=== PATIENT | female | born 1935 | race Caucasian/White ===

== ENCOUNTER 2016-09-21 14:35 | Inpatient (IN) ==
[2016-09-21 16:53] LABS: Basophils % 0.1 %; Hematocrit 48.9 % (35.3-44.9); Hemoglobin 15.7 g/dL (11.5-15.4); Immature Granulocytes % 0.4 % (0-4); Lymphocytes % 6.4 %; Mean Corpuscular HGB Conc 32.1 g/dL (31.6-35.5); Mean Corpuscular Hemoglobin 30.1 pg (28.0-33.3); Mean Corpuscular Volume 93.7 fL (83.0-100.0); Mean Platelet Volume 11.6 fL (9.4-12.4); Monocytes # 0.9 K/mcL (0.0-1.3); Monocytes % 5.7 %; Neutrophils # 13.6 K/mcL (1.6-8.9); Platelet Count 300 K/mcL (140-400); Red Blood Count 5.22 M/mcL (3.82-4.97); Red Cell Distribution Width 12.5 % (11.5-14.5); Segmented Neutrophils % 87.4 %
[2016-09-21 17:05] LABS: Alanine Aminotransferase 31 Units/L (0-55); Albumin/Globulin Ratio 0.9 (1.1-2.2); Alkaline Phosphatase 131 Units/L (38-126); Aspartate Amino Transferase 26 Units/L (5-34); BUN/Creatinine Ratio 26 (6-26); Bilirubin,Total 0.5 mg/dL (0.2-1.2); Blood Urea Nitrogen 65 mg/dL (7-20); Calcium 9.6 mg/dL (8.6-10.8); Carbon Dioxide 22 mEq/L (19-29); Chloride 93 mEq/L (98-109); Globulin 4.4 g/dL (2.4-3.5); Osmolality,Calculated 332 (280-300); Potassium 4.6 mEq/L (3.5-4.5); Sodium 135 mEq/L (136-145); Total Protein 8.4 g/dL (6.0-8.3); eGFR For African Americans 22 (> 60); eGFR For Non-African Americans 18 (> 60)
[2016-09-21 17:10] LABS: Glucose 706 mg/dL (70-99)
--- NOTE | 2016-09-21 17:17 | Emergency Department Note ---
Disposition Clinical Impression: Hyperglycemia, Dehydration, Falls frequently, Ketonemia Disposition: Admitted As Inpatient Condition: Fair Referrals: Umm Whitt CNP [Primary Care Provider] - Forms: ED Satisfaction Letter Time of Disposition: 18:54 General Adult HPI - General Chief complaint: ED Recheck/Abnormal Lab/Rx Stated complaint: high BG Time Seen by Provider: 09/21/16 15:05 Source: patient, family Mode of arrival: ambulatory Limitations: no limitations Nursing Notes Reviewed: Yes Vital Signs Reviewed: Yes - History of Present Illness HPI Narrative: 80 -year-old female presents emergency room for elevated blood sugar and confusion. Patient has a history of a stroke which left her with moments of confusion. She was apparently found in her kitchen lying on the floor by her daughter. It was unknown exactly how long she had been there. She is unable to tell me. She denies any head or neck injuries. She denies any focal motor or sensory deficits. She normally uses a walker however her walker was in her bedroom. There was urine on the floor from her. Her blood sugar was checked at home by her daughter and it read high on the glucometer. Patient denies any chest pain or shortness of breath. No other complaints at this time. Patient is a DNR per the daughter. Onset (ago): unknown Pain Scale: 0 Improves with: nothing Worsens with: nothing Associated symptoms: Reports: confusion Treatments Prior to Arrival: none - Related Data Home Medications Medication Instructions Recorded Confirmed Allopurinol [Zyloprim] 100 mg PO DAILY 07/08/15 07/08/15 Amlodipine [Norvasc] 5 mg PO DAILY 07/08/15 07/08/15 Aspirin Enteric Coated [Aspirin EC] 81 mg PO DAILY 07/08/15 07/08/15 Cetirizine HCl [Zyrtec] 5 mg PO DAILY 07/08/15 07/08/15 Diphenoxylate/Atropine [Lomotil] 1 - 2 each PO QID PRN 07/08/15 07/08/15 Escitalopram [Lexapro] 20 mg PO DAILY 07/08/15 07/08/15 Fluticasone Propionate Nasal 50 mcg NS DAILY PRN 07/08/15 07/08/15 [Flonase] Insulin DETEMIR [Levemir] 60 units SQ HS 07/08/15 07/08/15 Insulin Lispro Protamin/Lispro 18 unit SQ TID 07/08/15 07/08/15 [Humalog Mix 75-25 Kwikpen] Levothyroxine [Synthroid] 50 mcg PO DAILY 07/08/15 07/08/15 Lisinopril [Zestril] 10 mg PO DAILY 07/08/15 07/08/15 Lovastatin [Mevacor] 40 mg PO DAILY 07/08/15 07/08/15 Montelukast [Singulair] 10 mg PO DAILY 07/08/15 07/08/15 Omeprazole [PriLOSEC] 40 mg PO DAILY 07/08/15 07/08/15 TraMADol [Ultram] 50 mg PO Q6HR PRN 07/08/15 07/08/15 Previous Rx's Medication Instructions Recorded TraMADol [Ultram] 50 mg PO Q6HR #30 tablet 07/11/15 Allergies Allergy/AdvReac Type Severity Reaction Status Date / Time clarithromycin [From Biaxin] Allergy Rash Verified 09/21/16 14:44 Penicillins Allergy Rash Verified 09/21/16 14:44 All systems ED: reviewed and negative except as stated. Constitutional: Reports: as per HPI Eyes: Reports: as per HPI ENT ED: Reports: as per HPI Cardiovascular: Reports: as per HPI Respiratory: Reports: as per HPI Gastrointestinal: Reports: as per HPI Genitourinary: Reports: as per HPI Musculoskeletal: Reports: as per HPI Integumentary: Reports: as per HPI Neurological: Reports: as per HPI Psychiatric: Reports: as per HPI Endocrine: Reports: as per HPI Hematological/Lymphatic: Reports: as per HPI Allergic/Immunologic: Reports: as per HPI Past Medical History - Past Medical History Medical history: Reports: arthritis, diabetes, hyperlipidemia, hypertension Psychiatric history: Reports: no psych history PHARMACY OPERATIONS COORDINATOR history: Reports: no PHARMACY OPERATIONS COORDINATOR history - Social History Smoking Status: Never smoker Smokeless Tobacco Status: No Alcohol use: Reports: none Drug use: Reports: none Physical Exam - General General appearance: alert, in no apparent distress - Head Head exam: atraumatic, normocephalic - Eye Eye exam: Present: normal appearance, PERRL, EOMI - ENT ENT exam: normal exam - Chest Chest inspection: Present: normal inspection - Respiratory Respiratory exam: Present: normal lung sounds bilaterally. Absent: respiratory distress - Cardiovascular Cardiovascular exam: Present: regular rate, normal rhythm - Abdominal Exam Abdominal exam: Present: soft, Non-Tender, normal bowel sounds - Expanded Lower Extremity Exam Hip/Pelvis exam: Present: normal inspection, full ROM. Absent: tenderness, swelling, abrasion Upper leg exam: Present: normal inspection - Neurological Exam Neurological exam: Present: alert, oriented X3, CN II-XII intact. Absent: motor sensory deficit - Psychiatric Psychiatric exam: Present: normal affect, normal mood - Skin Skin exam: Present: warm, dry, intact Course Vital Signs Temperature 98.0 F 09/21/16 14:45 Pulse Rate 102 09/21/16 14:45 Respiratory Rate 18 09/21/16 14:45 Blood Pressure 110/75 09/21/16 14:45 O2 Sat by Pulse Oximetry 89 L 09/21/16 14:45 Temperature 98.0 F 09/21/16 14:45 Pulse Rate 93 09/21/16 17:49 Respiratory Rate 16 09/21/16 17:49 Blood Pressure 157/62 09/21/16 17:49 O2 Sat by Pulse Oximetry 94 L 09/21/16 17:49 Oxygen Delivery Oxygen Delivery Room Air Medical Decision Making - MDM Narrative Medical decision making narrative: Patient found to be dehydrated with an elevated glucose level. She has some ketones present but her ABG did not reveal any significant abnormalities. CT of the brain and chest x-ray were also negative. EKG was unremarkable. Patient was started on insulin drip. I spoke with the hospitalist. The patient will be placed to a telemetry bed. Again she does not appear to be in any acidotic state based on her ABG findings. She is hemodynamically stable. - Medical Records Medical records reviewed: Yes I reviewed the patient's medical records. - Lab Data Lab results reviewed: Yes I reviewed the patient's lab results. Result diagrams: 09/21/16 16:34 09/21/16 16:34 Lab Results 09/21/16 09/21/16 09/21/16 Range/Units 14:37 16:34 16:34 WBC 15.6 H (4.3-11.1) K/mcL RBC 5.22 H (3.82-4.97) M/mcL Hgb 15.7 H (11.5-15.4) g/dL Hct 48.9 H (35.3-44.9) % MCV 93.7 (83.0-100.0) fL MCH 30.1 (28.0-33.3) pg MCHC 32.1 (31.6-35.5) g/dL RDW 12.5 (11.5-14.5) % Plt Count 300 (140-400) K/mcL MPV 11.6 (9.4-12.4) fL Immature Gran % 0.4 (0-4) % Seg Neutrophils % 87.4 % Lymphocytes % 6.4 % Monocytes % 5.7 % Eosinophils % 0.0 % Basophils % 0.1 % Neutrophils # 13.6 H (1.6-8.9) K/mcL Lymphocytes # 1.0 (0.6-4.6) K/mcL Monocytes # 0.9 (0.0-1.3) K/mcL Eosinophils # 0.0 (0.0-0.6) K/mcL Basophils # 0.0 (0.0-0.2) K/mcL ABG pH (7.32-7.45) pH Units ABG pCO2 (35-45) mmHg ABG pO2 (85-104) mmHg ABG HCO3 (21-27) mEQ/L ABG Total CO2 (20-26) mEq/L ABG O2 Saturation (95-98) % ABG Base Excess (-2.0 to 3.0) mEq/L Blood Gas Modality Inspired O2 % Sodium 135 L (136-145) mEq/L Potassium 4.6 H (3.5-4.5) mEq/L Chloride 93 L (98-109) mEq/L Carbon Dioxide 22 (19-29) mEq/L BUN 65 H (7-20) mg/dL Creatinine 2.53 H (0.57-1.11) mg/dL Est GFR ( Amer) 22 L (> 60) Est GFR (Non-Af Amer) 18 L (> 60) BUN/Creatinine Ratio 26 (6-26) Glucose 706 H* (70-99) mg/dL POC Glucose > 600 H* (58-89) Calculated Osmolality 332 H (280-300) Calcium 9.6 (8.6-10.8) mg/dL Total Bilirubin 0.5 (0.2-1.2) mg/dL AST 26 (5-34) Units/L ALT 31 (0-55) Units/L Alkaline Phosphatase 131 H (38-126) Units/L Serum Total Protein 8.4 H (6.0-8.3) g/dL Albumin 4.0 (3.5-5.0) g/dL Globulin 4.4 H (2.4-3.5) g/dL Albumin/Globulin Ratio 0.9 L (1.1-2.2) Beta-Hydroxybutyric Acd > 2.00 H (0.02-0.27) mmol/L 09/21/16 Range/Units 18:05 WBC (4.3-11.1) K/mcL RBC (3.82-4.97) M/mcL Hgb (11.5-15.4) g/dL Hct (35.3-44.9) % MCV (83.0-100.0) fL MCH (28.0-33.3) pg MCHC (31.6-35.5) g/dL RDW (11.5-14.5) % Plt Count (140-400) K/mcL MPV (9.4-12.4) fL Immature Gran % (0-4) % Seg Neutrophils % % Lymphocytes % % Monocytes % % Eosinophils % % Basophils % % Neutrophils # (1.6-8.9) K/mcL Lymphocytes # (0.6-4.6) K/mcL Monocytes # (0.0-1.3) K/mcL Eosinophils # (0.0-0.6) K/mcL Basophils # (0.0-0.2) K/mcL ABG pH 7.32 (7.32-7.45) pH Units ABG pCO2 47 H (35-45) mmHg ABG pO2 58 L (85-104) mmHg ABG HCO3 24.2 (21-27) mEQ/L ABG Total CO2 25.6 (20-26) mEq/L ABG O2 Saturation 87 L (95-98) % ABG Base Excess -2.3 L (-2.0 to 3.0) mEq/L Blood Gas Modality RA Inspired O2 21 % Sodium (136-145) mEq/L Potassium (3.5-4.5) mEq/L Chloride (98-109) mEq/L Carbon Dioxide (19-29) mEq/L BUN (7-20) mg/dL Creatinine (0.57-1.11) mg/dL Est GFR ( Amer) (> 60) Est GFR (Non-Af Amer) (> 60) BUN/Creatinine Ratio (6-26) Glucose (70-99) mg/dL POC Glucose (58-89) Calculated Osmolality (280-300) Calcium (8.6-10.8) mg/dL Total Bilirubin (0.2-1.2) mg/dL AST (5-34) Units/L ALT (0-55) Units/L Alkaline Phosphatase (38-126) Units/L Serum Total Protein (6.0-8.3) g/dL Albumin (3.5-5.0) g/dL Globulin (2.4-3.5) g/dL Albumin/Globulin Ratio (1.1-2.2) Beta-Hydroxybutyric Acd (0.02-0.27) mmol/L - Radiology Data Radiology results reviewed: Yes I reviewed the patient's radiology results. Critical Care Time Critical Care Time: Yes (Time spent in medical management as well as hyperglycemia control.) Total Critical Care Time: 40 Attestation: Critical care performed: Time is exclusive of separately billable procedures. Time includes: direct patient care, patient reassessment, coordination of patient care, interpretation of data (laboratory data, radiology data, and respiratory data), review of patient's medical records, medical consultation and documentation of patient care. Procedures included in critical care time:0 Procedures excluded from critical care time: 0
[2016-09-21] MEDS ORDERED: Insulin Regular, Human 100 UNIT/ML IV ONE (17:21)
[2016-09-21] MEDS ORDERED: 0.9 % Sodium Chloride 1,000 ML IVC ONE (17:23)
[2016-09-21] MEDS ORDERED: *HR* Dextrose 50 % in Water (Syg) 50 ML SYRINGE IVP PRN ×2 (17:23→20:47)
[2016-09-21] MEDS ORDERED: Insulin Human Regular 100 UNIT in 0.9 % Sodium Chloride 100 ML IVC SCH (17:30)
[2016-09-21 17:53] LABS: Beta-Hydroxybutyric Acid > 2.00 mmol/L (0.02-0.27)
[2016-09-21 18:15] LABS: ABG Base Excess -2.3 mEq/L (-2.0 to 3.0); ABG HCO3 24.2 mEQ/L (21-27); ABG Oxygen Saturation 87 % (95-98); ABG PCO2 47 mmHg (35-45); ABG PH 7.32 pH Units (7.32-7.45); ABG PO2 58 mmHg (85-104); ABG TCO2 25.6 mEq/L (20-26)
[2016-09-21 18:16] LABS: Blood Gas FiO2 21 %
--- NOTE | 2016-09-21 20:31 | Internal Med History&Physical ---
Date of Encounter: 09/21/16 Time of Encounter: 20:00 Assessment and Plan (1) Toxic metabolic encephalopathy Status: Acute . (2) Delirium due to conditions classified elsewhere Status: Acute . (3) Hyperosmolar non-ketotic state in patient with type 2 diabetes mellitus Status: Acute . (4) SIRS (systemic inflammatory response syndrome) Status: Acute . (5) Acute kidney injury superimposed on CKD Status: Acute . (6) Stage 4 chronic renal impairment associated with type 2 diabetes mellitus Status: Acute . (7) Acute on chronic respiratory failure with hypoxia and hypercapnia Status: Acute . (8) Dehydration Status: Acute . (9) Falls frequently Status: Chronic . (10) Altered mental state Status: Acute . Qualifiers: Altered mental status type: coma Coma depth: Walker coma 13-15 Coma timing: at arrival to emergency department Qualified Code(s): R40.2412 - Zulema coma scale score 13-15, at arrival to emergency department (11) HTN (hypertension) Status: Chronic . Qualifiers: Hypertension type: essential hypertension Qualified Code(s): I10 - Essential (primary) hypertension (12) Uncontrolled diabetes mellitus Status: Acute . Qualifiers: Diabetes mellitus type: type 2 Diabetes mellitus complication status: with unspecified complications Diabetes mellitus terminal press operator insulin use: unspecified prison insulin use status Qualified Code(s): E11.8 - Type 2 diabetes mellitus with unspecified complications; E11.65 - Type 2 diabetes mellitus with hyperglycemia (13) Syncope and collapse Status: Acute . (14) Dementia arising in the senium and presenium Status: Chronic . (15) CVA, old, cognitive deficits Status: Chronic . (16) Dyslipidemia Status: Chronic . (17) Hypothyroidism Status: Chronic . Qualifiers: Hypothyroidism type: acquired Qualified Code(s): E03.9 - Hypothyroidism, unspecified (18) Frailty Status: Chronic . Internal Medicine - H&P: HPI Chief complaint: High blood sugar. Confusion. Admitted From: Emergency Dept Plans for Post Hospital Care: Home History of present illness: Ms. Gregory is a 80 year old female history significant for type III DM, tension, dyslipidemia, osteoarthritis, osteoporosis, CKD III, hyperuricemia/gout, diabetic peripheral neuropathy, h/o old CVA/cognitive impairment, frequent falls , hypothyroidism, glaucoma, GERD, RAD/asthma, allergic rhinitis, depression and anxiety, obesity, nonsmoker. The patient was visited and interviewed and examined. Patient presents with acute illness in the company of family with reports of elevated blood sugar and confusion. Patient was found down by family members in the home setting cannot be quantified due to patient's confusion. Initial clinical findings demonstrate hypoxic hypercapnic respiratory failure, acute kidney injury superimposed on known chronic kidney disease stage 3-4, hyperglycemic hyperosmolar state gout presenting coma. Systemic inflammatory response syndrome criteria are met at the time of admission. This criteria also met at the time of admission but without defined source of infection. Workup and treatments will proceed comprehensively. Cumulative laboratory and radiographic data base will be considered and discussed. Pertinent ancillary medical records including ECW and PCI documentation when available was reviewed and considered. Given the patient's presenting concerns, past medical history, clinical findings and symptoms, she is admitted at this will undergo further evaluation and disposition. Orders were written as per Computerized physician borderer system.......................................................................... .................... Consultative opinion and will be sought as clinical circumstances justify. Pain management needs will be addressed. Laboratory /radiographic data base will be updated as appropriate. Studies include: Cultures of blood and urine and sputum, coags, prolactin, ammonia, UA, cardiac injury panel, BNP, CPK, metabolic and hematologic panel, magnesium, phosphorus, ionized calcium, thyroid panel, lipid profile, A1c, C-peptide, CRP, sedimentation rate, respiratory infection profile, respiratory virus panel, blood gas, lactic acid, serologies, etc. Precautions: Aspiration, fall, delirium protocol/surveillance initiated. Telemetry with continuous hemodynamic monitoring and pulse oximetry initiated. Empiric antibody coverage: Intravenous Rocephin and azithromycin pending culture data. Special studies: CT head, CT chest, chest x-ray, telemetry, EKG, US retroperitoneum. Pulmonary toilet: Incentive spirometry, aerosol bronchodilator, mucolytic, antitussive, supplemental oxygen. Corticosteroid therapy. CPAP/BiPAP supplemental oxygen delivery. Aerosol Mucomyst therapy. Fluid and electrolyte repletion efforts will proceed. Careful attention to fluid balance and renal recovery will be emphasized. Avoidance of nephrotoxic exposure and adverse drug drug interaction in the setting of impaired renal function will be monitored closely. Acute coronary syndrome protocol/surveillance initiated. DVT and PUD prophylaxis initiated: PPI therapy, intermittent pneumatic cuffs. Subcutaneous heparin. Early ambulation will be encouraged. Immunization updates recommended. Influenza and pneumococcal vaccinations as part of ongoing preventative healthcare recommendations strongly recommended. Smoke cessation counseling briefly addressed. Patient is a nonsmoker. Advanced care directive discussion briefly addressed. Patient does declare healthcare restrictions at this time as per POA/daughter. Cardiovascular risk appraisal and cardiovascular risk reduction efforts will be emphasized. Physical /occupational therapy may be counseled to evaluate patient's function capacity and progressive mobility of her circumstances justify. HHS/DKA protocol/surveillance initiated. Insulin drip protocol initiated. Fluid and electrolyte replacement guidelines as per HHS/DKA plan of care initiated. Pending fulfillment of HHS/DKA guidelines: sliding scale/basal/nutritional insulin coverage, ADA dietary restraint and schedule an as-needed basis fingerstick glucose assessments were initiated. Nutrition/diabetes education counseling may be considered as circumstances justify. Outpatient medication schedules will be reviewed confirmed and facilitated as appropriate. Reconciliation of home treatments including adjustment substitutions and reintroduction into the treatment regimen as necessary maintenance therapies for chronic pre-existing medical conditions. Plan of care has been reviewed and discussed in detail with the patient and POA. Questions addressed. Hospital course dictated by clinical findings, treatment response and potential consultative interventions. Patient is a risk for further acute clinical decline due to her age, chief complaints and comorbid conditions. Condition is serious. Prognosis is guarded. CODE STATUS is DNR comfort care arrest. Past Med Surg Social Fam HX - Past Medical History Source: old records reviewed Medical history: arthritis, asthma, CVA, dementia, diabetes, GERD, glaucoma, hyperlipidemia, hypertension, osteoporosis, renal disease, thyroid disease, other (DM peripheral neuropathy. Frequent mechanical falls. Allergic rhinitis. HyperUricemia/gout.) Psychiatric history: anxiety, depression, other - Past Surgical History Surgical History: cholecystectomy, knee replacement, orthopedic, other (ORIF right humerus fracture. Cuff surgery. Carpal tunnel release.), other ( Hemorrhoidectomy.) - Social History Smoking Status: Never smoker Smokeless Tobacco Status: No Alcohol use: none Drug use: none Occupational status: retired Current living situation: With Family Activity Level: Independent ambulation, Uses cane/walker, Mostly sedentary Recent Out of Country Travel Within the Last 8 Weeks: No Exposure or Possible Exposure to Illness During Travel: No Internal Medicine - H&P: Meds Allopurinol [Zyloprim] 100 mg PO DAILY 07/08/15 [History] Aspirin Enteric Coated [Aspirin EC] 81 mg PO DAILY 07/08/15 [History] Cetirizine HCl [Zyrtec] 5 mg PO DAILY 07/08/15 [History] Escitalopram [Lexapro] 20 mg PO DAILY 07/08/15 [History] Fluticasone Propionate Nasal [Flonase] 50 mcg NS DAILY PRN 07/08/15 [History] Insulin DETEMIR [Levemir] 25 units SQ HS 07/08/15 [History] Levothyroxine [Synthroid] 50 mcg PO QAM 07/08/15 [History] Montelukast [Singulair] 10 mg PO DAILY 07/08/15 [History] Omeprazole [PriLOSEC] 40 mg PO DAILY 07/08/15 [History] TraMADol [Ultram] 50 mg PO Q6HR PRN 07/08/15 [History] Amlodipine Besylate 10 mg PO DAILY 09/21/16 [History] Atorvastatin [Lipitor] 40 mg PO HS 09/21/16 [History] Brimonidine Tartrate/Timolol [Combigan 0.2%-0.5% Eye Drops] 1 drop BOTH EYES BID 09/21/16 [History] Insulin LISPRO [Humalog Kwikpen U-100] 18 unit SQ TIDWM 09/21/16 [History] Lisinopril 2.5 mg PO DAILY 09/21/16 [History] Allergies clarithromycin [From Biaxin] Allergy (Verified 09/21/16 14:44) Rash Penicillins Allergy (Verified 09/21/16 14:44) Rash ROS unobtainable: due to mental status All Systems PM: A 10-system review of systems was performed and is negative for pertinent findings except as documented above in the HPI. - Constitutional Constitutional: as per HPI - EENT Eyes: as per HPI Ears: as per HPI Nose, mouth and throat: as per HPI - Cardiovascular Cardiovascular ROS IM: as per HPI - Respiratory Respiratory: as per HPI - Gastrointestinal Gastrointestinal: as per HPI - Genitourinary Genitourinary: as per HPI - Musculoskeletal Musculoskeletal ROS IM: as per HPI - Integumentary Integumentary IM: as per HPI - Neurological Neurological ROS: as per HPI - Psychiatric Psychiatric: as per HPI - Endocrine Endocrine IM: as per HPI - Hematologic/Lymphatic Hematologic/Lymphatic: as per HPI - Allergic/Immunologic Allergic/Immunologic: as per HPI - Constitutional Vitals: Temp Pulse Resp BP Pulse Ox 98.0 F 87 16 138/70 95 09/21/16 14:45 09/21/16 19:31 09/21/16 19:54 09/21/16 19:54 09/21/16 19:31 General appearance: Present: A&O X 2, mild distress, obese. Absent: cooperative , answers questions appropriately - Head Head exam: Present: atraumatic, normocephalic - Eye Eye exam: Present: EOMI, PERRL, conjuntiva pink, sclera anicteric Pupils: Present: normal accommodation, PERRL - ENT ENT exam: Present: mucous membranes moist, normal oropharynx - Neck Neck exam general surgery: Present: supple, trachea midline. Absent: lymphadenopathy - Respiratory Respiratory exam: Present: decreased breath sounds, CTAB. Absent: accessory muscle use, rales, rhonchi, wheezes - Cardiovascular Cardiovascular exam: Present: distant heart sounds, RRR, +S1, +S2. Absent: diastolic murmur, gallop, rubs, systolic murmur - GI/Abdominal GI/Abdominal exam: Present: normal bowel sounds, soft, no peritoneal signs. Absent: distended, tenderness - Extremities Exam Extremities exam: Present: warm, radial pulses palpable and symetrical. Absent : calf tenderness, cyanotic, pedal edema - Neurological Exam Neurological exam: Present: alert, altered, CN II-XII intact, oriented X3, no focal deficits. Absent: pronater drift, facial droop, speech deficit - Expanded Neurological Exam Neurological exam expanded: Present: inattentive, protecting the airway. Absent : expressive aphasia, receptive aphasia Patient oriented to: Present: person, place. Absent: time Speech: Present: garbled Coma Scale Eye Opening: To Voice Coma Scale Motor Response: Obeys Commands Coma Scale Verbal Response: Confused Coma Scale Total: 13 - Psychiatric Psychiatric exam: Present: flat affect - Skin Skin exam: Present: dry, intact Internal Med - H&P Results - Labs CBC & Chem 7: 03/09/17 05:17 09/24/16 05:17 - Impressions Vital Signs Temp Pulse Resp BP Pulse Ox 09/21/16 20:46 98.8 F 91 16 120/73 92 L 09/21/16 19:54 16 138/70 09/21/16 19:31 87 16 124/87 95 09/21/16 17:49 93 16 157/62 94 L 09/21/16 14:45 98.0 F 102 18 110/75 89 L Intake and Output 09/21/16 09/21/16 09/21/16 07:59 15:59 23:59 Intake Total 1012 / 1012 Balance 1012 / 1012 Intake: IV Fluids 1012 / 1012 0.9 % Sodium Chloride 1, 1000 / 1000 000 ML @ 3750 mls/hr IVC .Q16M ONE Rx#:[id number] HumuLIN R 100 UNIT In 0. 12 / 12 9 % Sodium Chloride 100 ML @ 6 UNIT/HR 6.06 mls/ hr IVC CONT [facility] Rx#: [id number] Other: Weight 68.039 kg 83.5 kg Blood Glucose* 319 Patient Weight 09/21/16 23:59 Weight 83.5 kg Short CBC 09/21/16 Range/Units 16:34 WBC 15.6 H (4.3-11.1) K/mcL Hgb 15.7 H (11.5-15.4) g/dL Hct 48.9 H (35.3-44.9) % Plt Count 300 (140-400) K/mcL Neutrophils # 13.6 H (1.6-8.9) K/mcL BMP 09/21/16 Range/Units 16:34 Sodium 135 L (136-145) mEq/L Potassium 4.6 H (3.5-4.5) mEq/L Chloride 93 L (98-109) mEq/L Carbon Dioxide 22 (19-29) mEq/L BUN 65 H (7-20) mg/dL Creatinine 2.53 H (0.57-1.11) mg/dL Glucose 706 H* (70-99) mg/dL Calcium 9.6 (8.6-10.8) mg/dL Liver Function 09/21/16 Range/Units 16:34 Total Bilirubin 0.5 (0.2-1.2) mg/dL AST 26 (5-34) Units/L ALT 31 (0-55) Units/L Alkaline Phosphatase 131 H (38-126) Units/L Albumin 4.0 (3.5-5.0) g/dL 09/21/16 18:05 ABG pH 7.32 ABG pCO2 47 H ABG pO2 58 L ABG HCO3 24.2 ABG Total CO2 25.6 ABG O2 Saturation 87 L ABG Base Excess -2.3 L Abnormal lab results WBC 15.6 K/mcL (4.3-11.1) H 09/21/16 16:34 RBC 5.22 M/mcL (3.82-4.97) H 09/21/16 16:34 Hgb 15.7 g/dL (11.5-15.4) H 09/21/16 16:34 Hct 48.9 % (35.3-44.9) H 09/21/16 16:34 Neutrophils # 13.6 K/mcL (1.6-8.9) H 09/21/16 16:34 ABG pCO2 47 mmHg (35-45) H 09/21/16 18:05 ABG pO2 58 mmHg (85-104) L 09/21/16 18:05 ABG O2 Saturation 87 % (95-98) L 09/21/16 18:05 ABG Base Excess -2.3 mEq/L (-2.0 to 3.0) L 09/21/16 18:05 Sodium 135 mEq/L (136-145) L 09/21/16 16:34 Potassium 4.6 mEq/L (3.5-4.5) H 09/21/16 16:34 Chloride 93 mEq/L (98-109) L 09/21/16 16:34 BUN 65 mg/dL (7-20) H 09/21/16 16:34 Creatinine 2.53 mg/dL (0.57-1.11) H 09/21/16 16:34 Est GFR ( Amer) 22 (> 60) L 09/21/16 16:34 Est GFR (Non-Af Amer) 18 (> 60) L 09/21/16 16:34 Glucose 706 mg/dL (70-99) H* 09/21/16 16:34 POC Glucose 319 (58-89) H 09/21/16 20:28 Calculated Osmolality 332 (280-300) H 09/21/16 16:34 Alkaline Phosphatase 131 Units/L (38-126) H 09/21/16 16:34 Serum Total Protein 8.4 g/dL (6.0-8.3) H 09/21/16 16:34 Globulin 4.4 g/dL (2.4-3.5) H 09/21/16 16:34 Albumin/Globulin Ratio 0.9 (1.1-2.2) L 09/21/16 16:34 Beta-Hydroxybutyric Acd > 2.00 mmol/L (0.02-0.27) H 09/21/16 16:34 Allergies Allergy/AdvReac Type Severity Reaction Status Date / Time clarithromycin [From Biaxin] Allergy Rash Verified 09/21/16 14:44 Penicillins Allergy Rash Verified 09/21/16 14:44 Laboratory Results WBC 15.6 K/mcL (4.3-11.1) H 09/21/16 16:34 RBC 5.22 M/mcL (3.82-4.97) H 09/21/16 16:34 Hgb 15.7 g/dL (11.5-15.4) H 09/21/16 16:34 Hct 48.9 % (35.3-44.9) H 09/21/16 16:34 MCV 93.7 fL (83.0-100.0) 09/21/16 16:34 MCH 30.1 pg (28.0-33.3) 09/21/16 16:34 MCHC 32.1 g/dL (31.6-35.5) 09/21/16 16:34 RDW 12.5 % (11.5-14.5) 09/21/16 16:34 Plt Count 300 K/mcL (140-400) 09/21/16 16:34 MPV 11.6 fL (9.4-12.4) 09/21/16 16:34 Immature Gran % 0.4 % (0-4) 09/21/16 16:34 Seg Neutrophils % 87.4 % 09/21/16 16:34 Lymphocytes % 6.4 % 09/21/16 16:34 Monocytes % 5.7 % 09/21/16 16:34 Eosinophils % 0.0 % 09/21/16 16:34 Basophils % 0.1 % 09/21/16 16:34 Neutrophils # 13.6 K/mcL (1.6-8.9) H 09/21/16 16:34 Lymphocytes # 1.0 K/mcL (0.6-4.6) 09/21/16 16:34 Monocytes # 0.9 K/mcL (0.0-1.3) 09/21/16 16:34 Eosinophils # 0.0 K/mcL (0.0-0.6) 09/21/16 16:34 Basophils # 0.0 K/mcL (0.0-0.2) 09/21/16 16:34 ABG pH 7.32 pH Units (7.32-7.45) 09/21/16 18:05 ABG pCO2 47 mmHg (35-45) H 09/21/16 18:05 ABG pO2 58 mmHg (85-104) L 09/21/16 18:05 ABG HCO3 24.2 mEQ/L (21-27) 09/21/16 18:05 ABG Total CO2 25.6 mEq/L (20-26) 09/21/16 18:05 ABG O2 Saturation 87 % (95-98) L 09/21/16 18:05 ABG Base Excess -2.3 mEq/L (-2.0 to 3.0) L 09/21/16 18:05 Blood Gas Modality RA 09/21/16 18:05 Inspired O2 21 % 09/21/16 18:05 Sodium 135 mEq/L (136-145) L 09/21/16 16:34 Potassium 4.6 mEq/L (3.5-4.5) H 09/21/16 16:34 Chloride 93 mEq/L (98-109) L 09/21/16 16:34 Carbon Dioxide 22 mEq/L (19-29) 09/21/16 16:34 BUN 65 mg/dL (7-20) H 09/21/16 16:34 Creatinine 2.53 mg/dL (0.57-1.11) H 09/21/16 16:34 Est GFR ( Amer) 22 (> 60) L 09/21/16 16:34 Est GFR (Non-Af Amer) 18 (> 60) L 09/21/16 16:34 BUN/Creatinine Ratio 26 (6-26) 09/21/16 16:34 Glucose 706 mg/dL (70-99) H* 09/21/16 16:34 POC Glucose 319 (58-89) H 09/21/16 20:28 Calculated Osmolality 332 (280-300) H 09/21/16 16:34 Calcium 9.6 mg/dL (8.6-10.8) 09/21/16 16:34 Total Bilirubin 0.5 mg/dL (0.2-1.2) 09/21/16 16:34 AST 26 Units/L (5-34) 09/21/16 16:34 ALT 31 Units/L (0-55) 09/21/16 16:34 Alkaline Phosphatase 131 Units/L (38-126) H 09/21/16 16:34 Serum Total Protein 8.4 g/dL (6.0-8.3) H 09/21/16 16:34 Albumin 4.0 g/dL (3.5-5.0) 09/21/16 16:34 Globulin 4.4 g/dL (2.4-3.5) H 09/21/16 16:34 Albumin/Globulin Ratio 0.9 (1.1-2.2) L 09/21/16 16:34 Beta-Hydroxybutyric Acd > 2.00 mmol/L (0.02-0.27) H 09/21/16 16:34 Impressions Chest X-Ray 09/21/16 16:44 IMPRESSION: 1. No acute radiographic finding in the chest. D/ / Praveen Cuevas MD / Praveen Cuevas MD Interpreting Provider: Praveen Cuevas MD Head CT 09/21/16 16:44 IMPRESSION: No acute intracranial abnormality. D/ / Mor Thacker MD / Mor Thacker MD Interpreting Provider: Mor Thacker MD - Attending Attestation Allergies clarithromycin [From Biaxin] Allergy (Verified 09/21/16 14:44) Rash Penicillins Allergy (Verified 09/21/16 14:44) Rash Home Medications Medication Instructions Recorded Confirmed Type Allopurinol [Zyloprim] 100 mg PO DAILY 07/08/15 09/21/16 History Aspirin Enteric Coated [Aspirin EC] 81 mg PO DAILY 07/08/15 09/21/16 History Cetirizine HCl [Zyrtec] 5 mg PO DAILY 07/08/15 09/21/16 History Escitalopram [Lexapro] 20 mg PO DAILY 07/08/15 09/21/16 History Fluticasone Propionate Nasal 50 mcg NS DAILY PRN 07/08/15 09/21/16 History [Flonase] Insulin DETEMIR [Levemir] 25 units SQ HS 07/08/15 09/21/16 History Levothyroxine [Synthroid] 50 mcg PO QAM 07/08/15 09/21/16 History Montelukast [Singulair] 10 mg PO DAILY 07/08/15 09/21/16 History Omeprazole [PriLOSEC] 40 mg PO DAILY 07/08/15 09/21/16 History TraMADol [Ultram] 50 mg PO Q6HR PRN 07/08/15 09/21/16 History Amlodipine Besylate 10 mg PO DAILY 09/21/16 09/21/16 History Atorvastatin [Lipitor] 40 mg PO HS 09/21/16 09/21/16 History Brimonidine Tartrate/Timolol 1 drop BOTH EYES BID 09/21/16 09/21/16 History [Combigan 0.2%-0.5% Eye Drops] Insulin LISPRO [Humalog Kwikpen 18 unit SQ TIDWM 09/21/16 09/21/16 History U-100] Lisinopril 2.5 mg PO DAILY 09/21/16 09/21/16 History Medications Discontinued Medications Acetaminophen (Tylenol) 650 mg PO Q6HR PRN PRN Reason: Mild Pain (1-3) Stop: 03/23/17 20:48 Allopurinol (Zyloprim) 100 mg PO DAILY [facility] Stop: 03/24/17 09:01 Last Admin: 09/24/16 08:16 Dose: 100 mg Amlodipine Besylate (Norvasc) 10 mg PO DAILY [facility] Stop: 03/24/17 09:01 Last Admin: 09/24/16 08:16 Dose: 10 mg Aspirin (Aspirin Ec) 81 mg PO DAILY [facility] Stop: 03/24/17 09:01 Last Admin: 09/24/16 08:16 Dose: 81 mg Atorvastatin Calcium (Lipitor) 40 mg PO HS [facility] Stop: 03/24/17 21:01 Last Admin: 09/23/16 20:34 Dose: 40 mg Dextrose/Water (Dextrose 50% (Syg)) 25 ml IVP ONCE PRN PRN Reason: Hypoglycemia Stop: 09/22/16 17:24 Dextrose/Water (Dextrose 50% (Syg)) 25 ml IVP Q15MIN PRN PRN Reason: Hypoglycemia Stop: 03/23/17 20:48 Last Admin: 09/23/16 16:36 Dose: 25 ml Dextrose/Water (Dextrose 50% (Syg)) 25 ml IVP AD PRN PRN Reason: Hypoglycemia Stop: 03/24/17 08:47 Docusate Sodium (Colace) 100 mg PO BID PRN PRN Reason: Constipation Stop: 03/23/17 20:48 Escitalopram Oxalate (Lexapro) 20 mg PO DAILY [facility] Stop: 03/24/17 09:01 Last Admin: 09/24/16 08:16 Dose: 20 mg Fluconazole (Diflucan) 150 mg PO ONCE ONE Stop: 09/22/16 12:44 Last Admin: 09/22/16 14:10 Dose: 150 mg Fluticasone Propionate (Flonase) 50 mcg NS DAILY PRN; Protocol PRN Reason: Allergy Symptoms Stop: 03/24/17 08:46 Glucagon (Glucagen) 1 mg IM ONCE PRN PRN Reason: Hypoglycemia Stop: 03/24/17 08:47 Glucose (Gluctose) 15 gm PO ONCE PRN PRN Reason: Hypoglycemia Stop: 03/24/17 08:47 Last Admin: 09/22/16 20:44 Dose: 15 gm Glucose (Gluctose) 30 gm PO ONCE PRN PRN Reason: Hypoglycemia Stop: 03/24/17 08:47 Heparin Sodium (Porcine) (Heparin) 5,000 unit SQ Q12HCO [facility] Stop: 03/24/17 18:01 Last Admin: 09/24/16 06:29 Dose: 5,000 unit Sodium Chloride (0.9 % Sodium Chloride) 1,000 mls @ 3,750 mls/hr IVC .Q16M ONE Stop: 09/21/16 17:38 Last Infusion: 09/21/16 19:00 Dose: 0 mls/hr Insulin Human Regular 100 unit (/ Sodium Chloride) 101 mls @ 6.06 mls/hr IVC CONT [facility]; 6 UNIT/HR PRN Reason: Protocol Stop: 03/23/17 17:31 Last Titration: 09/22/16 09:38 Dose: 9.1 unit/hr, 9.2 mls/hr Sodium Chloride (0.9 % Sodium Chloride) 1,000 mls @ 500 mls/hr IV TITR [facility] PRN Reason: Protocol Stop: 03/23/17 21:01 Last Admin: 09/22/16 06:05 Dose: Sodium Chloride (0.9 % Sodium Chloride) 1,000 mls @ 750 mls/hr IV TITR [facility] PRN Reason: Protocol Stop: 03/23/17 21:01 Last Admin: 09/22/16 06:05 Dose: Potassium Chloride/Sodium Chloride (Kcl 20 Meq In 0.9% Sodium Chloride) 20 meq in 1,000 mls @ 500 mls/hr IVC .Q2H [facility] PRN Reason: Protocol Stop: 03/23/17 21:01 Last Admin: 09/22/16 06:10 Dose: Potassium Chloride/Sodium Chloride (Kcl 20 Meq In 0.9% Sodium Chloride) 20 meq in 1,000 mls @ 750 mls/hr IVC .Q1H20M [facility] PRN Reason: Protocol Stop: 03/23/17 21:01 Last Admin: 09/22/16 06:11 Dose: Dextrose/Sodium Chloride (D5% And 0.45% Nacl 1000 Ml Bag) 1,000 mls @ 250 mls/ hr IVC .Q4H PRN PRN Reason: SEE COMMENTS Stop: 03/23/17 20:48 Potassium Chloride/Dextrose/Sod Cl (Kcl 20meq In D5%-0.45 Nacl) 20 meq in 1, 000 mls @ 250 mls/hr IVC .Q4H PRN PRN Reason: SEE COMMENTS Stop: 03/23/17 20:48 Last Infusion: 09/22/16 09:39 Dose: 0 mls/hr Sodium Chloride (0.9 % Sodium Chloride) 1,000 mls @ 75 mls/hr IVC .[id number] [facility] Stop: 03/24/17 09:01 Last Admin: 09/24/16 04:57 Dose: 75 mls/hr Dextrose (Dextrose 5%) 1,000 mls @ 100 mls/hr IV CONT PRN PRN Reason: HYPOGLYCEMIA Stop: 03/24/17 08:47 Dextrose (Dextrose 5%) 1,000 mls @ 75 mls/hr IVC .[id number] [facility] Stop: 03/25/17 17:01 Last Infusion: 09/23/16 20:31 Dose: 0 mls/hr Sodium Phosphate 30 mmol/ (Dextrose) 110 mls @ 16 mls/hr IVPB ONCE ONE Stop: 09/24/16 14:21 Last Admin: 09/24/16 09:32 Dose: 16 mls/hr Insulin Detemir (Levemir) 25 unit SQ DAILY [facility] Stop: 03/24/17 08:47 Insulin Detemir (Levemir) 25 unit SQ DAILY [facility] Stop: 03/24/17 09:01 Last Admin: 09/22/16 09:42 Dose: 25 unit Insulin Detemir (Levemir) 25 unit SQ DAILY [facility] Stop: 03/24/17 09:01 Last Admin: 09/24/16 08:17 Dose: 25 unit Insulin Human Lispro (Humalog) 5 units SQ ONCE PRN PRN Reason: SEE COMMENTS Stop: 03/23/17 20:48 Insulin Human Lispro (Humalog) 18 units SQ TIDWM [facility] Stop: 03/24/17 12:01 Last Admin: 09/24/16 08:17 Dose: 18 units Insulin Human Lispro (Humalog) 0 units SQ HS [facility] PRN Reason: Protocol Stop: 03/24/17 21:01 Last Admin: 09/23/16 20:34 Dose: Insulin Human Lispro (Humalog) 0 units SQ TIDAC [facility] PRN Reason: Protocol Stop: 03/24/17 11:31 Last Admin: 09/24/16 08:17 Dose: 8 units Insulin Human Regular (Humulin R) 8 unit 0.14 unit/kg (8 unit) IV ONCE ONE Stop: 09/21/16 17:22 Last Admin: 09/21/16 17:43 Dose: 8 unit Levothyroxine Sodium (Synthroid) 50 mcg PO QAM [facility] Stop: 03/24/17 09:01 Last Admin: 09/22/16 09:33 Dose: 50 mcg Levothyroxine Sodium (Synthroid) 50 mcg PO 0630 [facility] Stop: 03/24/17 09:01 Last Admin: 09/24/16 06:28 Dose: 50 mcg Lisinopril (Zestril) 2.5 mg PO DAILY [facility] Stop: 03/24/17 09:01 Last Admin: 09/24/16 08:16 Dose: 2.5 mg Loratadine (Claritin) 5 mg PO DAILY [facility] Stop: 03/24/17 09:01 Last Admin: 09/24/16 08:16 Dose: 5 mg Montelukast Sodium (Singulair) 10 mg PO DAILY [facility] Stop: 03/24/17 09:01 Last Admin: 09/24/16 08:16 Dose: 10 mg Morphine Sulfate (Morphine Sulfate) 2 mg IVP Q4HR PRN PRN Reason: Severe Pain (7-10) Stop: 03/23/17 20:48 Naloxone HCl (Narcan) 0.4 mg IVP Q2MIN PRN PRN Reason: Opioid Reversal Stop: 03/23/17 20:48 Non-Formulary Medication (Insulin Detemir) 25 units SQ DAILY [facility] Stop: 03/24/17 08:47 Omeprazole (Prilosec) 20 mg PO DAILY@0630 [facility] PRN Reason: Protocol Stop: 03/24/17 06:31 Last Admin: 09/22/16 06:11 Dose: Not Given Non-Admin Reason: NPO Omeprazole (Prilosec) 40 mg PO DAILY@0630 [facility] HEALTH Stop: 03/24/17 09:01 Last Admin: 09/24/16 06:28 Dose: 40 mg Ondansetron HCl (Zofran) 4 mg IVP Q8HR PRN PRN Reason: Nausea And Vomiting Stop: 03/23/17 20:48 Oxycodone HCl (Roxicodone) 5 mg PO Q6HR PRN PRN Reason: Moderate Pain (4-6) Stop: 03/23/17 20:48 Pantoprazole Sodium (Protonix) 40 mg IVP NOW STA Stop: 09/21/16 20:48 Last Admin: 09/21/16 22:11 Dose: 40 mg Pharmacy Profile Note (Patient Taking Own Medication) 1 each OP BID [facility] Stop: 03/24/17 09:01 Last Admin: 09/24/16 08:18 Dose: Microbiology Results 09/21/16 21:55 Peripheral Venipuncture Blood Culture - Final No growth. 09/21/16 21:52 Peripheral Venipuncture Blood Culture - Final No growth. 09/22/16 01:17 Urine,Clean Catch Urine Culture - Final Culture is grossly mixed, unable to properly interpret. Please repeat if indicated. Nursing Notes 09/24/16 09:48 Nurse Note by Lillie Fan called report to [facility] respit care Initialized on 09/24/16 09:48 - END OF NOTE 09/23/16 20:41 Nurse Note by Edd Avila 2030 BLOOD SUGAR 191. D5W CHANGED TO 0.9 RUNNING AT 75 ML/HR. Initialized on 09/23/16 20:41 - END OF NOTE 09/23/16 16:53 Nurse Note by Khalida Zepeda PATIENT BS AT APPROXIMATELY 1530 WAS 67. PATIENT GIVEN OJ AND CRACKERS WITH PEANUT BUTTER. PATIENT BS CHECKED AGAIN AT APPROXIMATELY 1615 WAS 62. PRN DEXTROSE GIVEN AT THAT TIME BY THIS RN. DR. MAYEN NOTIFIED AND NEW ORDERS OBTAINED. PATIENT BS WILL BE MONITORED CLOSELY. Initialized on 09/23/16 16:53 - END OF NOTE 09/23/16 12:49 Nurse Note by Khalida Zepeda THIS RN AND ART ARRIAGA GAVE PATIENT A BATH AND CHANGED ALL BED LINENS. WHILE BATHING PATIENT THIS RN ASSESSED PATIENT BUTTOCK AND VAGINA. YESTERDAY, THIS RN NOTICED THE AREA TO BE REDDENED WITH SMALL BUMPS AND YEAST BUILDUP. DR. MAYEN WAS MADE AWARE AND MEDICATION WAS ORDERED AND ADMINISTERED TO THE PATIENT. THE AREA LOOKED THE SAME IT DID YESTERDAY. THIS RN WILL NOTIFY DR. MAYEN. Initialized on 09/23/16 12:49 - END OF NOTE 09/22/16 20:47 Nurse Note by Elis Castillo Notified by PUG MACHINE OPERATOR that patient's accucheck result was 68. Patient alert. Repositioned in bed to prevent aspiration when drinking and given 236mL orange juice with administration of 15Gm Gluctose gel. Plan to recheck in approximately 1 hour. Initialized on 09/22/16 20:47 - END OF NOTE 09/22/16 14:22 Medicare IM by Anisha Felder. Patient is confused. No family available. Important Message from Medicare reviewed with Anna Gregory and patient verbalized understanding. Original notice provided to patient and signed copy placed on chart. Initialized on 09/22/16 14:22 - END OF NOTE 09/22/16 14:00 Historic Clothing And Costume Maker Note by Mami Ochoa Per request from [facility] send referral packet to [facility]. Initialized on 09/22/16 14:00 - END OF NOTE 09/22/16 12:06 Social Work Note by Samuel Stephens Addendum entered by Samuel Stephens 09/22/16 13:09: Application for [facility] given to daughter. Informed SW received a tc from Moses at [facility] and they won't be conducting an on-site. Informed daughter that she will need to present to [facility] to pay for seven days upfront for the respite room. Once pt. is on their campus, they will work towards pt. being moved into AL. Original Note: Initial assessment completed. Pt. is not safe to discharge home. Discussed discharge options. Pt. would benefit with short term rehab. Discussed Medicare guidelines. Daughter states pt. has been to [facility] in the past and they would like her to return there. SW spoke with Moses at [facility] regarding assisted living rooms. He states they have several available. They would not be able to place pt. from hospital to the AL d/t the paperwork that needs completed. SW inquired about the respite room. Per Moses, it is currently open. Cost is $175 a day. Informed that pt. would need to be ambulatory in order for her to be accepted into the Respite room. SW met with pt. and daughter. Discussed the fact if pt. doesn't have a qualifying stay, the Respite maybe an alternative. Then they could work to get pt. into one of their AL apartments. Daughter is agreeable. Spoke with Moses at [facility]. He states there is an application that needs completed and an assessment p/t accepting pt. into respite. Moses to fax application. SW requested staff attempt to walk pt. Her walker was in the room. Pt. needed assistance getting off the bed, but then ambulated 10 feet to the bathroom with SBA. Initialized on 09/22/16 12:06 - END OF NOTE 09/22/16 11:47 Clinical Case Mgmt by Peggy Puga Clinical Case Mgmt Is Patient Currently Being No Followed By Navigation What Brought The Patient To unresponsive. The Hospital Does The Patient Have A Yes Physician That They See Regularly Regular Provider Umm Whitt Patient Referred To [id number] No Does The PT Have Any Trouble No Getting To Their Appointment Are There Any Meds The PT Has No Trouble Getting Filled Monthly Home Environment Homeless Resides With Alone Does The Patient Plan To No: Placement Return Home Is There A Caregiver At Home No To Help The Patient Support Services Lifeline Walker Now Is The Patient Appropriate For Yes Case Management Is The Patient Appropriate For Yes Social Work Consult Referrals Made No Is The PT Appropriate For No Navigation Or Payer Case Mgmt Social work is working with the patient and family on possible placement. Initialized on 09/22/16 11:47 - END OF NOTE 09/22/16 08:09 Nurse Note by Khalida Zepeda THIS RN CHECKED PATIENT'S GLUCOSE FOR THE 729. ADJUSTMENTS WERE MADE TO INSULIN GTT. ALL CHANGES VERIFIED BY ART GLASER. ALTHOUGH PATIENT GAP IS CLOSED, PATIENT IS NOT ALERT ENOUGH TO EAT. THIS RN WILL RETURN TO PATIENT ROOM TO COMPLETE FULL ASSESSMENT. Initialized on 09/22/16 08:09 - END OF NOTE 09/21/16 21:02 Nurse Note by Wolf Carter Pt to this unit from ED at appx 2015. Pt is consistent with ED RN report (Lavell) , who stated that pt can't always recall person, place, time. Pt is unable to state time, but does tell her name and that she is at "[facility]". Initialized on 09/21/16 21:02 - END OF NOTE 09/21/16 18:55 Transport Report by Pablo Perez Date: 09/21/16 Transport Method: Ambulatory clarithromycin [From Biaxin] Allergy (Verified 09/21/16 14:44) Rash Penicillins Allergy (Verified 09/21/16 14:44) Rash Resuscitation Status 09/21/16 16:44 EKG [ECG 12 lead ECG] [ECG] Stat Mode Of Transportation: Ambulatory Reason For Exam: fall Order Doctor: Felipe Mead Exam Performed At:: [facility]: Mental Status: Fall Risk: Isolation: Nurse Required for Transport: No ___ Yes Limb Restrictions: No ___ Yes Behavioral issue/Risk for Elopement: No ___ Yes Telemetry Room Notification: Destination: MRI XRAY STRESS ULTRASOUND CT DIALYSIS ENDO OTHER: Depart Time: Nurse: Transporter: Arrive Time: Received by: ___ Return Time: Nurse: Transporter: ] Initialized on 09/21/16 18:55 - END OF NOTE Orders 09/21/16 14:37 POC Glucometer Test [POC] Routine 09/21/16 16:34 Beta-Hydroxybutyric Acid Stat Comment: Specimen: Send someone from the department to collect Complete Blood Count [HEME] Stat Comment: Specimen: Send someone from the department to collect Comprehensive Metabolic Panel Stat Comment: Specimen: Send someone from the department to collect 09/21/16 16:44 CT head/brain wo con [CT] Stat Mode Of Transportation: Ambulatory Reason For Exam: confusion Order Doctor: Felipe Mead Exam Performed At:: [facility] Allergic to Contrast: No XR chest 1V portable [XR] Stat Mode Of Transportation: Ambulatory Reason For Exam: falls Order Doctor: Felipe Mead Exam Performed At:: [facility] Additional Notes/Special Instructions: 26 EKG [ECG 12 lead ECG] [ECG] Stat Mode Of Transportation: Ambulatory Reason For Exam: fall Order Doctor: Felipe Mead Exam Performed At:: [facility] 09/21/16 16:45 12 lead ECG assessment [RC] NOW 09/21/16 17:21 Insulin Human Regular [HumuLIN R] 8 unit IV ONCE ONE 09/21/16 17:23 0.9 % Sodium Chloride 1,000 ml IVC 3,750 mls/hr Dextrose 50 % in Water (Syg) [Dextrose 50% (Syg)] 25 ml IVP ONCE PRN 09/21/16 17:25 Glucose, blood poc measurement [RC] Q1H Notify provider [RC] .PRN Physician Instructions: 09/21/16 17:30 Insulin Human Regular [HumuLIN R] 100 unit 0.9 % Sodium Chloride 100 ml IVC CONT 09/21/16 18:05 ABG [Arterial Blood Gas] Stat Comment: Specimen: Send someone from the department to collect 09/21/16 18:[address] Stat Comment: Reason for Visit: hyperglycemia 09/21/16 19:26 POC Glucometer Test [POC] Routine 09/21/16 20:28 POC Glucometer Test [POC] Routine 09/21/16 20:47 Cardiac monitoring [RC] .ONCE Continuous pulse oximetry [RC] .ONCE Comment: Vital Signs Assessment [RC] Q4H Acetaminophen [Tylenol] 650 mg PO Q6HR PRN D5% in 0.45% NACL [D5% And 0.45% Nacl 1000 Ml Bag] 1,000 ml IVC 250 mls/hr D5% in 0.45% NACL w KCl [KCl 20mEq IN D5%-0.45 NACL] 20 meq in 1,000 ml IVC 250 mls/hr Dextrose 50 % in Water (Syg) [Dextrose 50% (Syg)] 25 ml IVP Q15MIN PRN Docusate [Colace] 100 mg PO BID PRN Insulin LISPRO [HumaLOG] 5 units SQ ONCE PRN Morphine [Morphine Sulfate] 2 mg IVP Q4HR PRN Naloxone [Narcan] 0.4 mg IVP Q2MIN PRN Ondansetron [Zofran] 4 mg IVP Q8HR PRN OxyCODONE Immed Rel [Roxicodone] 5 mg PO Q6HR PRN Pantoprazole [Protonix] 40 mg IVP NOW STA Resuscitation Status: Active [RES] Routine Comment: Resuscitation Status: DNR-Comfort Care-Arrest 09/21/16 20:49 Assess IV fluid Rate [RC] q3h Peripheral IV [RC] CONT DKA/HHS Adjustment as Directed Routine Comment: 09/21/16 20:50 Placement to Observation Routine Physician Instructions: Reason for Visit: High blood sugar out of control. Confusion. Is VTE Prophylaxis Indicated?: Yes 09/21/16 20:52 Bed rest [RC] .CONT Physician Instructions: Bed rest w/bedside commode [RC] .PRN Continuous pulse oximetry [RC] CONT Comment: Measure intake and output [RC] QSHIFT Measure weight [RC] DAILY Oxygen via nasal cannula Nasal Cannula 2 lpm Comment: Titrate O2 to main O2 sat greater than: 92% 09/21/16 20:53 RT has an order or consult [RC] NOW 09/21/16 21:00 0.9 % Sodium Chloride 1,000 ml IV TITR 0.9 % Sodium Chloride 1,000 ml IV TITR 0.9 % Sodium Chloride w KCl [KCl 20 mEq in 0.9% Sodium Chloride] 20 meq in 1, 000 ml IVC 500 mls/hr 0.9 % Sodium Chloride w KCl [KCl 20 mEq in 0.9% Sodium Chloride] 20 meq in 1, 000 ml IVC 750 mls/hr Up with Assist Daily Comment: Physician Instructions: 09/21/16 21:08 Aspiration precautions [RC] .WITH MEALS Falls precautions [RC] ONCE 09/21/16 21:27 POC Glucometer Test [POC] Routine 09/21/16 21:52 Activated Partial Thrombo Time [COAG] Routine Comment: Specimen: Send someone from the department to collect Basic Metabolic Panel Routine Magnesium Q4H Comment: Specimen: Send someone from the department to collect Phosphorous Q4H Comment: Specimen: Send someone from the department to collect Prothrombin Time INR [COAG] Routine Comment: Specimen: Send someone from the department to collect Troponin I Q6H Comment: Specimen: Send someone from the department to collect Venous Blood Gas Q4H Comment: Specimen: Send someone from the department to collect 09/21/16 21:55 Culture,Blood [BC] Stat Comment: ANNIE Source: Peripheral Venipuncture Quantity: 2 Specimen: Send someone from the department to collect Specimen Description: 09/21/16 22:06 Lactic Acid ([facility] Only) Q4H Comment: Specimen: Send someone from the department to collect Osmolality Routine Comment: Specimen: Send someone from the department to collect 09/21/16 22:33 POC Glucometer Test [POC] Routine 09/21/16 23:31 POC Glucometer Test [POC] Routine 09/21/16 Dinner Diabetic Diet Diet Modifications: 09/22/16 00:36 POC Glucometer Test [POC] Routine 09/22/16 01:16 Basic Metabolic Panel Q4H Comment: Specimen: Send someone from the department to collect Lactic Acid ([facility] Only) Q4H Comment: Specimen: Send someone from the department to collect Magnesium Q4H Comment: Specimen: Send someone from the department to collect Phosphorous Q4H Comment: Specimen: Send someone from the department to collect Venous Blood Gas Q4H Comment: Specimen: Send someone from the department to collect 09/22/16 01:17 Culture,Urine [RM] Stat ANNIE Source: [facility] [place] Specimen Description: UA w. reflex culture [Urinalysis Reflex Cult & Micro] [URIN] Stat Comment: Specimen: Has been collected 09/22/16 01:38 POC Glucometer Test [POC] Routine 09/22/16 02:33 POC Glucometer Test [POC] Routine 09/22/16 03:34 POC Glucometer Test [POC] Routine 09/22/16 04:24 B-Type Natriuretic Peptide AM 0400 Comment: Specimen: Send someone from the department to collect Basic Metabolic Panel Q4H Comment: Specimen: Send someone from the department to collect C-Peptide AM 0400 Comment: Specimen: Send someone from the department to collect Hgb A1C AM 0400 Comment: Specimen: Send someone from the department to collect Lactic Acid ([facility] Only) Q4H Comment: Specimen: Send someone from the department to collect Lipid Panel AM 0400 Comment: Specimen: Send someone from the department to collect Magnesium Q4H Comment: Specimen: Send someone from the department to collect Phosphorous Q4H Comment: Specimen: Send someone from the department to collect Thyroid Stimulating Hormone AM 0400 Comment: Specimen: Send someone from the department to collect Troponin I Q6H Comment: Specimen: Send someone from the department to collect Venous Blood Gas Q4H Comment: Specimen: Send someone from the department to collect 09/22/16 04:36 POC Glucometer Test [POC] Routine 09/22/16 05:44 POC Glucometer Test [POC] Routine 09/22/16 06:30 Omeprazole [PriLOSEC] 20 mg PO DAILY@0630 09/22/16 06:49 POC Glucometer Test [POC] Routine 09/22/16 07:13 Consult to Payroll Benefits Clerk [CONS] Routine Reason for SW Consult: evaluate d/c planning Patient has worsening dementia not a safe discharge to home (lives alone). Needs placement 09/22/16 07:50 POC Glucometer Test [POC] Routine 09/22/16 08:35 POC Glucometer Test [POC] Routine 09/22/16 08:45 Fluticasone Propionate Nasal [Flonase] 50 mcg NS DAILY PRN 09/22/16 08:46 Glucose, blood poc measurement [RC] .ACHS Hypoglycemia Treatment Orders [RC] .once Notify provider [RC] once Physician Instructions: D5% in Water [Dextrose 5%] 1,000 ml IV CONT Dextrose 50 % in Water (Syg) [Dextrose 50% (Syg)] 25 ml IVP AD PRN Dextrose Gel [Gluctose] 15 gm PO ONCE PRN Dextrose Gel [Gluctose] 30 gm PO ONCE PRN Glucagon, Human Recombinant [GlucaGen] 1 mg IM ONCE PRN Insulin DETEMIR 25 units SQ DAILY How will this medication be supplied?: Pharmacy to Subsitute 09/22/16 09:00 0.9 % Sodium Chloride 1,000 ml IVC 75 mls/hr Allopurinol [Zyloprim] 100 mg PO DAILY Amlodipine [Norvasc] 10 mg PO DAILY How will this medication be supplied?: Pharmacy to Subsitute Aspirin Enteric Coated [Aspirin EC] 81 mg PO DAILY Escitalopram [Lexapro] 20 mg PO DAILY Insulin DETEMIR [Levemir] 25 unit SQ DAILY Levothyroxine [Synthroid] 50 mcg PO QAM Lisinopril [Zestril] 2.5 mg PO DAILY How will this medication be supplied?: Pharmacy to Subsitute Loratadine [Claritin] 5 mg PO DAILY How will this medication be supplied?: Pharmacy to Subsitute Montelukast [Singulair] 10 mg PO DAILY Omeprazole [PriLOSEC] 40 mg PO DAILY@0630 How will this medication be supplied?: Pharmacy to Subsitute Patient Taking Own Medication 1 each OP BID How will this medication be supplied?: Pharmacy to Subsitute 09/22/16 09:15 Basic Metabolic Panel Q4H Comment: Specimen: Send someone from the department to collect Creatine Kinase Routine Lactic Acid ([facility] Only) Q4H Comment: Specimen: Send someone from the department to collect Magnesium Routine Phosphorous Routine Troponin I Q6H Comment: Specimen: Send someone from the department to collect Venous Blood Gas Q4H Comment: Specimen: Send someone from the department to collect 09/22/16 09:28 POC Glucometer Test [POC] Routine 09/22/16 11:30 Insulin LISPRO [HumaLOG] See Protocol SQ TIDAC 09/22/16 11:41 POC Glucometer Test [POC] Routine 09/22/16 12:00 Insulin LISPRO [HumaLOG] 18 units SQ TIDWM How will this medication be supplied?: Pharmacy to Subsitute 09/22/16 12:41 Admit as Inpatient Stat Estimated Total Length of Stay (Days): 3 Plans for Post Hospital Care: Home Inpatient Status Required: Still symptomatic/not sta Explain each choice below Explain Concerns: admitted with HHS/DKA Potential Adverse Outcome: Further Morbidity Is VTE Prophylaxis Indicated?: Yes 09/22/16 12:43 Fluconazole [Diflucan] 150 mg PO ONCE ONE 09/22/16 13:35 Basic Metabolic Panel Q4H Comment: Specimen: Send someone from the department to collect Lactic Acid ([facility] Only) Q4H Comment: Specimen: Send someone from the department to collect Magnesium Q4H Comment: Specimen: Send someone from the department to collect Phosphorous Q4H Comment: Specimen: Send someone from the department to collect Venous Blood Gas Q4H Comment: Specimen: Send someone from the department to collect 09/22/16 16:12 POC Glucometer Test [POC] Routine 09/22/16 18:00 Heparin 5,000 unit SQ Q12HCO 09/22/16 20:34 POC Glucometer Test [POC] Routine 09/22/16 21:00 Atorvastatin [Lipitor] 40 mg PO HS Insulin LISPRO [HumaLOG] See Protocol SQ HS Up with Assist Daily Comment: Physician Instructions: 09/22/16 21:43 POC Glucometer Test [POC] Routine 09/22/16 Breakfast ADA [Diabetic Diet] Diet Modifications: 09/23/16 03:25 Basic Metabolic Panel AM 0400 Comment: Specimen: Send someone from the department to collect Complete Blood Count [HEME] AM 0400 Comment: Specimen: Send someone from the department to collect Creatine Kinase AM 0400 Comment: Specimen: Send someone from the department to collect Magnesium AM 0400 Comment: Specimen: Send someone from the department to collect Phosphorous AM 0400 Comment: Specimen: Send someone from the department to collect 09/23/16 06:30 Levothyroxine [Synthroid] 50 mcg PO 0630 09/23/16 07:01 POC Glucometer Test [POC] Routine 09/23/16 09:00 Insulin DETEMIR [Levemir] 25 unit SQ DAILY Insulin DETEMIR [Levemir] 25 unit SQ DAILY 09/23/16 09:27 Lactic Acid ([facility] Only) Stat Comment: Specimen: Send someone from the department to collect 09/23/16 11:12 POC Glucometer Test [POC] Routine 09/23/16 15:44 POC Glucometer Test [POC] Routine 09/23/16 16:28 POC Glucometer Test [POC] Routine 09/23/16 17:00 D5% in Water [Dextrose 5%] 1,000 ml IVC 75 mls/hr 09/23/16 17:14 POC Glucometer Test [POC] Routine 09/23/16 17:52 POC Glucometer Test [POC] Routine 09/23/16 18:21 POC Glucometer Test [POC] Routine 09/23/16 20:12 POC Glucometer Test [POC] Routine 09/23/16 21:00 Up with Assist Daily Comment: Physician Instructions: 09/24/16 05:17 Basic Metabolic Panel AM 0400 Comment: Specimen: Send someone from the department to collect Complete Blood Count [HEME] AM 0400 Comment: Specimen: Send someone from the department to collect Magnesium AM 0400 Comment: Specimen: Send someone from the department to collect Phosphorous AM 0400 Comment: Specimen: Send someone from the department to collect 09/24/16 07:29 Sodium Phosphate 30 mmol D5% in Water [Dextrose 5%] 100 ml IVPB ONCE 09/24/16 07:44 POC Glucometer Test [POC] Routine 09/24/16 09:02 Discharge Order [DISCHARGE] Routine Comment: Vital Signs Temp Pulse Resp BP Pulse Ox 09/24/16 08:26 65 09/24/16 07:45 98.0 F 66 16 149/75 90 L 09/24/16 04:45 70 09/24/16 04:44 98.2 F 66 16 139/77 95 09/24/16 00:40 76 09/24/16 00:24 98.2 F 70 16 140/77 94 L 09/23/16 20:08 98.1 F 70 14 126/90 93 L 09/23/16 20:00 70 09/23/16 15:35 97.5 F L 66 12 130/60 95 09/23/16 12:39 78 09/23/16 11:00 97.9 F 64 16 134/69 97 09/23/16 09:24 62 09/23/16 06:58 97.7 F 61 16 105/86 96 09/23/16 04:09 62 09/23/16 03:22 98.3 F 60 14 110/55 97 09/23/16 00:35 66 09/22/16 23:33 98.5 F 62 16 106/66 95 09/22/16 19:33 70 09/22/16 19:21 98.8 F 71 16 109/52 96 09/22/16 17:21 98.1 F 76 18 160/65 98 09/22/16 12:02 71 09/22/16 10:44 97.8 F 72 18 126/63 96 09/22/16 09:40 65 09/22/16 06:49 97.7 F 65 14 126/95 97 09/22/16 03:47 97.4 F L 72 16 128/85 96 09/22/16 00:34 97.4 F L 77 16 120/64 96 09/21/16 20:46 98.8 F 91 16 120/73 92 L 09/21/16 19:54 16 138/70 09/21/16 19:31 87 16 124/87 95 09/21/16 17:49 93 16 157/62 94 L 09/21/16 14:45 98.0 F 102 18 110/75 89 L Laboratory Results 09/21/16 09/21/16 09/21/16 Range/Units 14:37 16:34 16:34 WBC 15.6 H (4.3-11.1) K/mcL RBC 5.22 H (3.82-4.97) M/mcL Hgb 15.7 H (11.5-15.4) g/dL Hct 48.9 H (35.3-44.9) % MCV 93.7 (83.0-100.0) fL MCH 30.1 (28.0-33.3) pg MCHC 32.1 (31.6-35.5) g/dL RDW 12.5 (11.5-14.5) % Plt Count 300 (140-400) K/mcL MPV 11.6 (9.4-12.4) fL Immature Gran % 0.4 (0-4) % Seg Neutrophils % 87.4 % Lymphocytes % 6.4 % Monocytes % 5.7 % Eosinophils % 0.0 % Basophils % 0.1 % Neutrophils # 13.6 H (1.6-8.9) K/mcL Lymphocytes # 1.0 (0.6-4.6) K/mcL Monocytes # 0.9 (0.0-1.3) K/mcL Eosinophils # 0.0 (0.0-0.6) K/mcL Basophils # 0.0 (0.0-0.2) K/mcL PT (9.4-12.1) Seconds INR APTT (26.0-36.0) Seconds ABG pH (7.32-7.45) pH Units ABG pCO2 (35-45) mmHg ABG pO2 (85-104) mmHg ABG HCO3 (21-27) mEQ/L ABG Total CO2 (20-26) mEq/L ABG O2 Saturation (95-98) % ABG Base Excess (-2.0 to 3.0) mEq/L VBG pH (7.32-7.42) pH Units VBG pCO2 (41-51) mmHg VBG pO2 (25-40) mmHg VBG HCO3 (21-27) mEq/L Blood Gas Modality Inspired O2 % Sodium 135 L (136-145) mEq/L Potassium 4.6 H (3.5-4.5) mEq/L Chloride 93 L (98-109) mEq/L Carbon Dioxide 22 (19-29) mEq/L BUN 65 H (7-20) mg/dL Creatinine 2.53 H (0.57-1.11) mg/dL Est GFR ( Amer) 22 L (> 60) Est GFR (Non-Af Amer) 18 L (> 60) BUN/Creatinine Ratio 26 (6-26) Glucose 706 H* (70-99) mg/dL POC Glucose > 600 H* (58-89) Est Mean Plasma Glucose mg/dl Hemoglobin A1c ( - 5.6) % C-Peptide (0.8-3.5) ng/mL Serum Osmolality (280-300) mOsm/kg Calculated Osmolality 332 H (280-300) Lactic Acid (0.5-2.2) mmol/L Calcium 9.6 (8.6-10.8) mg/dL Phosphorus (2.3-4.7) mg/dL Magnesium (1.6-2.6) mg/dL Total Bilirubin 0.5 (0.2-1.2) mg/dL AST 26 (5-34) Units/L ALT 31 (0-55) Units/L Alkaline Phosphatase 131 H (38-126) Units/L Creatine Kinase (29-168) Units/L Troponin I (0-0.03) ng/mL B-Natriuretic Peptide (0-100) pg/mL Serum Total Protein 8.4 H (6.0-8.3) g/dL Albumin 4.0 (3.5-5.0) g/dL Globulin 4.4 H (2.4-3.5) g/dL Albumin/Globulin Ratio 0.9 L (1.1-2.2) Triglycerides (< 150) mg/dL Cholesterol (< 200) mg/dL LDL Cholesterol, Calc (0-99) mg/dL VLDL Cholesterol, Calc (< 31) mg/dL HDL Cholesterol (40-59) mg/dL Cholesterol/HDL Ratio (0-4.9) Beta-Hydroxybutyric Acd > 2.00 H (0.02-0.27) mmol/L TSH (0.350-4.840) mcIU/mL Urine Color (Yellow) Urine Clarity (Clear) Urine pH (5.0-8.0) pH Units Ur Specific [place] (1.010-1.025) Urine Protein (Neg-Trace) mg/dL Urine Glucose (UA) (Normal) mg/dL Urine Ketones (Negative) mg/dL Urine Blood (Negative) Urine Nitrite (Negative) Urine Bilirubin (Negative) Urine Urobilinogen (Normal) mg/dL Ur Leukocyte Esterase (Negative) Urine Microscopic RBC (0-3) per hpf Urine Microscopic WBC (0-3) per hpf Ur Squamous Epith Cells (None-Few) per lpf Urine Bacteria (None-Few) per hpf Hyaline Casts Ur Culture Indicated? (NO) 09/21/16 09/21/16 09/21/16 Range/Units 18:05 19:26 20:28 WBC (4.3-11.1) K/mcL RBC (3.82-4.97) M/mcL Hgb (11.5-15.4) g/dL Hct (35.3-44.9) % MCV (83.0-100.0) fL MCH (28.0-33.3) pg MCHC (31.6-35.5) g/dL RDW (11.5-14.5) % Plt Count (140-400) K/mcL MPV (9.4-12.4) fL Immature Gran % (0-4) % Seg Neutrophils % % Lymphocytes % % Monocytes % % Eosinophils % % Basophils % % Neutrophils # (1.6-8.9) K/mcL Lymphocytes # (0.6-4.6) K/mcL Monocytes # (0.0-1.3) K/mcL Eosinophils # (0.0-0.6) K/mcL Basophils # (0.0-0.2) K/mcL PT (9.4-12.1) Seconds INR APTT (26.0-36.0) Seconds ABG pH 7.32 (7.32-7.45) pH Units ABG pCO2 47 H (35-45) mmHg ABG pO2 58 L (85-104) mmHg ABG HCO3 24.2 (21-27) mEQ/L ABG Total CO2 25.6 (20-26) mEq/L ABG O2 Saturation 87 L (95-98) % ABG Base Excess -2.3 L (-2.0 to 3.0) mEq/L VBG pH (7.32-7.42) pH Units VBG pCO2 (41-51) mmHg VBG pO2 (25-40) mmHg VBG HCO3 (21-27) mEq/L Blood Gas Modality RA Inspired O2 21 % Sodium (136-145) mEq/L Potassium (3.5-4.5) mEq/L Chloride (98-109) mEq/L Carbon Dioxide (19-29) mEq/L BUN (7-20) mg/dL Creatinine (0.57-1.11) mg/dL Est GFR ( Amer) (> 60) Est GFR (Non-Af Amer) (> 60) BUN/Creatinine Ratio (6-26) Glucose (70-99) mg/dL POC Glucose 418 H* 319 H (58-89) Est Mean Plasma Glucose mg/dl Hemoglobin A1c ( - 5.6) % C-Peptide (0.8-3.5) ng/mL Serum Osmolality (280-300) mOsm/kg Calculated Osmolality (280-300) Lactic Acid (0.5-2.2) mmol/L Calcium (8.6-10.8) mg/dL Phosphorus (2.3-4.7) mg/dL Magnesium (1.6-2.6) mg/dL Total Bilirubin (0.2-1.2) mg/dL AST (5-34) Units/L ALT (0-55) Units/L Alkaline Phosphatase (38-126) Units/L Creatine Kinase (29-168) Units/L Troponin I (0-0.03) ng/mL B-Natriuretic Peptide (0-100) pg/mL Serum Total Protein (6.0-8.3) g/dL Albumin (3.5-5.0) g/dL Globulin (2.4-3.5) g/dL Albumin/Globulin Ratio (1.1-2.2) Triglycerides (< 150) mg/dL Cholesterol (< 200) mg/dL LDL Cholesterol, Calc (0-99) mg/dL VLDL Cholesterol, Calc (< 31) mg/dL HDL Cholesterol (40-59) mg/dL Cholesterol/HDL Ratio (0-4.9) Beta-Hydroxybutyric Acd (0.02-0.27) mmol/L TSH (0.350-4.840) mcIU/mL Urine Color (Yellow) Urine Clarity (Clear) Urine pH (5.0-8.0) pH Units Ur Specific [place] (1.010-1.025) Urine Protein (Neg-Trace) mg/dL Urine Glucose (UA) (Normal) mg/dL Urine Ketones (Negative) mg/dL Urine Blood (Negative) Urine Nitrite (Negative) Urine Bilirubin (Negative) Urine Urobilinogen (Normal) mg/dL Ur Leukocyte Esterase (Negative) Urine Microscopic RBC (0-3) per hpf Urine Microscopic WBC (0-3) per hpf Ur Squamous Epith Cells (None-Few) per lpf Urine Bacteria (None-Few) per hpf Hyaline Casts Ur Culture Indicated? (NO) 09/21/16 09/21/16 09/21/16 Range/Units 21:27 21:52 21:52 WBC (4.3-11.1) K/mcL RBC (3.82-4.97) M/mcL Hgb (11.5-15.4) g/dL Hct (35.3-44.9) % MCV (83.0-100.0) fL MCH (28.0-33.3) pg MCHC (31.6-35.5) g/dL RDW (11.5-14.5) % Plt Count (140-400) K/mcL MPV (9.4-12.4) fL Immature Gran % (0-4) % Seg Neutrophils % % Lymphocytes % % Monocytes % % Eosinophils % % Basophils % % Neutrophils # (1.6-8.9) K/mcL Lymphocytes # (0.6-4.6) K/mcL Monocytes # (0.0-1.3) K/mcL Eosinophils # (0.0-0.6) K/mcL Basophils # (0.0-0.2) K/mcL PT 11.1 (9.4-12.1) Seconds INR 1.0 APTT 23.8 L (26.0-36.0) Seconds ABG pH (7.32-7.45) pH Units ABG pCO2 (35-45) mmHg ABG pO2 (85-104) mmHg ABG HCO3 (21-27) mEQ/L ABG Total CO2 (20-26) mEq/L ABG O2 Saturation (95-98) % ABG Base Excess (-2.0 to 3.0) mEq/L VBG pH (7.32-7.42) pH Units VBG pCO2 (41-51) mmHg VBG pO2 (25-40) mmHg VBG HCO3 (21-27) mEq/L Blood Gas Modality Inspired O2 % Sodium 141 (136-145) mEq/L Potassium 3.6 D (3.5-4.5) mEq/L Chloride 101 (98-109) mEq/L Carbon Dioxide 24 (19-29) mEq/L BUN 61 H (7-20) mg/dL Creatinine 2.07 H (0.57-1.11) mg/dL Est GFR ( Amer) 28 L (> 60) Est GFR (Non-Af Amer) 23 L (> 60) BUN/Creatinine Ratio 29 H (6-26) Glucose 195 H (70-99) mg/dL POC Glucose 201 H (58-89) Est Mean Plasma Glucose mg/dl Hemoglobin A1c ( - 5.6) % C-Peptide (0.8-3.5) ng/mL Serum Osmolality (280-300) mOsm/kg Calculated Osmolality 315 H (280-300) Lactic Acid (0.5-2.2) mmol/L Calcium 9.0 (8.6-10.8) mg/dL Phosphorus 4.1 (2.3-4.7) mg/dL Magnesium 2.4 (1.6-2.6) mg/dL Total Bilirubin (0.2-1.2) mg/dL AST (5-34) Units/L ALT (0-55) Units/L Alkaline Phosphatase (38-126) Units/L Creatine Kinase (29-168) Units/L Troponin I (0-0.03) ng/mL B-Natriuretic Peptide (0-100) pg/mL Serum Total Protein (6.0-8.3) g/dL Albumin (3.5-5.0) g/dL Globulin (2.4-3.5) g/dL Albumin/Globulin Ratio (1.1-2.2) Triglycerides (< 150) mg/dL Cholesterol (< 200) mg/dL LDL Cholesterol, Calc (0-99) mg/dL VLDL Cholesterol, Calc (< 31) mg/dL HDL Cholesterol (40-59) mg/dL Cholesterol/HDL Ratio (0-4.9) Beta-Hydroxybutyric Acd (0.02-0.27) mmol/L TSH (0.350-4.840) mcIU/mL Urine Color (Yellow) Urine Clarity (Clear) Urine pH (5.0-8.0) pH Units Ur Specific [place] (1.010-1.025) Urine Protein (Neg-Trace) mg/dL Urine Glucose (UA) (Normal) mg/dL Urine Ketones (Negative) mg/dL Urine Blood (Negative) Urine Nitrite (Negative) Urine Bilirubin (Negative) Urine Urobilinogen (Normal) mg/dL Ur Leukocyte Esterase (Negative) Urine Microscopic RBC (0-3) per hpf Urine Microscopic WBC (0-3) per hpf Ur Squamous Epith Cells (None-Few) per lpf Urine Bacteria (None-Few) per hpf Hyaline Casts Ur Culture Indicated? (NO) 09/21/16 09/21/16 09/21/16 Range/Units 21:52 21:52 22:06 WBC (4.3-11.1) K/mcL RBC (3.82-4.97) M/mcL Hgb (11.5-15.4) g/dL Hct (35.3-44.9) % MCV (83.0-100.0) fL MCH (28.0-33.3) pg MCHC (31.6-35.5) g/dL RDW (11.5-14.5) % Plt Count (140-400) K/mcL MPV (9.4-12.4) fL Immature Gran % (0-4) % Seg Neutrophils % % Lymphocytes % % Monocytes % % Eosinophils % % Basophils % % Neutrophils # (1.6-8.9) K/mcL Lymphocytes # (0.6-4.6) K/mcL Monocytes # (0.0-1.3) K/mcL Eosinophils # (0.0-0.6) K/mcL Basophils # (0.0-0.2) K/mcL PT (9.4-12.1) Seconds INR APTT (26.0-36.0) Seconds ABG pH (7.32-7.45) pH Units ABG pCO2 (35-45) mmHg ABG pO2 (85-104) mmHg ABG HCO3 (21-27) mEQ/L ABG Total CO2 (20-26) mEq/L ABG O2 Saturation (95-98) % ABG Base Excess (-2.0 to 3.0) mEq/L VBG pH 7.33 (7.32-7.42) pH Units VBG pCO2 50 (41-51) mmHg VBG pO2 46 H (25-40) mmHg VBG HCO3 28.2 H (21-27) mEq/L Blood Gas Modality Inspired O2 % Sodium (136-145) mEq/L Potassium (3.5-4.5) mEq/L Chloride (98-109) mEq/L Carbon Dioxide (19-29) mEq/L BUN (7-20) mg/dL Creatinine (0.57-1.11) mg/dL Est GFR ( Amer) (> 60) Est GFR (Non-Af Amer) (> 60) BUN/Creatinine Ratio (6-26) Glucose (70-99) mg/dL POC Glucose (58-89) Est Mean Plasma Glucose mg/dl Hemoglobin A1c ( - 5.6) % C-Peptide (0.8-3.5) ng/mL Serum Osmolality 328 H (280-300) mOsm/kg Calculated Osmolality (280-300) Lactic Acid (0.5-2.2) mmol/L Calcium (8.6-10.8) mg/dL Phosphorus (2.3-4.7) mg/dL Magnesium (1.6-2.6) mg/dL Total Bilirubin (0.2-1.2) mg/dL AST (5-34) Units/L ALT (0-55) Units/L Alkaline Phosphatase (38-126) Units/L Creatine Kinase (29-168) Units/L Troponin I 0.01 (0-0.03) ng/mL B-Natriuretic Peptide (0-100) pg/mL Serum Total Protein (6.0-8.3) g/dL Albumin (3.5-5.0) g/dL Globulin (2.4-3.5) g/dL Albumin/Globulin Ratio (1.1-2.2) Triglycerides (< 150) mg/dL Cholesterol (< 200) mg/dL LDL Cholesterol, Calc (0-99) mg/dL VLDL Cholesterol, Calc (< 31) mg/dL HDL Cholesterol (40-59) mg/dL Cholesterol/HDL Ratio (0-4.9) Beta-Hydroxybutyric Acd (0.02-0.27) mmol/L TSH (0.350-4.840) mcIU/mL Urine Color (Yellow) Urine Clarity (Clear) Urine pH (5.0-8.0) pH Units Ur Specific [place] (1.010-1.025) Urine Protein (Neg-Trace) mg/dL Urine Glucose (UA) (Normal) mg/dL Urine Ketones (Negative) mg/dL Urine Blood (Negative) Urine Nitrite (Negative) Urine Bilirubin (Negative) Urine Urobilinogen (Normal) mg/dL Ur Leukocyte Esterase (Negative) Urine Microscopic RBC (0-3) per hpf Urine Microscopic WBC (0-3) per hpf Ur Squamous Epith Cells (None-Few) per lpf Urine Bacteria (None-Few) per hpf Hyaline Casts Ur Culture Indicated? (NO) 09/21/16 09/21/16 09/21/16 Range/Units 22:06 22:33 23:31 WBC (4.3-11.1) K/mcL RBC (3.82-4.97) M/mcL Hgb (11.5-15.4) g/dL Hct (35.3-44.9) % MCV (83.0-100.0) fL MCH (28.0-33.3) pg MCHC (31.6-35.5) g/dL RDW (11.5-14.5) % Plt Count (140-400) K/mcL MPV (9.4-12.4) fL Immature Gran % (0-4) % Seg Neutrophils % % Lymphocytes % % Monocytes % % Eosinophils % % Basophils % % Neutrophils # (1.6-8.9) K/mcL Lymphocytes # (0.6-4.6) K/mcL Monocytes # (0.0-1.3) K/mcL Eosinophils # (0.0-0.6) K/mcL Basophils # (0.0-0.2) K/mcL PT (9.4-12.1) Seconds INR APTT (26.0-36.0) Seconds ABG pH (7.32-7.45) pH Units ABG pCO2 (35-45) mmHg ABG pO2 (85-104) mmHg ABG HCO3 (21-27) mEQ/L ABG Total CO2 (20-26) mEq/L ABG O2 Saturation (95-98) % ABG Base Excess (-2.0 to 3.0) mEq/L VBG pH (7.32-7.42) pH Units VBG pCO2 (41-51) mmHg VBG pO2 (25-40) mmHg VBG HCO3 (21-27) mEq/L Blood Gas Modality Inspired O2 % Sodium (136-145) mEq/L Potassium (3.5-4.5) mEq/L Chloride (98-109) mEq/L Carbon Dioxide (19-29) mEq/L BUN (7-20) mg/dL Creatinine (0.57-1.11) mg/dL Est GFR ( Amer) (> 60) Est GFR (Non-Af Amer) (> 60) BUN/Creatinine Ratio (6-26) Glucose (70-99) mg/dL POC Glucose 157 H 211 H (58-89) Est Mean Plasma Glucose mg/dl Hemoglobin A1c ( - 5.6) % C-Peptide (0.8-3.5) ng/mL Serum Osmolality (280-300) mOsm/kg Calculated Osmolality (280-300) Lactic Acid 2.3 H (0.5-2.2) mmol/L Calcium (8.6-10.8) mg/dL Phosphorus (2.3-4.7) mg/dL Magnesium (1.6-2.6) mg/dL Total Bilirubin (0.2-1.2) mg/dL AST (5-34) Units/L ALT (0-55) Units/L Alkaline Phosphatase (38-126) Units/L Creatine Kinase (29-168) Units/L Troponin I (0-0.03) ng/mL B-Natriuretic Peptide (0-100) pg/mL Serum Total Protein (6.0-8.3) g/dL Albumin (3.5-5.0) g/dL Globulin (2.4-3.5) g/dL Albumin/Globulin Ratio (1.1-2.2) Triglycerides (< 150) mg/dL Cholesterol (< 200) mg/dL LDL Cholesterol, Calc (0-99) mg/dL VLDL Cholesterol, Calc (< 31) mg/dL HDL Cholesterol (40-59) mg/dL Cholesterol/HDL Ratio (0-4.9) Beta-Hydroxybutyric Acd (0.02-0.27) mmol/L TSH (0.350-4.840) mcIU/mL Urine Color (Yellow) Urine Clarity (Clear) Urine pH (5.0-8.0) pH Units Ur Specific [place] (1.010-1.025) Urine Protein (Neg-Trace) mg/dL Urine Glucose (UA) (Normal) mg/dL Urine Ketones (Negative) mg/dL Urine Blood (Negative) Urine Nitrite (Negative) Urine Bilirubin (Negative) Urine Urobilinogen (Normal) mg/dL Ur Leukocyte Esterase (Negative) Urine Microscopic RBC (0-3) per hpf Urine Microscopic WBC (0-3) per hpf Ur Squamous Epith Cells (None-Few) per lpf Urine Bacteria (None-Few) per hpf Hyaline Casts Ur Culture Indicated? (NO) 09/22/16 09/22/16 09/22/16 Range/Units 00:36 01:16 01:16 WBC (4.3-11.1) K/mcL RBC (3.82-4.97) M/mcL Hgb (11.5-15.4) g/dL Hct (35.3-44.9) % MCV (83.0-100.0) fL MCH (28.0-33.3) pg MCHC (31.6-35.5) g/dL RDW (11.5-14.5) % Plt Count (140-400) K/mcL MPV (9.4-12.4) fL Immature Gran % (0-4) % Seg Neutrophils % % Lymphocytes % % Monocytes % % Eosinophils % % Basophils % % Neutrophils # (1.6-8.9) K/mcL Lymphocytes # (0.6-4.6) K/mcL Monocytes # (0.0-1.3) K/mcL Eosinophils # (0.0-0.6) K/mcL Basophils # (0.0-0.2) K/mcL PT (9.4-12.1) Seconds INR APTT (26.0-36.0) Seconds ABG pH (7.32-7.45) pH Units ABG pCO2 (35-45) mmHg ABG pO2 (85-104) mmHg ABG HCO3 (21-27) mEQ/L ABG Total CO2 (20-26) mEq/L ABG O2 Saturation (95-98) % ABG Base Excess (-2.0 to 3.0) mEq/L VBG pH 7.26 L (7.32-7.42) pH Units VBG pCO2 63 H (41-51) mmHg VBG pO2 26 (25-40) mmHg VBG HCO3 28.3 H (21-27) mEq/L Blood Gas Modality Inspired O2 % Sodium (136-145) mEq/L Potassium (3.5-4.5) mEq/L Chloride (98-109) mEq/L Carbon Dioxide (19-29) mEq/L BUN (7-20) mg/dL Creatinine (0.57-1.11) mg/dL Est GFR ( Amer) (> 60) Est GFR (Non-Af Amer) (> 60) BUN/Creatinine Ratio (6-26) Glucose (70-99) mg/dL POC Glucose 298 H (58-89) Est Mean Plasma Glucose mg/dl Hemoglobin A1c ( - 5.6) % C-Peptide (0.8-3.5) ng/mL Serum Osmolality (280-300) mOsm/kg Calculated Osmolality (280-300) Lactic Acid (0.5-2.2) mmol/L Calcium (8.6-10.8) mg/dL Phosphorus 4.3 (2.3-4.7) mg/dL Magnesium 2.3 (1.6-2.6) mg/dL Total Bilirubin (0.2-1.2) mg/dL AST (5-34) Units/L ALT (0-55) Units/L Alkaline Phosphatase (38-126) Units/L Creatine Kinase (29-168) Units/L Troponin I (0-0.03) ng/mL B-Natriuretic Peptide (0-100) pg/mL Serum Total Protein (6.0-8.3) g/dL Albumin (3.5-5.0) g/dL Globulin (2.4-3.5) g/dL Albumin/Globulin Ratio (1.1-2.2) Triglycerides (< 150) mg/dL Cholesterol (< 200) mg/dL LDL Cholesterol, Calc (0-99) mg/dL VLDL Cholesterol, Calc (< 31) mg/dL HDL Cholesterol (40-59) mg/dL Cholesterol/HDL Ratio (0-4.9) Beta-Hydroxybutyric Acd (0.02-0.27) mmol/L TSH (0.350-4.840) mcIU/mL Urine Color (Yellow) Urine Clarity (Clear) Urine pH (5.0-8.0) pH Units Ur Specific [place] (1.010-1.025) Urine Protein (Neg-Trace) mg/dL Urine Glucose (UA) (Normal) mg/dL Urine Ketones (Negative) mg/dL Urine Blood (Negative) Urine Nitrite (Negative) Urine Bilirubin (Negative) Urine Urobilinogen (Normal) mg/dL Ur Leukocyte Esterase (Negative) Urine Microscopic RBC (0-3) per hpf Urine Microscopic WBC (0-3) per hpf Ur Squamous Epith Cells (None-Few) per lpf Urine Bacteria (None-Few) per hpf Hyaline Casts Ur Culture Indicated? (NO) 09/22/16 09/22/16 09/22/16 Range/Units 01:16 01:16 01:17 WBC (4.3-11.1) K/mcL RBC (3.82-4.97) M/mcL Hgb (11.5-15.4) g/dL Hct (35.3-44.9) % MCV (83.0-100.0) fL MCH (28.0-33.3) pg MCHC (31.6-35.5) g/dL RDW (11.5-14.5) % Plt Count (140-400) K/mcL MPV (9.4-12.4) fL Immature Gran % (0-4) % Seg Neutrophils % % Lymphocytes % % Monocytes % % Eosinophils % % Basophils % % Neutrophils # (1.6-8.9) K/mcL Lymphocytes # (0.6-4.6) K/mcL Monocytes # (0.0-1.3) K/mcL Eosinophils # (0.0-0.6) K/mcL Basophils # (0.0-0.2) K/mcL PT (9.4-12.1) Seconds INR APTT (26.0-36.0) Seconds ABG pH (7.32-7.45) pH Units ABG pCO2 (35-45) mmHg ABG pO2 (85-104) mmHg ABG HCO3 (21-27) mEQ/L ABG Total CO2 (20-26) mEq/L ABG O2 Saturation (95-98) % ABG Base Excess (-2.0 to 3.0) mEq/L VBG pH (7.32-7.42) pH Units VBG pCO2 (41-51) mmHg VBG pO2 (25-40) mmHg VBG HCO3 (21-27) mEq/L Blood Gas Modality Inspired O2 % Sodium 141 (136-145) mEq/L Potassium 3.7 (3.5-4.5) mEq/L Chloride 101 (98-109) mEq/L Carbon Dioxide 24 (19-29) mEq/L BUN 63 H (7-20) mg/dL Creatinine 2.18 H (0.57-1.11) mg/dL Est GFR ( Amer) 26 L (> 60) Est GFR (Non-Af Amer) 22 L (> 60) BUN/Creatinine Ratio 29 H (6-26) Glucose 205 H (70-99) mg/dL POC Glucose (58-89) Est Mean Plasma Glucose mg/dl Hemoglobin A1c ( - 5.6) % C-Peptide (0.8-3.5) ng/mL Serum Osmolality (280-300) mOsm/kg Calculated Osmolality 316 H (280-300) Lactic Acid 2.3 H (0.5-2.2) mmol/L Calcium 8.6 (8.6-10.8) mg/dL Phosphorus (2.3-4.7) mg/dL Magnesium (1.6-2.6) mg/dL Total Bilirubin (0.2-1.2) mg/dL AST (5-34) Units/L ALT (0-55) Units/L Alkaline Phosphatase (38-126) Units/L Creatine Kinase (29-168) Units/L Troponin I (0-0.03) ng/mL B-Natriuretic Peptide (0-100) pg/mL Serum Total Protein (6.0-8.3) g/dL Albumin (3.5-5.0) g/dL Globulin (2.4-3.5) g/dL Albumin/Globulin Ratio (1.1-2.2) Triglycerides (< 150) mg/dL Cholesterol (< 200) mg/dL LDL Cholesterol, Calc (0-99) mg/dL VLDL Cholesterol, Calc (< 31) mg/dL HDL Cholesterol (40-59) mg/dL Cholesterol/HDL Ratio (0-4.9) Beta-Hydroxybutyric Acd (0.02-0.27) mmol/L TSH (0.350-4.840) mcIU/mL Urine Color Yellow (Yellow) Urine Clarity Cloudy A (Clear) Urine pH 5.5 (5.0-8.0) pH Units Ur Specific [place] 1.026 H (1.010-1.025) Urine Protein Trace (Neg-Trace) mg/dL Urine Glucose (UA) >=1000 H (Normal) mg/dL Urine Ketones Trace H (Negative) mg/dL Urine Blood Large H (Negative) Urine Nitrite Negative (Negative) Urine Bilirubin Large H (Negative) Urine Urobilinogen Normal (Normal) mg/dL Ur Leukocyte Esterase Moderate H (Negative) Urine Microscopic RBC 5-15 H (0-3) per hpf Urine Microscopic WBC 3-5 H (0-3) per hpf Ur Squamous Epith Cells Many H (None-Few) per lpf Urine Bacteria None Seen (None-Few) per hpf Hyaline Casts Test Not Performed Ur Culture Indicated? YES A (NO) 09/22/16 09/22/16 09/22/16 Range/Units 01:38 02:33 03:34 WBC (4.3-11.1) K/mcL RBC (3.82-4.97) M/mcL Hgb (11.5-15.4) g/dL Hct (35.3-44.9) % MCV (83.0-100.0) fL MCH (28.0-33.3) pg MCHC (31.6-35.5) g/dL RDW (11.5-14.5) % Plt Count (140-400) K/mcL MPV (9.4-12.4) fL Immature Gran % (0-4) % Seg Neutrophils % % Lymphocytes % % Monocytes % % Eosinophils % % Basophils % % Neutrophils # (1.6-8.9) K/mcL Lymphocytes # (0.6-4.6) K/mcL Monocytes # (0.0-1.3) K/mcL Eosinophils # (0.0-0.6) K/mcL Basophils # (0.0-0.2) K/mcL PT (9.4-12.1) Seconds INR APTT (26.0-36.0) Seconds ABG pH (7.32-7.45) pH Units ABG pCO2 (35-45) mmHg ABG pO2 (85-104) mmHg ABG HCO3 (21-27) mEQ/L ABG Total CO2 (20-26) mEq/L ABG O2 Saturation (95-98) % ABG Base Excess (-2.0 to 3.0) mEq/L VBG pH (7.32-7.42) pH Units VBG pCO2 (41-51) mmHg VBG pO2 (25-40) mmHg VBG HCO3 (21-27) mEq/L Blood Gas Modality Inspired O2 % Sodium (136-145) mEq/L Potassium (3.5-4.5) mEq/L Chloride (98-109) mEq/L Carbon Dioxide (19-29) mEq/L BUN (7-20) mg/dL Creatinine (0.57-1.11) mg/dL Est GFR ( Amer) (> 60) Est GFR (Non-Af Amer) (> 60) BUN/Creatinine Ratio (6-26) Glucose (70-99) mg/dL POC Glucose 194 H 172 H 123 H (58-89) Est Mean Plasma Glucose mg/dl Hemoglobin A1c ( - 5.6) % C-Peptide (0.8-3.5) ng/mL Serum Osmolality (280-300) mOsm/kg Calculated Osmolality (280-300) Lactic Acid (0.5-2.2) mmol/L Calcium (8.6-10.8) mg/dL Phosphorus (2.3-4.7) mg/dL Magnesium (1.6-2.6) mg/dL Total Bilirubin (0.2-1.2) mg/dL AST (5-34) Units/L ALT (0-55) Units/L Alkaline Phosphatase (38-126) Units/L Creatine Kinase (29-168) Units/L Troponin I (0-0.03) ng/mL B-Natriuretic Peptide (0-100) pg/mL Serum Total Protein (6.0-8.3) g/dL Albumin (3.5-5.0) g/dL Globulin (2.4-3.5) g/dL Albumin/Globulin Ratio (1.1-2.2) Triglycerides (< 150) mg/dL Cholesterol (< 200) mg/dL LDL Cholesterol, Calc (0-99) mg/dL VLDL Cholesterol, Calc (< 31) mg/dL HDL Cholesterol (40-59) mg/dL Cholesterol/HDL Ratio (0-4.9) Beta-Hydroxybutyric Acd (0.02-0.27) mmol/L TSH (0.350-4.840) mcIU/mL Urine Color (Yellow) Urine Clarity (Clear) Urine pH (5.0-8.0) pH Units Ur Specific [place] (1.010-1.025) Urine Protein (Neg-Trace) mg/dL Urine Glucose (UA) (Normal) mg/dL Urine Ketones (Negative) mg/dL Urine Blood (Negative) Urine Nitrite (Negative) Urine Bilirubin (Negative) Urine Urobilinogen (Normal) mg/dL Ur Leukocyte Esterase (Negative) Urine Microscopic RBC (0-3) per hpf Urine Microscopic WBC (0-3) per hpf Ur Squamous Epith Cells (None-Few) per lpf Urine Bacteria (None-Few) per hpf Hyaline Casts Ur Culture Indicated? (NO) 09/22/16 09/22/16 09/22/16 Range/Units 04:24 04:24 04:24 WBC (4.3-11.1) K/mcL RBC (3.82-4.97) M/mcL Hgb (11.5-15.4) g/dL Hct (35.3-44.9) % MCV (83.0-100.0) fL MCH (28.0-33.3) pg MCHC (31.6-35.5) g/dL RDW (11.5-14.5) % Plt Count (140-400) K/mcL MPV (9.4-12.4) fL Immature Gran % (0-4) % Seg Neutrophils % % Lymphocytes % % Monocytes % % Eosinophils % % Basophils % % Neutrophils # (1.6-8.9) K/mcL Lymphocytes # (0.6-4.6) K/mcL Monocytes # (0.0-1.3) K/mcL Eosinophils # (0.0-0.6) K/mcL Basophils # (0.0-0.2) K/mcL PT (9.4-12.1) Seconds INR APTT (26.0-36.0) Seconds ABG pH (7.32-7.45) pH Units ABG pCO2 (35-45) mmHg ABG pO2 (85-104) mmHg ABG HCO3 (21-27) mEQ/L ABG Total CO2 (20-26) mEq/L ABG O2 Saturation (95-98) % ABG Base Excess (-2.0 to 3.0) mEq/L VBG pH (7.32-7.42) pH Units VBG pCO2 (41-51) mmHg VBG pO2 (25-40) mmHg VBG HCO3 (21-27) mEq/L Blood Gas Modality Inspired O2 % Sodium (136-145) mEq/L Potassium (3.5-4.5) mEq/L Chloride (98-109) mEq/L Carbon Dioxide (19-29) mEq/L BUN (7-20) mg/dL Creatinine (0.57-1.11) mg/dL Est GFR ( Amer) (> 60) Est GFR (Non-Af Amer) (> 60) BUN/Creatinine Ratio (6-26) Glucose (70-99) mg/dL POC Glucose (58-89) Est Mean Plasma Glucose mg/dl Hemoglobin A1c ( - 5.6) % C-Peptide (0.8-3.5) ng/mL Serum Osmolality (280-300) mOsm/kg Calculated Osmolality (280-300) Lactic Acid (0.5-2.2) mmol/L Calcium (8.6-10.8) mg/dL Phosphorus (2.3-4.7) mg/dL Magnesium (1.6-2.6) mg/dL Total Bilirubin (0.2-1.2) mg/dL AST (5-34) Units/L ALT (0-55) Units/L Alkaline Phosphatase (38-126) Units/L Creatine Kinase (29-168) Units/L Troponin I 0.01 (0-0.03) ng/mL B-Natriuretic Peptide 20 (0-100) pg/mL Serum Total Protein (6.0-8.3) g/dL Albumin (3.5-5.0) g/dL Globulin (2.4-3.5) g/dL Albumin/Globulin Ratio (1.1-2.2) Triglycerides 212 H (< 150) mg/dL Cholesterol 260 H (< 200) mg/dL LDL Cholesterol, Calc 179 H (0-99) mg/dL VLDL Cholesterol, Calc 42 H (< 31) mg/dL HDL Cholesterol 39 L (40-59) mg/dL Cholesterol/HDL Ratio 6.7 H (0-4.9) Beta-Hydroxybutyric Acd (0.02-0.27) mmol/L TSH (0.350-4.840) mcIU/mL Urine Color (Yellow) Urine Clarity (Clear) Urine pH (5.0-8.0) pH Units Ur Specific [place] (1.010-1.025) Urine Protein (Neg-Trace) mg/dL Urine Glucose (UA) (Normal) mg/dL Urine Ketones (Negative) mg/dL Urine Blood (Negative) Urine Nitrite (Negative) Urine Bilirubin (Negative) Urine Urobilinogen (Normal) mg/dL Ur Leukocyte Esterase (Negative) Urine Microscopic RBC (0-3) per hpf Urine Microscopic WBC (0-3) per hpf Ur Squamous Epith Cells (None-Few) per lpf Urine Bacteria (None-Few) per hpf Hyaline Casts Ur Culture Indicated? (NO) 09/22/16 09/22/16 09/22/16 Range/Units 04:24 04:24 04:24 WBC (4.3-11.1) K/mcL RBC (3.82-4.97) M/mcL Hgb (11.5-15.4) g/dL Hct (35.3-44.9) % MCV (83.0-100.0) fL MCH (28.0-33.3) pg MCHC (31.6-35.5) g/dL RDW (11.5-14.5) % Plt Count (140-400) K/mcL MPV (9.4-12.4) fL Immature Gran % (0-4) % Seg Neutrophils % % Lymphocytes % % Monocytes % % Eosinophils % % Basophils % % Neutrophils # (1.6-8.9) K/mcL Lymphocytes # (0.6-4.6) K/mcL Monocytes # (0.0-1.3) K/mcL Eosinophils # (0.0-0.6) K/mcL Basophils # (0.0-0.2) K/mcL PT (9.4-12.1) Seconds INR APTT (26.0-36.0) Seconds ABG pH (7.32-7.45) pH Units ABG pCO2 (35-45) mmHg ABG pO2 (85-104) mmHg ABG HCO3 (21-27) mEQ/L ABG Total CO2 (20-26) mEq/L ABG O2 Saturation (95-98) % ABG Base Excess (-2.0 to 3.0) mEq/L VBG pH 7.30 L (7.32-7.42) pH Units VBG pCO2 61 H (41-51) mmHg VBG pO2 45 H (25-40) mmHg VBG HCO3 30.0 H (21-27) mEq/L Blood Gas Modality Inspired O2 % Sodium 142 (136-145) mEq/L Potassium 3.7 (3.5-4.5) mEq/L Chloride 104 (98-109) mEq/L Carbon Dioxide 26 (19-29) mEq/L BUN 62 H (7-20) mg/dL Creatinine 1.97 H (0.57-1.11) mg/dL Est GFR ( Amer) 30 L (> 60) Est GFR (Non-Af Amer) 25 L (> 60) BUN/Creatinine Ratio 31 H (6-26) Glucose 75 (70-99) mg/dL POC Glucose (58-89) Est Mean Plasma Glucose mg/dl Hemoglobin A1c ( - 5.6) % C-Peptide (0.8-3.5) ng/mL Serum Osmolality (280-300) mOsm/kg Calculated Osmolality 310 H (280-300) Lactic Acid (0.5-2.2) mmol/L Calcium 8.2 L (8.6-10.8) mg/dL Phosphorus 3.4 (2.3-4.7) mg/dL Magnesium 2.2 (1.6-2.6) mg/dL Total Bilirubin (0.2-1.2) mg/dL AST (5-34) Units/L ALT (0-55) Units/L Alkaline Phosphatase (38-126) Units/L Creatine Kinase (29-168) Units/L Troponin I (0-0.03) ng/mL B-Natriuretic Peptide (0-100) pg/mL Serum Total Protein (6.0-8.3) g/dL Albumin (3.5-5.0) g/dL Globulin (2.4-3.5) g/dL Albumin/Globulin Ratio (1.1-2.2) Triglycerides (< 150) mg/dL Cholesterol (< 200) mg/dL LDL Cholesterol, Calc (0-99) mg/dL VLDL Cholesterol, Calc (< 31) mg/dL HDL Cholesterol (40-59) mg/dL Cholesterol/HDL Ratio (0-4.9) Beta-Hydroxybutyric Acd (0.02-0.27) mmol/L TSH (0.350-4.840) mcIU/mL Urine Color (Yellow) Urine Clarity (Clear) Urine pH (5.0-8.0) pH Units Ur Specific [place] (1.010-1.025) Urine Protein (Neg-Trace) mg/dL Urine Glucose (UA) (Normal) mg/dL Urine Ketones (Negative) mg/dL Urine Blood (Negative) Urine Nitrite (Negative) Urine Bilirubin (Negative) Urine Urobilinogen (Normal) mg/dL Ur Leukocyte Esterase (Negative) Urine Microscopic RBC (0-3) per hpf Urine Microscopic WBC (0-3) per hpf Ur Squamous Epith Cells (None-Few) per lpf Urine Bacteria (None-Few) per hpf Hyaline Casts Ur Culture Indicated? (NO) 09/22/16 09/22/16 09/22/16 Range/Units 04:24 04:24 04:24 WBC (4.3-11.1) K/mcL RBC (3.82-4.97) M/mcL Hgb (11.5-15.4) g/dL Hct (35.3-44.9) % MCV (83.0-100.0) fL MCH (28.0-33.3) pg MCHC (31.6-35.5) g/dL RDW (11.5-14.5) % Plt Count (140-400) K/mcL MPV (9.4-12.4) fL Immature Gran % (0-4) % Seg Neutrophils % % Lymphocytes % % Monocytes % % Eosinophils % % Basophils % % Neutrophils # (1.6-8.9) K/mcL Lymphocytes # (0.6-4.6) K/mcL Monocytes # (0.0-1.3) K/mcL Eosinophils # (0.0-0.6) K/mcL Basophils # (0.0-0.2) K/mcL PT (9.4-12.1) Seconds INR APTT (26.0-36.0) Seconds ABG pH (7.32-7.45) pH Units ABG pCO2 (35-45) mmHg ABG pO2 (85-104) mmHg ABG HCO3 (21-27) mEQ/L ABG Total CO2 (20-26) mEq/L ABG O2 Saturation (95-98) % ABG Base Excess (-2.0 to 3.0) mEq/L VBG pH (7.32-7.42) pH Units VBG pCO2 (41-51) mmHg VBG pO2 (25-40) mmHg VBG HCO3 (21-27) mEq/L Blood Gas Modality Inspired O2 % Sodium (136-145) mEq/L Potassium (3.5-4.5) mEq/L Chloride (98-109) mEq/L Carbon Dioxide (19-29) mEq/L BUN (7-20) mg/dL Creatinine (0.57-1.11) mg/dL Est GFR ( Amer) (> 60) Est GFR (Non-Af Amer) (> 60) BUN/Creatinine Ratio (6-26) Glucose (70-99) mg/dL POC Glucose (58-89) Est Mean Plasma Glucose 318 mg/dl Hemoglobin A1c 12.7 H ( - 5.6) % C-Peptide (0.8-3.5) ng/mL Serum Osmolality (280-300) mOsm/kg Calculated Osmolality (280-300) Lactic Acid 2.0 (0.5-2.2) mmol/L Calcium (8.6-10.8) mg/dL Phosphorus (2.3-4.7) mg/dL Magnesium (1.6-2.6) mg/dL Total Bilirubin (0.2-1.2) mg/dL AST (5-34) Units/L ALT (0-55) Units/L Alkaline Phosphatase (38-126) Units/L Creatine Kinase (29-168) Units/L Troponin I (0-0.03) ng/mL B-Natriuretic Peptide (0-100) pg/mL Serum Total Protein (6.0-8.3) g/dL Albumin (3.5-5.0) g/dL Globulin (2.4-3.5) g/dL Albumin/Globulin Ratio (1.1-2.2) Triglycerides (< 150) mg/dL Cholesterol (< 200) mg/dL LDL Cholesterol, Calc (0-99) mg/dL VLDL Cholesterol, Calc (< 31) mg/dL HDL Cholesterol (40-59) mg/dL Cholesterol/HDL Ratio (0-4.9) Beta-Hydroxybutyric Acd (0.02-0.27) mmol/L TSH 2.289 (0.350-4.840) mcIU/mL Urine Color (Yellow) Urine Clarity (Clear) Urine pH (5.0-8.0) pH Units Ur Specific [place] (1.010-1.025) Urine Protein (Neg-Trace) mg/dL Urine Glucose (UA) (Normal) mg/dL Urine Ketones (Negative) mg/dL Urine Blood (Negative) Urine Nitrite (Negative) Urine Bilirubin (Negative) Urine Urobilinogen (Normal) mg/dL Ur Leukocyte Esterase (Negative) Urine Microscopic RBC (0-3) per hpf Urine Microscopic WBC (0-3) per hpf Ur Squamous Epith Cells (None-Few) per lpf Urine Bacteria (None-Few) per hpf Hyaline Casts Ur Culture Indicated? (NO) 09/22/16 09/22/16 09/22/16 Range/Units 04:24 04:36 05:44 WBC (4.3-11.1) K/mcL RBC (3.82-4.97) M/mcL Hgb (11.5-15.4) g/dL Hct (35.3-44.9) % MCV (83.0-100.0) fL MCH (28.0-33.3) pg MCHC (31.6-35.5) g/dL RDW (11.5-14.5) % Plt Count (140-400) K/mcL MPV (9.4-12.4) fL Immature Gran % (0-4) % Seg Neutrophils % % Lymphocytes % % Monocytes % % Eosinophils % % Basophils % % Neutrophils # (1.6-8.9) K/mcL Lymphocytes # (0.6-4.6) K/mcL Monocytes # (0.0-1.3) K/mcL Eosinophils # (0.0-0.6) K/mcL Basophils # (0.0-0.2) K/mcL PT (9.4-12.1) Seconds INR APTT (26.0-36.0) Seconds ABG pH (7.32-7.45) pH Units ABG pCO2 (35-45) mmHg ABG pO2 (85-104) mmHg ABG HCO3 (21-27) mEQ/L ABG Total CO2 (20-26) mEq/L ABG O2 Saturation (95-98) % ABG Base Excess (-2.0 to 3.0) mEq/L VBG pH (7.32-7.42) pH Units VBG pCO2 (41-51) mmHg VBG pO2 (25-40) mmHg VBG HCO3 (21-27) mEq/L Blood Gas Modality Inspired O2 % Sodium (136-145) mEq/L Potassium (3.5-4.5) mEq/L Chloride (98-109) mEq/L Carbon Dioxide (19-29) mEq/L BUN (7-20) mg/dL Creatinine (0.57-1.11) mg/dL Est GFR ( Amer) (> 60) Est GFR (Non-Af Amer) (> 60) BUN/Creatinine Ratio (6-26) Glucose (70-99) mg/dL POC Glucose 83 111 H (58-89) Est Mean Plasma Glucose mg/dl Hemoglobin A1c ( - 5.6) % C-Peptide 0.8 (0.8-3.5) ng/mL Serum Osmolality (280-300) mOsm/kg Calculated Osmolality (280-300) Lactic Acid (0.5-2.2) mmol/L Calcium (8.6-10.8) mg/dL Phosphorus (2.3-4.7) mg/dL Magnesium (1.6-2.6) mg/dL Total Bilirubin (0.2-1.2) mg/dL AST (5-34) Units/L ALT (0-55) Units/L Alkaline Phosphatase (38-126) Units/L Creatine Kinase (29-168) Units/L Troponin I (0-0.03) ng/mL B-Natriuretic Peptide (0-100) pg/mL Serum Total Protein (6.0-8.3) g/dL Albumin (3.5-5.0) g/dL Globulin (2.4-3.5) g/dL Albumin/Globulin Ratio (1.1-2.2) Triglycerides (< 150) mg/dL Cholesterol (< 200) mg/dL LDL Cholesterol, Calc (0-99) mg/dL VLDL Cholesterol, Calc (< 31) mg/dL HDL Cholesterol (40-59) mg/dL Cholesterol/HDL Ratio (0-4.9) Beta-Hydroxybutyric Acd (0.02-0.27) mmol/L TSH (0.350-4.840) mcIU/mL Urine Color (Yellow) Urine Clarity (Clear) Urine pH (5.0-8.0) pH Units Ur Specific [place] (1.010-1.025) Urine Protein (Neg-Trace) mg/dL Urine Glucose (UA) (Normal) mg/dL Urine Ketones (Negative) mg/dL Urine Blood (Negative) Urine Nitrite (Negative) Urine Bilirubin (Negative) Urine Urobilinogen (Normal) mg/dL Ur Leukocyte Esterase (Negative) Urine Microscopic RBC (0-3) per hpf Urine Microscopic WBC (0-3) per hpf Ur Squamous Epith Cells (None-Few) per lpf Urine Bacteria (None-Few) per hpf Hyaline Casts Ur Culture Indicated? (NO) 09/22/16 09/22/16 09/22/16 Range/Units 06:49 07:50 08:35 WBC (4.3-11.1) K/mcL RBC (3.82-4.97) M/mcL Hgb (11.5-15.4) g/dL Hct (35.3-44.9) % MCV (83.0-100.0) fL MCH (28.0-33.3) pg MCHC (31.6-35.5) g/dL RDW (11.5-14.5) % Plt Count (140-400) K/mcL MPV (9.4-12.4) fL Immature Gran % (0-4) % Seg Neutrophils % % Lymphocytes % % Monocytes % % Eosinophils % % Basophils % % Neutrophils # (1.6-8.9) K/mcL Lymphocytes # (0.6-4.6) K/mcL Monocytes # (0.0-1.3) K/mcL Eosinophils # (0.0-0.6) K/mcL Basophils # (0.0-0.2) K/mcL PT (9.4-12.1) Seconds INR APTT (26.0-36.0) Seconds ABG pH (7.32-7.45) pH Units ABG pCO2 (35-45) mmHg ABG pO2 (85-104) mmHg ABG HCO3 (21-27) mEQ/L ABG Total CO2 (20-26) mEq/L ABG O2 Saturation (95-98) % ABG Base Excess (-2.0 to 3.0) mEq/L VBG pH (7.32-7.42) pH Units VBG pCO2 (41-51) mmHg VBG pO2 (25-40) mmHg VBG HCO3 (21-27) mEq/L Blood Gas Modality Inspired O2 % Sodium (136-145) mEq/L Potassium (3.5-4.5) mEq/L Chloride (98-109) mEq/L Carbon Dioxide (19-29) mEq/L BUN (7-20) mg/dL Creatinine (0.57-1.11) mg/dL Est GFR ( Amer) (> 60) Est GFR (Non-Af Amer) (> 60) BUN/Creatinine Ratio (6-26) Glucose (70-99) mg/dL POC Glucose 140 H 205 H 199 H (58-89) Est Mean Plasma Glucose mg/dl Hemoglobin A1c ( - 5.6) % C-Peptide (0.8-3.5) ng/mL Serum Osmolality (280-300) mOsm/kg Calculated Osmolality (280-300) Lactic Acid (0.5-2.2) mmol/L Calcium (8.6-10.8) mg/dL Phosphorus (2.3-4.7) mg/dL Magnesium (1.6-2.6) mg/dL Total Bilirubin (0.2-1.2) mg/dL AST (5-34) Units/L ALT (0-55) Units/L Alkaline Phosphatase (38-126) Units/L Creatine Kinase (29-168) Units/L Troponin I (0-0.03) ng/mL B-Natriuretic Peptide (0-100) pg/mL Serum Total Protein (6.0-8.3) g/dL Albumin (3.5-5.0) g/dL Globulin (2.4-3.5) g/dL Albumin/Globulin Ratio (1.1-2.2) Triglycerides (< 150) mg/dL Cholesterol (< 200) mg/dL LDL Cholesterol, Calc (0-99) mg/dL VLDL Cholesterol, Calc (< 31) mg/dL HDL Cholesterol (40-59) mg/dL Cholesterol/HDL Ratio (0-4.9) Beta-Hydroxybutyric Acd (0.02-0.27) mmol/L TSH (0.350-4.840) mcIU/mL Urine Color (Yellow) Urine Clarity (Clear) Urine pH (5.0-8.0) pH Units Ur Specific [place] (1.010-1.025) Urine Protein (Neg-Trace) mg/dL Urine Glucose (UA) (Normal) mg/dL Urine Ketones (Negative) mg/dL Urine Blood (Negative) Urine Nitrite (Negative) Urine Bilirubin (Negative) Urine Urobilinogen (Normal) mg/dL Ur Leukocyte Esterase (Negative) Urine Microscopic RBC (0-3) per hpf Urine Microscopic WBC (0-3) per hpf Ur Squamous Epith Cells (None-Few) per lpf Urine Bacteria (None-Few) per hpf Hyaline Casts Ur Culture Indicated? (NO) 09/22/16 09/22/16 09/22/16 Range/Units 09:15 09:15 09:15 WBC (4.3-11.1) K/mcL RBC (3.82-4.97) M/mcL Hgb (11.5-15.4) g/dL Hct (35.3-44.9) % MCV (83.0-100.0) fL MCH (28.0-33.3) pg MCHC (31.6-35.5) g/dL RDW (11.5-14.5) % Plt Count (140-400) K/mcL MPV (9.4-12.4) fL Immature Gran % (0-4) % Seg Neutrophils % % Lymphocytes % % Monocytes % % Eosinophils % % Basophils % % Neutrophils # (1.6-8.9) K/mcL Lymphocytes # (0.6-4.6) K/mcL Monocytes # (0.0-1.3) K/mcL Eosinophils # (0.0-0.6) K/mcL Basophils # (0.0-0.2) K/mcL PT (9.4-12.1) Seconds INR APTT (26.0-36.0) Seconds ABG pH (7.32-7.45) pH Units ABG pCO2 (35-45) mmHg ABG pO2 (85-104) mmHg ABG HCO3 (21-27) mEQ/L ABG Total CO2 (20-26) mEq/L ABG O2 Saturation (95-98) % ABG Base Excess (-2.0 to 3.0) mEq/L VBG pH 7.24 L (7.32-7.42) pH Units VBG pCO2 67 H (41-51) mmHg VBG pO2 37 (25-40) mmHg VBG HCO3 28.7 H (21-27) mEq/L Blood Gas Modality Inspired O2 % Sodium 139 (136-145) mEq/L Potassium 3.9 (3.5-4.5) mEq/L Chloride 104 (98-109) mEq/L Carbon Dioxide 25 (19-29) mEq/L BUN 57 H (7-20) mg/dL Creatinine 1.71 H (0.57-1.11) mg/dL Est GFR ( Amer) 35 L (> 60) Est GFR (Non-Af Amer) 29 L (> 60) BUN/Creatinine Ratio 33 H (6-26) Glucose 141 H (70-99) mg/dL POC Glucose (58-89) Est Mean Plasma Glucose mg/dl Hemoglobin A1c ( - 5.6) % C-Peptide (0.8-3.5) ng/mL Serum Osmolality (280-300) mOsm/kg Calculated Osmolality 306 H (280-300) Lactic Acid (0.5-2.2) mmol/L Calcium 8.0 L (8.6-10.8) mg/dL Phosphorus 2.7 (2.3-4.7) mg/dL Magnesium 2.0 (1.6-2.6) mg/dL Total Bilirubin (0.2-1.2) mg/dL AST (5-34) Units/L ALT (0-55) Units/L Alkaline Phosphatase (38-126) Units/L Creatine Kinase 345 H (29-168) Units/L Troponin I 0.01 (0-0.03) ng/mL B-Natriuretic Peptide (0-100) pg/mL Serum Total Protein (6.0-8.3) g/dL Albumin (3.5-5.0) g/dL Globulin (2.4-3.5) g/dL Albumin/Globulin Ratio (1.1-2.2) Triglycerides (< 150) mg/dL Cholesterol (< 200) mg/dL LDL Cholesterol, Calc (0-99) mg/dL VLDL Cholesterol, Calc (< 31) mg/dL HDL Cholesterol (40-59) mg/dL Cholesterol/HDL Ratio (0-4.9) Beta-Hydroxybutyric Acd (0.02-0.27) mmol/L TSH (0.350-4.840) mcIU/mL Urine Color (Yellow) Urine Clarity (Clear) Urine pH (5.0-8.0) pH Units Ur Specific [place] (1.010-1.025) Urine Protein (Neg-Trace) mg/dL Urine Glucose (UA) (Normal) mg/dL Urine Ketones (Negative) mg/dL Urine Blood (Negative) Urine Nitrite (Negative) Urine Bilirubin (Negative) Urine Urobilinogen (Normal) mg/dL Ur Leukocyte Esterase (Negative) Urine Microscopic RBC (0-3) per hpf Urine Microscopic WBC (0-3) per hpf Ur Squamous Epith Cells (None-Few) per lpf Urine Bacteria (None-Few) per hpf Hyaline Casts Ur Culture Indicated? (NO) 09/22/16 09/22/16 09/22/16 Range/Units 09:15 09:28 11:41 WBC (4.3-11.1) K/mcL RBC (3.82-4.97) M/mcL Hgb (11.5-15.4) g/dL Hct (35.3-44.9) % MCV (83.0-100.0) fL MCH (28.0-33.3) pg MCHC (31.6-35.5) g/dL RDW (11.5-14.5) % Plt Count (140-400) K/mcL MPV (9.4-12.4) fL Immature Gran % (0-4) % Seg Neutrophils % % Lymphocytes % % Monocytes % % Eosinophils % % Basophils % % Neutrophils # (1.6-8.9) K/mcL Lymphocytes # (0.6-4.6) K/mcL Monocytes # (0.0-1.3) K/mcL Eosinophils # (0.0-0.6) K/mcL Basophils # (0.0-0.2) K/mcL PT (9.4-12.1) Seconds INR APTT (26.0-36.0) Seconds ABG pH (7.32-7.45) pH Units ABG pCO2 (35-45) mmHg ABG pO2 (85-104) mmHg ABG HCO3 (21-27) mEQ/L ABG Total CO2 (20-26) mEq/L ABG O2 Saturation (95-98) % ABG Base Excess (-2.0 to 3.0) mEq/L VBG pH (7.32-7.42) pH Units VBG pCO2 (41-51) mmHg VBG pO2 (25-40) mmHg VBG HCO3 (21-27) mEq/L Blood Gas Modality Inspired O2 % Sodium (136-145) mEq/L Potassium (3.5-4.5) mEq/L Chloride (98-109) mEq/L Carbon Dioxide (19-29) mEq/L BUN (7-20) mg/dL Creatinine (0.57-1.11) mg/dL Est GFR ( Amer) (> 60) Est GFR (Non-Af Amer) (> 60) BUN/Creatinine Ratio (6-26) Glucose (70-99) mg/dL POC Glucose 163 H 164 H (58-89) Est Mean Plasma Glucose mg/dl Hemoglobin A1c ( - 5.6) % C-Peptide (0.8-3.5) ng/mL Serum Osmolality (280-300) mOsm/kg Calculated Osmolality (280-300) Lactic Acid 1.8 (0.5-2.2) mmol/L Calcium (8.6-10.8) mg/dL Phosphorus (2.3-4.7) mg/dL Magnesium (1.6-2.6) mg/dL Total Bilirubin (0.2-1.2) mg/dL AST (5-34) Units/L ALT (0-55) Units/L Alkaline Phosphatase (38-126) Units/L Creatine Kinase (29-168) Units/L Troponin I (0-0.03) ng/mL B-Natriuretic Peptide (0-100) pg/mL Serum Total Protein (6.0-8.3) g/dL Albumin (3.5-5.0) g/dL Globulin (2.4-3.5) g/dL Albumin/Globulin Ratio (1.1-2.2) Triglycerides (< 150) mg/dL Cholesterol (< 200) mg/dL LDL Cholesterol, Calc (0-99) mg/dL VLDL Cholesterol, Calc (< 31) mg/dL HDL Cholesterol (40-59) mg/dL Cholesterol/HDL Ratio (0-4.9) Beta-Hydroxybutyric Acd (0.02-0.27) mmol/L TSH (0.350-4.840) mcIU/mL Urine Color (Yellow) Urine Clarity (Clear) Urine pH (5.0-8.0) pH Units Ur Specific [place] (1.010-1.025) Urine Protein (Neg-Trace) mg/dL Urine Glucose (UA) (Normal) mg/dL Urine Ketones (Negative) mg/dL Urine Blood (Negative) Urine Nitrite (Negative) Urine Bilirubin (Negative) Urine Urobilinogen (Normal) mg/dL Ur Leukocyte Esterase (Negative) Urine Microscopic RBC (0-3) per hpf Urine Microscopic WBC (0-3) per hpf Ur Squamous Epith Cells (None-Few) per lpf Urine Bacteria (None-Few) per hpf Hyaline Casts Ur Culture Indicated? (NO) 09/22/16 09/22/16 09/22/16 Range/Units 13:35 13:35 13:35 WBC (4.3-11.1) K/mcL RBC (3.82-4.97) M/mcL Hgb (11.5-15.4) g/dL Hct (35.3-44.9) % MCV (83.0-100.0) fL MCH (28.0-33.3) pg MCHC (31.6-35.5) g/dL RDW (11.5-14.5) % Plt Count (140-400) K/mcL MPV (9.4-12.4) fL Immature Gran % (0-4) % Seg Neutrophils % % Lymphocytes % % Monocytes % % Eosinophils % % Basophils % % Neutrophils # (1.6-8.9) K/mcL Lymphocytes # (0.6-4.6) K/mcL Monocytes # (0.0-1.3) K/mcL Eosinophils # (0.0-0.6) K/mcL Basophils # (0.0-0.2) K/mcL PT (9.4-12.1) Seconds INR APTT (26.0-36.0) Seconds ABG pH (7.32-7.45) pH Units ABG pCO2 (35-45) mmHg ABG pO2 (85-104) mmHg ABG HCO3 (21-27) mEQ/L ABG Total CO2 (20-26) mEq/L ABG O2 Saturation (95-98) % ABG Base Excess (-2.0 to 3.0) mEq/L VBG pH 7.26 L (7.32-7.42) pH Units VBG pCO2 57 H (41-51) mmHg VBG pO2 35 (25-40) mmHg VBG HCO3 25.6 (21-27) mEq/L Blood Gas Modality Inspired O2 % Sodium 139 (136-145) mEq/L Potassium 3.9 (3.5-4.5) mEq/L Chloride 105 (98-109) mEq/L Carbon Dioxide 23 (19-29) mEq/L BUN 58 H (7-20) mg/dL Creatinine 1.71 H (0.57-1.11) mg/dL Est GFR ( Amer) 35 L (> 60) Est GFR (Non-Af Amer) 29 L (> 60) BUN/Creatinine Ratio 34 H (6-26) Glucose 191 H (70-99) mg/dL POC Glucose (58-89) Est Mean Plasma Glucose mg/dl Hemoglobin A1c ( - 5.6) % C-Peptide (0.8-3.5) ng/mL Serum Osmolality (280-300) mOsm/kg Calculated Osmolality 309 H (280-300) Lactic Acid (0.5-2.2) mmol/L Calcium 8.2 L (8.6-10.8) mg/dL Phosphorus 2.1 L (2.3-4.7) mg/dL Magnesium 1.8 (1.6-2.6) mg/dL Total Bilirubin (0.2-1.2) mg/dL AST (5-34) Units/L ALT (0-55) Units/L Alkaline Phosphatase (38-126) Units/L Creatine Kinase (29-168) Units/L Troponin I (0-0.03) ng/mL B-Natriuretic Peptide (0-100) pg/mL Serum Total Protein (6.0-8.3) g/dL Albumin (3.5-5.0) g/dL Globulin (2.4-3.5) g/dL Albumin/Globulin Ratio (1.1-2.2) Triglycerides (< 150) mg/dL Cholesterol (< 200) mg/dL LDL Cholesterol, Calc (0-99) mg/dL VLDL Cholesterol, Calc (< 31) mg/dL HDL Cholesterol (40-59) mg/dL Cholesterol/HDL Ratio (0-4.9) Beta-Hydroxybutyric Acd (0.02-0.27) mmol/L TSH (0.350-4.840) mcIU/mL Urine Color (Yellow) Urine Clarity (Clear) Urine pH (5.0-8.0) pH Units Ur Specific [place] (1.010-1.025) Urine Protein (Neg-Trace) mg/dL Urine Glucose (UA) (Normal) mg/dL Urine Ketones (Negative) mg/dL Urine Blood (Negative) Urine Nitrite (Negative) Urine Bilirubin (Negative) Urine Urobilinogen (Normal) mg/dL Ur Leukocyte Esterase (Negative) Urine Microscopic RBC (0-3) per hpf Urine Microscopic WBC (0-3) per hpf Ur Squamous Epith Cells (None-Few) per lpf Urine Bacteria (None-Few) per hpf Hyaline Casts Ur Culture Indicated? (NO) 09/22/16 09/22/16 09/22/16 Range/Units 13:35 16:12 20:34 WBC (4.3-11.1) K/mcL RBC (3.82-4.97) M/mcL Hgb (11.5-15.4) g/dL Hct (35.3-44.9) % MCV (83.0-100.0) fL MCH (28.0-33.3) pg MCHC (31.6-35.5) g/dL RDW (11.5-14.5) % Plt Count (140-400) K/mcL MPV (9.4-12.4) fL Immature Gran % (0-4) % Seg Neutrophils % % Lymphocytes % % Monocytes % % Eosinophils % % Basophils % % Neutrophils # (1.6-8.9) K/mcL Lymphocytes # (0.6-4.6) K/mcL Monocytes # (0.0-1.3) K/mcL Eosinophils # (0.0-0.6) K/mcL Basophils # (0.0-0.2) K/mcL PT (9.4-12.1) Seconds INR APTT (26.0-36.0) Seconds ABG pH (7.32-7.45) pH Units ABG pCO2 (35-45) mmHg ABG pO2 (85-104) mmHg ABG HCO3 (21-27) mEQ/L ABG Total CO2 (20-26) mEq/L ABG O2 Saturation (95-98) % ABG Base Excess (-2.0 to 3.0) mEq/L VBG pH (7.32-7.42) pH Units VBG pCO2 (41-51) mmHg VBG pO2 (25-40) mmHg VBG HCO3 (21-27) mEq/L Blood Gas Modality Inspired O2 % Sodium (136-145) mEq/L Potassium (3.5-4.5) mEq/L Chloride (98-109) mEq/L Carbon Dioxide (19-29) mEq/L BUN (7-20) mg/dL Creatinine (0.57-1.11) mg/dL Est GFR ( Amer) (> 60) Est GFR (Non-Af Amer) (> 60) BUN/Creatinine Ratio (6-26) Glucose (70-99) mg/dL POC Glucose 159 H 68 (58-89) Est Mean Plasma Glucose mg/dl Hemoglobin A1c ( - 5.6) % C-Peptide (0.8-3.5) ng/mL Serum Osmolality (280-300) mOsm/kg Calculated Osmolality (280-300) Lactic Acid 2.6 H (0.5-2.2) mmol/L Calcium (8.6-10.8) mg/dL Phosphorus (2.3-4.7) mg/dL Magnesium (1.6-2.6) mg/dL Total Bilirubin (0.2-1.2) mg/dL AST (5-34) Units/L ALT (0-55) Units/L Alkaline Phosphatase (38-126) Units/L Creatine Kinase (29-168) Units/L Troponin I (0-0.03) ng/mL B-Natriuretic Peptide (0-100) pg/mL Serum Total Protein (6.0-8.3) g/dL Albumin (3.5-5.0) g/dL Globulin (2.4-3.5) g/dL Albumin/Globulin Ratio (1.1-2.2) Triglycerides (< 150) mg/dL Cholesterol (< 200) mg/dL LDL Cholesterol, Calc (0-99) mg/dL VLDL Cholesterol, Calc (< 31) mg/dL HDL Cholesterol (40-59) mg/dL Cholesterol/HDL Ratio (0-4.9) Beta-Hydroxybutyric Acd (0.02-0.27) mmol/L TSH (0.350-4.840) mcIU/mL Urine Color (Yellow) Urine Clarity (Clear) Urine pH (5.0-8.0) pH Units Ur Specific [place] (1.010-1.025) Urine Protein (Neg-Trace) mg/dL Urine Glucose (UA) (Normal) mg/dL Urine Ketones (Negative) mg/dL Urine Blood (Negative) Urine Nitrite (Negative) Urine Bilirubin (Negative) Urine Urobilinogen (Normal) mg/dL Ur Leukocyte Esterase (Negative) Urine Microscopic RBC (0-3) per hpf Urine Microscopic WBC (0-3) per hpf Ur Squamous Epith Cells (None-Few) per lpf Urine Bacteria (None-Few) per hpf Hyaline Casts Ur Culture Indicated? (NO) 09/22/16 09/23/16 09/23/16 Range/Units 21:43 03:25 03:25 WBC 7.1 D (4.3-11.1) K/mcL RBC 4.10 (3.82-4.97) M/mcL Hgb 12.5 D (11.5-15.4) g/dL Hct 38.9 (35.3-44.9) % MCV 94.9 (83.0-100.0) fL MCH 30.5 (28.0-33.3) pg MCHC 32.1 (31.6-35.5) g/dL RDW 12.8 (11.5-14.5) % Plt Count 208 (140-400) K/mcL MPV 11.8 (9.4-12.4) fL Immature Gran % 0.3 (0-4) % Seg Neutrophils % 61.4 % Lymphocytes % 28.0 % Monocytes % 7.6 % Eosinophils % 2.4 % Basophils % 0.3 % Neutrophils # 4.4 (1.6-8.9) K/mcL Lymphocytes # 2.0 (0.6-4.6) K/mcL Monocytes # 0.5 (0.0-1.3) K/mcL Eosinophils # 0.2 (0.0-0.6) K/mcL Basophils # 0.0 (0.0-0.2) K/mcL PT (9.4-12.1) Seconds INR APTT (26.0-36.0) Seconds ABG pH (7.32-7.45) pH Units ABG pCO2 (35-45) mmHg ABG pO2 (85-104) mmHg ABG HCO3 (21-27) mEQ/L ABG Total CO2 (20-26) mEq/L ABG O2 Saturation (95-98) % ABG Base Excess (-2.0 to 3.0) mEq/L VBG pH (7.32-7.42) pH Units VBG pCO2 (41-51) mmHg VBG pO2 (25-40) mmHg VBG HCO3 (21-27) mEq/L Blood Gas Modality Inspired O2 % Sodium 138 (136-145) mEq/L Potassium 4.4 (3.5-4.5) mEq/L Chloride 109 (98-109) mEq/L Carbon Dioxide 19 (19-29) mEq/L BUN 50 H (7-20) mg/dL Creatinine 1.32 H (0.57-1.11) mg/dL Est GFR ( Amer) 47 L (> 60) Est GFR (Non-Af Amer) 39 L (> 60) BUN/Creatinine Ratio 38 H (6-26) Glucose 217 H (70-99) mg/dL POC Glucose 100 H (58-89) Est Mean Plasma Glucose mg/dl Hemoglobin A1c ( - 5.6) % C-Peptide (0.8-3.5) ng/mL Serum Osmolality (280-300) mOsm/kg Calculated Osmolality 306 H (280-300) Lactic Acid (0.5-2.2) mmol/L Calcium 7.7 L (8.6-10.8) mg/dL Phosphorus 2.6 (2.3-4.7) mg/dL Magnesium 1.9 (1.6-2.6) mg/dL Total Bilirubin (0.2-1.2) mg/dL AST (5-34) Units/L ALT (0-55) Units/L Alkaline Phosphatase (38-126) Units/L Creatine Kinase (29-168) Units/L Troponin I (0-0.03) ng/mL B-Natriuretic Peptide (0-100) pg/mL Serum Total Protein (6.0-8.3) g/dL Albumin (3.5-5.0) g/dL Globulin (2.4-3.5) g/dL Albumin/Globulin Ratio (1.1-2.2) Triglycerides (< 150) mg/dL Cholesterol (< 200) mg/dL LDL Cholesterol, Calc (0-99) mg/dL VLDL Cholesterol, Calc (< 31) mg/dL HDL Cholesterol (40-59) mg/dL Cholesterol/HDL Ratio (0-4.9) Beta-Hydroxybutyric Acd (0.02-0.27) mmol/L TSH (0.350-4.840) mcIU/mL Urine Color (Yellow) Urine Clarity (Clear) Urine pH (5.0-8.0) pH Units Ur Specific [place] (1.010-1.025) Urine Protein (Neg-Trace) mg/dL Urine Glucose (UA) (Normal) mg/dL Urine Ketones (Negative) mg/dL Urine Blood (Negative) Urine Nitrite (Negative) Urine Bilirubin (Negative) Urine Urobilinogen (Normal) mg/dL Ur Leukocyte Esterase (Negative) Urine Microscopic RBC (0-3) per hpf Urine Microscopic WBC (0-3) per hpf Ur Squamous Epith Cells (None-Few) per lpf Urine Bacteria (None-Few) per hpf Hyaline Casts Ur Culture Indicated? (NO) 09/23/16 09/23/16 09/23/16 Range/Units 03:25 07:01 09:27 WBC (4.3-11.1) K/mcL RBC (3.82-4.97) M/mcL Hgb (11.5-15.4) g/dL Hct (35.3-44.9) % MCV (83.0-100.0) fL MCH (28.0-33.3) pg MCHC (31.6-35.5) g/dL RDW (11.5-14.5) % Plt Count (140-400) K/mcL MPV (9.4-12.4) fL Immature Gran % (0-4) % Seg Neutrophils % % Lymphocytes % % Monocytes % % Eosinophils % % Basophils % % Neutrophils # (1.6-8.9) K/mcL Lymphocytes # (0.6-4.6) K/mcL Monocytes # (0.0-1.3) K/mcL Eosinophils # (0.0-0.6) K/mcL Basophils # (0.0-0.2) K/mcL PT (9.4-12.1) Seconds INR APTT (26.0-36.0) Seconds ABG pH (7.32-7.45) pH Units ABG pCO2 (35-45) mmHg ABG pO2 (85-104) mmHg ABG HCO3 (21-27) mEQ/L ABG Total CO2 (20-26) mEq/L ABG O2 Saturation (95-98) % ABG Base Excess (-2.0 to 3.0) mEq/L VBG pH (7.32-7.42) pH Units VBG pCO2 (41-51) mmHg VBG pO2 (25-40) mmHg VBG HCO3 (21-27) mEq/L Blood Gas Modality Inspired O2 % Sodium (136-145) mEq/L Potassium (3.5-4.5) mEq/L Chloride (98-109) mEq/L Carbon Dioxide (19-29) mEq/L BUN (7-20) mg/dL Creatinine (0.57-1.11) mg/dL Est GFR ( Amer) (> 60) Est GFR (Non-Af Amer) (> 60) BUN/Creatinine Ratio (6-26) Glucose (70-99) mg/dL POC Glucose 215 H (58-89) Est Mean Plasma Glucose mg/dl Hemoglobin A1c ( - 5.6) % C-Peptide (0.8-3.5) ng/mL Serum Osmolality (280-300) mOsm/kg Calculated Osmolality (280-300) Lactic Acid 1.3 (0.5-2.2) mmol/L Calcium (8.6-10.8) mg/dL Phosphorus (2.3-4.7) mg/dL Magnesium (1.6-2.6) mg/dL Total Bilirubin (0.2-1.2) mg/dL AST (5-34) Units/L ALT (0-55) Units/L Alkaline Phosphatase (38-126) Units/L Creatine Kinase 218 H (29-168) Units/L Troponin I (0-0.03) ng/mL B-Natriuretic Peptide (0-100) pg/mL Serum Total Protein (6.0-8.3) g/dL Albumin (3.5-5.0) g/dL Globulin (2.4-3.5) g/dL Albumin/Globulin Ratio (1.1-2.2) Triglycerides (< 150) mg/dL Cholesterol (< 200) mg/dL LDL Cholesterol, Calc (0-99) mg/dL VLDL Cholesterol, Calc (< 31) mg/dL HDL Cholesterol (40-59) mg/dL Cholesterol/HDL Ratio (0-4.9) Beta-Hydroxybutyric Acd (0.02-0.27) mmol/L TSH (0.350-4.840) mcIU/mL Urine Color (Yellow) Urine Clarity (Clear) Urine pH (5.0-8.0) pH Units Ur Specific [place] (1.010-1.025) Urine Protein (Neg-Trace) mg/dL Urine Glucose (UA) (Normal) mg/dL Urine Ketones (Negative) mg/dL Urine Blood (Negative) Urine Nitrite (Negative) Urine Bilirubin (Negative) Urine Urobilinogen (Normal) mg/dL Ur Leukocyte Esterase (Negative) Urine Microscopic RBC (0-3) per hpf Urine Microscopic WBC (0-3) per hpf Ur Squamous Epith Cells (None-Few) per lpf Urine Bacteria (None-Few) per hpf Hyaline Casts Ur Culture Indicated? (NO) 09/23/16 09/23/16 09/23/16 Range/Units 11:12 15:44 16:28 WBC (4.3-11.1) K/mcL RBC (3.82-4.97) M/mcL Hgb (11.5-15.4) g/dL Hct (35.3-44.9) % MCV (83.0-100.0) fL MCH (28.0-33.3) pg MCHC (31.6-35.5) g/dL RDW (11.5-14.5) % Plt Count (140-400) K/mcL MPV (9.4-12.4) fL Immature Gran % (0-4) % Seg Neutrophils % % Lymphocytes % % Monocytes % % Eosinophils % % Basophils % % Neutrophils # (1.6-8.9) K/mcL Lymphocytes # (0.6-4.6) K/mcL Monocytes # (0.0-1.3) K/mcL Eosinophils # (0.0-0.6) K/mcL Basophils # (0.0-0.2) K/mcL PT (9.4-12.1) Seconds INR APTT (26.0-36.0) Seconds ABG pH (7.32-7.45) pH Units ABG pCO2 (35-45) mmHg ABG pO2 (85-104) mmHg ABG HCO3 (21-27) mEQ/L ABG Total CO2 (20-26) mEq/L ABG O2 Saturation (95-98) % ABG Base Excess (-2.0 to 3.0) mEq/L VBG pH (7.32-7.42) pH Units VBG pCO2 (41-51) mmHg VBG pO2 (25-40) mmHg VBG HCO3 (21-27) mEq/L Blood Gas Modality Inspired O2 % Sodium (136-145) mEq/L Potassium (3.5-4.5) mEq/L Chloride (98-109) mEq/L Carbon Dioxide (19-29) mEq/L BUN (7-20) mg/dL Creatinine (0.57-1.11) mg/dL Est GFR ( Amer) (> 60) Est GFR (Non-Af Amer) (> 60) BUN/Creatinine Ratio (6-26) Glucose (70-99) mg/dL POC Glucose 236 H 67 62 (58-89) Est Mean Plasma Glucose mg/dl Hemoglobin A1c ( - 5.6) % C-Peptide (0.8-3.5) ng/mL Serum Osmolality (280-300) mOsm/kg Calculated Osmolality (280-300) Lactic Acid (0.5-2.2) mmol/L Calcium (8.6-10.8) mg/dL Phosphorus (2.3-4.7) mg/dL Magnesium (1.6-2.6) mg/dL Total Bilirubin (0.2-1.2) mg/dL AST (5-34) Units/L ALT (0-55) Units/L Alkaline Phosphatase (38-126) Units/L Creatine Kinase (29-168) Units/L Troponin I (0-0.03) ng/mL B-Natriuretic Peptide (0-100) pg/mL Serum Total Protein (6.0-8.3) g/dL Albumin (3.5-5.0) g/dL Globulin (2.4-3.5) g/dL Albumin/Globulin Ratio (1.1-2.2) Triglycerides (< 150) mg/dL Cholesterol (< 200) mg/dL LDL Cholesterol, Calc (0-99) mg/dL VLDL Cholesterol, Calc (< 31) mg/dL HDL Cholesterol (40-59) mg/dL Cholesterol/HDL Ratio (0-4.9) Beta-Hydroxybutyric Acd (0.02-0.27) mmol/L TSH (0.350-4.840) mcIU/mL Urine Color (Yellow) Urine Clarity (Clear) Urine pH (5.0-8.0) pH Units Ur Specific [place] (1.010-1.025) Urine Protein (Neg-Trace) mg/dL Urine Glucose (UA) (Normal) mg/dL Urine Ketones (Negative) mg/dL Urine Blood (Negative) Urine Nitrite (Negative) Urine Bilirubin (Negative) Urine Urobilinogen (Normal) mg/dL Ur Leukocyte Esterase (Negative) Urine Microscopic RBC (0-3) per hpf Urine Microscopic WBC (0-3) per hpf Ur Squamous Epith Cells (None-Few) per lpf Urine Bacteria (None-Few) per hpf Hyaline Casts Ur Culture Indicated? (NO) 09/23/16 09/23/16 09/23/16 Range/Units 17:14 17:52 18:21 WBC (4.3-11.1) K/mcL RBC (3.82-4.97) M/mcL Hgb (11.5-15.4) g/dL Hct (35.3-44.9) % MCV (83.0-100.0) fL MCH (28.0-33.3) pg MCHC (31.6-35.5) g/dL RDW (11.5-14.5) % Plt Count (140-400) K/mcL MPV (9.4-12.4) fL Immature Gran % (0-4) % Seg Neutrophils % % Lymphocytes % % Monocytes % % Eosinophils % % Basophils % % Neutrophils # (1.6-8.9) K/mcL Lymphocytes # (0.6-4.6) K/mcL Monocytes # (0.0-1.3) K/mcL Eosinophils # (0.0-0.6) K/mcL Basophils # (0.0-0.2) K/mcL PT (9.4-12.1) Seconds INR APTT (26.0-36.0) Seconds ABG pH (7.32-7.45) pH Units ABG pCO2 (35-45) mmHg ABG pO2 (85-104) mmHg ABG HCO3 (21-27) mEQ/L ABG Total CO2 (20-26) mEq/L ABG O2 Saturation (95-98) % ABG Base Excess (-2.0 to 3.0) mEq/L VBG pH (7.32-7.42) pH Units VBG pCO2 (41-51) mmHg VBG pO2 (25-40) mmHg VBG HCO3 (21-27) mEq/L Blood Gas Modality Inspired O2 % Sodium (136-145) mEq/L Potassium (3.5-4.5) mEq/L Chloride (98-109) mEq/L Carbon Dioxide (19-29) mEq/L BUN (7-20) mg/dL Creatinine (0.57-1.11) mg/dL Est GFR ( Amer) (> 60) Est GFR (Non-Af Amer) (> 60) BUN/Creatinine Ratio (6-26) Glucose (70-99) mg/dL POC Glucose 122 H 204 H 107 H (58-89) Est Mean Plasma Glucose mg/dl Hemoglobin A1c ( - 5.6) % C-Peptide (0.8-3.5) ng/mL Serum Osmolality (280-300) mOsm/kg Calculated Osmolality (280-300) Lactic Acid (0.5-2.2) mmol/L Calcium (8.6-10.8) mg/dL Phosphorus (2.3-4.7) mg/dL Magnesium (1.6-2.6) mg/dL Total Bilirubin (0.2-1.2) mg/dL AST (5-34) Units/L ALT (0-55) Units/L Alkaline Phosphatase (38-126) Units/L Creatine Kinase (29-168) Units/L Troponin I (0-0.03) ng/mL B-Natriuretic Peptide (0-100) pg/mL Serum Total Protein (6.0-8.3) g/dL Albumin (3.5-5.0) g/dL Globulin (2.4-3.5) g/dL Albumin/Globulin Ratio (1.1-2.2) Triglycerides (< 150) mg/dL Cholesterol (< 200) mg/dL LDL Cholesterol, Calc (0-99) mg/dL VLDL Cholesterol, Calc (< 31) mg/dL HDL Cholesterol (40-59) mg/dL Cholesterol/HDL Ratio (0-4.9) Beta-Hydroxybutyric Acd (0.02-0.27) mmol/L TSH (0.350-4.840) mcIU/mL Urine Color (Yellow) Urine Clarity (Clear) Urine pH (5.0-8.0) pH Units Ur Specific [place] (1.010-1.025) Urine Protein (Neg-Trace) mg/dL Urine Glucose (UA) (Normal) mg/dL Urine Ketones (Negative) mg/dL Urine Blood (Negative) Urine Nitrite (Negative) Urine Bilirubin (Negative) Urine Urobilinogen (Normal) mg/dL Ur Leukocyte Esterase (Negative) Urine Microscopic RBC (0-3) per hpf Urine Microscopic WBC (0-3) per hpf Ur Squamous Epith Cells (None-Few) per lpf Urine Bacteria (None-Few) per hpf Hyaline Casts Ur Culture Indicated? (NO) 09/23/16 09/24/16 09/24/16 Range/Units 20:12 05:17 05:17 WBC 8.8 (4.3-11.1) K/mcL RBC 3.88 (3.82-4.97) M/mcL Hgb 12.0 (11.5-15.4) g/dL Hct 36.6 (35.3-44.9) % MCV 94.3 (83.0-100.0) fL MCH 30.9 (28.0-33.3) pg MCHC 32.8 (31.6-35.5) g/dL RDW 12.6 (11.5-14.5) % Plt Count 177 (140-400) K/mcL MPV 11.5 (9.4-12.4) fL Immature Gran % 0.3 (0-4) % Seg Neutrophils % 73.1 % Lymphocytes % 15.1 % Monocytes % 8.8 % Eosinophils % 2.5 % Basophils % 0.2 % Neutrophils # 6.4 (1.6-8.9) K/mcL Lymphocytes # 1.3 (0.6-4.6) K/mcL Monocytes # 0.8 (0.0-1.3) K/mcL Eosinophils # 0.2 (0.0-0.6) K/mcL Basophils # 0.0 (0.0-0.2) K/mcL PT (9.4-12.1) Seconds INR APTT (26.0-36.0) Seconds ABG pH (7.32-7.45) pH Units ABG pCO2 (35-45) mmHg ABG pO2 (85-104) mmHg ABG HCO3 (21-27) mEQ/L ABG Total CO2 (20-26) mEq/L ABG O2 Saturation (95-98) % ABG Base Excess (-2.0 to 3.0) mEq/L VBG pH (7.32-7.42) pH Units VBG pCO2 (41-51) mmHg VBG pO2 (25-40) mmHg VBG HCO3 (21-27) mEq/L Blood Gas Modality Inspired O2 % Sodium 139 (136-145) mEq/L Potassium 4.4 (3.5-4.5) mEq/L Chloride 109 (98-109) mEq/L Carbon Dioxide 25 (19-29) mEq/L BUN 29 H D (7-20) mg/dL Creatinine 1.10 (0.57-1.11) mg/dL Est GFR ( Amer) 58 L (> 60) Est GFR (Non-Af Amer) 48 L (> 60) BUN/Creatinine Ratio 26 (6-26) Glucose 218 H (70-99) mg/dL POC Glucose 191 H (58-89) Est Mean Plasma Glucose mg/dl Hemoglobin A1c ( - 5.6) % C-Peptide (0.8-3.5) ng/mL Serum Osmolality (280-300) mOsm/kg Calculated Osmolality 300 (280-300) Lactic Acid (0.5-2.2) mmol/L Calcium 8.1 L (8.6-10.8) mg/dL Phosphorus 2.0 L (2.3-4.7) mg/dL Magnesium 1.7 (1.6-2.6) mg/dL Total Bilirubin (0.2-1.2) mg/dL AST (5-34) Units/L ALT (0-55) Units/L Alkaline Phosphatase (38-126) Units/L Creatine Kinase (29-168) Units/L Troponin I (0-0.03) ng/mL B-Natriuretic Peptide (0-100) pg/mL Serum Total Protein (6.0-8.3) g/dL Albumin (3.5-5.0) g/dL Globulin (2.4-3.5) g/dL Albumin/Globulin Ratio (1.1-2.2) Triglycerides (< 150) mg/dL Cholesterol (< 200) mg/dL LDL Cholesterol, Calc (0-99) mg/dL VLDL Cholesterol, Calc (< 31) mg/dL HDL Cholesterol (40-59) mg/dL Cholesterol/HDL Ratio (0-4.9) Beta-Hydroxybutyric Acd (0.02-0.27) mmol/L TSH (0.350-4.840) mcIU/mL Urine Color (Yellow) Urine Clarity (Clear) Urine pH (5.0-8.0) pH Units Ur Specific [place] (1.010-1.025) Urine Protein (Neg-Trace) mg/dL Urine Glucose (UA) (Normal) mg/dL Urine Ketones (Negative) mg/dL Urine Blood (Negative) Urine Nitrite (Negative) Urine Bilirubin (Negative) Urine Urobilinogen (Normal) mg/dL Ur Leukocyte Esterase (Negative) Urine Microscopic RBC (0-3) per hpf Urine Microscopic WBC (0-3) per hpf Ur Squamous Epith Cells (None-Few) per lpf Urine Bacteria (None-Few) per hpf Hyaline Casts Ur Culture Indicated? (NO) 09/24/16 Range/Units 07:44 WBC (4.3-11.1) K/mcL RBC (3.82-4.97) M/mcL Hgb (11.5-15.4) g/dL Hct (35.3-44.9) % MCV (83.0-100.0) fL MCH (28.0-33.3) pg MCHC (31.6-35.5) g/dL RDW (11.5-14.5) % Plt Count (140-400) K/mcL MPV (9.4-12.4) fL Immature Gran % (0-4) % Seg Neutrophils % % Lymphocytes % % Monocytes % % Eosinophils % % Basophils % % Neutrophils # (1.6-8.9) K/mcL Lymphocytes # (0.6-4.6) K/mcL Monocytes # (0.0-1.3) K/mcL Eosinophils # (0.0-0.6) K/mcL Basophils # (0.0-0.2) K/mcL PT (9.4-12.1) Seconds INR APTT (26.0-36.0) Seconds ABG pH (7.32-7.45) pH Units ABG pCO2 (35-45) mmHg ABG pO2 (85-104) mmHg ABG HCO3 (21-27) mEQ/L ABG Total CO2 (20-26) mEq/L ABG O2 Saturation (95-98) % ABG Base Excess (-2.0 to 3.0) mEq/L VBG pH (7.32-7.42) pH Units VBG pCO2 (41-51) mmHg VBG pO2 (25-40) mmHg VBG HCO3 (21-27) mEq/L Blood Gas Modality Inspired O2 % Sodium (136-145) mEq/L Potassium (3.5-4.5) mEq/L Chloride (98-109) mEq/L Carbon Dioxide (19-29) mEq/L BUN (7-20) mg/dL Creatinine (0.57-1.11) mg/dL Est GFR ( Amer) (> 60) Est GFR (Non-Af Amer) (> 60) BUN/Creatinine Ratio (6-26) Glucose (70-99) mg/dL POC Glucose 258 H (58-89) Est Mean Plasma Glucose mg/dl Hemoglobin A1c ( - 5.6) % C-Peptide (0.8-3.5) ng/mL Serum Osmolality (280-300) mOsm/kg Calculated Osmolality (280-300) Lactic Acid (0.5-2.2) mmol/L Calcium (8.6-10.8) mg/dL Phosphorus (2.3-4.7) mg/dL Magnesium (1.6-2.6) mg/dL Total Bilirubin (0.2-1.2) mg/dL AST (5-34) Units/L ALT (0-55) Units/L Alkaline Phosphatase (38-126) Units/L Creatine Kinase (29-168) Units/L Troponin I (0-0.03) ng/mL B-Natriuretic Peptide (0-100) pg/mL Serum Total Protein (6.0-8.3) g/dL Albumin (3.5-5.0) g/dL Globulin (2.4-3.5) g/dL Albumin/Globulin Ratio (1.1-2.2) Triglycerides (< 150) mg/dL Cholesterol (< 200) mg/dL LDL Cholesterol, Calc (0-99) mg/dL VLDL Cholesterol, Calc (< 31) mg/dL HDL Cholesterol (40-59) mg/dL Cholesterol/HDL Ratio (0-4.9) Beta-Hydroxybutyric Acd (0.02-0.27) mmol/L TSH (0.350-4.840) mcIU/mL Urine Color (Yellow) Urine Clarity (Clear) Urine pH (5.0-8.0) pH Units Ur Specific [place] (1.010-1.025) Urine Protein (Neg-Trace) mg/dL Urine Glucose (UA) (Normal) mg/dL Urine Ketones (Negative) mg/dL Urine Blood (Negative) Urine Nitrite (Negative) Urine Bilirubin (Negative) Urine Urobilinogen (Normal) mg/dL Ur Leukocyte Esterase (Negative) Urine Microscopic RBC (0-3) per hpf Urine Microscopic WBC (0-3) per hpf Ur Squamous Epith Cells (None-Few) per lpf Urine Bacteria (None-Few) per hpf Hyaline Casts Ur Culture Indicated? (NO) Assessments/Treatments 12 lead ECG assessment Start: 09/21/16 16: 45 Freq: NOW Status: Complete Document 09/21/16 16:55 RAJNI (Rec: 09/21/16 17:04 RAJNI [id number]) EKG Time EKG Completed 16:58 EKG performed by Dianne EKG shown to and signed by DR Mead Ambulate Start: 09/22/16 12: 18 Freq: Status: Discharge Document 09/22/16 12:18 [facility] (Rec: 09/22/16 12:19 [id number] Ambulate Ambulation Distance (ft) (feet) 12 Ambulation Ability Minimum Assistance Ambulation Tolerance Good Summary Comments Ambulation Ability PATIENT USES WALKER TO AMBULATE. PATIENT DID VERY WELL. NEEDED SOME ASSISTANCE TO TRANSFER FROM SITTING TO STANDING POSITION Ambulation assistance Start: 09/22/16 03: 09 Freq: Status: Discharge Document 09/22/16 12:18 [facility] (Rec: 09/22/16 12:18 [facility] [id number]) Assess IV fluid Rate Start: 09/21/16 20: 49 Freq: q3h Status: Discharge Document 09/21/16 23:50 WKB (Rec: 09/22/16 03:07 WKB [id number]) Document 09/22/16 03:55 WKB (Rec: 09/22/16 05:28 WKB [id number]) Document 09/22/16 07:40 [facility] (Rec: 09/22/16 08:11 [facility] [id number]) Document 09/22/16 12:02 [facility] (Rec: 09/22/16 12:13 [id number] Document 09/22/16 17:21 [facility] (Rec: 09/22/16 17:27 [facility] [id number]) Document 09/23/16 09:24 [facility] (Rec: 09/23/16 09:37 [id number] Document 09/23/16 12:39 [facility] (Rec: 09/23/16 12:48 [facility] [id number]) Document 09/23/16 15:35 [facility] (Rec: 09/23/16 16:11 [facility] [id number]) Document 09/23/16 18:23 [facility] (Rec: 09/23/16 18:24 [facility] [id number]) Document 09/23/16 20:00 [facility] (Rec: 09/23/16 21:28 [facility] [id number]) Critical Care Flow Sheet Start: 09/21/16 20: 46 Freq: Q2H Status: Discharge Document 09/21/16 20:40 WKB (Rec: 09/21/16 22:04 WKB [id number]) Pain Assessment Pain Present Reports No Pain Rounding Hourly Rounding Checked for Patient Positioning Patient Personal Items Placed Within Reach Checked Patient Pain Level Hourly Rounding Completed No Patient Awake Bedrest Yes Turn Q 2HR No Patient Position Back Positioning Aides Pillows Head of Bed Position (degrees) 35 Safety Call Light Within Reach Bed Position Low Bed Exit Alarm Phone Within Reach Bed Brake On Side Rails Up X2 Document 09/21/16 20:46 CAT (Rec: 09/21/16 20:51 CAT [id number]) Vital Signs (Critical Care) Temperature (97.6 F-99.6 F) 98.8 F Temperature Source Oral Pulse Rate 91 Respiratory Rate 16 Pulse Oximetry (95-100) 92 L Oxygen Delivery Room Air Blood Pressure 120/73 Source Automatic Cuff Weight Assessment Weight 83.5 kg Weight Measurement Method Built in [facility] Blood Glucose Assessment Blood Glucose* 319 Action Taken on board/notified rn Rounding Hourly Rounding Checked for Patient Positioning Patient Personal Items Placed Within Reach Hourly Rounding Completed Yes Patient Awake Bedrest Yes Turn Q 2HR No Patient Position Back Positioning Aides Pillows Specialty Bed In Use Yes Document 09/21/16 21:30 WKB (Rec: 09/21/16 23:07 WKB [id number]) Pain Assessment Pain Present Reports No Pain Rounding Hourly Rounding Checked for Patient Positioning Patient Personal Items Placed Within Reach Checked Patient Pain Level Hourly Rounding Completed Yes Patient Awake Bedrest Yes Turn Q 2HR No Patient Position Back Safety Call Light Within Reach Bed Position Low Bed Exit Alarm Phone Within Reach Bed Brake On Side Rails Up X2 Document 09/21/16 22:34 JNV (Rec: 09/21/16 22:35 JNV [id number]) Blood Glucose Assessment Blood Glucose* 157 Rounding Hourly Rounding Checked for Patient Positioning Patient Personal Items Placed Within Reach Hourly Rounding Completed Yes Patient Awake Bedrest Yes Turn Q 2HR No Patient Position Back Positioning Aides Pillows Safety Call Light Within Reach Bed Position Low Fall Precautions Phone Within Reach Bed Brake On Side Rails Up X2 Document 09/21/16 23:30 JNV (Rec: 09/22/16 00:14 JNV [id number]) Blood Glucose Assessment Blood Glucose* 211 Rounding Hourly Rounding Checked for Patient Positioning Patient Personal Items Placed Within Reach Hourly Rounding Completed Yes Patient Resting With Eyes Closed Bedrest Yes Turn Q 2HR No Patient Position Back Positioning Aides Pillows Safety Call Light Within Reach Bed Position Low Fall Precautions Phone Within Reach Bed Brake On Side Rails Up X2 Document 09/21/16 23:50 WKB (Rec: 09/22/16 03:07 WKB [id number]) Rounding Hourly Rounding Checked for Patient Positioning Patient Personal Items Placed Within Reach Checked Patient Pain Level Bedrest No Turn Q 2HR No Patient Position Back Specialty Bed In Use No Safety Call Light Within Reach Bed Position Low Bed Exit Alarm Phone Within Reach Bed Brake On Side Rails Up X2 Document 09/22/16 00:34 JNV (Rec: 09/22/16 00:39 JNV [id number]) Vital Signs (Critical Care) Temperature (97.6 F-99.6 F) 97.4 F L Temperature Source Axillary Pulse Rate 77 Respiratory Rate 16 Pulse Oximetry (95-100) 96 Oxygen Delivery Nasal Cannula Oxygen Flow Rate (Liters) 2 Blood Pressure 120/64 Source Automatic Cuff Blood Glucose Assessment Blood Glucose* 298 Rounding Hourly Rounding Checked for Patient Positioning Patient Personal Items Placed Within Reach Hourly Rounding Completed Yes Patient Awake Bedrest Yes Turn Q 2HR No Patient Position Back Positioning Aides Pillows Safety Call Light Within Reach Bed Position Low Fall Precautions Phone Within Reach Bed Brake On Side Rails Up X2 Document 09/22/16 02:30 JNV (Rec: 09/22/16 03:37 JNV [id number]) Blood Glucose Assessment Blood Glucose* 172 Rounding Hourly Rounding Checked for Patient Positioning Patient Personal Items Placed Within Reach Hourly Rounding Completed Yes Patient Resting With Eyes Closed Bedrest Yes Turn Q 2HR No Patient Position Back Safety Call Light Within Reach Bed Position Low Fall Precautions Phone Within Reach Bed Brake On Side Rails Up X2 Document 09/22/16 03:47 CAT (Rec: 09/22/16 03:49 CAT [id number]) Vital Signs (Critical Care) Temperature (97.6 F-99.6 F) 97.4 F L Temperature Source Oral Pulse Rate 72 Respiratory Rate 16 Pulse Oximetry (95-100) 96 Oxygen Delivery Nasal Cannula Oxygen Flow Rate (Liters) 2 Blood Pressure 128/85 Source Automatic Cuff Weight Assessment Weight 83.5 kg Weight Measurement Method Built in [facility] Rounding Hourly Rounding Checked for Patient Positioning Patient Personal Items Placed Within Reach Hourly Rounding Completed Yes Patient Awake Bedrest Yes Turn Q 2HR No Patient Position Back Positioning Aides Pillows Safety Call Light Within Reach Bed Position Low Fall Precautions Phone Within Reach Bed Brake On Side Rails Up X2 Document 09/22/16 03:55 WKB (Rec: 09/22/16 05:28 WKB [id number]) Pain Assessment Pain Present Reports No Pain Rounding Hourly Rounding Checked for Patient Positioning Patient Personal Items Placed Within Reach Checked Patient Pain Level Hourly Rounding Completed Yes Patient Sleeping Bedrest No Turn Q 2HR No Patient Position Right Side Positioning Aides Pillows Head of Bed Position (degrees) 15 Safety Call Light Within Reach Bed Position Low Bed Exit Alarm Phone Within Reach Bed Brake On Side Rails Up X2 Document 09/22/16 06:10 WKB (Rec: 09/22/16 06:16 WKB [id number]) Pain Assessment Pain Present Reports No Pain Rounding Hourly Rounding Checked for Patient Positioning Patient Personal Items Placed Within Reach Checked Patient Pain Level Hourly Rounding Completed Yes Patient Awake Bedrest No Turn Q 2HR No Patient Position Back Positioning Aides Pillows Head of Bed Position (degrees) 15 Safety Call Light Within Reach Bed Position Low Bed Exit Alarm Phone Within Reach Bed Brake On Side Rails Up X2 Document 09/22/16 06:49 SGB (Rec: 09/22/16 06:53 SGB [id number]) Vital Signs (Critical Care) Temperature (97.6 F-99.6 F) 97.7 F Temperature Source Oral Pulse Rate 65 Respiratory Rate 14 Pulse Oximetry (95-100) 97 Oxygen Delivery Nasal Cannula Blood Pressure 126/95 Source Automatic Cuff Blood Glucose Assessment Blood Glucose* 140 Rounding Hourly Rounding Checked for Patient Positioning Patient Personal Items Placed Within Reach Hourly Rounding Completed Yes Patient Resting With Eyes Closed Bedrest No Turn Q 2HR No Patient Position Back Positioning Aides Pillows Safety Call Light Within Reach Bed Position Low Bed Exit Alarm Fall Precautions Phone Within Reach Bed Brake On Side Rails Up X2 Document 09/22/16 07:40 [facility] (Rec: 09/22/16 08:11 [facility] [id number]) Blood Glucose Assessment Blood Glucose* 205 Hyperglycemia Symptoms Blood Glucose > 180 Action Taken INSULIN GTT ADJUSTED Pain Assessment Pain Present Allowed to Sleep Rounding Hourly Rounding Checked for Patient Positioning Patient Personal Items Placed Within Reach Hourly Rounding Completed Yes Patient Sleeping Bedrest No Turn Q 2HR No Patient Position Right Side Positioning Aides Pillows Specialty Bed In Use Yes Equipment in Use Specialty Bed Safety Call Light Within Reach Bed Position Low Phone Within Reach Bed Brake On Side Rails Up X2 Document 09/22/16 08:35 KJK (Rec: 09/22/16 08:37 KJK [id number]) Blood Glucose Assessment Blood Glucose* 199 Pain Assessment Pain Present Allowed to Sleep Rounding Hourly Rounding Checked for Patient Positioning Patient Personal Items Placed Within Reach Hourly Rounding Completed Yes Patient Sleeping Bedrest No Turn Q 2HR No Patient Position Right Side Positioning Aides Pillows Specialty Bed In Use Yes Equipment in Use Specialty Bed Safety Call Light Within Reach Bed Position Low Bed Exit Alarm Fall Precautions Phone Within Reach Bed Brake On Side Rails Up X2 Document 09/22/16 08:47 [facility] (Rec: 09/22/16 08:47 [id number]) Rounding Hourly Rounding Checked for Patient Positioning Patient Personal Items Placed Within Reach Hourly Rounding Completed Yes Patient Sleeping Bedrest No Turn Q 2HR No Patient Position Right Side Positioning Aides Pillows Specialty Bed In Use Yes Equipment in Use Specialty Bed Safety Call Light Within Reach Bed Position Low Phone Within Reach Bed Brake On Side Rails Up X2 Document 09/22/16 09:31 KJK (Rec: 09/22/16 09:31 KJK [id number]) Blood Glucose Assessment Blood Glucose* 164 Rounding Hourly Rounding Patient Helped to Bathroom or Assisted with Bedpan or Urinal Patient Personal Items Placed Within Reach Hourly Rounding Completed Yes Patient Sleeping Bedrest No Turn Q 2HR No Patient Position Back Document 09/22/16 09:49 [facility] (Rec: 09/22/16 09:52 [id number]) Rounding Hourly Rounding Checked for Patient Positioning Patient Personal Items Placed Within Reach Hourly Rounding Completed Yes Patient Awake Bedrest No Turn Q 2HR No Patient Position Back Positioning Aides Pillows Specialty Bed In Use Yes Equipment in Use Specialty Bed Safety Call Light Within Reach Bed Position Low Fall Precautions Phone Within Reach Bed Brake On Side Rails Up X2 [place] Coma Scale Eye Opening Spontaneous Motor Obeys Commands Verbal Confused Coma Scale Total 14 Bilateral Pupil Reaction Reactive Pupil Size (mm) 3 Pupil [place] Equal Document 09/22/16 10:35 [facility] (Rec: 09/22/16 10:37 [id number]) Rounding Hourly Rounding Checked for Patient Positioning Patient Personal Items Placed Within Reach Hourly Rounding Completed Yes Patient Awake Bedrest No Turn Q 2HR No Patient Position Back Positioning Aides Pillows Specialty Bed In Use Yes Equipment in Use Specialty Bed Safety Call Light Within Reach Bed Position Low Bed Exit Alarm Fall Precautions Phone Within Reach Bed Brake On Side Rails Up X3 Document 09/22/16 10:44 KJK (Rec: 09/22/16 10:47 KJK [id number]) Vital Signs (Critical Care) Temperature (97.6 F-99.6 F) 97.8 F Temperature Source Oral Pulse Rate 72 Respiratory Rate 18 Pulse Oximetry (95-100) 96 Blood Pressure 126/63 Rounding Hourly Rounding Checked for Patient Positioning Patient Personal Items Placed Within Reach Hourly Rounding Completed Yes Patient Awake Bath Type Full Bed Bath Bedrest No Turn Q 2HR No Patient Position Chair Positioning Aides Pillows Equipment in Use Specialty Bed Safety Call Light Within Reach Bed Position Low Bed Exit Alarm Fall Precautions Phone Within Reach Bed Brake On Side Rails Up X2 Document 09/22/16 12:02 [facility] (Rec: 09/22/16 12:13 [facility] [id number]) Pain Assessment Pain Present Reports No Pain Rounding Hourly Rounding Checked for Patient Positioning Patient Personal Items Placed Within Reach Checked Patient Pain Level Hourly Rounding Completed Yes Patient Awake Bedrest No Turn Q 2HR No Patient Position Chair Specialty Bed In Use Yes Equipment in Use Specialty Bed Safety Call Light Within Reach Bed Position Low Fall Precautions Phone Within Reach Bed Brake On Side Rails Up X3 Chair Alarm [place] Coma Scale Eye Opening Spontaneous Motor Obeys Commands Verbal Confused Coma Scale Total 14 Document 09/22/16 14:12 [facility] (Rec: 09/22/16 14:13 [facility] [id number]) Pain Assessment Pain Present Reports No Pain Rounding Hourly Rounding Checked for Patient Positioning Patient Personal Items Placed Within Reach Checked Patient Pain Level Hourly Rounding Completed Yes Patient Awake Bedrest No Turn Q 2HR No Patient Position Chair Specialty Bed In Use Yes Equipment in Use Specialty Bed Safety Call Light Within Reach Bed Position Low Bed Exit Alarm Fall Precautions Phone Within Reach Bed Brake On Side Rails Up X2 Document 09/22/16 17:21 [facility] (Rec: 09/22/16 17:27 [facility] [id number]) Vital Signs (Critical Care) Temperature (97.6 F-99.6 F) 98.1 F Temperature Source Oral Pulse Rate 67 Respiratory Rate 18 Pulse Oximetry (95-100) 98 Oxygen Delivery Room Air Blood Pressure 160/65 Source Automatic Cuff Neuro Status *Recalled from last Agitation/Confusion documented assessment MEWS Score 2 Blood Glucose Assessment Blood Glucose* 159 Pain Assessment Pain Present Reports No Pain Rounding Hourly Rounding Checked for Patient Positioning Patient Personal Items Placed Within Reach Checked Patient Pain Level Hourly Rounding Completed Yes Patient Awake Bedrest No Turn Q 2HR No Patient Position Sitting up in Bed Positioning Aides Pillows Specialty Bed In Use Yes Equipment in Use Specialty Bed Safety Call Light Within Reach Bed Position Low Bed Exit Alarm Fall Precautions Phone Within Reach Bed Brake On Side Rails Up X3 [place] Coma Scale Eye Opening Spontaneous Motor Obeys Commands Verbal Confused Coma Scale Total 14 Bilateral Pupil Reaction Reactive Pupil Size (mm) 3 Pupil [place] Equal Document 09/22/16 19:21 JN (Rec: 09/22/16 19:25 [facility] [id number]) Vital Signs (Critical Care) Temperature (97.6 F-99.6 F) 98.8 F Temperature Source Oral Pulse Rate 71 Respiratory Rate 16 Pulse Oximetry (95-100) 96 Oxygen Delivery Room Air Oxygen Flow Rate (Liters) 0 Blood Pressure 109/52 Source Automatic Cuff Rounding Hourly Rounding Checked for Patient Positioning Patient Helped to Bathroom or Assisted with Bedpan or Urinal Patient Personal Items Placed Within Reach Hourly Rounding Completed Yes Patient Awake Bedrest No Turn Q 2HR No Patient Position Back Specialty Bed In Use Yes Equipment in Use Specialty Bed Safety Call Light Within Reach Bed Position Low Bed Exit Alarm Fall Precautions Phone Within Reach Bed Brake On Side Rails Up X3 Document 09/22/16 22:12 JN (Rec: 09/22/16 22:13 [facility] [id number]) Rounding Hourly Rounding Checked for Patient Positioning Patient Helped to Bathroom or Assisted with Bedpan or Urinal Patient Personal Items Placed Within Reach Hourly Rounding Completed Yes Patient Awake Bedrest No Turn Q 2HR No Patient Position Back Specialty Bed In Use Yes Equipment in Use Specialty Bed Safety Call Light Within Reach Bed Position Low Bed Exit Alarm Fall Precautions Phone Within Reach Bed Brake On Side Rails Up X3 Document 09/22/16 23:33 JNG (Rec: 09/22/16 23:37 [facility] [id number]) Vital Signs (Critical Care) Temperature (97.6 F-99.6 F) 98.5 F Temperature Source Oral Pulse Rate 62 Respiratory Rate 16 Pulse Oximetry (95-100) 95 Oxygen Delivery Room Air Oxygen Flow Rate (Liters) 0 Blood Pressure 106/66 Source Automatic Cuff Rounding Hourly Rounding Checked for Patient Positioning Patient Helped to Bathroom or Assisted with Bedpan or Urinal Patient Personal Items Placed Within Reach Hourly Rounding Completed Yes Patient Resting With Eyes Closed Bedrest No Turn Q 2HR No Patient Position Back Specialty Bed In Use Yes Equipment in Use Specialty Bed Safety Call Light Within Reach Bed Position Low Bed Exit Alarm Fall Precautions Phone Within Reach Bed Brake On Side Rails Up X3 Document 09/23/16 02:12 JNG (Rec: 09/23/16 02:13 JNG [id number]) Rounding Hourly Rounding Checked for Patient Positioning Patient Helped to Bathroom or Assisted with Bedpan or Urinal Patient Personal Items Placed Within Reach Hourly Rounding Completed Yes Patient Resting With Eyes Closed Bedrest No Turn Q 2HR No Patient Position Right Side Specialty Bed In Use Yes Equipment in Use Specialty Bed Safety Call Light Within Reach Bed Position Low Fall Precautions Phone Within Reach Bed Brake On Side Rails Up X3 Document 09/23/16 03:22 JNG (Rec: 09/23/16 03:29 JNG [id number]) Vital Signs (Critical Care) Temperature (97.6 F-99.6 F) 98.3 F Temperature Source Oral Pulse Rate 60 Respiratory Rate 14 Pulse Oximetry (95-100) 97 Oxygen Delivery Room Air Oxygen Flow Rate (Liters) 0 Blood Pressure 110/55 Source Automatic Cuff Weight Assessment Weight 87.4 kg Weight Measurement Method Built in Bedscale Rounding Hourly Rounding Checked for Patient Positioning Patient Helped to Bathroom or Assisted with Bedpan or Urinal Patient Personal Items Placed Within Reach Hourly Rounding Completed Yes Patient Awake Comment Lab in room. Bedrest No Turn Q 2HR No Patient Position Back Specialty Bed In Use Yes Equipment in Use Specialty Bed Safety Call Light Within Reach Bed Position Low Fall Precautions Phone Within Reach Bed Brake On Side Rails Up X2 Document 09/23/16 06:58 MAB (Rec: 09/23/16 07:02 MAB [id number]) Vital Signs (Critical Care) Temperature (97.6 F-99.6 F) 97.7 F Temperature Source Oral Pulse Rate 61 Respiratory Rate 16 Pulse Oximetry (95-100) 96 Oxygen Delivery Room Air Blood Pressure 105/86 Source Automatic Cuff Blood Glucose Assessment Blood Glucose* 215 Rounding Turn Q 2HR No Patient Position Back Document 09/23/16 09:24 [facility] (Rec: 09/23/16 09:37 [facility] [id number]) Rounding Hourly Rounding Checked for Patient Positioning Patient Personal Items Placed Within Reach Checked Patient Pain Level Hourly Rounding Completed Yes Patient Awake Bedrest No Turn Q 2HR No Patient Position Back Positioning Aides Pillows Specialty Bed In Use Yes Equipment in Use Specialty Bed Safety Call Light Within Reach Bed Position Low Bed Exit Alarm Fall Precautions Phone Within Reach Bed Brake On Side Rails Up X3 [place] Coma Scale Eye Opening Spontaneous Motor Obeys Commands Verbal Oriented Coma Scale Total 15 Bilateral Pupil Reaction Reactive Pupil Size (mm) 3 Pupil [place] Equal Document 09/23/16 11:00 MAB (Rec: 09/23/16 11:18 MAB [id number]) Vital Signs (Critical Care) Temperature (97.6 F-99.6 F) 97.9 F Temperature Source Oral Pulse Rate 64 Respiratory Rate 16 Pulse Oximetry (95-100) 97 Oxygen Delivery Room Air Blood Pressure 134/69 Source Automatic Cuff Blood Glucose Assessment Blood Glucose* 236 Rounding Turn Q 2HR No Patient Position Back Document 09/23/16 12:39 [facility] (Rec: 09/23/16 12:48 [id number] Pain Assessment Pain Present Reports No Pain Rounding Hourly Rounding Checked for Patient Positioning Patient Personal Items Placed Within Reach Checked Patient Pain Level Hourly Rounding Completed Yes Patient Awake Bedrest No Turn Q 2HR No Patient Position Chair Specialty Bed In Use Yes Equipment in Use Specialty Bed Safety Call Light Within Reach Bed Position Low Bed Exit Alarm Fall Precautions Phone Within Reach Bed Brake On Side Rails Up X3 Chair Alarm [place] Coma Scale Eye Opening Spontaneous Motor Obeys Commands Verbal Oriented Coma Scale Total 15 Bilateral Pupil Size (mm) 3 Pupil [place] Equal Document 09/23/16 15:35 [facility] (Rec: 09/23/16 16:11 [id number]) Vital Signs (Critical Care) Temperature (97.6 F-99.6 F) 97.5 F L Temperature Source Oral Pulse Rate 66 Rhythm Sinus Rhythm Right Radial 2+ Left Radial 2+ Right Dorsalis Pedis 2+ Left Dorsalis Pedis 2+ Respiratory Rate 12 Pulse Oximetry (95-100) 95 Oxygen Delivery Room Air Blood Pressure 130/60 Blood Pressure Mean (mm Hg) 73 Source Automatic Cuff Neuro Status *Recalled from last Alert documented assessment MEWS Score 0 Pain Assessment Pain Present Reports No Pain Rounding Hourly Rounding Checked for Patient Positioning Patient Personal Items Placed Within Reach Checked Patient Pain Level Hourly Rounding Completed Yes Patient Awake Bedrest No Turn Q 2HR No Patient Position Back Positioning Aides Pillows Specialty Bed In Use Yes Equipment in Use Specialty Bed Safety Call Light Within Reach Bed Position Low Bed Exit Alarm Fall Precautions Phone Within Reach Bed Brake On Side Rails Up X3 [place] Coma Scale Eye Opening Spontaneous Motor Obeys Commands Verbal Oriented Coma Scale Total 15 Bilateral Pupil Reaction Reactive Pupil Size (mm) 3 Pupil [place] Equal Document 09/23/16 15:50 MAB (Rec: 09/23/16 15:51 MAB [id number]) Blood Glucose Assessment Blood Glucose* 67 Rounding Turn Q 2HR No Patient Position Sitting up in Bed Document 09/23/16 16:55 [facility] (Rec: 09/23/16 16:55 [facility] [id number]) Rounding Hourly Rounding Checked for Patient Positioning Patient Personal Items Placed Within Reach Hourly Rounding Completed Yes Patient Awake Bedrest No Turn Q 2HR No Patient Position Back Positioning Aides Pillows Specialty Bed In Use Yes Equipment in Use Specialty Bed Safety Call Light Within Reach Bed Position Low Bed Exit Alarm Fall Precautions Phone Within Reach Bed Brake On Side Rails Up X3 Document 09/23/16 18:23 [facility] (Rec: 09/23/16 18:24 [facility] [id number]) Rounding Hourly Rounding Checked for Patient Positioning Patient Personal Items Placed Within Reach Hourly Rounding Completed Yes Patient Awake Bedrest No Turn Q 2HR No Patient Position Back Positioning Aides Pillows Specialty Bed In Use Yes Equipment in Use Specialty Bed Safety Call Light Within Reach Bed Position Low Bed Exit Alarm Fall Precautions Phone Within Reach Bed Brake On Side Rails Up X3 Document 09/23/16 20:00 [facility] (Rec: 09/23/16 21:28 [facility] [id number]) Blood Glucose Assessment Hypoglycemia Symptoms None Hyperglycemia Symptoms None Rounding Hourly Rounding Checked for Patient Positioning Patient Personal Items Placed Within Reach Checked Patient Pain Level Hourly Rounding Completed Yes Patient Awake Bedrest No Turn Q 2HR No Patient Position Back Specialty Bed In Use Yes Equipment in Use Specialty Bed Safety Call Light Within Reach Bed Position Low Bed Exit Alarm Fall Precautions Phone Within Reach Bed Brake On Side Rails Up X2 [place] Coma Scale Eye Opening Spontaneous Motor Obeys Commands Verbal Oriented Coma Scale Total 15 Bilateral Pupil Reaction Reactive Pupil Size (mm) 3 Pupil [place] Equal Document 09/23/16 20:08 JNV (Rec: 09/23/16 20:18 JNV [id number]) Vital Signs (Critical Care) Temperature (97.6 F-99.6 F) 98.1 F Temperature Source Oral Pulse Rate 70 Respiratory Rate 14 Pulse Oximetry (95-100) 93 L Oxygen Delivery Room Air Blood Pressure 126/90 Source Automatic Cuff Blood Glucose Assessment Blood Glucose* 191 Rounding Hourly Rounding Checked for Patient Positioning Patient Personal Items Placed Within Reach Hourly Rounding Completed Yes Patient Awake Bedrest No Turn Q 2HR No Patient Position Back Positioning Aides Pillows Specialty Bed In Use Yes Equipment in Use Specialty Bed Safety Call Light Within Reach Bed Position Low Fall Precautions Phone Within Reach Bed Brake On Side Rails Up X3 Document 09/23/16 22:10 JNV (Rec: 09/23/16 22:10 JNV [id number]) Rounding Hourly Rounding Checked for Patient Positioning Patient Personal Items Placed Within Reach Hourly Rounding Completed Yes Patient Awake Bedrest No Turn Q 2HR No Patient Position Back Positioning Aides Pillows Specialty Bed In Use Yes Equipment in Use Specialty Bed Safety Call Light Within Reach Bed Position Low Fall Precautions Phone Within Reach Bed Brake On Side Rails Up X3 Document 09/24/16 00:24 JNV (Rec: 09/24/16 00:30 JNV [id number]) Vital Signs (Critical Care) Temperature (97.6 F-99.6 F) 98.2 F Temperature Source Oral Pulse Rate 70 Respiratory Rate 16 Pulse Oximetry (95-100) 94 L Oxygen Delivery Room Air Blood Pressure 140/77 Source Automatic Cuff Rounding Hourly Rounding Checked for Patient Positioning Patient Personal Items Placed Within Reach Hourly Rounding Completed Yes Patient Awake Bedrest No Turn Q 2HR No Patient Position Back Positioning Aides Pillows Specialty Bed In Use Yes Equipment in Use Specialty Bed Safety Call Light Within Reach Bed Position Low Fall Precautions Phone Within Reach Bed Brake On Side Rails Up X3 Document 09/24/16 00:40 [facility] (Rec: 09/24/16 00:57 [facility] [id number]) Vital Signs (Critical Care) Neuro Status *Recalled from last Alert documented assessment Blood Glucose Assessment Hypoglycemia Symptoms None Hyperglycemia Symptoms None Rounding Hourly Rounding Checked for Patient Positioning Patient Personal Items Placed Within Reach Checked Patient Pain Level Hourly Rounding Completed Yes Patient Awake Bedrest No Turn Q 2HR No Patient Position Back Specialty Bed In Use Yes: ASSISTED UP IN BED. Equipment in Use Specialty Bed Safety Call Light Within Reach Bed Position Low Fall Precautions Phone Within Reach Bed Brake On Side Rails Up X3 [place] Coma Scale Eye Opening Spontaneous Motor Obeys Commands Verbal Oriented Coma Scale Total 15 Bilateral Pupil Reaction Reactive Pupil Size (mm) 3 Pupil [place] Equal Document 09/24/16 02:02 [facility] (Rec: 09/24/16 02:03 [facility] [id number]) Blood Glucose Assessment Hypoglycemia Symptoms None Hyperglycemia Symptoms None Pain Assessment Pain Present Reports No Pain Rounding Hourly Rounding Checked for Patient Positioning Patient Personal Items Placed Within Reach Hourly Rounding Completed Yes Patient Awake Bedrest No Turn Q 2HR No Patient Position Back Specialty Bed In Use Yes Equipment in Use Specialty Bed Safety Call Light Within Reach Bed Position Low Fall Precautions Phone Within Reach Bed Brake On Side Rails Up X3 Document 09/24/16 04:44 JNV (Rec: 09/24/16 04:47 JNV [id number]) Vital Signs (Critical Care) Temperature (97.6 F-99.6 F) 98.2 F Temperature Source Oral Pulse Rate 66 Respiratory Rate 16 Pulse Oximetry (95-100) 95 Oxygen Delivery Room Air Blood Pressure 139/77 Source Automatic Cuff Weight Assessment Weight 87.5 kg Weight Measurement Method Built in Bedscale Rounding Hourly Rounding Checked for Patient Positioning Patient Personal Items Placed Within Reach Hourly Rounding Completed Yes Patient Resting With Eyes Closed Bedrest No Turn Q 2HR No Patient Position Left Side Equipment in Use Specialty Bed Safety Call Light Within Reach Bed Position Low Fall Precautions Phone Within Reach Bed Brake On Side Rails Up X3 Document 09/24/16 04:45 [facility] (Rec: 09/24/16 05:09 [facility] [id number]) Vital Signs (Critical Care) Neuro Status *Recalled from last Alert documented assessment Blood Glucose Assessment Hypoglycemia Symptoms None Hyperglycemia Symptoms None Rounding Hourly Rounding Checked for Patient Positioning Patient Personal Items Placed Within Reach Checked Patient Pain Level Hourly Rounding Completed Yes Patient Awake Bedrest No Turn Q 2HR No Patient Position Back Specialty Bed In Use Yes: assisted up in bed. Equipment in Use Specialty Bed Safety Call Light Within Reach Bed Position Low Fall Precautions Phone Within Reach Bed Brake On Side Rails Up X2 [place] Coma Scale Eye Opening Spontaneous Motor Obeys Commands Verbal Oriented Coma Scale Total 15 Bilateral Pupil Reaction Reactive Pupil Size (mm) 3 Pupil [place] Equal Document 09/24/16 06:00 [facility] (Rec: 09/24/16 06:34 [facility] [id number]) Rounding Hourly Rounding Checked for Patient Positioning Patient Personal Items Placed Within Reach Hourly Rounding Completed Yes Patient Sleeping Bedrest No Turn Q 2HR No Patient Position Back Equipment in Use Specialty Bed Safety Call Light Within Reach Bed Position Low Fall Precautions Phone Within Reach Bed Brake On Side Rails Up X3 Document 09/24/16 07:45 LE (Rec: 09/24/16 07:46 LE [id number]) Vital Signs (Critical Care) Temperature (97.6 F-99.6 F) 98.0 F Temperature Source Oral Pulse Rate 66 Respiratory Rate 16 Pulse Oximetry (95-100) 90 L Oxygen Delivery Room Air Blood Pressure 149/75 Source Automatic Cuff Blood Glucose Assessment Blood Glucose* 258 Rounding Hourly Rounding Checked for Patient Positioning Patient Personal Items Placed Within Reach Hourly Rounding Completed Yes Patient Sleeping Bedrest No Turn Q 2HR No Patient Position Back Equipment in Use Specialty Bed Safety Call Light Within Reach Bed Position Low Fall Precautions Phone Within Reach Bed Brake On Side Rails Up X3 Document 09/24/16 08:26 AMJ (Rec: 09/24/16 08:33 AMJ [id number]) Pain Assessment Pain Present Reports No Pain Rounding Hourly Rounding Checked for Patient Positioning Patient Personal Items Placed Within Reach Checked Patient Pain Level Hourly Rounding Completed Yes Patient Awake Bedrest No Turn Q 2HR No Patient Position Back Specialty Bed In Use Yes Equipment in Use Specialty Bed Safety Call Light Within Reach Bed Position Low Fall Precautions Phone Within Reach Bed Brake On Side Rails Up X2 [place] Coma Scale Eye Opening Spontaneous Motor Obeys Commands Verbal Confused Coma Scale Total 14 Bilateral Pupil Reaction Reactive Pupil Size (mm) 3 Pupil [place] Equal Document 09/24/16 10:06 LE (Rec: 09/24/16 10:07 LE [id number]) Rounding Hourly Rounding Checked for Patient Positioning Patient Helped to Bathroom or Assisted with Bedpan or Urinal Patient Personal Items Placed Within Reach Hourly Rounding Completed Yes Patient Awake Bath Type Full Bed Bath Bathing Ability 2 Person Assist Herrera Care Completed By N/A Linen Change Partial Bedrest No Turn Q 2HR No Patient Position Back Safety Call Light Within Reach Bed Position Low Fall Precautions Phone Within Reach Bed Brake On Side Rails Up X2 Critical Value Reporting Start: 09/21/16 17: 11 Freq: Status: Discharge Document 09/21/16 17:11 RB (Rec: 09/21/16 17:12 RB [id number]) Critical Values Reporting Test(s) and Results Glucose 706 Time Results Received 17:10 Lab Results Repeated Back Yes Provider Notified Yes Time Provider Contacted 17:[address] Mead Special Ed Assistant Nutrition Assessment Start: 09/22/16 13: 29 Freq: Status: Discharge Document 09/22/16 13:49 LA (Rec: 09/22/16 13:54 LA [id number]) Nutritional Assessment - Special Ed Assistant Subjective Data: 80 YOF admit d/t HHNK and AMS. Pt was on an insulin drip, now transition to levemir, SSI . Apparently pt had a CVA 6 years ago and has gone down hill, she is forgetful and forgets to take her insulin. On interview pt is confused and not appropriate for education. I reviewed her menus with her, limited carbs to 45-60g/ meal. Plan is to d/ c to ECF or assisted living. Ate 100% of breakfast this morning. Hx: IDDM, CKD4, CVA Meds: 25u levemir BID, SSI ACHS, 18u humalog TID, IVF, K replacement Labs: Cr-1.71, GFR-35, Gluc- 141 (was 700 on admit) [place] Body Weight 120 Weight During Past 3 Months Has Not Changed Comment Ht: 5'4" Wt: 184# No physical s/s of malnutrition Diet ADA Compliant With Diet No Adequate Intake Prior to Admission Yes Feeding Ability Independent Calories Needed to Maintain Weight 1400 kcald/ay (25kcal/kg IBW) Estimated Protein Needs 55g/day (1g/kg IBW) Estimated Fluid Needs 1700 ml/day Initial assessment face to face time Altered nutrition related lab with patient (mins) values Nutrition Problem PES Statement related to missed insulin/ AMS as evidenced by admit gluc of 700 Initial Assessment Face to face time 15 with patient (mins) (minutes) Nutrition Intervention: Meals and Snacks Coordination of Care Comment 1. ADA diet 2. Reviewed menus with pt to keep her carb count low, she is not appropriate for education, d/c plans to ECF Nutrition Monitoring: Energy Intake Glucose Profile Comment f/u 09/29 Discharge Assessment Start: 09/21/16 19: 31 Freq: Status: Discharge Document 09/24/16 10:21 AM (Rec: 09/24/16 10:23 AM [id number]) Discharge Assessment Discharge Disposition Jail Facility Mode of Discharge Ambulance/EMS Accompanied By Ambulance Personnel Belongings sent with patient Yes Patient was provided information on Yes accessing patient portal Level Of Consciousness Awake Alert Eating (Feeding) Ability Independent Bathing Ability 2 Person Assist Upper Body Dressing Ability Moderate Assistance Lower Body Dressing Ability Moderate Assistance Ambulation Ability Moderate Assistance Toileting Ability Moderate Assistance Date of Last Bowel Movement 09/23/16 Bowel Incontinent Bladder Incontinent Patient Education Given Yes Discharge Instructions Given To Patient Discharge Instructions Address Activity Diet Weight Measures Medications Symptoms Worsening Follow Up Labs Problems Was patient discharged on Warfarin for No confirmed VTE diagnosis? Was patient discharged with diagnosis of No ischemic or hemmorrhagic stroke? Flu Vaccine Given No Reason Flu Vaccine Not Given Previously Received Current Flu Season Vaccine administration documented on No EMAR ED Discharge Assessment Start: 09/21/16 14: 46 Freq: Status: Discharge Document 09/21/16 19:54 RB (Rec: 09/21/16 19:55 RB [id number]) ED Discharge Assessment ED Discharge Disposition Admitted ED Condition on Discharge Fair Med Rec/Patient Pharmacy Completed? Yes Admitted to 2N Bed assigned 1 Transported by pharmacy technician infusion Transported with monitor IV continuing medication Report given to Nurse Information relayed patient's care treatments medications given condition recent/anticipated changes Clinical Documentation Summary Provided Yes Pain Scale 0 Pain Scale Used Standard (1-10) Blood Pressure 138/70 Heart rate 94 Respiratory Rate 16 Oxygen Saturation 95 Critical Care Minutes 0 Fall Precautions ([facility]) Start: 09/21/16 21: 08 Freq: ONCE Status: Discharge Document 09/21/16 23:50 WKB (Rec: 09/22/16 03:07 WKB [id number]) [facility] Fall Risk Assessment Tool Age 70-79 years (2 points) Fall History No falls within last 6 months (0 points) Elimination, Bowel, and Urine Incontinence (2 points) Medications: Includes PUG MACHINE OPERATOR/opiates, N/A (0 points) antivulsants, ant-hypertensives, diuretics, hypnotics, Patient Care Equipment: Any equipment 3 or more present (3 points) that tethers patient (e.g. IV infusions, chest tube, indwelling Mobility Requires assistance or supervision for transfer/ ambulation (2 points) N/A (0 points) Cognition N/A (0 points) Total Fall Risk Score 9 Fall Risk Category Moderate Risk (6-13) Fall Risk Interventions Low Risk Interventions Bed in lowest position Top side rails up x 2 Secure brake on bed Use properly fitting non-skid footwear Call light and frequently needed objects within reach Encourage patients/families to call for assistance when needed Fall education including risk assessment, injury risk and routine/ Inspect environment for safety and communication risk Supervise and assist with toileting/ADLs as needed Moderate Risk Interventions Institue fall-risk tooklit ( yellow flag, yellow non-skid socks and High Risk Interventions Activate bed/chair exit Document 09/22/16 09:40 [facility] (Rec: 09/22/16 10:05 [id number]) [facility] Fall Risk Assessment Tool High Fall Risk-Implement High Fall Risk History of more than one fall interventions per protocol within 6 months before admission Fall Risk Category High Risk Fall Risk Interventions Low Risk Interventions Bed in lowest position Top side rails up x 2 Secure brake on bed Use properly fitting non-skid footwear Call light and frequently needed objects within reach Encourage patients/families to call for assistance when needed Fall education including risk assessment, injury risk and routine/ Inspect environment for safety and communication risk Supervise and assist with toileting/ADLs as needed Moderate Risk Interventions Institue fall-risk tooklit ( yellow flag, yellow non-skid socks and Frequent reorientation for confused patients High Risk Interventions Remain with patient while toileting Activate bed/chair exit Move patient to room with best visual access Obtain pharmacy consult for review of medications Obtain PT consult, if pat Document 09/23/16 09:24 [facility] (Rec: 09/23/16 09:37 [id number]) [facility] Fall Risk Assessment Tool High Fall Risk-Implement High Fall Risk History of more than one fall interventions per protocol within 6 months before admission Fall Risk Category High Risk Fall Risk Interventions Low Risk Interventions Bed in lowest position Top side rails up x 2 Secure brake on bed Use properly fitting non-skid footwear Call light and frequently needed objects within reach Encourage patients/families to call for assistance when needed Fall education including risk assessment, injury risk and routine/ Inspect environment for safety and communication risk Supervise and assist with toileting/ADLs as needed Moderate Risk Interventions Institue fall-risk tooklit ( yellow flag, yellow non-skid socks and High Risk Interventions Remain with patient while toileting Activate bed/chair exit Move patient to room with best visual access Obtain PT consult, if pat Document 09/23/16 20:00 [facility] (Rec: 09/23/16 21:28 [facility] [id number]) [facility] Fall Risk Assessment Tool High Fall Risk-Implement High Fall Risk History of more than one fall interventions per protocol within 6 months before admission Fall Risk Category High Risk Fall Risk Interventions Low Risk Interventions Bed in lowest position Top side rails up x 2 Secure brake on bed Use properly fitting non-skid footwear Call light and frequently needed objects within reach Encourage patients/families to call for assistance when needed Fall education including risk assessment, injury risk and routine/ Inspect environment for safety and communication risk Supervise and assist with toileting/ADLs as needed Moderate Risk Interventions Institue fall-risk tooklit ( yellow flag, yellow non-skid socks and High Risk Interventions Remain with patient while toileting Activate bed/chair exit Move patient to room with best visual access Obtain PT consult, if pat Document 09/24/16 08:26 AM (Rec: 09/24/16 08:33 [id number] [place] Fall Risk Assessment Tool Age 70-79 years (2 points) Fall History One fall within the last 6 months before admission (5 points) Elimination, Bowel, and Urine Incontinence (2 points) Medications: Includes PUG MACHINE OPERATOR/opiates, On 2 or more high fall risk antivulsants, ant-hypertensives, drugs (5 points) diuretics, hypnotics, Patient Care Equipment: Any equipment One present (1 point) that tethers patient (e.g. IV infusions, chest tube, indwelling Mobility Requires assistance or supervision for transfer/ ambulation (2 points) Cognition Altered awareness of immediate physical environment (1 point ) Total Fall Risk Score 18 Fall Risk Category High Risk ([facility] than 13) Fall Risk Interventions Low Risk Interventions Bed in lowest position Top side rails up x 2 Secure brake on bed Use properly fitting non-skid footwear Call light and frequently needed objects within reach Encourage patients/families to call for assistance when needed Fall education including risk assessment, injury risk and routine/ Inspect environment for safety and communication risk Supervise and assist with toileting/ADLs as needed Moderate Risk Interventions Institue fall-risk tooklit ( yellow flag, yellow non-skid socks and High Risk Interventions Remain with patient while toileting Activate bed/chair exit Move patient to room with best visual access Flu Vaccine Screen Start: 09/21/16 19: 31 Freq: Status: Discharge Document 09/24/16 10:23 AMJ (Rec: 09/24/16 10:23 AMJ [id number]) Flu Vaccine Screen Influenza vaccine indications 6 months of age or older Flu Vaccine Contraindications Previously Received Current Flu Season Patient meets criteria for vaccination No and consents to receive it Glucose, blood point of care measurement Start: 09/21/16 17: 25 Freq: Q1H Status: Discharge Document 09/21/16 19:28 RB (Rec: 09/21/16 19:28 RB [id number]) Blood Glucose Assessment Blood Glucose* 418 Document 09/22/16 01:30 WKB (Rec: 09/22/16 02:46 WKB [id number]) Blood Glucose Assessment Blood Glucose* 194 Hypoglycemia Symptoms None Hyperglycemia Symptoms None Action Taken gtt Document 09/22/16 03:38 CAT (Rec: 09/22/16 03:38 CAT [id number]) Blood Glucose Assessment Blood Glucose* 123 Hypoglycemia Symptoms None Hyperglycemia Symptoms None Action Taken on board/notified rn Document 09/22/16 04:38 CAT (Rec: 09/22/16 04:38 CAT [id number]) Blood Glucose Assessment Blood Glucose* 83 Hypoglycemia Symptoms None Hyperglycemia Symptoms None Action Taken on board/notified rn Document 09/22/16 05:46 CAT (Rec: 09/22/16 05:46 CAT [id number]) Blood Glucose Assessment Blood Glucose* 111 Hypoglycemia Symptoms None Hyperglycemia Symptoms None Action Taken on board/notify rn Document 09/22/16 21:45 KMA (Rec: 09/22/16 21:45 KMA [id number]) Blood Glucose Assessment Blood Glucose* 100 Hypoglycemia Symptoms None Hyperglycemia Symptoms None Glucose, blood point of care measurement Start: 09/22/16 08: 46 Freq: .ACHS Status: Discharge Document 09/22/16 20:34 JNG (Rec: 09/22/16 20:35 JNG [id number]) Blood Glucose Assessment Blood Glucose* 68 Hygiene activity Start: 09/24/16 04: 58 Freq: Status: Discharge Document 09/24/16 04:58 JNV (Rec: 09/24/16 04:58 JNV [id number]) Hygiene Bath Type Partial Bed Bath Linen Change Complete IV-Invasive Line Management Start: 09/21/16 21: 21 Freq: q4h Status: Discharge Document 09/21/16 20:40 WKB (Rec: 09/21/16 22:04 WKB [id number]) IV/Invasive Line Assessment Left Antecubital Date of Insertion 09/21/16 Time of Insertion 16:55 Gauge (gauge) 20 IV Catheter Type Peripheral IV Site Observation Patent Site Observation Intervention Inspected Line Dressing Applied Transparent Dressing Document 09/21/16 23:50 WKB (Rec: 09/22/16 03:07 WKB [id number]) IV/Invasive Line Assessment Left Antecubital Date of Insertion 09/21/16 Time of Insertion 16:55 Gauge (gauge) 20 IV Catheter Type Peripheral IV Site Observation Patent Site Observation Intervention Inspected Line Dressing Applied Transparent Dressing Document 09/22/16 03:55 WKB (Rec: 09/22/16 05:28 WKB [id number]) IV/Invasive Line Assessment Left Antecubital Date of Insertion 09/21/16 Time of Insertion 16:55 Gauge (gauge) 20 IV Catheter Type Peripheral IV Site Observation Patent Site Observation Intervention Inspected Line Dressing Applied Transparent Dressing Document 09/22/16 09:40 [facility] (Rec: 09/22/16 10:05 [id number] IV/Invasive Line Assessment Left Antecubital Date of Insertion 09/21/16 Time of Insertion 16:55 Gauge (gauge) 20 IV Catheter Type Peripheral IV Site Observation Patent [place] Site Observation Intervention Inspected Line Dressing Applied Window Dressing Transparent Dressing Dry/Intact Line Care Saline Flush Cap(s) Changed Document 09/22/16 12:02 [facility] (Rec: 09/22/16 12:13 [id number]) IV/Invasive Line Assessment Left Antecubital Date of Insertion 09/21/16 Time of Insertion 16:55 Gauge (gauge) 20 IV Catheter Type Peripheral IV Site Observation Patent [place] Site Observation Intervention Inspected Line Dressing Applied Window Dressing Transparent Dressing Dry/Intact Line Care Saline Flush Tubing Changed Cap(s) Changed Document 09/22/16 17:21 [facility] (Rec: 09/22/16 17:27 [id number]) IV/Invasive Line Assessment Left Antecubital Date of Insertion 09/21/16 Time of Insertion 16:55 Gauge (gauge) 20 IV Catheter Type Peripheral IV Site Observation Patent [place] Site Observation Intervention Inspected Line Dressing Applied Window Dressing Transparent Dressing Dry/Intact Line Care Saline Flush Document 09/22/16 19:33 KMA (Rec: 09/22/16 19:49 KMA [id number]) IV/Invasive Line Assessment Left Antecubital Date of Insertion 09/21/16 Time of Insertion 16:55 Reason for Line Insertion/Rationale for Replace Lost Fluids Insertion Provide Access for IV Medication(s) Provide Access for Emergency Gauge (gauge) 20 IV Catheter Type Peripheral IV Site Observation Patent Site Observation Intervention Inspected Line Dressing Applied Dry/Intact Line Care Saline Flush Labs drawn from Line* No Document 09/23/16 00:35 KMA (Rec: 09/23/16 00:45 KMA [id number]) IV/Invasive Line Assessment Left Antecubital Date of Insertion 09/21/16 Time of Insertion 16:55 Reason for Line Insertion/Rationale for Replace Lost Fluids Insertion Provide Access for IV Medication(s) Provide Access for Emergency Gauge (gauge) 20 IV Catheter Type Peripheral IV Site Observation Patent Site Observation Intervention Inspected Line Dressing Applied Dry/Intact Line Care Saline Flush Labs drawn from Line* No Document 09/23/16 04:09 KMA (Rec: 09/23/16 04:14 KMA [id number]) IV/Invasive Line Assessment Left Antecubital Date of Insertion 09/21/16 Time of Insertion 16:55 Reason for Line Insertion/Rationale for Replace Lost Fluids Insertion Provide Access for IV Medication(s) Provide Access for Emergency Gauge (gauge) 20 IV Catheter Type Peripheral IV Site Observation Patent Site Observation Intervention Inspected Line Dressing Applied Dry/Intact Line Care Saline Flush Labs drawn from Line* No Document 09/23/16 09:24 [facility] (Rec: 09/23/16 09:37 [facility] [id number]) IV/Invasive Line Assessment Left Antecubital Date of Insertion 09/21/16 Time of Insertion 16:55 Reason for Line Insertion/Rationale for Replace Lost Fluids Insertion Provide Access for IV Medication(s) Provide Access for Emergency Gauge (gauge) 20 IV Catheter Type Peripheral IV Site Observation Patent [place] Site Observation Intervention Inspected Line Dressing Applied Window Dressing Transparent Dressing Dry/Intact Line Care Saline Flush Labs drawn from Line* No Document 09/23/16 12:39 [facility] (Rec: 09/23/16 12:48 [facility] [id number]) IV/Invasive Line Assessment Left Antecubital Date of Insertion 09/21/16 Time of Insertion 16:55 Reason for Line Insertion/Rationale for Replace Lost Fluids Insertion Provide Access for IV Medication(s) Provide Access for Emergency Gauge (gauge) 20 IV Catheter Type Peripheral IV Site Observation Patent [place] Site Observation Intervention Inspected Line Dressing Applied Window Dressing Transparent Dressing Dry/Intact Line Care Saline Flush Labs drawn from Line* No Document 09/23/16 15:35 [facility] (Rec: 09/23/16 16:11 [facility] [id number]) IV/Invasive Line Assessment Left Antecubital Date of Insertion 09/21/16 Time of Insertion 16:55 Reason for Line Insertion/Rationale for Replace Lost Fluids Insertion Provide Access for IV Medication(s) Provide Access for Emergency Gauge (gauge) 20 IV Catheter Type Peripheral IV Site Observation Patent [place] Site Observation Intervention Inspected Line Dressing Applied Window Dressing Transparent Dressing Dry/Intact Line Care Saline Flush Labs drawn from Line* No Document 09/23/16 20:00 [facility] (Rec: 09/23/16 21:28 [facility] [id number]) IV/Invasive Line Assessment Left Antecubital Date of Insertion 09/21/16 Time of Insertion 16:55 Reason for Line Insertion/Rationale for Replace Lost Fluids Insertion Provide Access for IV Medication(s) Provide Access for Emergency Gauge (gauge) 20 IV Catheter Type Peripheral IV Site Observation Patent [place] Site Observation Intervention Inspected Line Dressing Applied Window Dressing Transparent Dressing Dry/Intact Line Care Saline Flush Labs drawn from Line* No Document 09/24/16 00:40 [facility] (Rec: 09/24/16 00:57 [facility] [id number]) IV/Invasive Line Assessment Left Antecubital Date of Insertion 09/21/16 Time of Insertion 16:55 Reason for Line Insertion/Rationale for Replace Lost Fluids Insertion Provide Access for IV Medication(s) Provide Access for Emergency Gauge (gauge) 20 IV Catheter Type Peripheral IV Site Observation Patent [place] Site Observation Intervention Inspected Line Dressing Applied Window Dressing Transparent Dressing Dry/Intact Line Care Saline Flush Labs drawn from Line* No Document 09/24/16 04:45 [facility] (Rec: 09/24/16 05:09 [facility] [id number]) IV/Invasive Line Assessment Left Antecubital Date of Insertion 09/21/16 Time of Insertion 16:55 Reason for Line Insertion/Rationale for Replace Lost Fluids Insertion Provide Access for IV Medication(s) Provide Access for Emergency Gauge (gauge) 20 IV Catheter Type Peripheral IV Site Observation Patent [place] Site Observation Intervention Inspected Line Dressing Applied Window Dressing Transparent Dressing Dry/Intact Line Care Saline Flush Labs drawn from Line* No Document 09/24/16 08:26 AMJ (Rec: 09/24/16 08:33 [id number]) IV/Invasive Line Assessment Left Antecubital Date of Insertion 09/21/16 Time of Insertion 16:55 Reason for Line Insertion/Rationale for Replace Lost Fluids Insertion Provide Access for IV Medication(s) Provide Access for Emergency Gauge (gauge) 20 IV Catheter Type Peripheral IV Site Observation Patent [place] Site Observation Intervention Inspected Line Dressing Applied Window Dressing Transparent Dressing Dry/Intact Line Care Saline Flush Document 09/24/16 10:25 AMJ (Rec: 09/24/16 10:25 [facility] [id number]) IV/Invasive Line Assessment Date IV Line Discontinued 09/24/16 Time IV Line Discontinued 10:25 IV Line Discontinue Reason discharge Condition of IV Line Removed tip intact IV Line Removal Patient Tolerance Tolerated Well Bleeding Controlled Initial Patient Assessment Start: 09/21/16 21: 21 Freq: Status: Discharge Document 09/22/16 07:08 WKB (Rec: 09/22/16 07:13 WKB [id number]) General Questions Date of Arrival on Unit 09/21/16 Time of Arrival on Unit 20:15 Admitted From Emergency Dept Chief Complaint dka History Provided By Medical Record Orientation To Call Light Bed Phone TV Bathroom Smoking Policy Visiting Hours Procedures ID Bracelet On Patient Health Portal Patient was provided information on Yes accessing patient portal Patient Requests Portal Enrollment No Reason No Portal Enrollment Other Other Reason confused Malnutrition Screening Tool (MST) Have You Recently Lost Weight Without Unsure Trying If Yes, How Much Weight Have You Lost Unsure Have You Been Eating Poorly Because of a No Decreased Appetite MST Score 4 Advance Directives Advance Directives No Advance Directives Information Provided No Reason Not Provided confused Patient Rights Copy of Rights Given and Verbalizes No Understanding Tobacco Free [place]: Copy of AHS Yes Statement Given and Patient Verbalizes Understanding Communication Ability Preferred Language Tristanian Fashion Director Required No Ability to Follow Directions Fair Able to Read Yes Able to Write Yes Communication Tools None Hearing Ability Normal Visual Assistive Devices Glasses Pain Assessment Do You Have Any Ongoing (Chronic) Pain No Problems Educated on Pain Scale Yes Past Medical History Medical history arthritis asthma CVA dementia diabetes GERD glaucoma hyperlipidemia hypertension osteoporosis renal disease thyroid disease other Female Surgical History cholecystectomy knee replacement orthopedic, other other Psychiatric history anxiety depression other Smoking Status Never smoker Smokeless Tobacco Status No Alcohol use none Drug use none Occupational status retired Current living situation With Family Activity level Independent ambulation Uses cane/walker Mostly sedentary Recent Out of Country Travel Within the No Last 8 Weeks Exposure or Possible Exposure to Illness No During Travel Spiritual Needs Spiritual Referral None Psychosocial Over Age 75 and Lives Alone or Over Age Yes 80 Potential Need for Follow-up Care (ECF, Yes Home Health, ECT) Developmentally Disabled or History of No Mental Health Problems Diagnosis with Usp Need or No Terminal Implications Responsible for Care of Others No Financial Concerns No Suspected Abuse or Neglect No Suicidal or Homicidal Ideation No Social Service Consult Needed Yes Functional Assessment Employment Status Retired Eating (Feeding) Ability Setup Bathing Ability Minimum Assistance Upper Body Dressing Ability Setup Lower Body Dressing Ability Setup Ambulation Ability 1 Person Assist Toileting Ability Setup Bladder Incontinent Bowel Incontinent Intake and Output, Strict Start: 09/22/16 10: 37 Freq: Status: Discharge Document 09/22/16 10:38 [facility] (Rec: 09/22/16 10:38 [id number]) Intake and Output Stool Size Large Stool Color Brown Document 09/22/16 17:28 [facility] (Rec: 09/22/16 17:28 [id number]) Intake and Output Number of Urine Diapers 1 Document 09/22/16 19:29 JNG (Rec: 09/22/16 19:29 JNG [id number]) Intake and Output Intake, Oral Amount 600 Meal Dinner Percent of Meal Consumed 85% Oral Supplements* None Document 09/22/16 20:49 KMA (Rec: 09/22/16 20:49 KMA [id number]) Intake and Output Intake, Oral Amount 236 Document 09/22/16 21:45 JNG (Rec: 09/22/16 21:45 JNG [id number]) Intake and Output Intake, Oral Amount 240 Document 09/23/16 03:22 JNG (Rec: 09/23/16 03:22 JNG [id number]) Intake and Output Number of Urine Diapers 1 Document 09/23/16 07:02 MAB (Rec: 09/23/16 07:03 MAB [id number]) Intake and Output Intake, Oral Amount 0 Number of Urine Diapers 1 Urine Color Straw Document 09/23/16 09:26 MAB (Rec: 09/23/16 09:26 MAB [id number]) Intake and Output Intake, Oral Amount 240 Meal Breakfast Percent of Meal Consumed 100% Oral Supplements* None Document 09/23/16 16:11 [facility] (Rec: 09/23/16 16:11 [id number]) Intake and Output Number of Urine Diapers 2 Document 09/23/16 18:23 SK (Rec: 09/23/16 18:24 [id number]) Intake and Output Meal Dinner Percent of Meal Consumed 100% Oral Supplements* None Document 09/23/16 18:51 [id number] (Rec: 09/23/16 18:51 [id number]) Intake and Output Number of Urine Diapers 1 Stool Size Copious Stool Consistency soft Stool Characteristics Normal for Patient Stool Color Brown Yellow Document 09/23/16 20:18 JNV (Rec: 09/23/16 20:18 JNV [id number]) Intake and Output Number of Urine Diapers 1 Document 09/23/16 22:10 JNV (Rec: 09/23/16 22:11 JNV [id number]) Intake and Output Number of Urine Diapers 1 Document 09/24/16 00:30 JNV (Rec: 09/24/16 00:30 JNV [id number]) Intake and Output Number of Urine Diapers 2 Document 09/24/16 02:02 J (Rec: 09/24/16 02:03 [facility] [id number]) Intake and Output Number of Urine Diapers 1 Urine Color Dark Yellow Document 09/24/16 04:58 JNV (Rec: 09/24/16 04:58 JNV [id number]) Intake and Output Number of Urine Diapers 2 Document 09/24/16 10:06 LE (Rec: 09/24/16 10:07 LE [id number]) Intake and Output Number of Urine Diapers 1 Measure intake and output Start: 09/21/16 20: 52 Freq: QSHIFT Status: Complete Document 09/21/16 23:50 WKB (Rec: 09/22/16 03:07 WKB [id number]) Intake and Output Output, Urine Amount 150 Urine Color Straw Document 09/22/16 14:12 SK (Rec: 09/22/16 14:13 [id number]) Intake and Output Output, Urine Amount 200 Urine Color Pale Document 09/22/16 22:48 JNV (Rec: 09/22/16 22:48 JNV [id number]) Intake and Output Output, Urine Amount 150 Number of Urine Diapers 1 Number of Bowel Movements 1 Stool Size Smear Stool Color Brown Measure weight Start: 09/21/16 20: 52 Freq: DAILY Status: Discharge Document 09/22/16 14:12 [facility] (Rec: 09/22/16 14:13 [id number]) Height and Weight Weight 79.5 kg Weight Measurement Method Built in [facility] Med Rec Tech Start: 09/21/16 19: 38 Freq: Status: Discharge Document 09/21/16 19:38 EJD (Rec: 09/21/16 19:38 EJD [id number]) Pharmacy Med Rec Tech Home Medicatons Reconciled? Yes Was this to catch up from previous day No Does patient take 10 or more medications Yes ? Does patient request medication No education Do home meds include Coumadin, Xarelto, No Pradaxa, Eliquis Added Patient Preferred Pharmacy Yes Verified Allergies Yes Would Patient Like to use [facility] No Patient Pharmacy Notify provider Start: 09/22/16 08: 46 Freq: once Status: Discharge Document 09/22/16 09:40 [facility] (Rec: 09/22/16 10:05 [facility] [id number]) Document 09/23/16 09:24 [facility] (Rec: 09/23/16 09:37 [id number]) Patient Belongings Start: 09/21/16 21: 21 Freq: Status: Discharge Document 09/22/16 07:08 WKB (Rec: 09/22/16 07:13 WKB [id number]) Patient Belongings Belongings With Patient on Admission Yes At Bedside Patient Belongings Glasses Pants Shirt Shoes RT ABG's Start: 09/21/16 18: 37 Freq: Status: Discharge Document 09/21/16 18:05 SMS (Rec: 09/21/16 18:38 SMS [id number]) Arterial Blood Gasses Modified Marvin's Test Patient Unable to Perform Location Right Radial Oxygen Delivery Method Room Air Complications No Held Till Bleeding Stopped Yes Pressure Bandage Applied Yes Critical Results No ABG Charge* Yes Comment No complications noted. Saline lock insertion/management Start: 09/21/16 14: 46 Freq: Status: Discharge Document 09/21/16 16:55 RB (Rec: 09/21/16 16:56 RB [id number]) IV Insertion/Site Assessment IV Attempt 1 Successful Successful Blood drawn and sent to Lab Yes Left Antecubital Date of Insertion 09/21/16 Time of Insertion 16:55 IV Catheter Type Peripheral IV Gauge (gauge) 20 Site Observation Patent Dressing Applied Transparent Dressing Patient Tolerance Tolerated Well Sepsis Screening Start: 09/21/16 21: 21 Freq: Q4H Status: Discharge Document 09/21/16 20:40 WKB (Rec: 09/21/16 22:04 WKB [id number]) Sepsis Screening Sepsis Infection Criteria Present none Sepsis SIRS Criteria WBC > 12k or < 4k or bands > 10% Sepsis Screen No Definite Risk Sepsis Action Taken no action required Document 09/21/16 23:50 WKB (Rec: 09/22/16 03:07 WKB [id number]) Sepsis Screening Sepsis Infection Criteria Present none Sepsis SIRS Criteria WBC > 12k or < 4k or bands > 10% Sepsis Screen No Definite Risk Sepsis Action Taken no action required Document 09/22/16 03:55 WKB (Rec: 09/22/16 05:28 WKB [id number]) Sepsis Screening Sepsis Infection Criteria Present none Sepsis SIRS Criteria WBC > 12k or < 4k or bands > 10% Sepsis Screen No Definite Risk Sepsis Action Taken no action required Document 09/22/16 09:40 [facility] (Rec: 09/22/16 10:05 [facility] [id number]) Sepsis Screening Sepsis Infection Criteria Present none Sepsis SIRS Criteria WBC > 12k or < 4k or bands > 10% Sepsis Screen No Definite Risk Sepsis Action Taken no action required Document 09/22/16 12:02 [facility] (Rec: 09/22/16 12:13 [facility] [id number]) Sepsis Screening Sepsis Infection Criteria Present none Sepsis SIRS Criteria WBC > 12k or < 4k or bands > 10% Sepsis Screen No Definite Risk Sepsis Action Taken no action required Document 09/22/16 17:21 [facility] (Rec: 09/22/16 17:27 [facility] [id number]) Sepsis Screening Sepsis Infection Criteria Present none Sepsis SIRS Criteria WBC > 12k or < 4k or bands > 10% Sepsis Screen No Definite Risk Sepsis Action Taken no action required Document 09/22/16 19:33 KMA (Rec: 09/22/16 19:49 KMA [id number]) Sepsis Screening Sepsis Infection Criteria Present none Sepsis SIRS Criteria WBC > 12k or < 4k or bands > 10% Sepsis Screen No Definite Risk Sepsis Action Taken no action required Document 09/23/16 00:35 KMA (Rec: 09/23/16 00:45 KMA [id number]) Sepsis Screening Sepsis Infection Criteria Present none Sepsis SIRS Criteria WBC > 12k or < 4k or bands > 10% Sepsis Screen No Definite Risk Sepsis Action Taken no action required Document 09/23/16 04:09 KMA (Rec: 09/23/16 04:14 [facility]PR[id number]) Sepsis Screening Sepsis Infection Criteria Present none Sepsis SIRS Criteria WBC > 12k or < 4k or bands > 10% Sepsis Screen No Definite Risk Sepsis Action Taken no action required Document 09/23/16 09:24 [facility] (Rec: 09/23/16 09:37 [id number]) Sepsis Screening Sepsis Infection Criteria Present none Sepsis SIRS Criteria none Sepsis Screen No Definite Risk Sepsis Action Taken no action required Document 09/23/16 12:39 [facility] (Rec: 09/23/16 12:48 [id number]) Sepsis Screening Sepsis Infection Criteria Present none Sepsis SIRS Criteria none Sepsis Screen No Definite Risk Sepsis Action Taken no action required Document 09/23/16 15:35 [facility] (Rec: 09/23/16 16:11 [id number]) Sepsis Screening Sepsis Infection Criteria Present none Sepsis SIRS Criteria none Sepsis Screen No Definite Risk Sepsis Action Taken no action required Document 09/23/16 20:00 J (Rec: 09/23/16 21:28 [facility] [id number]) Sepsis Screening Sepsis Infection Criteria Present none Sepsis SIRS Criteria none Sepsis Screen No Definite Risk Sepsis Action Taken no action required Document 09/24/16 00:40 JDH (Rec: 09/24/16 00:57 [facility] [id number]) Sepsis Screening Sepsis Infection Criteria Present none Sepsis SIRS Criteria none Sepsis Screen No Definite Risk Sepsis Action Taken no action required Document 09/24/16 04:45 J (Rec: 09/24/16 05:09 [id number]) Sepsis Screening Sepsis Infection Criteria Present none Sepsis SIRS Criteria none Sepsis Screen No Definite Risk Sepsis Action Taken no action required Skin Risk Assessment Scale Start: 09/21/16 21: 21 Freq: q12h Status: Discharge Document 09/21/16 23:50 WKB (Rec: 09/22/16 03:07 WKB [id number]) Skin Risk Assessment Scale Moisture Risk Occasionally Moist Sensory Perception Slightly Limited Activity Risk Walks Occasionally Mobility Risk Slightly Limited Nutrition Risk Excellent Friction & Shear Risk Potential Problem Skin Risk Total Score (points) 18 Document 09/22/16 09:40 [facility] (Rec: 09/22/16 10:05 [facility] [id number]) Skin Risk Assessment Scale Moisture Risk Occasionally Moist Sensory Perception Slightly Limited Activity Risk Walks Occasionally Mobility Risk Slightly Limited Nutrition Risk Adequate Friction & Shear Risk No Apparent Problem Skin Risk Total Score (points) 18 Document 09/23/16 09:24 [facility] (Rec: 09/23/16 09:37 [facility] [id number]) Skin Risk Assessment Scale Moisture Risk Occasionally Moist Sensory Perception Slightly Limited Activity Risk Walks Occasionally Mobility Risk Slightly Limited Nutrition Risk Adequate Friction & Shear Risk Potential Problem Skin Risk Total Score (points) 17 Document 09/23/16 20:00 JDH (Rec: 09/23/16 21:28 JDH [id number]) Skin Risk Assessment Scale Moisture Risk Occasionally Moist Sensory Perception Slightly Limited Activity Risk Walks Occasionally Mobility Risk Slightly Limited Nutrition Risk Adequate Friction & Shear Risk Potential Problem Skin Risk Total Score (points) 17 Document 09/24/16 08:26 AMJ (Rec: 09/24/16 08:33 AMJ [id number]) Skin Risk Assessment Scale Moisture Risk Occasionally Moist Sensory Perception Slightly Limited Activity Risk Walks Occasionally Mobility Risk Slightly Limited Nutrition Risk Adequate Friction & Shear Risk Potential Problem Skin Risk Total Score (points) 17 Social Work Discharge Assessment Start: 09/22/16 12: 00 Freq: Status: Complete Document 09/24/16 10:37 MAS (Rec: 09/24/16 10:43 MAS [id number]) Social Work Discharge Assessment Assisted Living Support Service Agency [facility] Comment Pt. discharged to a respite room at [facility]. Narrative Pt. discharged to a respite room at [facility]. She will transition to the assisted living once a room becomes available. Social Work Initial Assessment Start: 09/22/16 12: 00 Freq: Status: Complete Document 09/22/16 12:00 MAS (Rec: 09/22/16 12:05 [facility] [id number]) Next Of Kin Emergency Contact Name Zara Flores Emergency Contact Phone Number [phone] Relationship to Patient daughter Advanced Dir/Guardianship Advance Directives No Advance Directives Information Provided No Living Situation Home Environment House Resides With Alone Social Support Social Support Family Agency Involvement Support Services Lifeline Current Durable Medical Equip Current Durable Medical Equipment Wheeled Walker Anticipated Discharge Plan Disposition To Be Determined Narrative Narrative Met with pt. who has obvious memory deficits. Daughter Nadiya was at bedside. Pt. lives alone and was found on kitchen floor. It's believed that she had been laying for two days. Daughter states she sets up pts. three weeks at a time. Pt. is francisca if she only takes three days of the pills. She is to use a walker , but is non-compliant. SW discussed discharge planning. Pt. isn't safe to return home. Daughter agrees and states she tried to get pt . to go to assisted living in the past and pt. refused. System Review ICU/2N Start: 09/21/16 21: 21 Freq: Q4H Status: Discharge Document 09/21/16 20:40 WKB (Rec: 09/21/16 22:04 [id number]) Neurological Assessment Eye Opening Spontaneous Motor Obeys Commands Verbal Oriented Coma Scale Total 15 Neurologic Status Alert Patient Orientation Person Place Time Arousable To Name Speech Pattern Normal tone Clear Delayed Difficulty finding words Patient Behavior Appropriate Mood Description Calm Relaxed Blunted Bilateral Pupil Reaction Brisk Pupil Size (mm) 4 Pupil [place] Equal Scleral Edema No Bakery Assistant Strength Equal Push/Pull Equal Numbness/Tingling Yes Facial Symmetry Symmetrical Cardiovascular Assessment Signs and Symptoms None Heart Sounds S1 & S2 Rhythm Regular Pulse Assessment Method Auscultation Right Radial 2+ Left Radial 2+ Right Dorsalis Pedis 1+ Left Dorsalis Pedis 1+ Right Posterior Tibialis 1+ Left Posterior Tibialis 1+ Jugular Vein Distention None Capillary Refill < 3 Seconds Circulatory Tenderness Description None Chest Pain Complaint No Mechanical Prophylaxis No Has Confirmed Diagnosis of DVT, PE or No VTE Cardiac Monitoring Strip placed in Chart Yes History Reviewed Yes Alarms/Limits HR Alarm 120/50 SBP Alarm 160/90 SPO2 Alarm 100/88 Heart Rate 86 EKG Method Telemetry Rhythm Sinus Rhythm SC Interval 0.15 QRS Interval 0.10 QT Interval 0.39 Respiratory Assessment Respiratory Symptoms None Effort Spontaneous Non-Labored Depth Normal Respiratory Pattern Regular Chest Shape Normal Expansion Symmetrical All Lung Thomas Clear Oxygen Delivery Method Room Air Cough Description None Sputum Amount None Gastrointestinal Assessment Abdomen Description Soft Non-Tender Large 3 or more loose stools, in less than 24 No hours Nausea/Vomiting Presence None All Four Quadrants Active Genitourinary Assessment Genitourinary Symptoms None Voiding Method Brief Bladder Distention None Suprapubic Tenderness with Palpation No Comment: no urine to assess at this time Integumentary Assessment Fingernail Color Yellow Nail Bed Appearance [place] Temperature Warm Moisture Dry Turgor Normal All Pressure Points Assessed Yes Evidence of Incision/Wounds/Breakdown No Musculoskeletal Assessment Musculoskeletal Symptoms Generalized Weakness Document 09/21/16 23:50 WKB (Rec: 09/22/16 03:07 [id number]) Pain Assessment Pain Present Reports No Pain Neurological Assessment Eye Opening Spontaneous Motor Obeys Commands Verbal Confused Coma Scale Total 14 Neurologic Status Alert Patient Orientation Person Place Arousable To Name Speech Pattern Normal tone Clear Delayed Difficulty finding words Patient Behavior Appropriate Mood Description Calm Relaxed Blunted Bilateral Pupil [place] Equal Scleral Edema No Bakery Assistant Strength Equal Push/Pull Equal Numbness/Tingling Yes Facial Symmetry Symmetrical Cardiovascular Assessment Signs and Symptoms None Heart Sounds S1 & S2 Rhythm Regular Pulse Assessment Method Auscultation Right Radial 2+ Left Radial 2+ Right Dorsalis Pedis 1+ Left Dorsalis Pedis 1+ Right Posterior Tibialis 1+ Left Posterior Tibialis 1+ Jugular Vein Distention None Capillary Refill < 3 Seconds Circulatory Tenderness Description None Chest Pain Complaint No Mechanical Prophylaxis No Has Confirmed Diagnosis of DVT, PE or No VTE Cardiac Monitoring Strip placed in Chart Yes History Reviewed Yes Alarms/Limits HR Alarm 120/50 SBP Alarm 160/90 SPO2 Alarm 100/88 Heart Rate 80 EKG Method Telemetry Rhythm Sinus Rhythm SC Interval 0.16 QRS Interval 0.13 QT Interval 0.41 Respiratory Assessment Respiratory Symptoms None Effort Spontaneous Non-Labored Depth Normal Respiratory Pattern Regular Chest Shape Normal Expansion Symmetrical All Lung Thomas Clear Oxygen Delivery Method Room Air Oxygen Flow Rate (LPM) 2 Cough Description None Sputum Amount None Gastrointestinal Assessment Abdomen Description Soft Non-Tender Large 3 or more loose stools, in less than 24 No hours Nausea/Vomiting Presence None All Four Quadrants Active Genitourinary Assessment Genitourinary Symptoms None Voiding Method Brief Bladder Distention None Suprapubic Tenderness with Palpation No Comment: no urine to assess at this time Integumentary Assessment Fingernail Color Yellow Nail Bed Appearance [place] Temperature Warm Moisture Dry Turgor Normal All Pressure Points Assessed Yes Evidence of Incision/Wounds/Breakdown No Musculoskeletal Assessment Musculoskeletal Symptoms Generalized Weakness Document 09/22/16 03:55 WKB (Rec: 09/22/16 05:28 [id number]) Neurological Assessment Eye Opening Spontaneous Motor Obeys Commands Verbal Confused Coma Scale Total 14 Neurologic Status Alert Patient Orientation Person Place Arousable To Name Speech Pattern Normal tone Clear Delayed Difficulty finding words Patient Behavior Appropriate Mood Description Calm Relaxed Blunted Bilateral Pupil [place] Equal Scleral Edema No Bakery Assistant Strength Equal Push/Pull Equal Numbness/Tingling Yes Facial Symmetry Symmetrical Cardiovascular Assessment Signs and Symptoms None Heart Sounds S1 & S2 Rhythm Regular Pulse Assessment Method Auscultation Right Radial 2+ Left Radial 2+ Right Dorsalis Pedis 1+ Left Dorsalis Pedis 1+ Right Posterior Tibialis 1+ Left Posterior Tibialis 1+ Jugular Vein Distention None Capillary Refill < 3 Seconds Circulatory Tenderness Description None Chest Pain Complaint No Mechanical Prophylaxis No Has Confirmed Diagnosis of DVT, PE or No VTE Cardiac Monitoring Strip placed in Chart Yes History Reviewed Yes Alarms/Limits HR Alarm 120/50 SBP Alarm 160/90 SPO2 Alarm 100/88 Heart Rate 74 EKG Method Telemetry Rhythm Sinus Rhythm SC Interval 0.17 QRS Interval 0.10 QT Interval 0.43 Respiratory Assessment Respiratory Symptoms None Effort Spontaneous Non-Labored Depth Normal Respiratory Pattern Regular Chest Shape Normal Expansion Symmetrical All Lung Thomas Clear Oxygen Delivery Method Room Air Oxygen Flow Rate (LPM) 2 Cough Description None Sputum Amount None Gastrointestinal Assessment Abdomen Description Soft Non-Tender Large 3 or more loose stools, in less than 24 No hours Nausea/Vomiting Presence None All Four Quadrants Active Genitourinary Assessment Genitourinary Symptoms None Voiding Method Bedside Commode Color Straw Bladder Distention None Suprapubic Tenderness with Palpation No Integumentary Assessment Fingernail Color Yellow Nail Bed Appearance [place] Temperature Warm Moisture Dry Turgor Normal All Pressure Points Assessed Yes Evidence of Incision/Wounds/Breakdown No Integumentary Comment: preventative cream to coccyx Musculoskeletal Assessment Musculoskeletal Symptoms Generalized Weakness Document 09/22/16 09:40 [facility] (Rec: 09/22/16 10:05 [facility] [id number]) Pain Assessment Pain Present Reports No Pain Neurological Assessment Eye Opening Spontaneous Motor Obeys Commands Verbal Confused Coma Scale Total 14 Neurologic Status Agitation/Confusion Patient Orientation Person Arousable To Name Speech Pattern Appropriate Clear Coherent Slowed Delayed Patient Behavior Cooperative Confused Mood Description Calm Relaxed Bilateral Pupil Reaction Reactive Pupil Size (mm) 3 Pupil [place] Equal Scleral Edema No Sensory Vision impaired Bakery Assistant Strength Equal Bilat Weak Push/Pull Equal Right Greater Than Left Bilat Weak Numbness/Tingling No Facial Symmetry Symmetrical Neurological Comment: PATIENT ALERT TO NAME. UNABLE TO STATE , MONTH OF YEAR, OR PLACE. PATIENT PLEASENT TO SPEAK WITH AND COOPERATIVE. PATIENT SITTING UP IN BED EATING BREAKFAST Cardiovascular Assessment Signs and Symptoms None Heart Sounds S1 & S2 Pulse Rate 65 Rhythm Regular Right Radial 2+ Left Radial 2+ Right Dorsalis Pedis 1+ Left Dorsalis Pedis 1+ Jugular Vein Distention None Capillary Refill < 3 Seconds Circulatory Tenderness Description None Mechanical Prophylaxis No Has Confirmed Diagnosis of DVT, PE or No VTE VTE Prophylaxis SQ Treatment Cardiac Monitoring Strip placed in Chart Yes History Reviewed Yes Memory Cleared No Alarms/Limits HR Alarm 120/50 SBP Alarm 160/90 SPO2 Alarm 100/88 Heart Rate 65 EKG Method Telemetry Rhythm Sinus Rhythm SC Interval 0.13 QRS Interval 0.10 QT Interval 0.40 Respiratory Assessment Respiratory Symptoms Difficulty Clearing Secretions Difficulty Clearing Secretions Effort Spontaneous Non-Labored Depth Normal Respiratory Pattern Regular Chest Shape Normal Expansion Symmetrical Right Upper Lobe Clear Right Middle Lobe Clear Right Lower Lobe Clear Left Upper Lobe Clear Left Lower Lobe Clear Oxygen Delivery Method Room Air Cough Description Voluntary Non-Productive Moist Loose Cough Frequency Intermittent Sputum Amount None Comment: PATIENT HAVING DIFFICULTY CLEARING SECRETIONS. PATIENT HAVING INTERMITTENT, MOIST COUGH. Gastrointestinal Assessment Abdomen Description Soft Non-Tender Large 3 or more loose stools, in less than 24 No hours Nausea/Vomiting Presence None All Four Quadrants Active Genitourinary Assessment Genitourinary Symptoms Urinary Incontinence Bladder Pattern Incontinent Voiding Method Bedside Commode Brief Incontinent Bladder Distention None Suprapubic Tenderness with Palpation No Comment: NO URINE TO ASSESS AT THIS TIME. PATIENT IS AT TIMES INCONTINENT OF URINE. Integumentary Assessment Fingernail Color Yellow Nail Bed Appearance [place] Temperature Warm Moisture Dry Turgor Loose Color Normal All Pressure Points Assessed Yes Evidence of Incision/Wounds/Breakdown No Mucous membranes moist, pink and intact Yes Musculoskeletal Assessment Musculoskeletal Symptoms Generalized Weakness Document 09/22/16 12:02 [facility] (Rec: 09/22/16 12:13 [facility] [id number]) Neurological Assessment Eye Opening Spontaneous Motor Obeys Commands Verbal Confused Coma Scale Total 14 Neurologic Status Agitation/Confusion Patient Orientation Person Arousable To Name Speech Pattern Clear Coherent Slowed Delayed Patient Behavior Cooperative Confused Mood Description Calm Relaxed Facial Symmetry Symmetrical Neurological Comment: PATIENT ALERT TO NAME. UNABLE TO STATE OR PLACE. DAUGHTERS AT BEDSIDE. Cardiovascular Assessment Signs and Symptoms None Heart Sounds S1 & S2 Pulse Rate 71 Rhythm Regular Right Radial 2+ Left Radial 2+ Right Dorsalis Pedis 1+ Left Dorsalis Pedis 1+ Jugular Vein Distention None Capillary Refill < 3 Seconds Circulatory Tenderness Description None Mechanical Prophylaxis No Has Confirmed Diagnosis of DVT, PE or No VTE VTE Prophylaxis SQ Treatment Cardiac Monitoring Monitor Number [id number] HW Strip placed in Chart Yes History Reviewed Yes Memory Cleared No Alarms/Limits HR Alarm 120/50 SBP Alarm 160/90 SPO2 Alarm 100/88 Heart Rate 71 EKG Method Telemetry Rhythm Sinus Rhythm SC Interval 0.15 QRS Interval 0.10 QT Interval 0.40 Respiratory Assessment Respiratory Symptoms None Effort Normal for Patient Spontaneous Non-Labored Depth Normal Respiratory Pattern Regular Chest Shape Normal Expansion Symmetrical Right Upper Lobe Clear Right Middle Lobe Clear Right Lower Lobe Clear Diminished Left Upper Lobe Clear Left Lower Lobe Clear Diminished Oxygen Delivery Method Room Air Cough Description None Sputum Amount None Comment: NO COUGH OR SPUTUM TO ASSESS AT THIS TIME. WILL CONTINUE TO MONITOR. Gastrointestinal Assessment Abdomen Description Soft Non-Tender Large 3 or more loose stools, in less than 24 No hours Nausea/Vomiting Presence None All Four Quadrants Active Flatus Presence Present Genitourinary Assessment Genitourinary Symptoms Dribbling Urinary Incontinence Bladder Pattern Dribbling Incontinent Voiding Method Toilet Bedside Commode Brief Incontinent Urine Appearance Clear Color Pale Odor Normal Bladder Distention None Suprapubic Tenderness with Palpation No Comment: AT TIMES PATIENT INCONTINENT OF URINE. WILL OCCASSIONALLY USE BSC OR TOILET Integumentary Assessment Fingernail Color Yellow Nail Bed Appearance [place] Temperature Warm Moisture Dry Turgor Loose Color Normal All Pressure Points Assessed Yes Evidence of Incision/Wounds/Breakdown Yes: SEE WOUND ASSESSMENT Mucous membranes moist, pink and intact Yes Oral Cavity Normal Musculoskeletal Assessment Musculoskeletal Symptoms Generalized Weakness Musculoskeletal Comment: REDNESS TO PATIENT BACK, BUTTOCKS, AND VAGINA. PATIENT BACK REDNESS LOOKS SIMILAR TO A CARPET OR RUG BURN; SOME AREAS SCABED OVER. PERIANAL AREA IS RED AND INFLAMMED WITH SMALL BUMPS NOTED. APPEARS TO BE YEAST BUILDUP WELL. Document 09/22/16 17:21 [facility] (Rec: 09/22/16 17:27 [facility] [id number]) Neurological Assessment Eye Opening Spontaneous Motor Obeys Commands Verbal Confused Coma Scale Total 14 Neurologic Status Agitation/Confusion Patient Orientation Person Arousable To Name Speech Pattern Clear Coherent Delayed Patient Behavior Cooperative Confused Mood Description Calm Relaxed Bilateral Pupil Reaction Reactive Pupil Size (mm) 3 Pupil [place] Equal Scleral Edema No Bakery Assistant Strength Equal Bilat Weak Push/Pull Equal Bilat Weak Numbness/Tingling No Facial Symmetry Symmetrical Neurological Comment: PATIENT ALERT TO SELF. UNABLE TO TELL THIS RN , PLACE, OR YEAR. PATIENT PLEASENT. Cardiovascular Assessment Signs and Symptoms None Heart Sounds S1 & S2 Pulse Rate 76 Rhythm Regular Right Radial 2+ Left Radial 2+ Right Dorsalis Pedis 1+ Left Dorsalis Pedis 1+ Jugular Vein Distention None Capillary Refill < 3 Seconds Circulatory Tenderness Description None Mechanical Prophylaxis No Has Confirmed Diagnosis of DVT, PE or No VTE VTE Prophylaxis SQ Treatment Cardiac Monitoring Monitor Number [id number] HW Strip placed in Chart Yes History Reviewed Yes Memory Cleared No Alarms/Limits HR Alarm 120/50 SBP Alarm 160/90 SPO2 Alarm 100/88 Heart Rate 76 EKG Method Telemetry Rhythm Sinus Rhythm SC Interval 0.13 QRS Interval 0.09 QT Interval 0.39 Respiratory Assessment Respiratory Symptoms None Effort Normal for Patient Spontaneous Non-Labored Depth Normal Respiratory Pattern Regular Chest Shape Normal Expansion Symmetrical Right Upper Lobe Clear Right Middle Lobe Clear Right Lower Lobe Clear Left Upper Lobe Clear Left Lower Lobe Clear Oxygen Delivery Method Room Air Cough Description None Sputum Amount None Comment: AT THIS TIME PATIENT HAS NO COUGH OR SPUTUM TO ASSESS Gastrointestinal Assessment Abdomen Description Soft Non-Tender Large 3 or more loose stools, in less than 24 No hours Nausea/Vomiting Presence None All Four Quadrants Active Flatus Presence Present Genitourinary Assessment Genitourinary Symptoms Dribbling Urinary Incontinence Bladder Pattern Dribbling Incontinent Voiding Method Toilet Bedside Commode Brief Incontinent Bladder Distention None Suprapubic Tenderness with Palpation No Comment: NO URINE TO ASSESS AT THIS TIME. PATIENT INCONTINENT AT TIMES. Integumentary Assessment Fingernail Color Yellow Nail Bed Appearance [place] Temperature Warm Moisture Dry Turgor Loose Color Normal All Pressure Points Assessed Yes Evidence of Incision/Wounds/Breakdown Yes: SEE WOUND ASSESSMENT Mucous membranes moist, pink and intact Yes Oral Cavity Normal Musculoskeletal Assessment Musculoskeletal Symptoms Generalized Weakness Document 09/22/16 19:33 KMA (Rec: 09/22/16 19:49 KMA [id number]) Pain Assessment Pain Present Reports No Pain Neurological Assessment Eye Opening Spontaneous Motor Obeys Commands Verbal Oriented Coma Scale Total 15 Neurologic Status Alert Patient Orientation Person Place Time Arousable To Name Speech Pattern Normal rate Normal rhythm Normal tone Clear Coherent Inappropriate to situation Patient Behavior Cooperative Suspicious Mood Description Calm Suspicious Bilateral Pupil Reaction Reactive Pupil Size (mm) 3 Pupil [place] PERRL Scleral Edema No Bakery Assistant Strength Equal Bilat Weak Push/Pull Equal Bilat Weak Numbness/Tingling No Facial Symmetry Symmetrical Neurological Comment: Alert, oriented; yet exhibits some confusion. Can tell me her name, she is at [place], and that it is September; but believes that it is 1914 and states that [birth year] is [id number]. Cardiovascular Assessment Signs and Symptoms Weakness of Extremities Heart Sounds S1 & S2 Pulse Rate 70 Rhythm Regular Right Radial 2+ Left Radial 2+ Right Dorsalis Pedis 2+ Left Dorsalis Pedis 2+ Jugular Vein Distention None Capillary Refill < 3 Seconds Circulatory Tenderness Description None Mechanical Prophylaxis No Has Confirmed Diagnosis of DVT, PE or No VTE VTE Prophylaxis SQ Treatment Cardiac Monitoring Monitor Number [id number] HW Strip placed in Chart Yes Alarms/Limits HR Alarm 120/50 SBP Alarm 160/90 SPO2 Alarm 100/88 Heart Rate 70 EKG Method Telemetry Rhythm Sinus Rhythm SC Interval 0.16 QRS Interval 0.10 QT Interval 0.41 Respiratory Assessment Respiratory Symptoms None Effort Normal for Patient Spontaneous Non-Labored Depth Normal Respiratory Pattern Regular Chest Shape Normal Expansion Symmetrical Right Upper Lobe Clear Diminished Right Middle Lobe Clear Diminished Right Lower Lobe Clear Diminished Left Upper Lobe Clear Left Lower Lobe Clear Oxygen Delivery Method Room Air Cough Description None Sputum Amount None Gastrointestinal Assessment Abdomen Description Soft Non-Tender Large Round 3 or more loose stools, in less than 24 No hours Nausea/Vomiting Presence None All Four Quadrants Active Genitourinary Assessment Genitourinary Symptoms Urinary Incontinence Bladder Pattern Incontinent Voiding Method Toilet Bedside Commode Brief Incontinent Urine Appearance Clear Color Pale Odor Normal Bladder Distention None Suprapubic Tenderness with Palpation No Integumentary Assessment Nail Bed Appearance [place] Temperature Warm Moisture Dry Turgor Loose Color Normal All Pressure Points Assessed Yes Evidence of Incision/Wounds/Breakdown Yes: Wound assessment Mucous membranes moist, pink and intact Yes Oral Cavity Normal Musculoskeletal Assessment Musculoskeletal Symptoms Generalized Weakness Document 09/23/16 00:35 KMA (Rec: 09/23/16 00:45 KMA [id number]) Pain Assessment Pain Present Reports No Pain Neurological Assessment Eye Opening Spontaneous Motor Obeys Commands Verbal Oriented Coma Scale Total 15 Neurologic Status Alert Patient Orientation Person Place Time Arousable To Name Speech Pattern Normal rate Normal rhythm Normal tone Appropriate Clear Coherent Patient Behavior Cooperative Mood Description Calm Relaxed Bilateral Pupil Size (mm) 3 Pupil [place] Equal Scleral Edema No Numbness/Tingling No Facial Symmetry Symmetrical Neurological Comment: Still slightly disoriented to date of . Cardiovascular Assessment Signs and Symptoms Weakness of Extremities Heart Sounds S1 & S2 Pulse Rate 66 Rhythm Regular Right Radial 2+ Left Radial 2+ Right Dorsalis Pedis 2+ Left Dorsalis Pedis 2+ Jugular Vein Distention None Capillary Refill < 3 Seconds Circulatory Tenderness Description None Chest Pain Complaint No Mechanical Prophylaxis No Has Confirmed Diagnosis of DVT, PE or No VTE VTE Prophylaxis SQ Treatment Cardiac Monitoring Monitor Number [id number] HW Strip placed in Chart Yes Alarms/Limits HR Alarm 120/50 SBP Alarm 160/90 SPO2 Alarm 100/88 Heart Rate 66 EKG Method Telemetry Rhythm Sinus Rhythm SC Interval 0.16 QRS Interval 0.10 QT Interval 0.45 Respiratory Assessment Respiratory Symptoms None Effort Normal for Patient Spontaneous Non-Labored Depth Normal Respiratory Pattern Regular Chest Shape Normal Expansion Symmetrical All Lung Thomas Clear Oxygen Delivery Method Room Air Cough Description None Sputum Amount None Gastrointestinal Assessment Abdomen Description Soft Non-Tender Large Round 3 or more loose stools, in less than 24 No hours Nausea/Vomiting Presence None Genitourinary Assessment Genitourinary Symptoms Urinary Incontinence Bladder Pattern Incontinent Voiding Method Toilet Bedside Commode Brief Incontinent Urine Appearance Clear Color Pale Odor Normal Bladder Distention None Suprapubic Tenderness with Palpation No Integumentary Assessment Temperature Warm Moisture Dry Turgor Loose Color Normal All Pressure Points Assessed Yes Evidence of Incision/Wounds/Breakdown Yes: Wound assessment Mucous membranes moist, pink and intact Yes Oral Cavity Normal Musculoskeletal Assessment Musculoskeletal Symptoms Generalized Weakness Document 09/23/16 04:09 KMA (Rec: 09/23/16 04:14 KM [id number]) Pain Assessment Pain Present Reports No Pain Neurological Assessment Eye Opening Spontaneous Motor Obeys Commands Verbal Oriented Coma Scale Total 15 Neurologic Status Alert Patient Orientation Person Place Time Arousable To Name Speech Pattern Normal rate Normal rhythm Normal tone Appropriate Clear Coherent Patient Behavior Appropriate Cooperative Mood Description Calm Relaxed Bilateral Pupil Size (mm) 3 Pupil [place] Equal Scleral Edema No Numbness/Tingling No Facial Symmetry Symmetrical Neurological Comment: . Cardiovascular Assessment Signs and Symptoms None Heart Sounds S1 & S2 Pulse Rate 62 Rhythm Regular Right Radial 2+ Left Radial 2+ Right Dorsalis Pedis 2+ Left Dorsalis Pedis 2+ Jugular Vein Distention None Capillary Refill < 3 Seconds Circulatory Tenderness Description None Chest Pain Complaint No Mechanical Prophylaxis No Has Confirmed Diagnosis of DVT, PE or No VTE VTE Prophylaxis SQ Treatment Cardiac Monitoring Monitor Number [id number] HW Strip placed in Chart Yes Alarms/Limits HR Alarm 120/50 SBP Alarm 160/90 SPO2 Alarm 100/88 Heart Rate 62 EKG Method Telemetry Rhythm Sinus Rhythm SC Interval 0.18 QRS Interval 0.11 QT Interval 0.42 Respiratory Assessment Respiratory Symptoms None Effort Normal for Patient Spontaneous Non-Labored Depth Normal Respiratory Pattern Regular Chest Shape Normal Expansion Symmetrical Right Upper Lobe Clear Diminished Right Middle Lobe Clear Diminished Right Lower Lobe Diminished Expiratory Wheezing Left Upper Lobe Clear Diminished Left Lower Lobe Clear Diminished Oxygen Delivery Method Room Air Cough Description None Sputum Amount None Gastrointestinal Assessment Abdomen Description Soft Non-Tender Large Round 3 or more loose stools, in less than 24 No hours Nausea/Vomiting Presence None Genitourinary Assessment Genitourinary Symptoms Urinary Incontinence Bladder Pattern Incontinent Voiding Method Toilet Bedside Commode Brief Incontinent Urine Appearance Clear Color Pale Odor Normal Bladder Distention None Suprapubic Tenderness with Palpation No Integumentary Assessment Temperature Warm Moisture Dry Turgor Loose Color Normal All Pressure Points Assessed Yes Evidence of Incision/Wounds/Breakdown Yes: Wound assessment Mucous membranes moist, pink and intact Yes Oral Cavity Normal Musculoskeletal Assessment Musculoskeletal Symptoms Generalized Weakness Document 09/23/16 09:24 [facility] (Rec: 09/23/16 09:37 [facility] [id number]) Pain Assessment Pain Present Reports No Pain Neurological Assessment Eye Opening Spontaneous Motor Obeys Commands Verbal Oriented Coma Scale Total 15 Neurologic Status Alert Patient Orientation Person Place Time Arousable To Name Speech Pattern Normal rate Normal rhythm Normal tone Appropriate Clear Coherent Patient Behavior Appropriate Cooperative Mood Description Calm Relaxed Appropriate Bilateral Pupil Reaction Reactive Pupil Size (mm) 3 Pupil [place] Equal Scleral Edema No Bakery Assistant Strength Equal Push/Pull Equal Numbness/Tingling No Facial Symmetry Symmetrical Neurological Comment: PATIENT A&OX3. RESTING IN BED WATCHING TV. AT THIS TIME PATIENT HAS NO NEEDS. Cardiovascular Assessment Signs and Symptoms None Heart Sounds S1 & S2 Pulse Rate 62 Rhythm Regular Right Radial 2+ Left Radial 2+ Right Dorsalis Pedis 1+ Left Dorsalis Pedis 1+ Jugular Vein Distention None Capillary Refill < 3 Seconds Circulatory Tenderness Description None Mechanical Prophylaxis No Has Confirmed Diagnosis of DVT, PE or No VTE VTE Prophylaxis SQ Treatment Cardiac Monitoring Monitor Number 2N01 HW Strip placed in Chart Yes History Reviewed Yes Memory Cleared No Alarms/Limits HR Alarm 120/50 SBP Alarm 160/90 SPO2 Alarm 100/88 Heart Rate 62 EKG Method Telemetry Rhythm Sinus Rhythm SC Interval 0.16 QRS Interval 0.09 QT Interval 0.49 Respiratory Assessment Respiratory Symptoms None Effort Normal for Patient Spontaneous Non-Labored Depth Normal Respiratory Pattern Regular Chest Shape Normal Expansion Symmetrical All Lung Thomas Clear Oxygen Delivery Method Room Air Cough Description None Sputum Amount None Gastrointestinal Assessment Abdomen Description Soft Non-Tender Large Round 3 or more loose stools, in less than 24 No hours Nausea/Vomiting Presence None All Four Quadrants Active Flatus Presence Present Genitourinary Assessment Genitourinary Symptoms Urinary Incontinence Bladder Pattern Incontinent Voiding Method Toilet Bedside Commode Brief Incontinent Bladder Distention None Suprapubic Tenderness with Palpation No Comment: NO URINE TO ASSESS AT THIS TIME. Integumentary Assessment Fingernail Color Yellow Nail Bed Appearance [place] Temperature Warm Moisture Dry Turgor Loose Color Normal All Pressure Points Assessed Yes Evidence of Incision/Wounds/Breakdown Yes: SEE WOUND ASSESSMENT Mucous membranes moist, pink and intact Yes Oral Cavity Normal Musculoskeletal Assessment Musculoskeletal Symptoms Generalized Weakness Document 09/23/16 12:39 [facility] [place] (Rec: 09/23/16 12:48 [facility] [id number]) Neurological Assessment Eye Opening Spontaneous Motor Obeys Commands Verbal Oriented Coma Scale Total 15 Neurologic Status Alert Patient Orientation Person Place Time Arousable To Name Speech Pattern Normal rate Normal rhythm Normal tone Appropriate Clear Coherent Patient Behavior Appropriate Cooperative Mood Description Calm Relaxed Appropriate Bilateral Pupil Reaction Reactive Pupil Size (mm) 3 Pupil [place] Equal Scleral Edema No Bakery Assistant Strength Equal Push/Pull Equal Numbness/Tingling No Facial Symmetry Symmetrical Cardiovascular Assessment Signs and Symptoms None Heart Sounds S1 & S2 Pulse Rate 78 Rhythm Regular Right Radial 2+ Left Radial 2+ Right Dorsalis Pedis 2+ Left Dorsalis Pedis 2+ Jugular Vein Distention None Capillary Refill < 3 Seconds Circulatory Tenderness Description None Mechanical Prophylaxis No Has Confirmed Diagnosis of DVT, PE or No VTE VTE Prophylaxis SQ Treatment Cardiac Monitoring Monitor Number 2N01 HW Strip placed in Chart Yes History Reviewed Yes Memory Cleared No Alarms/Limits HR Alarm 120/50 SBP Alarm 160/90 SPO2 Alarm 100/88 Heart Rate 78 EKG Method Telemetry Rhythm Sinus Rhythm SC Interval 0.14 QRS Interval 0.09 QT Interval 0.38 Respiratory Assessment Respiratory Symptoms None Effort Normal for Patient Spontaneous Non-Labored Depth Normal Respiratory Pattern Regular Chest Shape Normal Expansion Symmetrical All Lung Thomas Clear Oxygen Delivery Method Room Air Cough Description None Sputum Amount None Comment: PATIENT HAS NO COUGH OR SPUTUM AT THIS TIME. Gastrointestinal Assessment Abdomen Description Soft Non-Tender Large Round 3 or more loose stools, in less than 24 No hours Nausea/Vomiting Presence None All Four Quadrants Active Flatus Presence Present Genitourinary Assessment Genitourinary Symptoms Urinary Incontinence Bladder Pattern Incontinent Voiding Method Toilet Bedside Commode Brief Incontinent Bladder Distention None Suprapubic Tenderness with Palpation No Comment: NO URINE TO ASSESS AT THIS TIME. HOWEVER, PATIENT BREIF WET WITH URINE AND CHANGED. Integumentary Assessment Fingernail Color Yellow Nail Bed Appearance [place] Temperature Warm Moisture Dry Turgor Loose Color Normal All Pressure Points Assessed Yes Evidence of Incision/Wounds/Breakdown Yes: SEE WOUND ASSESSMENT Mucous membranes moist, pink and intact Yes Oral Cavity Normal Musculoskeletal Assessment Musculoskeletal Symptoms Generalized Weakness Document 09/23/16 15:35 [facility] (Rec: 09/23/16 16:11 [facility] [id number]) Neurological Assessment Eye Opening Spontaneous Motor Obeys Commands Verbal Oriented Coma Scale Total 15 Neurologic Status Alert Patient Orientation Person Place Time Arousable To Name Speech Pattern Normal rate Normal rhythm Normal tone Appropriate Clear Coherent Patient Behavior Appropriate Cooperative Mood Description Calm Relaxed Appropriate Bilateral Pupil Reaction Reactive Pupil Size (mm) 3 Pupil [place] Equal Scleral Edema No Bakery Assistant Strength Equal Push/Pull Equal Numbness/Tingling No Facial Symmetry Symmetrical Neurological Comment: PATIENT IS AT TIMES CONFUSED; FOR INSTANCE, PATIENT HAS ASKED THIS RN MULTIPLE TIMES WHEN SHE WILL BE GOING HOME. HOWEVER, AT THIS TIME PATIENT IS A&OX3. Cardiovascular Assessment Signs and Symptoms None Heart Sounds S1 & S2 Pulse Rate 66 Rhythm Regular Right Radial 2+ Left Radial 2+ Right Dorsalis Pedis 2+ Left Dorsalis Pedis 2+ Jugular Vein Distention None Capillary Refill < 3 Seconds Circulatory Tenderness Description None Mechanical Prophylaxis No Has Confirmed Diagnosis of DVT, PE or No VTE VTE Prophylaxis SQ Treatment Cardiac Monitoring Monitor Number 2N01 HW Strip placed in Chart Yes History Reviewed Yes Memory Cleared No Alarms/Limits HR Alarm 120/50 SBP Alarm 160/90 SPO2 Alarm 100/88 Heart Rate 66 EKG Method Telemetry Rhythm Sinus Rhythm SC Interval 0.15 QRS Interval 0.08 QT Interval 0.42 Respiratory Assessment Respiratory Symptoms None Effort Normal for Patient Spontaneous Non-Labored Depth Normal Respiratory Pattern Regular Chest Shape Normal Expansion Symmetrical All Lung Thomas Clear Oxygen Delivery Method Room Air Cough Description None Sputum Amount None Comment: PATIENT RESTING COMFORTABLY ON RA WITH NO COUGH OR SPUTUM PRODUCTION TO ASSESS. Gastrointestinal Assessment Abdomen Description Soft Non-Tender Large Round 3 or more loose stools, in less than 24 No hours Nausea/Vomiting Presence None All Four Quadrants Active Genitourinary Assessment Genitourinary Symptoms Urinary Incontinence Bladder Pattern Incontinent Voiding Method Toilet Bedside Commode Brief Incontinent Bladder Distention None Suprapubic Tenderness with Palpation No Comment: NO URINE TO ASSESS AT THIS TIME. HOWEVER, PATIENT BRIEF WAS WET AND CHANGED BY STAFF. Integumentary Assessment Fingernail Color Yellow Nail Bed Appearance [place] Temperature Warm Moisture Dry Turgor Loose Color Normal All Pressure Points Assessed Yes Evidence of Incision/Wounds/Breakdown Yes: SEE WOUND ASSESSMENT Mucous membranes moist, pink and intact Yes Oral Cavity Normal Musculoskeletal Assessment Musculoskeletal Symptoms Generalized Weakness Musculoskeletal Comment: PATIENT AMBULATES ABOUT THE ROOM WITH WALKER Document 09/23/16 20:00 [facility] (Rec: 09/23/16 21:28 [facility] [id number]) Pain Assessment Pain Present Reports No Pain Neurological Assessment Eye Opening Spontaneous Motor Obeys Commands Verbal Confused Coma Scale Total [address] Arousable To Name Speech Pattern Normal rate Normal rhythm Normal tone Appropriate Clear Coherent Patient Behavior Appropriate Cooperative Mood Description Calm Relaxed Appropriate Bilateral Pupil Reaction Reactive Pupil Size (mm) 3 Pupil [place] Equal Scleral Edema No Sensory Vision impaired Bakery Assistant Strength Equal Push/Pull Equal Numbness/Tingling No Facial Symmetry Symmetrical Blink Present Cough/Gag Normal Cardiovascular Assessment Signs and Symptoms None Heart Sounds S1 & S2 Pulse Rate 70 Rhythm Regular Pulse Assessment Method Auscultation Right Radial 2+ Left Radial 2+ Right Dorsalis Pedis 1+ Left Dorsalis Pedis 1+ Right Posterior Tibialis 1+ Left Posterior Tibialis 1+ Jugular Vein Distention None Capillary Refill < 3 Seconds Circulatory Tenderness Description None Chest Pain Complaint No Mechanical Prophylaxis No Has Confirmed Diagnosis of DVT, PE or No VTE VTE Prophylaxis SQ Treatment Cardiac Monitoring Monitor Number 2N01 HW Strip placed in Chart Yes Memory Cleared No Alarms/Limits HR Alarm 120/50 Heart Rate 70 EKG Method Telemetry Rhythm Sinus Rhythm SC Interval 0.14 QRS Interval 0.09 QT Interval 0.41 Respiratory Assessment Respiratory Symptoms None Effort Normal for Patient Spontaneous Non-Labored Depth Normal Respiratory Pattern Regular Chest Shape Normal Expansion Symmetrical All Lung Thomas Clear Right Upper Lobe Clear Diminished Right Middle Lobe Clear Diminished Right Lower Lobe Clear Diminished Left Upper Lobe Clear Diminished Left Lower Lobe Clear Diminished Right Upper Lobe Clear Diminished Right Middle Lobe Clear Diminished Left Upper Lobe Clear Diminished Left Lower Lobe Clear Diminished Oxygen Delivery Method Room Air Oxygen Flow Rate (LPM) 0 Cough Description None Sputum Amount None Comment: PATIENT RESTING COMFORTABLY ON RA WITH NO COUGH OR SPUTUM PRODUCTION TO ASSESS. Gastrointestinal Assessment Abdomen Description Soft Non-Tender Large Round 3 or more loose stools, in less than 24 No hours Nausea/Vomiting Presence None All Four Quadrants Active Genitourinary Assessment Genitourinary Symptoms Urinary Incontinence Bladder Pattern Incontinent Voiding Method Toilet Bedside Commode Brief Incontinent Bladder Distention None Suprapubic Tenderness with Palpation No Comment: NO URINE AT THIS TIME Integumentary Assessment Fingernail Color Yellow Nail Bed Appearance [place] Temperature Warm Moisture Dry Turgor Loose Color Normal All Pressure Points Assessed Yes Evidence of Incision/Wounds/Breakdown Yes: SEE WOUND ASSESSMENT Mucous membranes moist, pink and intact Yes Oral Cavity Normal Integumentary Comment: preventative cream to coccyx Musculoskeletal Assessment Musculoskeletal Symptoms Generalized Weakness Document 09/24/16 00:40 [facility] (Rec: 09/24/16 00:57 [facility] [id number]) Pain Assessment Pain Present Reports No Pain Neurological Assessment Eye Opening Spontaneous Motor Obeys Commands Verbal Confused Coma Scale Total 14 Neurologic Status Alert Patient Orientation Person Place Arousable To Name Speech Pattern Normal rate Normal rhythm Normal tone Appropriate Clear Coherent Patient Behavior Appropriate Cooperative Mood Description Calm Relaxed Appropriate Bilateral Pupil Reaction Reactive Pupil Size (mm) 3 Pupil [place] Equal Scleral Edema No Sensory Vision impaired Bakery Assistant Strength Equal Push/Pull Equal Numbness/Tingling No Facial Symmetry Symmetrical Blink Present Cough/Gag Normal Cardiovascular Assessment Signs and Symptoms None Heart Sounds S1 & S2 Pulse Rate 76 Rhythm Regular Pulse Assessment Method Auscultation Right Radial 2+ Left Radial 2+ Right Dorsalis Pedis 1+ Left Dorsalis Pedis 1+ Right Posterior Tibialis 1+ Left Posterior Tibialis 1+ Jugular Vein Distention None Capillary Refill < 3 Seconds Circulatory Tenderness Description None Chest Pain Complaint No Mechanical Prophylaxis No Has Confirmed Diagnosis of DVT, PE or No VTE VTE Prophylaxis SQ Treatment Cardiac Monitoring Monitor Number [id number] HW Strip placed in Chart Yes Alarms/Limits HR Alarm 120/50 Heart Rate 76 EKG Method Telemetry Rhythm Sinus Rhythm SC Interval 0.14 QRS Interval 0.09 QT Interval 0.41 Respiratory Assessment Respiratory Symptoms None Effort Normal for Patient Spontaneous Non-Labored Depth Normal Respiratory Pattern Regular Chest Shape Normal Expansion Symmetrical All Lung Thomas Clear Right Upper Lobe Clear Diminished Right Middle Lobe Clear Diminished Right Lower Lobe Clear Diminished Left Upper Lobe Clear Diminished Left Lower Lobe Clear Diminished Right Upper Lobe Clear Diminished Right Middle Lobe Clear Diminished Right Lower Lobe Clear Diminished Left Upper Lobe Clear Diminished Left Lower Lobe Clear Diminished Oxygen Delivery Method Room Air Oxygen Flow Rate (LPM) 0 Cough Description None Cough Frequency Intermittent Sputum Amount None Gastrointestinal Assessment Abdomen Description Soft Non-Tender Large Round 3 or more loose stools, in less than 24 No hours Nausea/Vomiting Presence None All Four Quadrants Active Flatus Presence Present Genitourinary Assessment Genitourinary Symptoms Urinary Incontinence Bladder Pattern Incontinent Voiding Method Toilet Bedside Commode Brief Incontinent Urine Appearance Clear Color Straw Odor Normal Bladder Distention None Suprapubic Tenderness with Palpation No Comment: OFTEN INCONTINENT. Integumentary Assessment Fingernail Color Yellow Nail Bed Appearance [place] Temperature Warm Moisture Dry Turgor Loose Color Normal All Pressure Points Assessed Yes Evidence of Incision/Wounds/Breakdown Yes: SEE WOUND ASSESSMENT Mucous membranes moist, pink and intact Yes Oral Cavity Normal Integumentary Comment: preventative cream to coccyx Musculoskeletal Assessment Musculoskeletal Symptoms Generalized Weakness Document 09/24/16 04:45 [facility] (Rec: 09/24/16 05:09 [facility] [id number]) Pain Assessment Pain Present Reports No Pain Neurological Assessment Eye Opening Spontaneous Motor Obeys Commands Verbal Confused Coma Scale Total 14 Neurologic Status Alert Patient Orientation Person Place Arousable To Name Speech Pattern Normal rate Normal rhythm Normal tone Appropriate Clear Coherent Patient Behavior Appropriate Cooperative Mood Description Calm Relaxed Appropriate Bilateral Pupil Reaction Reactive Pupil Size (mm) 3 Pupil [place] Equal Scleral Edema No Sensory Vision impaired Bakery Assistant Strength Equal Push/Pull Equal Numbness/Tingling No Facial Symmetry Symmetrical Blink Present Cough/Gag Normal Cardiovascular Assessment Signs and Symptoms None Heart Sounds S1 & S2 Pulse Rate 70 Rhythm Regular Pulse Assessment Method Auscultation Right Radial 2+ Left Radial 2+ Right Dorsalis Pedis 1+ Left Dorsalis Pedis 1+ Right Posterior Tibialis 1+ Left Posterior Tibialis 1+ Jugular Vein Distention None Capillary Refill < 3 Seconds Circulatory Tenderness Description None Chest Pain Complaint No Mechanical Prophylaxis No Has Confirmed Diagnosis of DVT, PE or No VTE VTE Prophylaxis SQ Treatment Cardiac Monitoring Monitor Number [id number] HW Strip placed in Chart Yes Alarms/Limits HR Alarm 120/50 Heart Rate 70 EKG Method Telemetry Rhythm Sinus Rhythm SC Interval 0.17 QRS Interval 0.09 QT Interval 0.39 Respiratory Assessment Respiratory Symptoms None Effort Normal for Patient Spontaneous Non-Labored Depth Normal Respiratory Pattern Regular Chest Shape Normal Expansion Symmetrical All Lung Thomas Clear Right Upper Lobe Clear Diminished Right Middle Lobe Clear Diminished Right Lower Lobe Clear Diminished Left Upper Lobe Clear Diminished Left Lower Lobe Clear Diminished Right Upper Lobe Clear Diminished Right Middle Lobe Clear Diminished Right Lower Lobe Clear Diminished Left Upper Lobe Clear Diminished Left Lower Lobe Clear Diminished Oxygen Delivery Method Room Air Oxygen Flow Rate (LPM) 0 Cough Description None Sputum Amount None Comment: PATIENT RESTING COMFORTABLY ON RA WITH NO COUGH OR SPUTUM PRODUCTION TO ASSESS. Gastrointestinal Assessment Abdomen Description Soft Non-Tender Large Round 3 or more loose stools, in less than 24 No hours Nausea/Vomiting Presence None All Four Quadrants Active Genitourinary Assessment Genitourinary Symptoms Urinary Incontinence Bladder Pattern Incontinent Voiding Method Toilet Bedside Commode Brief Incontinent Urine Appearance Clear Color Dark Yellow Odor Normal Bladder Distention None Suprapubic Tenderness with Palpation No Comment: OFTEN INCONTINENT. Integumentary Assessment Fingernail Color Yellow Nail Bed Appearance [place] Temperature Warm Moisture Dry Turgor Loose Color Normal All Pressure Points Assessed Yes Evidence of Incision/Wounds/Breakdown Yes: SEE WOUND ASSESSMENT Mucous membranes moist, pink and intact Yes Oral Cavity Normal Integumentary Comment: preventative cream to coccyx Musculoskeletal Assessment Musculoskeletal Symptoms Generalized Weakness Document 09/24/16 08:26 [facility] (Rec: 09/24/16 08:33 [facility] [id number]) Neurological Assessment Eye Opening Spontaneous Motor Obeys Commands Verbal Oriented Coma Scale Total 15 Neurologic Status Alert Arousable To Name Speech Pattern Normal rate Normal rhythm Normal tone Appropriate Clear Coherent Patient Behavior Appropriate Cooperative Mood Description Calm Relaxed Appropriate Bilateral Pupil Reaction Reactive Pupil Size (mm) 3 Pupil [place] Equal Scleral Edema No Bakery Assistant Strength Equal Push/Pull Equal Numbness/Tingling No Facial Symmetry Symmetrical Cardiovascular Assessment Signs and Symptoms None Heart Sounds S1 & S2 Pulse Rate 65 Rhythm Regular Pulse Assessment Method Auscultation Right Radial 2+ Left Radial 2+ Right Dorsalis Pedis 1+ Left Dorsalis Pedis 1+ Right Posterior Tibialis 1+ Left Posterior Tibialis 1+ Jugular Vein Distention None Capillary Refill < 3 Seconds Circulatory Tenderness Description None Mechanical Prophylaxis No Has Confirmed Diagnosis of DVT, PE or No VTE VTE Prophylaxis SQ Treatment Cardiac Monitoring Monitor Number [id number] HW Strip placed in Chart Yes Alarms/Limits HR Alarm 120/50 Heart Rate 65 EKG Method Telemetry Rhythm Sinus Rhythm SC Interval 0.15 QRS Interval 0.06 QT Interval 0.39 Respiratory Assessment Respiratory Symptoms None Effort Normal for Patient Spontaneous Non-Labored Depth Normal Respiratory Pattern Regular Chest Shape Normal Expansion Symmetrical All Lung Thomas Clear Oxygen Delivery Method Room Air Oxygen Flow Rate (LPM) 0 Cough Description None Cough Frequency Intermittent Sputum Amount None Gastrointestinal Assessment Abdomen Description Soft Non-Tender Large Round 3 or more loose stools, in less than 24 No hours Nausea/Vomiting Presence None All Four Quadrants Active Genitourinary Assessment Genitourinary Symptoms Urinary Incontinence Bladder Pattern Incontinent Voiding Method Toilet Bedside Commode Brief Incontinent Urine Appearance Clear Color Dark Yellow Odor Normal Bladder Distention None Suprapubic Tenderness with Palpation No Integumentary Assessment Fingernail Color Yellow Nail Bed Appearance [place] Temperature Warm Moisture Dry Turgor Loose Color Normal All Pressure Points Assessed Yes Evidence of Incision/Wounds/Breakdown Yes: SEE WOUND ASSESSMENT Mucous membranes moist, pink and intact Yes Oral Cavity Normal Musculoskeletal Assessment Musculoskeletal Symptoms Generalized Weakness Teaching Record Start: 09/21/16 21: 21 Freq: Q12H Status: Discharge Document 09/21/16 23:50 [facility] (Rec: 09/22/16 03:07 [id number]) Teaching Record: General Education Topics Medications Disease Process Hospital Environment Diet Exercise/Activity Equipment Use Pertinence Diabetes Response Verbalize understanding Methods Discussion Recipient Patient Education Provided: Details Insulin gtt, dextrose, dka, room orientation, npo, up with assist, bed alarm, spo2 monitor, IV tubing Document 09/22/16 09:40 [facility] (Rec: 09/22/16 10:05 [facility] [id number]) Teaching Record: General Education Topics Medications Hospital Environment Pertinence Diabetes Response Verbalize understanding Reinforcement needed Methods Discussion Recipient Patient Education Provided: Details THIS RN INTRODUCED SELF TO PATIENT AND ORIENTED PATIENT TO 2N ENVIRONMENT. INSULIN DRIP, INSULIN ADMINISTRATION, AND SLIDING SCALE INSULIN SCHEDULE DISCUSSED WITH PATIENT. REINFORCEMENT NEEDED DUE TO PATIENT CONFUSION. Document 09/23/16 09:24 [facility] (Rec: 09/23/16 09:37 [facility] [id number]) Teaching Record: General Education Topics Medications Response Verbalize understanding Methods Discussion Recipient Patient Education Provided: Details DISCUSSED WITH PATIENT AM MEDICATIONS Document 09/23/16 20:00 [facility] (Rec: 09/23/16 21:28 [facility] [id number]) Teaching Record: General Education Topics Disease Process Exercise/Activity Response Verbalize understanding Methods Discussion Recipient Patient Document 09/24/16 08:26 [facility] (Rec: 09/24/16 08:33 [facility] [id number]) Teaching Record: General Education Topics Medications Hospital Environment Response Verbalize understanding Methods Discussion Recipient Patient Thrombosis Risk Factor Assessment Start: 09/21/16 21: 21 Freq: .once Status: Discharge Document 09/22/16 07:08 [facility] (Rec: 09/22/16 07:13 [id number]) Thrombosis Risk Factor Assessment Each Risk Factor Represents 3 Points Age over 75 years Other congenital or acquired No thrombophilia - If yes, enter Type in comment Total Risk Factor Score 3 Risk Level Higher Risk Triage Start: 09/21/16 14: 44 Freq: Status: Discharge Document 09/21/16 14:45 [facility] (Rec: 09/21/16 14:46 [facility] [id number]) Triage Chief Complaint triage ED Recheck/Abnormal Lab/Rx Patient Stated Complaint high BG KIRAN 3 Onset (ago) day(s) Description of Symptoms Pt states her glucose has been running high the past couple days and has a headache General Appearance alert in no apparent distress Work Related Injury? No Mode of arrival wheelchair Source patient family Ebola Risk: Travel/Contact With Anyone No From Affected Area/s Has Patient Experienced Ebola Symptoms No Temperature (97.6 F-99.6 F) 98.0 F Temperature Source Oral Pulse Rate 102 Respiratory Rate 18 Blood Pressure 110/75 O2 Sat by Pulse Oximetry (95-100) 89 L Oxygen Delivery Room Air Height 1.63 m Weight 68.039 kg Weight Measurement Method Estimated by Patient Pain Scale 0 Pain Scale Used Standard (1-10) Medical history arthritis diabetes hyperlipidemia hypertension Female surgical history no surgical history Psychiatric history no psych history Smoking Status Never smoker Smokeless Tobacco Status No Alcohol Use none Drug Use none Patient resides with/at Alone Safety Concerns Feels Safe At This Time Do you currently feel hopless, have No thoughts of self harm, or thoughts of harming others History of fall in last 14 days? Yes Hx Now No HEAVY DUTY MECHANIC history no HEAVY DUTY MECHANIC history Influenza vaccine up to date Yes Pneumonia vaccine up to date Yes Tetanus UTD yes Vital Signs Assessment Start: 09/21/16 14: 46 Freq: Status: Discharge Document 09/21/16 17:49 RB (Rec: 09/21/16 17:49 RB [id number]) ED Vital Signs Pain Reported No Pain Reported Blood Pressure 157/62 Pulse Rate 93 Respiratory Rate 16 Pulse Oximetry (95-100) 94 L Document 09/21/16 19:31 RB (Rec: 09/21/16 19:31 RB [id number]) ED Vital Signs Pain Reported No Pain Reported Blood Pressure 124/87 Pulse Rate 87 Respiratory Rate 16 Pulse Oximetry (95-100) 95 Wound Assessment Start: 09/22/16 12: 13 Freq: Q8H Status: Discharge Document 09/22/16 12:13 [facility] (Rec: 09/22/16 12:15 [facility] [id number]) Wound Assessment Perineal Wound Type Unknown Etiology Wound Bed Appearance Beefy Red Dusky Red [place] Wound Surrounding Tissue Appearance ( Dry Periwound) 1 Intact Erythematous Surrounding Tissue Temperature Warm Wound Drainage Amount 1 None Wound Drainage Odor No Odor Wound Dressing Status Open to Air Topical Medication BARRIER CREAM Back Wound Type Unknown Etiology Wound Bed Appearance Dusky Red [place] Wound Surrounding Tissue Appearance ( Dry Periwound) 1 Intact Erythematous Surrounding Tissue Temperature Warm Wound Drainage Amount 1 None Wound Drainage Odor No Odor Wound Dressing Status Open to Air Document 09/22/16 19:33 [facility] (Rec: 09/22/16 19:49 KMA [id number]) Wound Assessment Perineal Wound Type Excoriation Wound Bed Appearance [place] Wound Surrounding Tissue Appearance ( Dry Periwound) 1 Erythematous Surrounding Tissue Temperature Warm Wound Drainage Amount 1 None Wound Drainage Odor No Odor Wound Dressing Status Open to Air Topical Medication Calazime cream Back Wound Type Unknown Etiology Wound Bed Appearance Beefy Red [place] Wound Surrounding Tissue Appearance ( Dry Periwound) 1 Erythematous Surrounding Tissue Temperature Warm Wound Drainage Amount 1 None Wound Drainage Odor No Odor Wound Dressing Status Open to Air Document 09/23/16 00:35 KMA (Rec: 09/23/16 00:45 KMA [id number]) Wound Assessment Perineal Wound Type Excoriation Wound Bed Appearance [place] Wound Surrounding Tissue Appearance ( Dry Periwound) 1 Surrounding Tissue Temperature Warm Wound Drainage Amount 1 None Wound Drainage Odor No Odor Wound Dressing Status Open to Air Back Wound Type Unknown Etiology Wound Bed Appearance Beefy Red [place] Wound Surrounding Tissue Appearance ( Dry Periwound) 1 Erythematous Surrounding Tissue Temperature Warm Wound Drainage Amount 1 None Wound Drainage Odor No Odor Wound Dressing Status Open to Air Document 09/23/16 09:24 [facility] [place] (Rec: 09/23/16 09:37 [facility] [id number]) Wound Assessment Back Wound Type Abrasion Wound Bed Appearance Dusky Red [place] Wound Surrounding Tissue Appearance ( Dry Periwound) 1 Intact Erythematous Surrounding Tissue Temperature Warm Wound Drainage Amount 1 None Wound Drainage Odor No Odor Wound Dressing Status Open to Air Document 09/23/16 12:39 [facility] (Rec: 09/23/16 12:48 [facility] [id number]) Wound Assessment Perineal Wound Type Unknown Etiology Wound Bed Appearance [place] Wound Surrounding Tissue Appearance ( Dry Periwound) 1 Intact Erythematous Surrounding Tissue Temperature Warm Wound Drainage Amount 1 None Wound Drainage Odor No Odor Wound Dressing Status Open to Air Topical Medication BARRIER CREAM Document 09/23/16 20:00 [facility] (Rec: 09/23/16 21:28 [facility] [id number]) Wound Assessment Perineal Wound Dressing Status Open to Air Wound Dressing Type REDDENED Back Wound Dressing Status Open to Air Wound Dressing Type REDDENED Document 09/24/16 04:45 [facility] (Rec: 09/24/16 05:09 [facility] [id number]) Wound Assessment Perineal Wound Dressing Status Open to Air Wound Dressing Type reddened Back Wound Type Abrasion Wound Dressing Status Open to Air Wound Dressing Type reddened. Document 09/24/16 08:26 [facility] (Rec: 09/24/16 08:33 [id number] Wound Assessment Perineal Wound Type Excoriation Wound Drainage Amount 1 None Wound Drainage Odor No Odor Wound Dressing Status Open to Air Back Wound Type Abrasion Wound Drainage Amount 1 None Wound Drainage Odor No Odor Wound Dressing Status Open to Air Discharge Information ED Provider: Felipe Mead Status: Departed Time Seen by Provider: 09/21/16 15:05 Condition: Good Triaged At: 09/21/16 14:45 Emergency Discharge Date/Time: 09/21/16 20:27 Emergency Discharge Disposition: Admitted As Inpatient Clinical Impression Hyperglycemia Dehydration Falls frequently Ketonemia Emergency Discharge Comment: Admit Intervention Last Done ED Recheck Assessment ED Discharge Assessment 09/21/16 19:54 Query Result ED Discharge Disposition Admitted ED Condition on Discharge Fair Med Rec/Patient Phamracy completed? Yes ED Admit to 2N Bed assigned 1 Transported by pharmacy technician infusion Transported with monitor IV continuing medication Report given to Nurse Information relayed patient's care treatments medications given condition recent/anticipated change Clinical Documentation Summary Provided Yes Severity scale (1-10) 0 Pain Scale Used Standard (1-10) Blood Pressure 138/70 Heart rate 94 Respiratory Rate 16 Pulse Oximetry Reading 95 Critical Care Minutes 0 Inpatient Discharge Date/Time: 09/24/16 10:17 Inpatient Discharge Disposition: Transfer SNF Inpatient Discharge Comment: Observation Discharge Date/Time: Observation Discharge Disposition: Observation Discharge Comment: Instructions: Stand-Alone Forms: Prescriptions: Visit Report - Forms: - Referrals: Umm Whitt CNP (Primary Care Provider) - Additional text: Please follow-up with your primary care physician within one week after discharge from the hospital. Please continue to take all your home medications as prescribed by her primary care physician. Please closely monitor your blood sugars at home. Please seek medical help if your Blood sugars are consistently elevated. Radiology Results Chest X-Ray 09/21/16 16:44 IMPRESSION: 1. No acute radiographic finding in the chest. D/ / Praveen Cuevas MD / Praveen Cuevas MD Interpreting Provider: Praveen Cuevas MD Head CT 09/21/16 16:44
[2016-09-21] MEDS ORDERED: D5% in 0.45% NACL 1,000 ML IVC PRN (20:47)
[2016-09-21] MEDS ORDERED: Naloxone 0.4 MG/ML INJ IVP PRN (20:47)
[2016-09-21] MEDS ORDERED: *HR* OxyCODONE Immed Rel 5 MG TABLET PO PRN (20:47)
[2016-09-21] MEDS ORDERED: Insulin LISPRO 300 UNITS/3 ML VIAL SQ PRN (20:47)
[2016-09-21] MEDS ORDERED: Acetaminophen 325 MG TABLET PO PRN (20:47)
[2016-09-21] MEDS ORDERED: *HR* Morphine 2 MG/ML SYRINGE IVP PRN (20:47)
[2016-09-21] MEDS ORDERED: Ondansetron 4 MG/2 ML VIAL IVP PRN (20:47)
[2016-09-21] MEDS ORDERED: Pantoprazole 40 MG VIAL IVP STA (20:47)
[2016-09-21] MEDS ORDERED: 0.9 % Sodium Chloride 1,000 ML IV SCH ×2 (21:00)
[2016-09-21] MEDS: D5% in 0.45% NACL w KCl 20 MEQ/1,000 ML MLS IVC PRN (21:44)
[2016-09-21 22:52] LABS: VBG PH 7.33 pH Units (7.32-7.42)
[2016-09-21 23:02] LABS: Prothrombin Time 11.1 Seconds (9.4-12.1)
[2016-09-21 23:03] LABS: Magnesium 2.4 mg/dL (1.6-2.6); Phosphorous 4.1 mg/dL (2.3-4.7)
[2016-09-21 23:05] LABS: Activated Partial Thrombo Time 23.8 Seconds (26.0-36.0)
[2016-09-21 23:07] LABS: VBG HCO3 28.2 mEq/L (21-27)
[2016-09-22 00:04] LABS: Potassium 3.6 mEq/L (3.5-4.5)
[2016-09-22 01:37] LABS: Bilirubin,Urine Large (Negative); Blood,Urine Large (Negative); Clarity,Urine Cloudy (Clear); Color,Urine Yellow (Yellow); Glucose,Urine (UA) >=1000 mg/dL (Normal); Ketones,Urine Trace mg/dL (Negative); Leukocyte Esterase,Urine Moderate (Negative); Nitrite,Urine Negative (Negative); PH,Urine 5.5 pH Units (5.0-8.0); Protein,Urine Trace mg/dL (Neg-Trace); Specific Gravity,Urine 1.026 (1.010-1.025); Urobilinogen,Urine Normal (Normal)
[2016-09-22 01:40] LABS: Bacteria,Urine None Seen per hpf (None-Few); Squamous Epithelial Cell,Urine Many per lpf (None-Few)
[2016-09-22] MEDS: D5% in 0.45% NACL w KCl 20 MEQ/1,000 ML MLS IVC PRN ×2 (01:40→06:08)
[2016-09-22 02:03] LABS: VBG HCO3 28.3 mEq/L (21-27); VBG PH 7.26 pH Units (7.32-7.42)
[2016-09-22 02:20] LABS: Magnesium 2.3 mg/dL (1.6-2.6); Phosphorous 4.3 mg/dL (2.3-4.7)
[2016-09-22 02:21] LABS: Calcium 8.6 mg/dL (8.6-10.8); Potassium 3.7 mEq/L (3.5-4.5)
[2016-09-22 04:51] LABS: VBG PH 7.3 pH Units (7.32-7.42)
[2016-09-22 05:04] LABS: Calcium 8.2 mg/dL (8.6-10.8); Potassium 3.7 mEq/L (3.5-4.5)
[2016-09-22 05:05] LABS: Chol/HDL Ratio 6.7 (0-4.9)
[2016-09-22 05:06] LABS: Magnesium 2.2 mg/dL (1.6-2.6); Phosphorous 3.4 mg/dL (2.3-4.7)
[2016-09-22 05:20] LABS: Hemoglobin A1C 12.7 %
[2016-09-22] MEDS: 0.9 % Sodium Chloride w KCl 20 MEQ/1,000 ML MLS IVC SCH ×6 (06:05→06:11)
[2016-09-22] MEDS ORDERED: Fluticasone Propionate Nasal 50 MCG/SPRAY BOTTLE NS PRN (08:45)
[2016-09-22] MEDS ORDERED: *HR* Dextrose 50 % in Water (Syg) 50 ML SYRINGE IVP PRN (08:46)
[2016-09-22] MEDS ORDERED: Dextrose Gel 15 GM PO PRN ×2 (08:46)
[2016-09-22] MEDS ORDERED: D5% in Water 1,000 ML IV PRN (08:46)
[2016-09-22] MEDS ORDERED: INSULIN DETEMIR 25 UNIT SQ SCH (08:46)
[2016-09-22] MEDS ORDERED: Insulin DETEMIR 100 UNIT/ML X5UNITS SQ SCH (09:00)
--- NOTE | 2016-09-22 09:32 | Internal Med Progress Note ---
Date of Encounter: 09/22/16 Time of Encounter: 08:58 - Assessment and plan (1) Hyperosmolar non-ketotic state in patient with type 2 diabetes mellitus Current Visit: Yes Status: Acute Assessment and plan: Likely secondary to noncompliance AG closed, BG within normal limits Will d/c INsulin drip two hours after levemir dose is administered Start ADA diet Started home insulin dosing (Levemir 25units qd) Starting home humalog dose added medium dose insulin sliding scale coverage continue to monitor fingerstick and blood glucose (2) CVA, old, cognitive deficits Current Visit: Yes Status: Chronic Assessment and plan: As per daughter, patient was diagnosed with CVA 6years ago and since then she has had cognitive deficits which have gradually worsened to a point where the patient is only oriented to self at baseline. She is unable to take care of herself at home and will benefit from Assisted Living Facility. Mental status at baseline Will obtain PT eval social staff worker eval requested for placement after discharge. (3) Leukocytosis Current Visit: Yes Status: Acute Assessment and plan: Likely reactive As per daughter patient was found on the floor prior to her arrival to the ER Patient was on the floor for almost two days as per daughter will continue to monitor Qualifiers: Leukocytosis type: unspecified Qualified Code(s): D72.829 - Elevated white blood cell count, unspecified (4) Acute kidney injury superimposed on CKD Current Visit: Yes Status: Acute Assessment and plan: Will obtain CK level can be secondary to rhabdomyolysis as patient was found on the floor prior to her arrival to the ER. Continue IV fluids Renal function improved since admission Hold nephrotoxic agents at this time continue to monitor renal function (5) HTN (hypertension) Current Visit: Yes Status: Chronic Assessment and plan: BP within acceptable range continue home medications (Amlodipine 10mg PO qd) Qualifiers: Hypertension type: essential hypertension Qualified Code(s): I10 - Essential (primary) hypertension (6) DVT prophylaxis Current Visit: No Status: Acute Assessment and plan: Heparin SQ - Subjective Interval history: Patient is a 80y/o female admitted for confusion and DKA. Patient seen and examined at bedside, resting comfortably in bed. Reports of feeling better. I had a detailed discussion with patient's daughter/NOK (Veronica Mark ) who states that patient had a stroke 6 years ago and since then her memory has been deteriorating to a point where she only is oriented to self and does not remember to take her medications. She does not allow her daughter to go with her to her doctors appointments. Ms. Flores states that the patient has been non compliant with her home medications and not taking her insulin as advised. She lives alone and was found this time on the floor, likely for two days prior to her arrival to the hospital. At this time, patient reports of feeling hungry and does not recall the preceding events to her hospitalization. At baseline, patient is only oriented to self. Patient's mental status at baseline at this time. - Constitutional Vitals: Temp Pulse Resp BP Pulse Ox 97.7 F 65 14 126/95 97 09/22/16 06:49 09/22/16 06:49 09/22/16 06:49 09/22/16 06:49 09/22/16 06:49 General appearance: Present: A&O X 1, pleasant, no acute distress, obese, answers questions appropriately - Head Head exam: Present: atraumatic, normocephalic - Eye Eye exam: Present: conjuntiva pink, sclera anicteric - Respiratory Respiratory exam: Present: CTAB. Absent: respiratory distress, wheezes - Cardiovascular Cardiovascular exam: Present: RRR, +S1, +S2 - GI/Abdominal GI/Abdominal exam: Present: normal bowel sounds, soft. Absent: tenderness - Extremities Exam Extremities exam: Present: warm, radial pulses palpable and symetrical. Absent : calf tenderness, pedal edema - Neurological Exam Neurological exam: Present: alert Internal Medicine: Result - Labs CBC & Chem 7: 09/21/16 16:34 09/22/16 04:24 Labs: BMP 09/21/16 09/22/16 09/22/16 21:52 01:16 04:24 Sodium 141 141 142 Potassium 3.6 D 3.7 3.7 Chloride 101 101 104 Carbon Dioxide 24 24 26 BUN 61 H 63 H 62 H Creatinine 2.07 H 2.18 H 1.97 H Glucose 195 H 205 H 75 Calcium 9.0 8.6 8.2 L Cardiac Enzymes 09/21/16 09/22/16 Range/Units 21:52 04:24 Troponin I 0.01 0.01 (0-0.03) ng/mL Urine 03/07/17 Range/Units 01:17 Urine Color Yellow (Yellow) Urine Clarity Cloudy A (Clear) Urine pH 5.5 (5.0-8.0) pH Units Ur Specific [place] 1.026 H (1.010-1.025) Urine Protein Trace (Neg-Trace) mg/dL Urine Glucose (UA) >=1000 H (Normal) mg/dL - ABG Interpretation ABG results: ABG ABG pH 7.32 pH Units (7.32-7.45) 09/21/16 18:05 ABG pCO2 47 mmHg (35-45) H 09/21/16 18:05 ABG pO2 58 mmHg (85-104) L 09/21/16 18:05 ABG O2 Saturation 87 % (95-98) L 09/21/16 18:05 PT/INR, D-dimer PT 11.1 Seconds (9.4-12.1) 09/21/16 21:52 Consult Discharge Plan - Plan Referrals: Umm Whitt, CYBER LEGAL ADVISOR [Primary Care Provider] -
[2016-09-22] MEDS: Aspirin Enteric Coated 81 MG Tablet PO SCH (09:33)
[2016-09-22] MEDS: Loratadine 10 MG TABLET PO SCH (09:33)
[2016-09-22] MEDS: amLODIPine 5 MG TABLET PO SCH (09:34)
[2016-09-22] MEDS: COMBIGAN OP SCH ×2 (09:37→20:46)
[2016-09-22] MEDS: EYE OP SCH ×2 (09:37→20:46)
[2016-09-22] MEDS: 0.9 % Sodium Chloride 1,000 ML IVC SCH (09:42)
[2016-09-22 09:50] LABS: VBG HCO3 28.7 mEq/L (21-27); VBG PH 7.24 pH Units (7.32-7.42)
[2016-09-22 10:01] LABS: Phosphorous 2.7 mg/dL (2.3-4.7); Potassium 3.9 mEq/L (3.5-4.5)
[2016-09-22] MEDS: Insulin LISPRO 300 UNITS/3 ML VIAL SQ SCH ×5 (11:43→20:46)
[2016-09-22] MEDS ORDERED: Fluconazole 100 MG TABLET PO ONE (12:43)
[2016-09-22 13:47] LABS: VBG HCO3 25.6 mEq/L (21-27); VBG PH 7.26 pH Units (7.32-7.42)
--- NOTE | 2016-09-22 13:55 | Electrocardiograph Report ---
[address] [place], [place] [address] Test Date: 2016-09-21 Pat Name: Anna Gregory Department: 103 Room: 2N01 Gender: F Healthcare Consulting Manager: : [id number] Requested By: Felipe Mead Order Number: [id number] Reading MD: Homar Velez Measurements Intervals [place] Rate: 92 P: 32 ID: [id number] QRS: -69 QRSD: 97 T: 23 QT: 361 QTc: 411 Interpretive Statements SINUS RHYTHM LEFT AXIS DEVIATION Electronically Signed On 09-22-2016 13:54:03 EST by Homar Velez
[2016-09-22 13:57] LABS: Magnesium 1.8 mg/dL (1.6-2.6); Phosphorous 2.1 mg/dL (2.3-4.7)
[2016-09-22 13:58] LABS: Calcium 8.2 mg/dL (8.6-10.8); Potassium 3.9 mEq/L (3.5-4.5)
[2016-09-22] MEDS: *HR* Heparin 5,000 UNIT/ML VIAL SQ SCH (17:11)
[2016-09-23 05:21] LABS: Basophils % 0.3 %; Eosinophils # 0.2 K/mcL (0.0-0.6); Eosinophils % 2.4 %; Hematocrit 38.9 % (35.3-44.9); Immature Granulocytes % 0.3 % (0-4); Mean Corpuscular HGB Conc 32.1 g/dL (31.6-35.5); Mean Corpuscular Hemoglobin 30.5 pg (28.0-33.3); Mean Corpuscular Volume 94.9 fL (83.0-100.0); Mean Platelet Volume 11.8 fL (9.4-12.4); Monocytes # 0.5 K/mcL (0.0-1.3); Monocytes % 7.6 %; Platelet Count 208 K/mcL (140-400); Red Cell Distribution Width 12.8 % (11.5-14.5); Segmented Neutrophils % 61.4 %
[2016-09-23 05:24] LABS: Hemoglobin 12.5 g/dL (11.5-15.4); Neutrophils # 4.4 K/mcL (1.6-8.9)
[2016-09-23 05:42] LABS: Calcium 7.7 mg/dL (8.6-10.8); Magnesium 1.9 mg/dL (1.6-2.6); Phosphorous 2.6 mg/dL (2.3-4.7); Potassium 4.4 mEq/L (3.5-4.5)
[2016-09-23] MEDS: *HR* Heparin 5,000 UNIT/ML VIAL SQ SCH ×2 (06:49→18:45)
--- NOTE | 2016-09-23 08:54 | Internal Med Progress Note ---
Date of Encounter: 09/23/16 Time of Encounter: 08:52 - Assessment and plan (1) Hyperosmolar non-ketotic state in patient with type 2 diabetes mellitus Current Visit: Yes Status: Acute Assessment and plan: Likely secondary to noncompliance AG closed, BG within normal limits Blood glucose within acceptable limits Continue home dosing of insulin Continue sliding scale insulin algorithm as needed Continue to monitor fingerstick and blood glucose (2) CVA, old, cognitive deficits Current Visit: Yes Status: Chronic Assessment and plan: As per daughter, patient was diagnosed with CVA 6years ago and since then she has had cognitive deficits which have gradually worsened to a point where the patient is only oriented to self at baseline. She is unable to take care of herself at home and will benefit from Assisted Living Facility. Mental status at baseline marketing services rep eval appreciated patient to be discharged to assisted living facility, patient and daughter in agreement. (3) Leukocytosis Current Visit: Yes Status: Resolved Assessment and plan: Likely reactive Resolved at this time Continue to monitor As per daughter patient was found on the floor prior to her arrival to the ER Patient was on the floor for almost two days as per daughter Qualifiers: Leukocytosis type: unspecified Qualified Code(s): D72.829 - Elevated white blood cell count, unspecified (4) Acute kidney injury superimposed on CKD Current Visit: Yes Status: Acute Assessment and plan: Elevated CK level consistent with rhabdomyolysis Continue IV fluids Renal function improved from previous day Continue to monitor Continue to hold nephrotoxic agents at this time Likely discharge in the morning(09/24/16) (5) HTN (hypertension) Current Visit: Yes Status: Chronic Assessment and plan: BP within acceptable range continue home medications (Amlodipine 10mg PO qd) Qualifiers: Hypertension type: essential hypertension Qualified Code(s): I10 - Essential (primary) hypertension (6) DVT prophylaxis Current Visit: No Status: Acute Assessment and plan: Heparin SQ - Subjective Interval history: Patient is a 80y/o female admitted for confusion and DKA. Patient seen and examined at bedside, resting comfortably in bed. Reports of feeling better. She is sitting in bed and eating breakfast at this time. No overnight issues reported. Patient denies any shortness of breath, chest pain or any discomfort at this time. At baseline, patient is only oriented to self. Patient's mental status is at baseline at this time. - Constitutional Vitals: Temp Pulse Resp BP Pulse Ox 97.7 F 61 16 105/86 96 09/23/16 06:58 09/23/16 06:58 09/23/16 06:58 09/23/16 06:58 09/23/16 06:58 General appearance: Present: A&O X 1, pleasant, no acute distress, obese - Head Head exam: Present: atraumatic, normocephalic - Eye Eye exam: Present: normal appearance, conjuntiva pink, sclera anicteric - Respiratory Respiratory exam: Present: CTAB. Absent: respiratory distress, wheezes - Cardiovascular Cardiovascular exam: Present: RRR, +S1, +S2 - GI/Abdominal GI/Abdominal exam: Present: normal bowel sounds, soft. Absent: distended, tenderness - Extremities Exam Extremities exam: Present: warm, radial pulses palpable and symetrical. Absent : calf tenderness, pedal edema - Neurological Exam Neurological exam: Present: alert - Psychiatric Psychiatric exam: Present: normal affect, normal mood Internal Medicine: Result - Labs CBC & Chem 7: 09/23/16 03:25 09/23/16 03:25 Labs: Short CBC 09/23/16 Range/Units 03:25 WBC 7.1 D (4.3-11.1) K/mcL Hgb 12.5 D (11.5-15.4) g/dL Hct 38.9 (35.3-44.9) % Plt Count 208 (140-400) K/mcL Neutrophils # 4.4 (1.6-8.9) K/mcL BMP 09/22/16 09/23/16 13:35 03:25 Sodium 139 138 Potassium 3.9 4.4 Chloride 105 109 Carbon Dioxide 23 19 BUN 58 H 50 H Creatinine 1.71 H 1.32 H Glucose 191 H 217 H Calcium 8.2 L 7.7 L - ABG Interpretation ABG results: ABG ABG pH 7.32 pH Units (7.32-7.45) 09/21/16 18:05 ABG pCO2 47 mmHg (35-45) H 09/21/16 18:05 ABG pO2 58 mmHg (85-104) L 09/21/16 18:05 ABG O2 Saturation 87 % (95-98) L 09/21/16 18:05 PT/INR, D-dimer PT 11.1 Seconds (9.4-12.1) 09/21/16 21:52 Consult Discharge Plan - Plan Referrals: Umm Whitt, SANJIV [Primary Care Provider] - 09/29/16 1:25 pm
[2016-09-23] MEDS ORDERED: Insulin DETEMIR 100 UNIT/ML X5UNITS SQ SCH (09:00)
[2016-09-23] MEDS: Insulin DETEMIR 100 UNIT/ML X5UNITS SQ SCH (09:17)
[2016-09-23] MEDS: Loratadine 10 MG TABLET PO SCH (09:17)
[2016-09-23] MEDS: Aspirin Enteric Coated 81 MG Tablet PO SCH (09:17)
[2016-09-23] MEDS: amLODIPine 5 MG TABLET PO SCH (09:17)
[2016-09-23] MEDS: Insulin LISPRO 300 UNITS/3 ML VIAL SQ SCH ×7 (09:20→20:34)
[2016-09-23] MEDS: COMBIGAN OP SCH ×2 (09:23→20:34)
[2016-09-23] MEDS: EYE OP SCH ×2 (09:23→20:34)
[2016-09-23] MEDS: 0.9 % Sodium Chloride 1,000 ML IVC SCH (12:15)
[2016-09-23] MEDS ORDERED: D5% in Water 1,000 ML IVC SCH (17:00)
[2016-09-24] MEDS: 0.9 % Sodium Chloride 1,000 ML IVC SCH (04:57)
[2016-09-24 05:39] LABS: Basophils % 0.2 %; Eosinophils # 0.2 K/mcL (0.0-0.6); Eosinophils % 2.5 %; Hematocrit 36.6 % (35.3-44.9); Immature Granulocytes % 0.3 % (0-4); Lymphocytes # 1.3 K/mcL (0.6-4.6); Lymphocytes % 15.1 %; Mean Corpuscular HGB Conc 32.8 g/dL (31.6-35.5); Mean Corpuscular Hemoglobin 30.9 pg (28.0-33.3); Mean Corpuscular Volume 94.3 fL (83.0-100.0); Mean Platelet Volume 11.5 fL (9.4-12.4); Monocytes # 0.8 K/mcL (0.0-1.3); Monocytes % 8.8 %; Neutrophils # 6.4 K/mcL (1.6-8.9); Platelet Count 177 K/mcL (140-400); Red Blood Count 3.88 M/mcL (3.82-4.97); Red Cell Distribution Width 12.6 % (11.5-14.5); Segmented Neutrophils % 73.1 %
[2016-09-24 06:01] LABS: Calcium 8.1 mg/dL (8.6-10.8); Magnesium 1.7 mg/dL (1.6-2.6); Potassium 4.4 mEq/L (3.5-4.5)
[2016-09-24] MEDS: *HR* Heparin 5,000 UNIT/ML VIAL SQ SCH (06:29)
[2016-09-24] MEDS ORDERED: Sodium Phosphate 30 MMOL in D5% in Water 100 ML IVPB ONE (07:29)
[2016-09-24 07:47] VITALS: BP 149/75
[2016-09-24] MEDS: Aspirin Enteric Coated 81 MG Tablet PO SCH (08:16)
[2016-09-24] MEDS: amLODIPine 5 MG TABLET PO SCH (08:16)
[2016-09-24] MEDS: Loratadine 10 MG TABLET PO SCH (08:16)
[2016-09-24] MEDS: Insulin DETEMIR 100 UNIT/ML X5UNITS SQ SCH (08:17)
[2016-09-24] MEDS: Insulin LISPRO 300 UNITS/3 ML VIAL SQ SCH ×2 (08:17)
[2016-09-24] MEDS: EYE OP SCH (08:18)
[2016-09-24] MEDS: COMBIGAN OP SCH (08:18)
--- NOTE | 2016-09-24 08:57 | Discharge Summary ---
Date of Encounter: 09/24/16 Time of Encounter: 08:35 - Discharge Diagnosis (1) Hyperosmolar non-ketotic state in patient with type 2 diabetes mellitus Priority: Primary Status: Acute (2) CVA, old, cognitive deficits Priority: Secondary Status: Chronic (3) Leukocytosis Priority: Secondary Status: Resolved Qualifiers: Leukocytosis type: unspecified Qualified Code(s): D72.829 - Elevated white blood cell count, unspecified (4) Acute kidney injury superimposed on CKD Priority: Secondary Status: Acute (5) HTN (hypertension) Priority: Secondary Status: Chronic Qualifiers: Hypertension type: essential hypertension Qualified Code(s): I10 - Essential (primary) hypertension (6) DVT prophylaxis Priority: Secondary Status: Acute - Discharge Medications Home Medications: Allopurinol [Zyloprim] 100 mg PO DAILY 07/08/15 [History] Aspirin Enteric Coated [Aspirin EC] 81 mg PO DAILY 07/08/15 [History] Cetirizine HCl [Zyrtec] 5 mg PO DAILY 07/08/15 [History] Escitalopram [Lexapro] 20 mg PO DAILY 07/08/15 [History] Fluticasone Propionate Nasal [Flonase] 50 mcg NS DAILY PRN 07/08/15 [History] Insulin DETEMIR [Levemir] 25 units SQ HS 07/08/15 [History] Levothyroxine [Synthroid] 50 mcg PO QAM 07/08/15 [History] Montelukast [Singulair] 10 mg PO DAILY 07/08/15 [History] Omeprazole [PriLOSEC] 40 mg PO DAILY 07/08/15 [History] TraMADol [Ultram] 50 mg PO Q6HR PRN 07/08/15 [History] Amlodipine Besylate 10 mg PO DAILY 09/21/16 [History] Atorvastatin [Lipitor] 40 mg PO HS 09/21/16 [History] Brimonidine Tartrate/Timolol [Combigan 0.2%-0.5% Eye Drops] 1 drop BOTH EYES BID 09/21/16 [History] Insulin LISPRO [Humalog Kwikpen U-100] 18 unit SQ TIDWM 09/21/16 [History] Lisinopril 2.5 mg PO DAILY 09/21/16 [History] Allergies/Adverse Reactions: Allergies clarithromycin [From Biaxin] Allergy (Verified 09/21/16 14:44) Rash Penicillins Allergy (Verified 09/21/16 14:44) Rash Date of admission: 09/22/16 12:41 Primary care physician: Umm Whitt CNP Discharging clinician: Maria Teresa Chacon Anticipated date of discharge: 09/24/16 - Patient Status Disposition: Transfer SNF Condition: Good Functional capacity at discharge: independent ambulation Overall status at discharge: patient is back to baseline - Discharge Instructions Follow Up With: Umm Whitt CNP [Primary Care Provider] - 09/29/16 1:25 pm Additional Instructions: Please follow-up with your primary care physician within one week after discharge from the hospital. Please continue to take all your home medications as prescribed by her primary care physician. Please closely monitor your blood sugars at home. Please seek medical help if your Blood sugars are consistently elevated. - Diet and Activity Activity: resume usual activities as tolerated Diet: diabetic diet Hospital course: Ms. Gregory is a 80 year old female with past medical history of type 2 diabetes, hyperlipidemia, osteoarthritis, CK 88 stage III, hyperuricemia/gout, diabetic peripheral neuropathy, history of old CVA/cognitive impairment, frequent falls, hypothyroidism, GERD, asthma, depression, anxiety, and obesity who was admitted for management of hyperglycemia/DKA secondary to uncontrolled diabetes mellitus. Patient was also noted to have acute kidney injury upon admission. As per history, patient was noted to be found on the floor for an unknown duration of time and was brought to the ER due to change in mental status. Patient was found to have elevated blood glucose and acute kidney injury. She was started on insulin drip as per DKA protocol. Her DKA resolved and blood glucose were under acceptable control. Her Acute kidney injury was secondary to the rhabdomyolysis caused by falls. Her kidney injury resolved and her kidney function returned to baseline. As per patient's daughter/next of kin patient has had cognitive impairment since her stroke 6 years ago and is only alert to self at baseline. Patient lives alone and has been refusing placement in the past, however she is willing to go to assisted living facility at this time. asbestos hazard abatement worker consultation was requested for placement. At this time patient is hemodynamically stable and will be discharged to [facility] with follow-up with primary care physician. Patient's daughter demonstrates understanding of patient's diagnosis and agrees with the discharge care and plan. - Time Spent with Patient Total time spent providing and/or coordinating discharge services: Greater than 30 minutes - Constitutional Vitals: Temp Pulse Resp BP Pulse Ox 98.0 F 65 16 149/75 90 L 09/24/16 07:45 09/24/16 08:26 09/24/16 07:45 09/24/16 07:45 09/24/16 07:45 General appearance: Present: A&O X 1 (pleasantly confused), pleasant, no acute distress, obese - Head Head exam: Present: atraumatic, normocephalic - Eye Eye exam: Present: normal appearance, conjuntiva pink, sclera anicteric - Respiratory Respiratory exam: Present: CTAB. Absent: accessory muscle use, rales, rhonchi, wheezes - Cardiovascular Cardiovascular exam: Present: RRR, +S1, +S2. Absent: diastolic murmur, gallop, rubs, systolic murmur - GI/Abdominal GI/Abdominal exam: Present: normal bowel sounds, soft, no peritoneal signs. Absent: distended, tenderness - Extremities Exam Extremities exam: Present: warm, radial pulses palpable and symetrical. Absent : calf tenderness, cyanotic, pedal edema - Neurological Exam Neurological exam: Present: alert - Psychiatric Psychiatric exam: Present: normal affect, normal mood
--- NOTE | 2016-09-24 09:33 | Physician Discharge Referral ---
ExtendedCare Referral Info Transfer To: ECF Provider in Charge after Transfer: PCP - Diagnosis (1) Hyperosmolar non-ketotic state in patient with type 2 diabetes mellitus Priority: Primary Status: Acute (2) CVA, old, cognitive deficits Priority: Secondary Status: Chronic (3) Leukocytosis Priority: Secondary Status: Resolved (4) Acute kidney injury superimposed on CKD Priority: Secondary Status: Acute (5) HTN (hypertension) Priority: Secondary Status: Chronic (6) DVT prophylaxis Priority: Secondary Status: Acute - Transfer Medications Home Medications: Allopurinol [Zyloprim] 100 mg PO DAILY 07/08/15 [History] Aspirin Enteric Coated [Aspirin EC] 81 mg PO DAILY 07/08/15 [History] Cetirizine HCl [Zyrtec] 5 mg PO DAILY 07/08/15 [History] Escitalopram [Lexapro] 20 mg PO DAILY 07/08/15 [History] Fluticasone Propionate Nasal [Flonase] 50 mcg NS DAILY PRN 07/08/15 [History] Insulin DETEMIR [Levemir] 25 units SQ HS 07/08/15 [History] Levothyroxine [Synthroid] 50 mcg PO QAM 07/08/15 [History] Montelukast [Singulair] 10 mg PO DAILY 07/08/15 [History] Omeprazole [PriLOSEC] 40 mg PO DAILY 07/08/15 [History] TraMADol [Ultram] 50 mg PO Q6HR PRN 07/08/15 [History] Amlodipine Besylate 10 mg PO DAILY 09/21/16 [History] Atorvastatin [Lipitor] 40 mg PO HS 09/21/16 [History] Brimonidine Tartrate/Timolol [Combigan 0.2%-0.5% Eye Drops] 1 drop BOTH EYES BID 09/21/16 [History] Insulin LISPRO [Humalog Kwikpen U-100] 18 unit SQ TIDWM 09/21/16 [History] Lisinopril 2.5 mg PO DAILY 09/21/16 [History] Allergies/Adverse Reactions: Allergies clarithromycin [From Biaxin] Allergy (Verified 09/21/16 14:44) Rash Penicillins Allergy (Verified 09/21/16 14:44) Rash - Respiratory Orders Smoking Cessation: Smoking cessation has been advised. For more information, call the [place] Tobacco Quit Line at 2-391-NTNW-NOW. - Treatments List/Other: Please follow up with your primary care physician within one week after your discharge from the hospital. Please closely monitor your fingerstick glucose and seek medical help if you have continuously have elevated blood glucose readings at home. Please continue all your home medications as prescribed by your primary care physician - Diet Orders House Supplement per Dietary: DIABETIC DIET CERTIFICATION: I certify that the transfer of the above named patient to an Extended Care Facility is necessary for the continuing treatment of the diagnosis listed. The above information is true and accurate reflection of patient's current condition. Confidential - Redisclosure prohibited without a patient's written consent.
== END 2016-09-24 10:17 | DRG 637 ==
LOC: EMEROO 14:35 → 2NNU 14:35
PROVIDERS: ADMIT Family Medicine; ATTEND Internal Medicine

== ENCOUNTER 2016-12-14 10:12 | Inpatient (IN) ==
--- NOTE | 2016-12-14 10:24 | Emergency Department Note ---
Disposition Clinical Impression: Ribs, multiple fractures Qualifiers: Encounter type: initial encounter Fracture type: closed Laterality: left Qualified Code(s): S22.42XA - Multiple fractures of ribs, left side, initial encounter for closed fracture Fall Qualifiers: Encounter type: initial encounter Qualified Code(s): W19.XXXA - Unspecified fall, initial encounter Disposition: Admitted As Inpatient Fall HPI - General Chief Complaint: ED Fall Stated Complaint: fall Time Seen by Provider: 12/14/16 10:15 Nursing Notes Reviewed: Yes Vital Signs Reviewed: Yes - History of Present Illness HPI Narrative: Mrs. Gregory, 80-year-old female, presents from [facility] via EMS with chief complaint of left-sided rib pain. Patient fell in her room 2 days ago. Described as slipping and landing face flat on the floor. She could not get herself up and required assistance. Total time down was approximately 5 minutes. She denies loss of consciousness. She denied any prodromal symptoms. Denies any other pains at this time. Denies the need for analgesia at this time noting that she took 2 Tylenol prior to calling the squad. PMH: Diabetes type 2, hypertension, hyperlipidemia, remote TIA (affected side = "all over", no sequelae), hypothyroidism ROS: Positive: Left-sided rib pain Negative: Fever, chills, nausea, vomiting, chest pains, palpitations, back pains , extremity pains, joint pains, dizziness, changes in vision - Related Data Home Medications Medication Instructions Recorded Confirmed Allopurinol [Zyloprim] 100 mg PO DAILY 07/08/15 12/14/16 Aspirin Enteric Coated [Aspirin EC] 81 mg PO DAILY 07/08/15 12/14/16 Cetirizine HCl [Zyrtec] 5 mg PO DAILY 07/08/15 12/14/16 Escitalopram [Lexapro] 20 mg PO DAILY 07/08/15 12/14/16 Fluticasone Propionate Nasal 1 spray NS DAILY PRN 07/08/15 12/14/16 [Flonase] Levothyroxine [Synthroid] 50 mcg PO QAM 07/08/15 12/14/16 Montelukast [Singulair] 10 mg PO DAILY 07/08/15 12/14/16 Omeprazole [PriLOSEC] 40 mg PO DAILY 07/08/15 12/14/16 TraMADol [Ultram] 50 mg PO Q6HR PRN 07/08/15 12/14/16 Amlodipine Besylate 10 mg PO DAILY 09/21/16 12/14/16 Atorvastatin [Lipitor] 40 mg PO HS 09/21/16 12/14/16 Lisinopril 2.5 mg PO DAILY 09/21/16 12/14/16 Ammonium Lactate [Cha-Hydrolac] 1 appl TP BID PRN 12/14/16 12/14/16 Insulin Glargine,Hum.rec.anlog 25 unit SQ HS 12/14/16 12/14/16 [Lantus Solostar] Insulin Human Regular [HumuLIN R] 8 - 15 unit IJ TID MDD per sliding 12/14/16 12/14/16 scale Allergies Allergy/AdvReac Type Severity Reaction Status Date / Time clarithromycin [From Biaxin] Allergy Rash Verified 09/21/16 14:44 Penicillins Allergy Rash Verified 09/21/16 14:44 All systems ED: reviewed and negative except as stated. Fall PMH - Past Medical History Medical history: Reports: arthritis, asthma, CVA, dementia, diabetes, GERD, glaucoma, hyperlipidemia, hypertension, osteoporosis, renal disease, thyroid disease, other (DM peripheral neuropathy. Frequent mechanical falls. Allergic rhinitis. HyperUricemia/gout.) Surgical history: Reports: cholecystectomy, knee replacement, orthopedic, other (ORIF right humerus fracture. Cuff surgery. Carpal tunnel release.), other ( Hemorrhoidectomy.) Psychiatric history: Reports: anxiety, depression, other LANGUAGE AND LITERATURE DIVISION CHAIR history: Reports: no LANGUAGE AND LITERATURE DIVISION CHAIR history - Social History Smoking Status: Never smoker Alcohol use: Reports: none Drug use: Reports: none Physical Exam Vital Signs ReviewedGeneral: Patient is alert, oriented, and in no acute distress. HEENT: No facial asymmetry. Head is normocephalic and atraumatic. PERRLA, EOMI. oral mucosa moist. Trachea midline. Cardiovascular: Heart regular rate and rhythm without clicks, rubs, gallops, or murmurs. No JVD. PMI nondisplaced. Radial posterior tibial pulses equal and 2 /4. Respiratory: Symmetric chest rise with good respiratory effort. Bilateral breath sounds are clear without wheezing, crackles, or rhonchi. Abdomen: Obese. Bowel sounds present normoactive x-4 quadrants. Abdomen is soft, nondistended, and nontender. No organomegaly noted. Musculoskeletal: Tenderness in the left inferior ribs along the mid to anterior axillary line. Left-sided rib pain with palpation to right sided ribs. Left- sided rib pain with strength testing of left upper extremity. Muscle strength 5 /5 and symmetric bilaterally in upper and lower extremities. Neuro: Cranial nerves II through XII without deficit. Sensation light touch intact. Psych: Patient's affect is appropriate for situation. Course Course Narrative: Patient presents status post mechanical fall 2 days ago. Initial concern is for left-sided rib fracture. As long as patient stays motionless, she denies need for pain control. Even so, she has pain with deep inspiration. No head trauma or prodromal symptoms; no need for CT head or cardiac workup at this time. Chest x-ray shows displaced left-sided rib fracture in fifth, sixth, seventh rib. After discussed with my attending, we agreed to disposition patient for admission given her high risk for subsequent falls as well as developing pneumonia. Spoke with the admitting hospitalist, Dr. Coley, who agrees to accept the patient. Vital Signs Temperature 98.9 F 12/14/16 10:29 Pulse Rate 66 12/14/16 10:29 Respiratory Rate 18 12/14/16 10:29 Blood Pressure 149/75 12/14/16 10:29 O2 Sat by Pulse Oximetry 93 12/14/16 10:29 Temperature 98.3 F 12/14/16 15:40 Pulse Rate 66 12/14/16 15:40 Respiratory Rate 18 12/14/16 15:40 Blood Pressure 152/73 12/14/16 15:40 O2 Sat by Pulse Oximetry 96 12/14/16 15:40 Oxygen Delivery Oxygen Delivery Nasal Cannula Fall - Lab Data Result diagrams: 12/14/16 11:10 Lab Results 12/14/16 12/14/16 12/14/16 Range/Units 11:10 11:20 11:20 Sodium 135 L (136-145) mEq/L Potassium 4.6 H (3.5-4.5) mEq/L Chloride 97 L (98-109) mEq/L Carbon Dioxide 27 (19-29) mEq/L BUN 22 H (7-20) mg/dL Creatinine 1.34 H (0.57-1.11) mg/dL Est GFR ( Amer) 46 L (> 60) Est GFR (Non-Af Amer) 38 L (> 60) BUN/Creatinine Ratio 16 (6-26) Glucose 314 H (70-99) mg/dL POC Glucose 289 H 289 H (58-89) Calculated Osmolality 295 (280-300) Calcium 9.3 (8.6-10.8) mg/dL Attestation Statement - Attestation Attestation: I examined this patient and my medical decision-making was reviewed with the BUCKET PUSHER/PA/Advanced Practice Nurse/Resident Physician. I agree with the documented findings, disposition and treatment plan as described except to the extent set forth below. Patient emergency department after a fall. Patient states she had a fall 2 days ago. She landed on the floor and injured her left ribs. They are becoming increasing painful and now states she is having some difficulty breathing. Exam she is in no distress. Lungs are diminished. She has tenderness over the left lateral ribs anteriorly. No crepitus. Plan. Patient multiple rib fractures. O2 sat were 92-93%. Patient be admitted for pulmonary toilet and social concerns as she lives in independent living.
[2016-12-14 11:31] LABS: Calcium 9.3 mg/dL (8.6-10.8); Potassium 4.6 mEq/L (3.5-4.5)
[2016-12-14] MEDS ORDERED: *HR* Morphine 2 MG/ML SYRINGE IVP ONE (12:19)
[2016-12-14] MEDS ORDERED: Acetaminophen 325 MG TABLET PO PRN (12:47)
[2016-12-14] MEDS ORDERED: Naloxone 0.4 MG/ML INJ IVP PRN (12:47)
[2016-12-14] MEDS ORDERED: *HR* Dextrose 50 % in Water (Syg) 50 ML SYRINGE IVP PRN (12:51)
[2016-12-14] MEDS ORDERED: D5% in Water 1,000 ML IVC PRN (12:51)
[2016-12-14] MEDS ORDERED: Dextrose Gel 15 GM PO PRN ×2 (12:51)
--- NOTE | 2016-12-14 13:03 | Event Note ---
Date of Encounter: 12/14/16 Time of Encounter: 13:01 1) intractable pain secondary to left rib fractures/displaced after mechanical fall Control pain with Percocet and morphine, for fall precautions Use incentive spirometer Consult director of social work and physical therapy 2. Elevated creatinine secondary to dehydration, continue IV fluids 3. History of CVA, continue aspirin 4. Diabetes type 2 with history of DKA, continue insulin sliding scale Patient will be admitted for observation. Full code. Time spent on this admission 40 minutes. High risk for falling
--- NOTE | 2016-12-14 13:04 | Internal Med History&Physical ---
<Cesia Yung M - Last Filed: 12/14/16 13:23> Date of Encounter: 12/14/16 Time of Encounter: 12:59 Assessment and Plan (1) Ribs, multiple fractures Current visit: Yes Status: Acute Patient status post fall 2 days ago where she slipped and fell on her left side. She is reporting left-sided chest pain. X-ray shows mildly displaced fractures and anterior aspect of the left fifth, sixth, seventh ribs. PRN tylenol, [place], morphine for pain control Narcan PRN for respiratory depression PT/OT consult Social work consult for discharge planning Incentive spirometry hourly while awake Qualifiers: Encounter type: initial encounter Fracture type: closed Laterality: left Qualified Code(s): S22.42XA - Multiple fractures of ribs, left side, initial encounter for closed fracture (2) Fall Current visit: Yes Status: Acute Patient slipped and fell in the cafeteria of her [facility] 2 days ago. It was a witnessed fall and people were able to help her back up. She has a history of multiple falls, which is part of the reason she is residing in long-term care. PT/OT consult K consult for discharge planning. Qualifiers: Encounter type: initial encounter Qualified Code(s): W19.XXXA - Unspecified fall, initial encounter (3) Acute kidney injury superimposed on CKD Current visit: No Status: Acute Patient with known CKD. Creatinine of 1.34 today, above previous baseline, but not out of line with previous results. Will gently hydrate with 0.9NS at 80mL/ hr and check chemistry again tomorrow. (4) Type 2 diabetes mellitus Current visit: Yes Status: Acute Not well controlled as evidenced by A1c of 12.7 on 09/22/16. Previous hospitalization for DKA. Diabetic diet. Check blood sugar ACHS Continue basal dose of insulin 25u HS Give 10u Lispro plus sliding scale correction TIDWM (home dose is 18u TIDWM) Sliding scale correction dose HS. hypoglycemic protocol. Qualifiers: Diabetes mellitus complication status: with hyperglycemia Diabetes mellitus care home insulin use: with care home use Qualified Code(s): E11.65 - Type 2 diabetes mellitus with hyperglycemia; Z79.4 - long-term (current) use of insulin (5) DVT prophylaxis Current visit: Yes Status: Acute Up to chair BID anti-embolic stockings Heparin 5000 SQ TID Internal Medicine - H&P: HPI Chief complaint: pain s/p fall Admitted From: Emergency Dept Plans for Post Hospital Care: Transfer Machine [facility] Care History of present illness: Ms. Gregory is a 80 year old female with hypertension, hyperlipidemia, hypothyroid , type 2 diabetes, history of TIA, asthma, dementia who presented to the emergency department today from her long-term care facility with reports of pain in her left side after suffering a fall 2 days ago. Patient reports that she was in the cafeteria at [facility] when she slipped and fell onto her left side in her 50s. She denies any dizziness or lightheadedness preceding the fall , and reports she slipped. Since her fall she has been having pain on her left side, reports pain with taking deep breaths and coughing. She denies any headache, lightheadedness, chest pain, palpitations, shortness of breath, abdominal pain, nausea, vomiting, diarrhea. Evaluation in the emergency department included an x-ray which showed mildly displaced fractures in the anterior aspects of the left 5th, 6th and 7th ribs. Labs revealed mildly OLEKSANDR, and hyperglycemia with blood sugar of 314. On exam, patient alert and oriented , in no acute distress. Heart had regular rate and rhythm, lungs clear to auscultation bilaterally. Patient had significant tenderness to palpation of the left anterior chest. Past Med Surg Social Fam HX - Past Medical History Medical history: arthritis, asthma, dementia, diabetes, GERD, glaucoma, hyperlipidemia, hypertension, osteoporosis, renal disease, thyroid disease, TIA , other (DM peripheral neuropathy. Frequent mechanical falls. Allergic rhinitis. HyperUricemia/gout.) Psychiatric history: anxiety, depression, other - Past Surgical History Surgical History: cholecystectomy, knee replacement, orthopedic, other (ORIF right humerus fracture. Cuff surgery. Carpal tunnel release.), other ( Hemorrhoidectomy.) - Social History Smoking Status: Never smoker Smokeless Tobacco Status: No Alcohol use: none Drug use: none - Family History Mother Living Status: Age at : 85 Father Living Status: Age at : 60 Hx Family Cardiac Disorders: Yes Hx Family Cancer: Yes Internal Medicine - H&P: Meds Allopurinol [Zyloprim] 100 mg PO DAILY 07/08/15 [History] Aspirin Enteric Coated [Aspirin EC] 81 mg PO DAILY 07/08/15 [History] Cetirizine HCl [Zyrtec] 5 mg PO DAILY 07/08/15 [History] Escitalopram [Lexapro] 20 mg PO DAILY 07/08/15 [History] Fluticasone Propionate Nasal [Flonase] 1 spray NS DAILY PRN 07/08/15 [History] Levothyroxine [Synthroid] 50 mcg PO QAM 07/08/15 [History] Montelukast [Singulair] 10 mg PO DAILY 07/08/15 [History] Omeprazole [PriLOSEC] 40 mg PO DAILY 07/08/15 [History] TraMADol [Ultram] 50 mg PO Q6HR PRN 07/08/15 [History] Amlodipine Besylate 10 mg PO DAILY 09/21/16 [History] Atorvastatin [Lipitor] 40 mg PO HS 09/21/16 [History] Lisinopril 2.5 mg PO DAILY 09/21/16 [History] Ammonium Lactate [Cha-Hydrolac] 1 appl TP BID PRN 12/14/16 [History] Insulin Glargine,Hum.rec.anlog [Lantus Solostar] 25 unit SQ HS 12/14/16 [History ] Insulin Human Regular [HumuLIN R] 8 - 15 unit IJ TID MDD per sliding scale [History] Allergies clarithromycin [From Biaxin] Allergy (Verified 09/21/16 14:44) Rash Penicillins Allergy (Verified 09/21/16 14:44) Rash All Systems PM: A 10-system review of systems was performed and is negative for pertinent findings except as documented above in the HPI. - Constitutional Constitutional: no chills, no fever(s), no night sweats - EENT Eyes: no change in vision, no discharge, no pain, no photophobia Ears: no ear discharge, no ear pain, no tinnitus Nose, mouth and throat: no dysphagia, no nasal discharge, no neck pain, no sore throat - Cardiovascular Cardiovascular ROS IM: chest pain (Pain in left lateral chest ), no diaphoresis , no dyspnea, no lightheadedness, no palpitations, no syncope - Respiratory Respiratory: pain on inspiration, pain with cough, no cough, no dyspnea, no wheezing, no excessive phlegm production - Gastrointestinal Gastrointestinal: no abdominal pain, no diarrhea, no hematemesis, no hematochezia, no melena, no nausea, no vomiting - Genitourinary Genitourinary: no change in urinary stream, no dysuria, no flank pain, no hematuria - Musculoskeletal Musculoskeletal ROS IM: no numbness, no tingling - Integumentary Integumentary IM: no rash, no unusual bruising - Neurological Neurological ROS: no confusion, no convulsions, no focal weakness, no numbness, no tingling, no tremor(s) - Hematologic/Lymphatic Hematologic/Lymphatic: no easy bruising - Constitutional Vitals: Temp Pulse Resp BP Pulse Ox 98.9 F 62 18 179/79 94 12/14/16 10:29 12/14/16 12:01 12/14/16 12:01 12/14/16 12:01 12/14/16 12:01 General appearance: Present: A&O X 3, pleasant - Head Head exam: Present: atraumatic, normocephalic - Eye Eye exam: Present: PERRL, conjuntiva pink, sclera anicteric Pupils: Present: PERRL - Neck Neck exam general surgery: Present: supple, trachea midline. Absent: lymphadenopathy - Respiratory Respiratory exam: Present: chest wall tenderness, CTAB. Absent: accessory muscle use, rales, rhonchi, wheezes - Cardiovascular Cardiovascular exam: Present: RRR, +S1, +S2. Absent: diastolic murmur, gallop, rubs, systolic murmur - GI/Abdominal GI/Abdominal exam: Present: normal bowel sounds, soft, no peritoneal signs. Absent: distended, tenderness - Extremities Exam Extremities exam: Present: warm, radial pulses palpable and symetrical. Absent : calf tenderness, cyanotic, pedal edema - Neurological Exam Neurological exam: Present: CN II-XII intact, oriented X3, no focal deficits. Absent: pronater drift, facial droop, speech deficit - Skin Skin exam: Present: dry, intact Internal Med - H&P Results - Labs CBC & Chem 7: 12/14/16 11:10 - Diagnostic Studies Chest x-ray Additional comments: Ribs w/Chest X-Ray 12/14/16 10:20 IMPRESSION: 1. Mildly displaced fractures involving the anterior aspect of the left 5th, 6th and 7th ribs. 2. No evidence of pneumothorax or other acute cardiopulmonary process. D/ / 12/14/2016 10:56:07 Ernie Doe MD / kiran Interpreting Provider: Ernie Doe MD <Jamal Kyle H - Last Filed: 12/14/16 15:19> Date of Encounter: 12/14/16 Internal Medicine - H&P: HPI History of present illness: Ms. Gregory is a 80 year old female All Systems PM: A 10-system review of systems was performed and is negative for pertinent findings except as documented above in the HPI. - Constitutional Vitals: Temp Pulse Resp BP Pulse Ox 98.9 F 62 18 141/69 94 12/14/16 10:29 12/14/16 12:01 12/14/16 13:39 12/14/16 13:39 12/14/16 12:01 Internal Med - H&P Results - Labs CBC & Chem 7: 12/14/16 11:10 - Attending Attestation 1) intractable pain secondary to left rib fractures/displaced after mechanical fall Control pain with Percocet and morphine, for fall precautions Use incentive spirometer Consult social services counselor and physical therapy 2. Elevated creatinine secondary to dehydration, continue IV fluids 3. History of CVA, continue aspirin 4. Diabetes type 2 with history of DKA, continue insulin sliding scale Patient will be admitted for observation. Full code. Time spent on this admission 40 minutes. High risk for falling I examined this patient and my medical decision-making was reviewed with the MILK HANDLER/PA/Advanced Practice Nurse/Resident Physician. I agree with the documented findings, disposition and treatment plan as described except to the extent set forth below.
[2016-12-14] MEDS: Insulin LISPRO 300 UNITS/3 ML VIAL SQ SCH ×3 (15:23→17:09)
[2016-12-14] MEDS: *HR* Heparin 5,000 UNIT/ML VIAL SQ SCH ×2 (17:09→20:40)
[2016-12-14] MEDS: 0.9 % Sodium Chloride 1,000 ML IVC SCH (17:10)
[2016-12-14] MEDS: *HR* Morphine 2 MG/ML SYRINGE IVP PRN (20:39)
[2016-12-14] MEDS ORDERED: Insulin DETEMIR 100 UNIT/ML X5UNITS SQ SCH (21:00)
[2016-12-14] MEDS ORDERED: Insulin LISPRO 300 UNITS/3 ML VIAL SQ SCH (21:00)
[2016-12-15 05:15] LABS: Basophils % 0.5 %; Eosinophils # 0.2 K/mcL (0.0-0.6); Eosinophils % 2.1 %; Hematocrit 39.3 % (35.3-44.9); Hemoglobin 12.8 g/dL (11.5-15.4); Immature Granulocytes % 0.5 % (0-4); Lymphocytes # 1.5 K/mcL (0.6-4.6); Lymphocytes % 16.6 %; Mean Corpuscular HGB Conc 32.6 g/dL (31.6-35.5); Mean Corpuscular Hemoglobin 30.3 pg (28.0-33.3); Mean Corpuscular Volume 92.9 fL (83.0-100.0); Mean Platelet Volume 11.3 fL (9.4-12.4); Monocytes # 0.6 K/mcL (0.0-1.3); Monocytes % 7.1 %; Neutrophils # 6.5 K/mcL (1.6-8.9); Platelet Count 237 K/mcL (140-400); Red Blood Count 4.23 M/mcL (3.82-4.97); Red Cell Distribution Width 12.4 % (11.5-14.5); Segmented Neutrophils % 73.2 %
[2016-12-15] MEDS: *HR* HYDROcodone/Acet 5/325 mg TABLET PO PRN ×2 (05:26→15:21)
[2016-12-15] MEDS: *HR* Heparin 5,000 UNIT/ML VIAL SQ SCH ×2 (05:27→15:21)
[2016-12-15 05:35] LABS: Potassium 4.5 mEq/L (3.5-4.5)
[2016-12-15] MEDS: 0.9 % Sodium Chloride 1,000 ML IVC SCH (05:53)
[2016-12-15] MEDS: Insulin LISPRO 300 UNITS/3 ML VIAL SQ SCH ×4 (08:55→12:00)
[2016-12-15] MEDS: *HR* Morphine 2 MG/ML SYRINGE IVP PRN ×2 (08:55→16:08)
[2016-12-15] MEDS ORDERED: Loratadine 10 MG TABLET PO SCH (09:00)
[2016-12-15] MEDS ORDERED: Aspirin Enteric Coated 81 MG Tablet PO SCH (09:00)
[2016-12-15] MEDS ORDERED: amLODIPine 5 MG TABLET PO SCH (09:00)
--- NOTE | 2016-12-15 09:53 | Internal Med Progress Note ---
Date of Encounter: 12/15/16 Time of Encounter: 09:53 - Constitutional Vitals: Temp Pulse Resp BP Pulse Ox 97.8 F 71 16 169/65 96 12/15/16 07:30 12/15/16 07:30 12/15/16 07:30 12/15/16 07:30 12/15/16 07:30 General appearance: Present: A&O X 3, pleasant Internal Medicine: Result - Labs CBC & Chem 7: 12/15/16 04:28 12/15/16 04:28 Labs: Short CBC 12/15/16 Range/Units 04:28 WBC 8.8 (4.3-11.1) K/mcL Hgb 12.8 (11.5-15.4) g/dL Hct 39.3 (35.3-44.9) % Plt Count 237 (140-400) K/mcL Neutrophils # 6.5 (1.6-8.9) K/mcL BMP 12/15/16 04:28 Sodium 137 Potassium 4.5 Chloride 100 Carbon Dioxide 29 BUN 24 H Creatinine 1.29 H Glucose 226 H Calcium 9.0 - VTE Documentation of Mechanical Device: Graduated compression elastic hosiery Consult Discharge Plan - Plan Referrals: Umm Whitt, CALL OUT CLERK [Primary Care Provider] -
--- NOTE | 2016-12-15 10:23 | Discharge Summary ---
Date of Encounter: 12/15/16 Time of Encounter: 10:11 - Discharge Diagnosis (1) Fall Priority: Primary Status: Acute Qualifiers: Encounter type: initial encounter Qualified Code(s): W19.XXXA - Unspecified fall, initial encounter (2) Ribs, multiple fractures Priority: Primary Status: Acute Qualifiers: Encounter type: initial encounter Fracture type: closed Laterality: unspecified laterality Qualified Code(s): S22.49XA - Multiple fractures of ribs, unspecified side, initial encounter for closed fracture (3) Type 2 diabetes mellitus Priority: Secondary Status: Chronic Qualifiers: Diabetes mellitus complication status: with hyperglycemia Diabetes mellitus fpc insulin use: with bed bug exterminator use Qualified Code(s): E11.65 - Type 2 diabetes mellitus with hyperglycemia; Z79.4 - group home (current) use of insulin (4) Dyslipidemia Priority: Secondary Status: Chronic (5) Falls frequently Priority: Secondary Status: Chronic (6) HTN (hypertension) Priority: Secondary Status: Chronic Qualifiers: Hypertension type: essential hypertension Qualified Code(s): I10 - Essential (primary) hypertension (7) Hypothyroidism Priority: Secondary Status: Chronic Qualifiers: Hypothyroidism type: acquired Qualified Code(s): E03.9 - Hypothyroidism, unspecified - Discharge Medications Prescriptions: HYDROcodone/Acet 5/325 mg [[place] 5-325 mg] 1 tab PO Q4HR PRN #20 tablet PRN Reason: Moderate-Severe Pain (4-6) Home Medications: Allopurinol [Zyloprim] 100 mg PO DAILY 07/08/15 [History] Aspirin Enteric Coated [Aspirin EC] 81 mg PO DAILY 07/08/15 [History] Cetirizine HCl [Zyrtec] 5 mg PO DAILY 07/08/15 [History] Escitalopram [Lexapro] 20 mg PO DAILY 07/08/15 [History] Fluticasone Propionate Nasal [Flonase] 1 spray NS DAILY PRN 07/08/15 [History] Levothyroxine [Synthroid] 50 mcg PO QAM 07/08/15 [History] Montelukast [Singulair] 10 mg PO DAILY 07/08/15 [History] Omeprazole [PriLOSEC] 40 mg PO DAILY 07/08/15 [History] Amlodipine Besylate 10 mg PO DAILY 09/21/16 [History] Atorvastatin [Lipitor] 40 mg PO HS 09/21/16 [History] Lisinopril 2.5 mg PO DAILY 09/21/16 [History] Ammonium Lactate [Cha-Hydrolac] 1 appl TP BID PRN 12/14/16 [History] Insulin Glargine,Hum.rec.anlog [Lantus Solostar] 25 unit SQ HS 12/14/16 [History ] Insulin Human Regular [HumuLIN R] 8 - 15 unit IJ TID MDD per sliding scale [History] Acetaminophen [Tylenol] 650 mg PO Q6HR PRN #0 tablet 12/15/16 [Rx] HYDROcodone/Acet 5/325 mg [[place] 5-325 mg] 1 tab PO Q4HR PRN #20 tablet [Rx] Allergies/Adverse Reactions: Allergies clarithromycin [From Biaxin] Allergy (Verified 09/21/16 14:44) Rash Penicillins Allergy (Verified 09/21/16 14:44) Rash Date of admission: 12/14/16 17:22 Primary care physician: Umm Whitt CNP Discharging clinician: Hiren Feliciano Anticipated date of discharge: 12/15/16 - Patient Status Disposition: Transfer SNF Condition: Fair Functional capacity at discharge: uses cane/walker Overall status at discharge: patient is progressing back to baseline - Discharge Instructions Follow Up With: Umm Whitt CNP [Primary Care Provider] - 12/21/16 10:40 am (Office will call you if an appointment becomes open at a earlier date) - Diet and Activity Activity: resume usual activities as tolerated Diet: diabetic diet, low fat, low cholesterol, low salt diet Interval History: See below Hospital course: Ms. 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 She continued to experience chest pain for which the squad was called and patient transported to ER She denies any headache, lightheadedness, chest pain, palpitations, shortness of breath, abdominal pain, nausea, vomiting, diarrhea. Evaluation in the emergency department included an x-ray which showed mildly displaced fractures in the anterior aspects of the left 5th, 6th and 7th ribs. Labs reveal creatinine at her baseline, normal CBC, hyperglycemia Physical exam unremarkable except for chest wall tenderness She was placed admitted to the hospital for pain control. She is seen and evaluated at bedside, with no new complains Her labs remain stable, her baseline creatinine is 1.2-1.3 on chart review from 2013 Patient is clinically stable for discharge to SNF PT/OT eval, SW consults unremarkable. Patient educated to use incentive spirometry. Medications have been reconciled. - Time Spent with Patient Total time spent providing and/or coordinating discharge services: - Constitutional Vitals: Temp Pulse Resp BP Pulse Ox 97.8 F 71 16 169/65 96 12/15/16 07:30 12/15/16 07:30 12/15/16 07:30 12/15/16 07:30 12/15/16 07:30 General appearance: Present: A&O X 3, pleasant, no acute distress, obese - Head Head exam: Present: atraumatic, normocephalic - Eye Eye exam: Present: PERRL, conjuntiva pink, sclera anicteric Pupils: Present: PERRL - Neck Neck exam general surgery: Present: supple, trachea midline. Absent: lymphadenopathy - Respiratory Respiratory exam: Present: CTAB. Absent: accessory muscle use, rales, rhonchi, wheezes - Cardiovascular Cardiovascular exam: Present: RRR, +S1, +S2. Absent: diastolic murmur, gallop, rubs, systolic murmur - GI/Abdominal GI/Abdominal exam: Present: normal bowel sounds, soft, no peritoneal signs. Absent: distended, tenderness - Extremities Exam Extremities exam: Present: warm, radial pulses palpable and symetrical. Absent : calf tenderness, cyanotic, pedal edema - Neurological Exam Neurological exam: Present: alert, CN II-XII intact, oriented X3, no focal deficits. Absent: pronater drift, facial droop, speech deficit - Skin Skin exam: Present: dry, intact - VTE Documentation of Mechanical Device: Graduated compression elastic hosiery
--- NOTE | 2016-12-15 10:29 | Physician Discharge Referral ---
ExtendedCare Referral Info Transfer To: [facility] Provider in Charge: Braden Provider in Charge after Transfer: PCP Institutional Level of Care: Skilled - Diagnosis (1) Fall Priority: Primary Status: Acute (2) Ribs, multiple fractures Priority: Primary Status: Acute (3) Type 2 diabetes mellitus Priority: Secondary Status: Chronic (4) Dyslipidemia Priority: Secondary Status: Chronic (5) Falls frequently Priority: Secondary Status: Chronic (6) HTN (hypertension) Priority: Secondary Status: Chronic (7) Hypothyroidism Priority: Secondary Status: Chronic Prognosis: Fair Aware of Diagnosis: Patient Aware of Prognosis: Patient - Transfer Medications Prescriptions: HYDROcodone/Acet 5/325 mg [[place] 5-325 mg] 1 tab PO Q4HR PRN #20 tablet PRN Reason: Moderate-Severe Pain (4-6) Home Medications: Allopurinol [Zyloprim] 100 mg PO DAILY 07/08/15 [History] Aspirin Enteric Coated [Aspirin EC] 81 mg PO DAILY 07/08/15 [History] Cetirizine HCl [Zyrtec] 5 mg PO DAILY 07/08/15 [History] Escitalopram [Lexapro] 20 mg PO DAILY 07/08/15 [History] Fluticasone Propionate Nasal [Flonase] 1 spray NS DAILY PRN 07/08/15 [History] Levothyroxine [Synthroid] 50 mcg PO QAM 07/08/15 [History] Montelukast [Singulair] 10 mg PO DAILY 07/08/15 [History] Omeprazole [PriLOSEC] 40 mg PO DAILY 07/08/15 [History] Amlodipine Besylate 10 mg PO DAILY 09/21/16 [History] Atorvastatin [Lipitor] 40 mg PO HS 09/21/16 [History] Lisinopril 2.5 mg PO DAILY 09/21/16 [History] Ammonium Lactate [Cha-Hydrolac] 1 appl TP BID PRN 12/14/16 [History] Insulin Glargine,Hum.rec.anlog [Lantus Solostar] 25 unit SQ HS 12/14/16 [History ] Insulin Human Regular [HumuLIN R] 8 - 15 unit IJ TID MDD per sliding scale [History] Acetaminophen [Tylenol] 650 mg PO Q6HR PRN #0 tablet 12/15/16 [Rx] HYDROcodone/Acet 5/325 mg [[place] 5-325 mg] 1 tab PO Q4HR PRN #20 tablet [Rx] Allergies/Adverse Reactions: Allergies clarithromycin [From Biaxin] Allergy (Verified 09/21/16 14:44) Rash Penicillins Allergy (Verified 09/21/16 14:44) Rash - Respiratory Orders Oxygen / L per min (2-3 L as needed to maintain O2 sat at least 92%), Other ( INCENTIVE SPIROMETRY. AT LEAST 6 TIME PER HR, TO PREVENT ATELECTASIS DUE TO CHEST PAIN FROM RIB FRACTURE) Smoking Cessation: Smoking cessation has been advised. For more information, call the [employer] Quit Line at 2-987-YBHZ-NOW. - Advance Directives Code Status: DNR-Arrest/Don't Intubate - Mobility Orders Other ( PER PHYSICAL THERAPIST) - Rehabiliation Orders Rehab Potential: Fair - Diet Orders No Concentrated Sweets, Cardiac CERTIFICATION: I certify that the transfer of the above named patient to an Extended Care Facility is necessary for the continuing treatment of the diagnosis listed. The above information is true and accurate reflection of patient's current condition. Confidential - Redisclosure prohibited without a patient's written consent.
[2016-12-15 15:39] VITALS: BP 150/67
--- NOTE | 2016-12-15 18:16 | Electrocardiograph Report ---
[address] [place], [place] [address] Test Date: 2016-12-14 Pat Name: Anna Gregory Department: 105 Room: 2A12 Gender: F [employer] Operator: : [id number] Requested By: Hiren Feliciano Order Number: [id number] Reading MD: Cathy Velez Measurements Intervals [place] Rate: 62 P: 51 [place]: 193 QRS: -34 QRSD: 100 T: 49 QT: 392 QTc: 398 Interpretive Statements SINUS RHYTHM MARKED LEFT AXIS DEVIATION [QRS AXIS < -30] LOW QRS VOLTAGE IN PRECORDIAL LEADS Electronically Signed On 12-15-2016 18:14:43 EDT by Cathy Velez
== END 2016-12-15 17:16 | DRG 184 ==
LOC: EMEROO 10:12 → 2ANU 10:12 → SUATTDRO 17:22
PROVIDERS: ADMIT Internal Medicine; ATTEND Internal Medicine

== ENCOUNTER 2019-03-12 09:11 | Inpatient (IN) ==
--- NOTE | 2019-03-12 09:26 | Emergency Department Note ---
Disposition Clinical Impression: Altered mental status Qualifiers: Altered mental status type: delirium Qualified Code(s): R41.0 - Disorientation, unspecified CHF exacerbation Qualifiers: Heart failure type: unspecified Qualified Code(s): I50.9 - Heart failure, unspecified Hypothyroid Qualifiers: Hypothyroidism type: acquired Qualified Code(s): E03.9 - Hypothyroidism, unspecified Disposition: Admitted As Inpatient Condition: Fair Time of Disposition: 13:34 General Adult HPI - General Stated complaint: SENAIT Time Seen by Provider: 03/12/19 09:12 Source: patient, EMS Mode of arrival: EMS Limitations: no limitations Nursing Notes Reviewed: Yes Vital Signs Reviewed: Yes - History of Present Illness HPI Narrative: Patient is an 83-year-old female that presents to the emergency department for reports of dyspnea and altered mentation. The patient does have altered mentation and fixates on her name and is unable to provide any additional history. Pain Scale: 0 - Related Data Home Medications Medication Instructions Recorded Confirmed Allopurinol [Zyloprim 100 MG] 100 mg PO DAILY 03/12/19 03/12/19 Aspirin [Adult Aspirin Regimen] 81 mg PO DAILY 03/12/19 03/12/19 Atorvastatin [Lipitor] 40 mg PO HS 03/12/19 03/12/19 Donepezil [Aricept] 10 mg PO HS 03/12/19 03/12/19 Escitalopram [Lexapro] 10 mg PO DAILY 03/12/19 03/12/19 Fluticasone Propionate Nasal 50 mcg NS BID 03/12/19 03/12/19 [Flonase] Furosemide [Lasix] 20 mg PO DAILY 03/12/19 03/12/19 Guaifenesin [Mucinex] 600 mg PO BID PRN 03/12/19 03/12/19 HYDROcodone/Acet 5/325 mg [[place] 1 tab PO Q6H PRN 03/12/19 03/12/19 5-325 mg] Insulin Regular U-500 [HumuLIN R 0 unit SQ DAILY 03/12/19 03/12/19 U-500] Levocetirizine Dihydrochloride 5 mg PO DAILY 03/12/19 03/12/19 [Allergy Relief (Xyzal)] Levothyroxine [Synthroid] 50 mcg PO 0630 03/12/19 03/12/19 Omeprazole [PriLOSEC] 40 mg PO DAILY 03/12/19 03/12/19 Allergies Allergy/AdvReac Type Severity Reaction Status Date / Time clarithromycin [From Biaxin] Allergy Rash Verified 09/21/16 14:44 Penicillins Allergy Rash Verified 09/21/16 14:44 Limitations: ROS unobtainable due to patients medical condition Respiratory: Reports: dyspnea Past Medical History - Past Medical History Medical history: Reports: arthritis, asthma, CVA, dementia, diabetes, GERD, glaucoma, hyperlipidemia, hypertension, osteoporosis, renal disease, thyroid disease, other Surgical history: Reports: cholecystectomy, knee replacement, orthopedic, other (ORIF right humerus fracture. Cuff surgery. Carpal tunnel release.), other (Hemorrhoidectomy.) Psychiatric history: Reports: anxiety, depression, other MECHANICAL MAINTENANCE SUPERVISOR history: Reports: no MECHANICAL MAINTENANCE SUPERVISOR history - Social History Smoking Status: Never smoker Smokeless Tobacco Status: No Alcohol use: Reports: none Drug use: Reports: none Physical Exam - General Limitations: no limitations General appearance: alert, in no apparent distress - Head Head exam: atraumatic, normocephalic - Eye Eye exam: Present: normal appearance, EOMI - Neck Neck exam: Present: normal inspection, full ROM, trachea midline - Respiratory Respiratory exam: Present: normal lung sounds bilaterally. Absent: respiratory distress, wheezes - Cardiovascular Cardiovascular exam: Present: regular rate, normal rhythm, normal heart sounds, +S1, +S2 - Abdominal Exam Abdominal exam: Present: soft, Non-Tender, normal bowel sounds - Neurological Exam Neurological exam: Present: alert. Absent: oriented X3 - Expanded Neurological Exam Cranial nerves: EOM function (II, III, IV, ): Normal, facial sensation (V): Normal, facial palsy (VII): Normal, gag reflex (IX): Normal, spinal accessory function (XI): Normal, tongue deviation (XII): Normal Motor strength - LUE: 5/5 Motor strength - RUE: 5/5 Motor strength - LLE: 5/5 Motor strength - RLE: 5/5 Coma Scale Eye Opening: To Voice Coma Scale Motor Response: Obeys Commands Coma Scale Verbal Response: Confused Coma Scale Total: 13 - Psychiatric Psychiatric exam: Present: normal affect, normal mood - Skin Skin exam: Present: warm, dry, intact Course Vital Signs Temperature 99.4 F 03/12/19 09:14 Pulse Rate 98 08/25/19 09:14 Respiratory Rate 20 03/12/19 09:14 Blood Pressure 151/77 03/12/19 09:14 O2 Sat by Pulse Oximetry 100 03/12/19 09:14 Temperature 99.4 F 03/12/19 09:14 Pulse Rate 55 03/12/19 13:24 Respiratory Rate 21 03/12/19 13:24 Blood Pressure 154/86 03/12/19 13:24 O2 Sat by Pulse Oximetry 97 03/12/19 13:24 Oxygen Delivery Oxygen Delivery Nasal Cannula Medical Decision Making - MDM Narrative Medical decision making narrative: The patient presenting to the emergency department with reports of altered mentation and shortness of breath we will obtain basic laboratory testing, chest x-ray and EKG. EKG did not show any new acute ischemic changes. The chest x- ray showed vascular congestion without signs of an obvious pneumonia. Urinalysis did not show evidence of urinary tract infection. Patient did have a mildly elevated potassium of 5.4. Renal functions at her baseline. This time there is no infectious etiology that is been identified. However she does have a significantly elevated BNP. Feel the patient is likely a CHF exacerbation and was given 20 mg of IV Lasix. Patient will require admission to the hospital for further evaluation and management of her likely CHF exacerbation and altered mentation. Called and spoke with the admitting hospitalist Dr. Woo and she is accepted the patient to their service. Patient be admitted to hospital this time for further evaluation and management. - Medical Records Medical records reviewed: Yes I reviewed the patient's medical records. - Lab Data Lab results reviewed: Yes I reviewed the patient's lab results. Result diagrams: 03/12/19 09:21 03/12/19 09:21 Lab Results 03/12/19 03/12/19 03/12/19 Range/Units 09:18 09:21 09:21 WBC 9.0 (4.3-11.1) K/mcL RBC 4.46 (3.82-4.97) M/mcL Hgb 11.3 L (11.5-15.4) g/dL Hct 41.2 (35.3-44.9) % MCV 92.4 (83.0-100.0) fL MCH 25.3 L (28.0-33.3) pg MCHC 27.4 L (31.6-35.5) g/dL RDW 15.0 H (11.5-14.5) % Plt Count 294 (140-400) K/mcL MPV 10.2 (9.4-12.4) fL Immature Gran % 0.2 (0-4) % Seg Neutrophils % 82.4 % Lymphocytes % 9.2 % Monocytes % 6.8 % Eosinophils % 1.2 % Basophils % 0.2 % Neutrophils # 7.4 (1.6-8.9) K/mcL Lymphocytes # 0.8 (0.6-4.6) K/mcL Monocytes # 0.6 (0.0-1.3) K/mcL Eosinophils # 0.1 (0.0-0.6) K/mcL Basophils # 0.0 (0.0-0.2) K/mcL Platelet Estimate Normal (Normal) Hypochromasia Present A (Not Present) Sodium 140 (136-145) mEq/L Potassium 5.4 H (3.5-5.1) mEq/L Chloride 102 (98-107) mEq/L Carbon Dioxide 33 H (23-29) mEq/L BUN 31 H (8-23) mg/dL Creatinine 1.45 H (0.60-1.20) mg/dL Est GFR ( Amer) 42 L (> 60) Est GFR (Non-Af Amer) 35 L (> 60) BUN/Creatinine Ratio 21 (6-26) Glucose 120 H (70-105) mg/dL POC Glucose 103 H (70-99) mg/dL Calculated Osmolality 298 (280-300) Lactic Acid (0.5-2.2) mmol/L Calcium 8.6 (8.6-10.3) mg/dL Troponin I 0.06 H* (< 0.04) ng/mL B-Natriuretic Peptide (Less than 100) pg/mL Urine Color (Yellow) Urine Clarity (Clear) Urine pH (5.0-8.0) pH Units Ur Specific [place] (1.010-1.025) Urine Protein (Neg-Trace) mg/dL Urine Glucose (UA) (Normal) mg/dL Urine Ketones (Negative) mg/dL Urine Blood (Negative) Urine Nitrite (Negative) Urine Bilirubin (Negative) Urine Urobilinogen (Normal) mg/dL Ur Leukocyte Esterase (Negative) Urine Microscopic RBC (0-3) per hpf Urine Microscopic WBC (0-3) per hpf Ur Squamous Epith Cells (None-Few) per lpf Urine Bacteria (None-Few) per hpf Hyaline Casts (None-Few) per lpf Ur Culture Indicated? (NO) 03/12/19 03/12/19 03/12/19 Range/Units 09:21 09:21 10:50 WBC (4.3-11.1) K/mcL RBC (3.82-4.97) M/mcL Hgb (11.5-15.4) g/dL Hct (35.3-44.9) % MCV (83.0-100.0) fL MCH (28.0-33.3) pg MCHC (31.6-35.5) g/dL RDW (11.5-14.5) % Plt Count (140-400) K/mcL MPV (9.4-12.4) fL Immature Gran % (0-4) % Seg Neutrophils % % Lymphocytes % % Monocytes % % Eosinophils % % Basophils % % Neutrophils # (1.6-8.9) K/mcL Lymphocytes # (0.6-4.6) K/mcL Monocytes # (0.0-1.3) K/mcL Eosinophils # (0.0-0.6) K/mcL Basophils # (0.0-0.2) K/mcL Platelet Estimate (Normal) Hypochromasia (Not Present) Sodium (136-145) mEq/L Potassium (3.5-5.1) mEq/L Chloride (98-107) mEq/L Carbon Dioxide (23-29) mEq/L BUN (8-23) mg/dL Creatinine (0.60-1.20) mg/dL Est GFR ( Amer) (> 60) Est GFR (Non-Af Amer) (> 60) BUN/Creatinine Ratio (6-26) Glucose (70-105) mg/dL POC Glucose (70-99) mg/dL Calculated Osmolality (280-300) Lactic Acid 0.8 (0.5-2.2) mmol/L Calcium (8.6-10.3) mg/dL Troponin I (< 0.04) ng/mL B-Natriuretic Peptide 596 H (Less than 100) pg/mL Urine Color Yellow (Yellow) Urine Clarity Cloudy A (Clear) Urine pH 5.0 (5.0-8.0) pH Units Ur Specific [place] 1.022 (1.010-1.025) Urine Protein 100 H (Neg-Trace) mg/dL Urine Glucose (UA) Normal (Normal) mg/dL Urine Ketones Negative (Negative) mg/dL Urine Blood Small H (Negative) Urine Nitrite Negative (Negative) Urine Bilirubin Negative (Negative) Urine Urobilinogen Normal (Normal) mg/dL Ur Leukocyte Esterase Negative (Negative) Urine Microscopic RBC 0-3 (0-3) per hpf Urine Microscopic WBC 0-3 (0-3) per hpf Ur Squamous Epith Cells Many H (None-Few) per lpf Urine Bacteria None Seen (None-Few) per hpf Hyaline Casts Few (None-Few) per lpf Ur Culture Indicated? NO (NO) - Radiology Data Radiology results reviewed: Yes I reviewed the patient's radiology results. Chest X-Ray 03/12/19 09:12 IMPRESSION: Borderline cardiomegaly with pulmonary venous congestion. No definite CHF. D/ / Lit Leyva MD / Lit Leyva MD Interpreting Provider: Lit Leyva MD Head CT 03/12/19 09:17 IMPRESSION: No acute intracranial abnormality. Stable left-sided basal ganglia lacunar infarct and chronic small vessel white matter ischemic changes. D/ / Ernie Mistry MD / Ernie Mistry MD Interpreting Provider: Ernie Mistry MD - EKG Data EKG #1 EKG attestation: Yes I reviewed and interpreted this EKG. EKG results narrative: EKG showed a sinus rhythm and rate of 80 bpm, CA interval 178, QRS duration 103, QTC of 461. There is no evidence of STEMI on EKG. This compared to prior EKG on 12/14/16. Attestation Statement - Attestation Attestation: I, Homar Richey, examined this patient and my medical decision-making was reviewed with the BOOSTER STATION OPERATOR/PA/Advanced Practice Nurse/Resident Physician. I agree with the documented findings, disposition and treatment plan as described except to the extent set forth below. 83-year-old female presents emergency Department with concerns of difficulty in breathing. Patient is a poor story and is up and is unable to give a history regarding her case and presentation. She has repetitive speech in the emergency department. She has a history of pneumonia in the past. Chest x-ray shows vascular congestion. She is an elevated BNP. Laboratory evaluation shows an elevated TSH. She does have a history of hypothyroidism. Patient has an elevated troponin laboratory testing. EKG did not show evidence of STEMI or other dysrhythmia.I reviewed the EKG with the resident and agree with the interpretation. Patient will be admitted to the hospitalist for further care and evaluation of her altered mental status and difficulty breathing.
[2019-03-12 09:39] LABS: Basophils % 0.2 %; Lymphocytes % 9.2 %
[2019-03-12 09:40] LABS: Eosinophils # 0.1 K/mcL (0.0-0.6); Eosinophils % 1.2 %; Hematocrit 41.2 % (35.3-44.9); Hemoglobin 11.3 g/dL (11.5-15.4); Immature Granulocytes % 0.2 % (0-4); Lymphocytes # 0.8 K/mcL (0.6-4.6); Mean Corpuscular HGB Conc 27.4 g/dL (31.6-35.5); Mean Corpuscular Hemoglobin 25.3 pg (28.0-33.3); Mean Corpuscular Volume 92.4 fL (83.0-100.0); Mean Platelet Volume 10.2 fL (9.4-12.4); Monocytes # 0.6 K/mcL (0.0-1.3); Monocytes % 6.8 %; Neutrophils # 7.4 K/mcL (1.6-8.9); Platelet Count 294 K/mcL (140-400); Red Blood Count 4.46 M/mcL (3.82-4.97); Segmented Neutrophils % 82.4 %
[2019-03-12 09:55] LABS: Calcium 8.6 mg/dL (8.6-10.3); Potassium 5.4 mEq/L (3.5-5.1)
[2019-03-12 10:00] LABS: Hypochromasia Present (Not Present); Platelet Estimate Normal (Normal)
[2019-03-12 10:07] LABS: Troponin I 0.06 ng/mL (< 0.04)
[2019-03-12 11:03] LABS: Bilirubin,Urine Negative (Negative); Blood,Urine Small (Negative); Clarity,Urine Cloudy (Clear); Color,Urine Yellow (Yellow); Glucose,Urine (UA) Normal (Normal); Ketones,Urine Negative (Negative); Leukocyte Esterase,Urine Negative (Negative); Nitrite,Urine Negative (Negative); Protein,Urine 100 mg/dL (Neg-Trace); Specific Gravity,Urine 1.022 (1.010-1.025); Urobilinogen,Urine Normal (Normal)
[2019-03-12 11:05] LABS: Bacteria,Urine None Seen per hpf (None-Few); Hyaline Casts,Urine Few per lpf (None-Few); RBC,Urine 0-3 per hpf (0-3); Squamous Epithelial Cell,Urine Many per lpf (None-Few); WBC,Urine 0-3 per hpf (0-3)
[2019-03-12] MEDS ORDERED: Furosemide 20 MG/2 ML VIAL IVP ONE (12:07)
[2019-03-12] MEDS ORDERED: Naloxone 0.4 MG/ML INJ IVP PRN (13:45)
--- NOTE | 2019-03-12 15:11 | Internal Med History&Physical ---
Date of Encounter: 03/12/19 Time of Encounter: 14:58 Internal Medicine - H&P: HPI Chief complaint: Shortness of breath and altered mental status Admitted From: Emergency Dept Plans for Post Hospital Care: Home History of present illness: Ms. Gregory is a 83 year old female patient with a history of chronic kidney disease stage III, dementia, diabetes, hypertension who resides at [facility] was brought to the ER with complaints of altered mental status and shortness of breath. Patient is disoriented and confused and is unable to provide much history. History has been obtained through review of medical r ecord. According to the snf, at baseline, patient is completely oriented. However she was noted to be confused today and was complaining of some trouble breathing. Patient states that she had chest pain also but it has since subsided. No records of any fevers or chills. No recent antibiotic use. No recent hospitalizations. Past Med Surg Social Fam HX - Past Medical History Source: old records reviewed Medical history: arthritis, asthma, CVA, dementia, diabetes, GERD, glaucoma, hyperlipidemia, hypertension, osteoporosis, renal disease, thyroid disease, other Additional medical history: Gout, osteo arthritis, anxiety, CVA, Psychiatric history: anxiety, depression, other - Past Surgical History Surgical History: cholecystectomy, knee replacement, orthopedic, other (ORIF right humerus fracture. Cuff surgery. Carpal tunnel release.), other (Hemorrhoidectomy.) Additional surgical history: b/l shoulder repair - Social History Smoking Status: Never smoker Smokeless Tobacco Status: No Alcohol use: none Drug use: none - Family History Mother Living Status: Father Living Status: Hx Family Cardiac Disorders: Yes Hx Family Cancer: Yes Internal Medicine - H&P: Meds Allopurinol [Zyloprim 100 MG] 100 mg PO DAILY 03/12/19 [History] Aspirin [Adult Aspirin Regimen] 81 mg PO DAILY 03/12/19 [History] Atorvastatin [Lipitor] 40 mg PO HS 03/12/19 [History] Donepezil [Aricept] 10 mg PO HS 03/12/19 [History] Escitalopram [Lexapro] 10 mg PO DAILY 03/12/19 [History] Fluticasone Propionate Nasal [Flonase] 50 mcg NS BID 03/12/19 [History] Furosemide [Lasix] 20 mg PO DAILY 03/12/19 [History] Guaifenesin [Mucinex] 600 mg PO BID PRN 03/12/19 [History] HYDROcodone/Acet 5/325 mg [[place] 5-325 mg] 1 tab PO Q6H PRN 03/12/19 [History] Insulin Regular U-500 [HumuLIN R U-500] 0 unit SQ DAILY 03/12/19 [History] Levocetirizine Dihydrochloride [Allergy Relief (Xyzal)] 5 mg PO DAILY 03/12/19 [History] Levothyroxine [Synthroid] [place] [address]/12/19 [History] Omeprazole [PriLOSEC] 40 mg PO DAILY 03/12/19 [History] Allergy/AdvReac Type Severity Reaction Status Date / Time clarithromycin [From Biaxin] Allergy Rash Verified 09/21/16 14:44 Penicillins Allergy Rash Verified 09/21/16 14:44 ROS unobtainable: due to mental status All Systems PM: A 10-system review of systems was performed and is negative for pertinent findings except as documented above in the HPI. - Constitutional Vitals: Temp Pulse Resp BP Pulse Ox 99.4 F 55 20 154/86 97 03/12/19 09:14 03/12/19 13:24 03/12/19 14:16 03/12/19 14:16 03/12/19 13:24 Exam: General: Patient is alert, mild distress, oriented only to place Eyes: PERRLA, EOMI, no conjunctival injection or icterus Neck: No nuchal rigidity, trachea midline ENT: Mucous membranes dry Respiratory: Diminished breath sounds at both bases. Cardiovascular: Regular rate and rhythm. s1 and s2 normal No clicks, rubs, gallops, or murmurs. No pedal edema Abdomen: Abdomen is soft, nontender. Bowel sounds are present Musculoskeletal: Spontaneously moving all extremities Skin: Dermatitis noted in have lower abdominal wall folds Neuro: Alert oriented x 3 normal cranial nerves, no focal deficits Psych: Normal affect and mood Internal Med - H&P Results - Labs CBC & Chem 7: 03/12/19 09:21 03/12/19 09:21 Labs: Short CBC 03/12/19 Range/Units 09:21 WBC 9.0 (4.3-11.1) K/mcL Hgb 11.3 L (11.5-15.4) g/dL Hct 41.2 (35.3-44.9) % Plt Count 294 (140-400) K/mcL Neutrophils # 7.4 (1.6-8.9) K/mcL BMP 03/12/19 09:21 Sodium 140 Potassium 5.4 H Chloride 102 Carbon Dioxide 33 H BUN 31 H Creatinine 1.45 H Glucose 120 H Calcium 8.6 Cardiac Enzymes 03/12/19 Range/Units 09:21 Troponin I 0.06 H* (< 0.04) ng/mL Urine 03/12/19 Range/Units 10:50 Urine Color Yellow (Yellow) Urine Clarity Cloudy A (Clear) Urine pH 5.0 (5.0-8.0) pH Units Ur Specific [place] 1.022 (1.010-1.025) Urine Protein 100 H (Neg-Trace) mg/dL Urine Glucose (UA) Normal (Normal) mg/dL - Impressions ITS Impressions Chest X-Ray 03/12/19 09:12 IMPRESSION: Borderline cardiomegaly with pulmonary venous congestion. No definite CHF. D/ / Lit Leyva MD / Lit Leyva MD Interpreting Provider: Lit Leyva MD Head CT 03/12/19 09:17 IMPRESSION: No acute intracranial abnormality. Stable left-sided basal ganglia lacunar infarct and chronic small vessel white matter ischemic changes. D/ / Ernie Mistry MD / Ernie Mistry MD Interpreting Provider: Ernie Mistry MD - Assessment and Plan (1) Congestive heart failure Current Visit: Yes Status: Suspected Qualifiers: Heart failure type: diastolic Heart failure chronicity: acute Qualified Code(s): I50.31 - Acute diastolic (congestive) heart failure (2) Chronic kidney disease, stage III (moderate) Current Visit: Yes Status: Acute (3) Altered mental state Current Visit: Yes Status: Acute Qualifiers: Altered mental status type: delirium Qualified Code(s): R41.0 - Disorientation, unspecified (4) HTN (hypertension) Current Visit: Yes Status: Chronic Qualifiers: Hypertension type: essential hypertension Qualified Code(s): I10 - Essential (primary) hypertension (5) Type 2 diabetes mellitus Current Visit: Yes Status: Chronic Qualifiers: Diabetes mellitus assisted insulin use: with assisted use Diabetes mellitus complication status: with hyperglycemia Qualified Code(s): E11.65 - Type 2 diabetes mellitus with hyperglycemia; Z79.4 - detention (current) use of insulin - Summary of Assessment and Plan Summary of Assessment and Plan: Acute on chronic diastolic congestive heart failure: Patient has pulmonary congestion and cardiomegaly on chest x-ray and reported shortness of breath. Also has elevated BNP. Received Lasix in the ER. Will continue IV Lasix. Monitor input and output. Monitor renal function closely. Obtain 2-D echocardiogram. Acute metabolic encephalopathy: Patient has altered mental status most likely related to CHF. No signs of acute infection. Urine appears clean. We will monitor neuro status. We will treat agitation or delirium symptomatically. Chronic kidney disease stage III: Creatinine at baseline. We will monitor renal function especially as patient will be receiving Lasix. Hypothyroidism: Check TSH. Continue levothyroxin. Elevated troponin: Mild elevation in troponin. Will trend. Monitor with telemetry. Hyperkalemia: Potassium 5.4. We will monitor. No indication for urgent measures to normalize potassium. Diabetes mellitus type 2: Monitor blood sugars. Sliding scale insulin. 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 Will apply topical nystatin. Morbid obesity DVT prophylaxis with subcutaneous heparin - Time Spent With Patient Total time spent is greater than 50% in coordination of care (as documented) at patient's floor/unit and/or counseling patient:
[2019-03-12] MEDS ORDERED: Dextrose Gel 15 GM/37.5 ML TUBE PO PRN ×2 (15:33)
[2019-03-12] MEDS ORDERED: D5% in Water 1,000 ML IVC PRN (15:33)
[2019-03-12] MEDS ORDERED: *HR* Dextrose 50 % in Water (Syg) 50 ML SYRINGE IVP PRN (15:33)
[2019-03-12 16:09] LABS: Thyroid Stimulating Hormone 7.82 mcIU/mL (0.340-5.600)
[2019-03-12] MEDS ORDERED: Nitroglycerin 0.4 MG TAB.SUBL SL PRN (17:52)
[2019-03-12] MEDS: Insulin LISPRO 300 UNITS/3 ML VIAL SQ SCH ×2 (18:13→20:44)
[2019-03-12] MEDS: *HR* Heparin 5,000 UNIT/ML VIAL SQ SCH (18:14)
--- NOTE | 2019-03-12 19:43 | Event Note ---
Date of Encounter: 03/12/19 Time of Encounter: 19:41 Notified by nurse of patient having DNR order with [facility]. Patient disoriented unable to confirm. Contacted patient primary emergency contact daughter Veronica at [phone] who confirmed DNR order, requests patient code status be changed to be DNR CCA DNI. Order updated in [facility].
[2019-03-12] MEDS: Fluticasone Propionate Nasal 50 MCG/SPRAY BOTTLE NS SCH (20:47)
[2019-03-12] MEDS: Nystatin POWDER 30 GM BOTTLE TP SCH (23:40)
[2019-03-13 01:51] LABS: Basophils % 0.4 %
[2019-03-13 01:52] LABS: Eosinophils # 0.2 K/mcL (0.0-0.6); Eosinophils % 2.8 %; Hematocrit 39.7 % (35.3-44.9); Immature Granulocytes % 0.2 % (0-4); Lymphocytes # 1.3 K/mcL (0.6-4.6); Lymphocytes % 15.6 %; Mean Corpuscular HGB Conc 27.7 g/dL (31.6-35.5); Mean Corpuscular Hemoglobin 25.4 pg (28.0-33.3); Mean Corpuscular Volume 91.7 fL (83.0-100.0); Mean Platelet Volume 10.8 fL (9.4-12.4); Monocytes # 0.8 K/mcL (0.0-1.3); Monocytes % 9.4 %; Platelet Count 294 K/mcL (140-400); Red Blood Count 4.33 M/mcL (3.82-4.97); Red Cell Distribution Width 14.9 % (11.5-14.5); Segmented Neutrophils % 71.6 %; White Blood Count 8.2 K/mcL (4.3-11.1)
[2019-03-13 01:55] LABS: Calcium 8.6 mg/dL (8.6-10.3); Potassium 5.2 mEq/L (3.5-5.1)
[2019-03-13 01:57] LABS: Neutrophils # 5.9 K/mcL (1.6-8.9)
[2019-03-13 03:01] LABS: Platelet Estimate Normal (Normal)
[2019-03-13 03:02] LABS: Anisocytosis 1+ (Not Present); Hypochromasia Present (Not Present)
[2019-03-13] MEDS: *HR* Heparin 5,000 UNIT/ML VIAL SQ SCH ×2 (05:46→17:53)
--- NOTE | 2019-03-13 07:53 | Internal Med Progress Note ---
<Demi Kidd - Last Filed: 03/13/19 12:18> Hospitalist Progress Note - Encounter Date of Encounter: 03/13/19 Time of Encounter: 09:40 - Exam Vitals: Temp Pulse Resp BP Pulse Ox 97.7 F 71 17 146/72 96 03/13/19 11:24 03/13/19 11:24 03/13/19 11:24 03/13/19 11:24 03/13/19 04:05 - Assessment and Plan (1) Congestive heart failure Current Visit: Yes Status: Suspected (2) Chronic kidney disease, stage III (moderate) Current Visit: Yes Status: Acute (3) Altered mental state Current Visit: Yes Status: Acute (4) HTN (hypertension) Current Visit: Yes Status: Chronic (5) Type 2 diabetes mellitus Current Visit: Yes Status: Chronic - Time Spent with Patient Total time spent is greater than 50% in coordination of care (as documented) at patient's floor/unit and/or counseling patient: Internal Medicine: Result - Labs CBC & Chem 7: 03/13/19 01:11 03/13/19 01:11 Labs: Short CBC 03/13/19 Range/Units 01:11 WBC 8.2 (4.3-11.1) K/mcL Hgb 11.0 L (11.5-15.4) g/dL Hct 39.7 (35.3-44.9) % Plt Count 294 (140-400) K/mcL Neutrophils # 5.9 (1.6-8.9) K/mcL BMP 03/12/19 03/13/19 09:21 01:11 Sodium 140 138 Potassium 5.4 H 5.2 H Chloride 102 99 Carbon Dioxide 33 H 34 H BUN 31 H 28 H Creatinine 1.45 H 1.36 H Glucose 120 H 171 H Calcium 8.6 8.6 Cardiac Enzymes 03/12/19 03/12/19 03/13/19 Range/Units 09:21 17:56 01:11 Troponin I 0.06 H* 0.04 H* 0.04 H* (< 0.04) ng/mL Consult Discharge Plan - Plan Referrals: Umm Whitt, CUT IN WORKER [Primary Care Provider] - - Attending Attestation I saw evaluated and examined this patient and reviewed objective data including labs and my medical decision-making was reviewed with the Resident Physician, Ruth Ann Edwards. I agree with the documented findings, disposition and treatment plan as described except to any changes set forth below. We independently had [id number] contact with the patient. Patient remains disoriented. Responded well to Lasix. We will continue IV Lasix. Renal function remained stable. Awaiting echocardiogram. Adynamic tro ponins. TSH was elevated. Increased levothyroxine dosage. <Ruth Ann Edwards E - Last Filed: 03/13/19 13:40> Hospitalist Progress Note - Encounter Date of Encounter: 03/13/19 - Subjective Interval History: Ms. Gregory is an 83-year-old female who initially presented for altered mental status as well as shortness of breath. Chest x-ray showed cardiomegaly with pulmonary venous congestion as well as head CT which showed stable left sided basal ganglion lacunar infarct as well as chronic small vessel white matter ischemic changes. Admitted for acute on chronic diastolic congestive heart failure as well as acute and most all encephalopathy. Patient was seen and examined at bedside today, patient states that she is more able to breathe comfortably. She states she been having shortness of breath for quite some time. Patient is able to state where she has had but does not know the month or year. - Exam Vitals: Temp Pulse Resp BP Pulse Ox 97.3 F L 66 16 154/72 96 03/13/19 06:51 03/13/19 06:51 03/13/19 06:51 03/13/19 06:51 03/13/19 04:05 Exam: General: Alert, oriented to self and disposition, no acute distress Head: normocephalic, atraumatic Eyes: GILBERT, no icterus Cardio: RRR, no mumurs, rubs, or gallops Respiratory: Decreased breath sounds bilateral lower lobes, no wheezing, rhonchi, rales Abd: normal bowel sounds, no gaurding or rigidity Extremties: no pedal edema, pulses equal bilaterally, warm Skin: warm, dry, intact - Assessment and Plan (1) Congestive heart failure Current Visit: Yes Status: Suspected Assessment and Plan: This is acute on chronic diastolic congestive heart failure Pulmonary congestion as well as cardiomegaly were seen on chest x-ray Patient had reported shortness of breath for the last few weeks Elevated BNP of 596 on admission Patient received a dose of IV Lasix in the ER IV Lasix 20 mg daily ordered Continue to monitor input and output Monitor renal function daily Echocardiogram has been ordered (2) Altered mental state Current Visit: Yes Status: Acute Assessment and Plan: Likely secondary to acute exacerbation of CHF No signs of infection noted Continue to monitor neuro status Patient is progressing back to baseline (3) Hypothyroidism Current Visit: Yes Status: Chronic Assessment and Plan: Patient has history of hypothyroid TSH today is 7.820 Increase levothyroxine to 100 g per day Outpatient follow-up for repeat labs (4) Type 2 diabetes mellitus Current Visit: Yes Status: Chronic Assessment and Plan: Continued to monitor blood sugars Patient is currently on low-dose sliding scale insulin well controlled at this time (5) Chronic kidney disease, stage III (moderate) Current Visit: Yes Status: Acute Assessment and Plan: Creatinine currently at baseline Continue to monitor renal function Avoid nephrotoxic substances and renally dose medications as necessary (6) DVT prophylaxis Current Visit: No Status: Acute Assessment and Plan: Subcutaneous heparin DVT Prophylaxis: Subcutaneous heparin - Time Spent with Patient Total time spent is greater than 50% in coordination of care (as documented) at patient's floor/unit and/or counseling patient: Plan of Care Discussed with: patient Internal Medicine: Result - Labs CBC & Chem 7: 03/13/19 01:11 03/13/19 01:11 Labs: Short CBC 03/12/19 03/13/19 Range/Units 09:21 01:11 WBC 9.0 8.2 (4.3-11.1) K/mcL Hgb 11.3 L 11.0 L (11.5-15.4) g/dL Hct 41.2 39.7 (35.3-44.9) % Plt Count 294 294 (140-400) K/mcL Neutrophils # 7.4 5.9 (1.6-8.9) K/mcL BMP 03/12/19 03/13/19 09:21 01:11 Sodium 140 138 Potassium 5.4 H 5.2 H Chloride 102 99 Carbon Dioxide 33 H 34 H BUN 31 H 28 H Creatinine 1.45 H 1.36 H Glucose 120 H 171 H Calcium 8.6 8.6 Cardiac Enzymes 03/12/19 03/12/19 03/13/19 Range/Units 09:21 17:56 01:11 Troponin I 0.06 H* 0.04 H* 0.04 H* (< 0.04) ng/mL Urine 03/12/19 Range/Units 10:50 Urine Color Yellow (Yellow) Urine Clarity Cloudy A (Clear) Urine pH 5.0 (5.0-8.0) pH Units Ur Specific [place] 1.022 (1.010-1.025) Urine Protein 100 H (Neg-Trace) mg/dL Urine Glucose (UA) Normal (Normal) mg/dL - Impressions Impressions Chest X-Ray 03/12/19 09:12 IMPRESSION: Borderline cardiomegaly with pulmonary venous congestion. No definite CHF. D/ / Lit Leyva MD / Lit Leyva MD Interpreting Provider: Lit Leyva MD Head CT 03/12/19 09:17 IMPRESSION: No acute intracranial abnormality. Stable left-sided basal ganglia lacunar infarct and chronic small vessel white matter ischemic changes. D/ / Ernie Mistry MD / Ernie Mistry MD Interpreting Provider: Ernie Mistry MD <Demi Kidd - Last Filed: 03/13/19 12:18> (1) Congestive heart failure Qualifiers: Heart failure type: diastolic Heart failure chronicity: acute Qualified Code(s): I50.31 - Acute diastolic (congestive) heart failure (3) Altered mental state Qualifiers: Altered mental status type: delirium Qualified Code(s): R41.0 - Disorientation, unspecified (4) HTN (hypertension) Qualifiers: Hypertension type: essential hypertension Qualified Code(s): I10 - Essential (primary) hypertension (5) Type 2 diabetes mellitus Qualifiers: Diabetes mellitus longterm insulin use: with long term care administrator use Diabetes mellitus complication status: with hyperglycemia Qualified Code(s): E11.65 - Type 2 diabetes mellitus with hyperglycemia; Z79.4 - [facility] (current) use of insulin <Ruth Ann Edwards - Last Filed: 03/13/19 13:40> (1) Congestive heart failure Qualifiers: Heart failure type: diastolic Heart failure chronicity: acute Qualified Code(s): I50.31 - Acute diastolic (congestive) heart failure (2) Altered mental state Qualifiers: Altered mental status type: delirium Qualified Code(s): R41.0 - Disorientation, unspecified (3) Hypothyroidism Qualifiers: Hypothyroidism type: acquired Qualified Code(s): E03.9 - Hypothyroidism, unspecified (4) Type 2 diabetes mellitus Qualifiers: Diabetes mellitus longterm insulin use: with longterm use Diabetes mellitus complication status: with hyperglycemia Qualified Code(s): E11.65 - Type 2 diabetes mellitus with hyperglycemia; Z79.4 - terminal supervisor (current) use of insulin
[2019-03-13] MEDS: Insulin LISPRO 300 UNITS/3 ML VIAL SQ SCH ×4 (08:36→21:46)
[2019-03-13] MEDS: Furosemide 20 MG/2 ML VIAL IVP SCH (08:45)
[2019-03-13] MEDS: Aspirin Enteric Coated 81 MG Tablet PO SCH (08:45)
[2019-03-13] MEDS: Fluticasone Propionate Nasal 50 MCG/SPRAY BOTTLE NS SCH ×2 (08:46→21:45)
[2019-03-13] MEDS: Nystatin POWDER 30 GM BOTTLE TP SCH ×4 (08:47→21:45)
--- NOTE | 2019-03-13 09:00 | Electrocardiograph Report ---
[address] [place], [place] [address] Test Date: 2019-03-12 Pat Name: Anna Gregory Department: EXAM5 Room: 2A32 Gender: F Ssrs Developer: : [id number] Requested By: Bashir Leo Order Number: [id number] Reading MD: Annika Alcala Measurements Intervals [place] Rate: 80 P: 52 CT: 178 QRS: 171 QRSD: 103 T: 28 QT: 399 QTc: 461 Interpretive Statements Sinus rhythm Left posterior fascicular block Low voltage, precordial leads Electronically Signed On 03-13-2019 8:59:10 EDT by Annika Alcala
[2019-03-13 09:21] LABS: Estimated Average Glucose 212 mg/dl
[2019-03-13] MEDS ORDERED: Perflutren Lipid Microsphere 1.3 ML in 0.9 % Sodium Chloride 8.7 ML IVP ONE (13:06)
[2019-03-14 06:46] LABS: Hemoglobin 10.8 g/dL (11.5-15.4)
[2019-03-14 06:47] LABS: Hematocrit 38.9 % (35.3-44.9); Mean Corpuscular HGB Conc 27.8 g/dL (31.6-35.5); Mean Corpuscular Hemoglobin 24.9 pg (28.0-33.3); Mean Corpuscular Volume 89.8 fL (83.0-100.0); Mean Platelet Volume 10.4 fL (9.4-12.4); Platelet Count 291 K/mcL (140-400); Red Blood Count 4.33 M/mcL (3.82-4.97); Red Cell Distribution Width 14.6 % (11.5-14.5)
[2019-03-14] MEDS: *HR* Heparin 5,000 UNIT/ML VIAL SQ SCH ×2 (06:54→17:21)
[2019-03-14 07:06] LABS: Calcium 8.6 mg/dL (8.6-10.3); Potassium 4.8 mEq/L (3.5-5.1)
[2019-03-14] MEDS: Aspirin Enteric Coated 81 MG Tablet PO SCH (09:24)
[2019-03-14] MEDS: Fluticasone Propionate Nasal 50 MCG/SPRAY BOTTLE NS SCH ×2 (09:25→22:02)
[2019-03-14] MEDS: Insulin LISPRO 300 UNITS/3 ML VIAL SQ SCH ×4 (09:25→21:49)
[2019-03-14] MEDS: Furosemide 20 MG/2 ML VIAL IVP SCH (09:25)
[2019-03-14] MEDS: Nystatin POWDER 30 GM BOTTLE TP SCH ×4 (09:25→21:53)
[2019-03-14 10:47] LABS: Anisocytosis 1+ (Not Present); Eosinophils # 0.1 K/mcL (0.0-0.6); Hypochromasia Present (Not Present); Monocytes # 0.4 K/mcL (0.0-1.3); Neutrophils # 5.5 K/mcL (1.6-8.9); Reactive Lymphocytes Present (Not Present)
[2019-03-14 10:48] LABS: Polychromasia 1+ (Not Present)
[2019-03-14 10:49] LABS: Platelet Estimate Normal (Normal); Stomatocytes 1+ (Not Present)
--- NOTE | 2019-03-14 11:29 | Internal Med Progress Note ---
<Demi Kidd - Last Filed: 03/14/19 12:30> Hospitalist Progress Note - Encounter Date of Encounter: 03/14/19 Time of Encounter: 10:00 - Exam Vitals: Temp Pulse Resp BP Pulse Ox 98.3 F 85 20 182/85 95 03/14/19 11:09 03/14/19 11:09 03/14/19 11:09 03/14/19 11:09 03/14/19 08:20 - Assessment and Plan (1) Congestive heart failure Current Visit: Yes Status: Suspected (2) Chronic kidney disease, stage III (moderate) Current Visit: Yes Status: Acute (3) Altered mental state Current Visit: Yes Status: Acute (4) HTN (hypertension) Current Visit: Yes Status: Chronic (5) Type 2 diabetes mellitus Current Visit: Yes Status: Chronic - Time Spent with Patient Total time spent is greater than 50% in coordination of care (as documented) at patient's floor/unit and/or counseling patient: Internal Medicine: Result - Labs CBC & Chem 7: 03/14/19 06:32 03/14/19 06:32 Labs: Short CBC 03/14/19 Range/Units 06:32 WBC 7.0 (4.3-11.1) K/mcL Hgb 10.8 L (11.5-15.4) g/dL Hct 38.9 (35.3-44.9) % Plt Count 291 (140-400) K/mcL Neutrophils # 5.5 (1.6-8.9) K/mcL BMP 03/14/19 06:32 Sodium 140 Potassium 4.8 Chloride 95 L Carbon Dioxide 38 H BUN 26 H Creatinine 1.17 Glucose 164 H Calcium 8.6 - Impressions Impressions Echocardiogram 03/13/19 15:21 Impressions: LVEF 60-65%. Normal LV chamber size and function. Mild concentric left ventricular hypertrophy. Mild left ventricular diastolic dysfunction. Normal right ventricular structure and function. Mild tricuspid regurgitation. Mild pulmonary hypertension. Left Ventricular Wall Motion: Rest Echo Findings All wall segments showed normal motion. Findings: Study Quality * Technically sub-optimal due to poor echocardiographic windows. ECG Findings * Normal sinus rhythm. Left Ventricle * LVEF 60-65%. * Normal LV chamber size and function. * Mild concentric left ventricular hypertrophy. * Mild left ventricular diastolic dysfunction. Right Ventricle * Normal right ventricular structure and function. Left Atrium * Normal left atrial size. Right Atrium * Normal right atrial size. Interatrial Septum * Interatrial septum not well evaluated. Aortic Valve * Aortic valve not well visualized. * No aortic regurgitation. * No aortic stenosis. Mitral Valve * Mild mitral annular calcification * No mitral regurgitation. * No mitral stenosis. Tricuspid Valve * Normal tricuspid valve structure. * Mild tricuspid regurgitation. * Mild pulmonary hypertension. Pulmonic Valve * Pulmonic valve not well visualized. Aorta * Normally sized aortic root. Pericardium * The pericardium appears normal. IVC * The IVC is not well evaluated. Pulmonary Artery * Pulmonary artery not well visualized. Consult Discharge Plan - Plan Referrals: Umm Whitt [facility] [Primary Care Provider] - - Attending Attestation I saw evaluated and examined this patient and reviewed objective data including labs and my medical decision-making was reviewed with the Resident Physician, Ruth Ann Edwards. I agree with the documented findings, disposition and t reatment plan as described except to any changes set forth below. We independently had [id number] contact with the patient. Patient is awake and alert. Oriented to place and person. She is tolerating diet well. Complains of cough. 2-D echocardiogram reviewed. Patient has normal ejection fraction with mild LV dysfunction. His estranged Lasix to oral dose. Monitor renal function. Physical therapy evaluation. Plan for Placement to skilled rehabilitation. Blood pressure is elevated today. Patient does not appear to be on any antihypertensive medication at home. Will add Lopressor and assess response. <Ruth Ann Edwards E - Last Filed: 03/14/19 14:03> Hospitalist Progress Note - Encounter Date of Encounter: 03/14/19 Time of Encounter: 08:40 - Subjective Interval History: Ms. Gregory is an 83 year old female initially presented with altered mental status and increased shortness of breath, Was treated with IV lasix initially with improvement of her shortness of breath. Patient was seen and examined at bedside today. She is awake and alert, oriented only to person adn date of . Patient was concerned because she was confused and did not know what [facility] was doing. She states she is not having any chest pain or shortness of breath. She denies any abdominal pain, nausea, vomiting, diarrhea, weakness. - Exam Vitals: Temp Pulse Resp BP Pulse Ox 98.3 F 85 20 182/85 95 03/14/19 11:09 03/14/19 11:09 03/14/19 11:09 03/14/19 11:09 03/14/19 08:20 Exam: General: Alert, oriented to self and date of , no acute distress Head: normocephalic, atraumatic Eyes: GILBERT, no icterus Cardio: RRR, no murmurs, rubs, or gallops Respiratory: Decreased breath sounds bilateral lower lobes, no wheezing, rhonchi, rales Abd: normal bowel sounds, no guarding or rigidity Extremities: no pedal edema, pulses equal bilaterally, warm Skin: warm, dry, intact - Assessment and Plan (1) Congestive heart failure Current Visit: Yes Status: Suspected Assessment and Plan: This is acute on chronic diastolic congestive heart failure Pulmonary congestion as well as cardiomegaly were seen on chest x-ray Patient had reported shortness of breath for the last few weeks Elevated BNP of 596 on admission Patient received a dose of IV Lasix in the ER Echocardiogram shows LVEF 60-65%, normal LV size and function, mild concentric LV hypertrophy, mild lt vent diastolic dysfunction, normal right ventricular size adn function, mld tricuspid regurgitation, mild pulmonary hypertension IV Lasix 20 mg switched to 20mg PO lasix daily (2) Altered mental state Current Visit: Yes Status: Acute Assessment and Plan: Likely secondary to acute exacerbation of CHF No signs of infection noted Continue to monitor neuro status Patient is progressing back to baseline (3) Hypothyroidism Current Visit: Yes Status: Chronic Assessment and Plan: Patient has history of hypothyroid TSH today is 7.820 Levothyrozine was increased yesterday to 100 ug Outpatient follow-up for repeat labs (4) Type 2 diabetes mellitus Current Visit: Yes Status: Chronic Assessment and Plan: Continued to monitor blood sugars Patient is currently on low-dose sliding scale insulin well controlled at this time (5) Chronic kidney disease, stage III (moderate) Current Visit: Yes Status: Acute Assessment and Plan: Creatinine currently at baseline Continue to monitor renal function Avoid nephrotoxic substances and renally dose medications as necessary (6) DVT prophylaxis Current Visit: No Status: Acute Assessment and Plan: Subcutaneous heparin DVT Prophylaxis: Subcutaneous heparin - Time Spent with Patient Total time spent is greater than 50% in coordination of care (as documented) at patient's floor/unit and/or counseling patient: Internal Medicine: Result - Labs CBC & Chem 7: 08/27/19 06:32 03/14/19 06:32 Labs: Short CBC 03/14/19 Range/Units 06:32 WBC 7.0 (4.3-11.1) K/mcL Hgb 10.8 L (11.5-15.4) g/dL Hct 38.9 (35.3-44.9) % Plt Count 291 (140-400) K/mcL Neutrophils # 5.5 (1.6-8.9) K/mcL BMP 03/14/19 06:32 Sodium 140 Potassium 4.8 Chloride 95 L Carbon Dioxide 38 H BUN 26 H Creatinine 1.17 Glucose 164 H Calcium 8.6 - Impressions Impressions Echocardiogram 03/13/19 15:21 Impressions: LVEF 60-65%. Normal LV chamber size and function. Mild concentric left ventricular hypertrophy. Mild left ventricular diastolic dysfunction. Normal right ventricular structure and function. Mild tricuspid regurgitation. Mild pulmonary hypertension. Left Ventricular Wall Motion: Rest Echo Findings All wall segments showed normal motion. Findings: Study Quality * Technically sub-optimal due to poor echocardiographic windows. ECG Findings * Normal sinus rhythm. Left Ventricle * LVEF 60-65%. * Normal LV chamber size and function. * Mild concentric left ventricular hypertrophy. * Mild left ventricular diastolic dysfunction. Right Ventricle * Normal right ventricular structure and function. Left Atrium * Normal left atrial size. Right Atrium * Normal right atrial size. Interatrial Septum * Interatrial septum not well evaluated. Aortic Valve * Aortic valve not well visualized. * No aortic regurgitation. * No aortic stenosis. Mitral Valve * Mild mitral annular calcification * No mitral regurgitation. * No mitral stenosis. Tricuspid Valve * Normal tricuspid valve structure. * Mild tricuspid regurgitation. * Mild pulmonary hypertension. Pulmonic Valve * Pulmonic valve not well visualized. Aorta * Normally sized aortic root. Pericardium * The pericardium appears normal. IVC * The IVC is not well evaluated. Pulmonary Artery * Pulmonary artery not well visualized. <MartiDemi - Last Filed: 03/14/19 12:30> (1) Congestive heart failure Qualifiers: Heart failure type: diastolic Heart failure chronicity: acute Qualified Code(s): I50.31 - Acute diastolic (congestive) heart failure (3) Altered mental state Qualifiers: Altered mental status type: delirium Qualified Code(s): R41.0 - Disorientation, unspecified (4) HTN (hypertension) Qualifiers: Hypertension type: essential hypertension Qualified Code(s): I10 - Essential (primary) hypertension (5) Type 2 diabetes mellitus Qualifiers: Diabetes mellitus supervisor intermediates insulin use: with supervisor intermediates use Diabetes mellitus complication status: with hyperglycemia Qualified Code(s): E11.65 - Type 2 diabetes mellitus with hyperglycemia; Z79.4 - watermelon harvesting supervisor (current) use of insulin <Ruth Ann Edwards - Last Filed: 03/14/19 14:03> (1) Congestive heart failure Qualifiers: Heart failure type: diastolic Heart failure chronicity: acute Qualified Code(s): I50.31 - Acute diastolic (congestive) heart failure (2) Altered mental state Qualifiers: Altered mental status type: delirium Qualified Code(s): R41.0 - Disorientation, unspecified (3) Hypothyroidism Qualifiers: Hypothyroidism type: acquired Qualified Code(s): E03.9 - Hypothyroidism, unspecified (4) Type 2 diabetes mellitus Qualifiers: Diabetes mellitus snf insulin use: with snf use Diabetes mellitus complication status: with hyperglycemia Qualified Code(s): E11.65 - Type 2 diabetes mellitus with hyperglycemia; Z79.4 - shelter (current) use of insulin
[2019-03-15] MEDS: *HR* Heparin 5,000 UNIT/ML VIAL SQ SCH ×2 (05:33→17:13)
[2019-03-15 05:54] LABS: Basophils % 0.3 %; Hemoglobin 11.4 g/dL (11.5-15.4)
[2019-03-15 05:55] LABS: Eosinophils # 0.3 K/mcL (0.0-0.6); Eosinophils % 3.4 %; Hematocrit 40.4 % (35.3-44.9); Immature Granulocytes % 0.3 % (0-4); Lymphocytes % 13.4 %; Mean Corpuscular HGB Conc 28.2 g/dL (31.6-35.5); Mean Corpuscular Hemoglobin 25.4 pg (28.0-33.3); Mean Corpuscular Volume 90.2 fL (83.0-100.0); Mean Platelet Volume 10.2 fL (9.4-12.4); Monocytes # 0.8 K/mcL (0.0-1.3); Monocytes % 10.5 %; Neutrophils # 5.3 K/mcL (1.6-8.9); Platelet Count 278 K/mcL (140-400); Red Blood Count 4.48 M/mcL (3.82-4.97); Red Cell Distribution Width 14.7 % (11.5-14.5); Segmented Neutrophils % 72.1 %; White Blood Count 7.3 K/mcL (4.3-11.1)
[2019-03-15 06:16] LABS: Calcium 8.8 mg/dL (8.6-10.3); Potassium 4.2 mEq/L (3.5-5.1)
[2019-03-15 06:21] LABS: Platelet Estimate Normal (Normal)
[2019-03-15] MEDS: Aspirin Enteric Coated 81 MG Tablet PO SCH (07:43)
[2019-03-15] MEDS: Nystatin POWDER 30 GM BOTTLE TP SCH ×4 (07:44→20:44)
[2019-03-15] MEDS: Fluticasone Propionate Nasal 50 MCG/SPRAY BOTTLE NS SCH ×2 (07:44→20:44)
[2019-03-15] MEDS: Insulin LISPRO 300 UNITS/3 ML VIAL SQ SCH ×4 (07:49→20:46)
--- NOTE | 2019-03-15 08:34 | Internal Med Progress Note ---
<Alexis Ramirez - Last Filed: 03/15/19 15:10> Hospitalist Progress Note - Encounter Date of Encounter: 03/15/19 Time of Encounter: 09:00 - Subjective Interval History: Pt seen and examined at bedside. Denies any new or acute complaints. Currently A&OX2 with mentation similar to previous days. Denies any fever, chills, chest pain, shortness of breath, abdominal pain, nausea, or vomiting. - Exam Vitals: Temp Pulse Resp BP Pulse Ox 97.9 F 96 22 197/76 98 03/15/19 07:10 03/15/19 07:10 03/15/19 07:10 03/15/19 07:55 03/15/19 04:26 Exam: General: elderly female in no acute distress Head: NCAT Eyes: PERRL, EOMI, sclera anicteric Neck: supple, trachea midline Lungs: decreased breath sound in bilateral lung bases. Non-labored breathing. No wheezes, rales, or rhonchi Heart: RRR +s1 +s2 No murmurs, clicks, or rubs GI: abdomen obese. Soft, non-tender Extremities: warm, radial pulses palpable and symmetrical. No cyanosis, pedal edema, or calf tenderness. Neuro: A&Ox2. Mentation appears at baseline. No slurred speech Skin: warm, dry, intact - Assessment and Plan (1) CHF exacerbation Current Visit: Yes Status: Acute Assessment and Plan: Patient had reported shortness of breath for the last few weeks CXR revealed pulmonary congestion as well as cardiomegaly Elevated BNP of 596 on admission Patient received a dose of IV Lasix in the ER Echocardiogram shows LVEF 60-65%, normal LV size and function, mild concentric LV hypertrophy, mild lt vent diastolic dysfunction, normal right ventricular size adn function, mld tricuspid regurgitation, mild pulmonary hypertension IV Lasix 20 mg switched to 20mg PO lasix daily Appears euvolemic at this time Continue to monitor (2) HTN (hypertension) Current Visit: Yes Status: Chronic Assessment and Plan: Elevated today with peak of 202/98 Responded well to 10mg IV Hydralazine as SBP dropped to 145 Pt remained asymptomatic Will initiate daily therapy with Lisinopril 5mg daily Continue po Lasix 20mg daily (3) Altered mental state Current Visit: Yes Status: Acute Assessment and Plan: Likely secondary to acute exacerbation of CHF No signs of infection noted Continue to monitor neuro status Patient is progressing back to baseline (4) Type 2 diabetes mellitus Current Visit: Yes Status: Chronic Assessment and Plan: Continued to monitor blood sugars Patient is currently on low-dose sliding scale insulin well controlled at this time (5) Chronic kidney disease, stage III (moderate) Current Visit: Yes Status: Acute Assessment and Plan: Creatinine currently at baseline Continue to monitor renal function Avoid nephrotoxic substances and renally dose medications as necessary DVT Prophylaxis: Subcutaneous heparin - Time Spent with Patient Total time spent is greater than 50% in coordination of care (as documented) at patient's floor/unit and/or counseling patient: Internal Medicine: Result - Labs CBC & Chem 7: 03/15/19 04:48 03/15/19 04:48 Labs: Short CBC 03/14/19 03/15/19 Range/Units 06:32 04:48 WBC 7.3 (4.3-11.1) K/mcL Hgb 11.4 L (11.5-15.4) g/dL Hct 40.4 (35.3-44.9) % Plt Count 278 (140-400) K/mcL Neutrophils # 5.5 5.3 (1.6-8.9) K/mcL BMP 03/15/19 04:48 Sodium 140 Potassium 4.2 Chloride 93 L Carbon Dioxide 40 H* BUN 24 H Creatinine 1.21 H Glucose 160 H Calcium 8.8 Consult Discharge Plan - Plan Referrals: Umm Whitt, WELFARE MANAGER [Primary Care Provider] - <Audelia Eubanks - Last Filed: 03/15/19 16:16> Hospitalist Progress Note - Encounter Date of Encounter: 03/15/19 - Exam Vitals: Temp Pulse Resp BP Pulse Ox 98.3 F 73 19 151/74 98 03/15/19 15:56 03/15/19 15:56 03/15/19 15:56 03/15/19 15:56 03/15/19 04:26 - Assessment and Plan (1) HTN (hypertension) Current Visit: Yes Status: Chronic (2) Altered mental state Current Visit: Yes Status: Acute (3) Type 2 diabetes mellitus Current Visit: Yes Status: Chronic (4) CHF exacerbation Current Visit: Yes Status: Acute (5) Chronic kidney disease, stage III (moderate) Current Visit: Yes Status: Acute - Time Spent with Patient Total time spent is greater than 50% in coordination of care (as documented) at patient's floor/unit and/or counseling patient: Internal Medicine: Result - Labs CBC & Chem 7: 03/15/19 04:48 03/15/19 04:48 Labs: Short CBC 03/15/19 Range/Units 04:48 WBC 7.3 (4.3-11.1) K/mcL Hgb 11.4 L (11.5-15.4) g/dL Hct 40.4 (35.3-44.9) % Plt Count 278 (140-400) K/mcL Neutrophils # 5.3 (1.6-8.9) K/mcL BMP 03/15/19 04:48 Sodium 140 Potassium 4.2 Chloride 93 L Carbon Dioxide 40 H* BUN 24 H Creatinine 1.21 H Glucose 160 H Calcium 8.8 - Attending Attestation I saw evaluated and examined this patient and reviewed objective data including labs and my medical decision-making was reviewed with the Resident Physician. I agree with the documented findings, disposition and treatment plan as described except to any changes set forth below. We independently had [id number] contact with the patient. Patient complains of diarrhea since last night, about 6 loose stools. Denies blood in stool, abdominal pain, n/v, fevers/chills. She denies shortness of breath. Patient is AAO x2 on exam. No acute distress. Lung exam unremarkable. Abdomen soft, nt/nd. VS: reviewed, hypertensive today with BP 202/98 and HR 96, not on any hypertensive medications. labs: reviewed. Start patient on low dose lisinopril and titrate as needed with monitoring renal function. Pending placement. <Alexis Ramirez - Last Filed: 03/15/19 15:10> (1) CHF exacerbation Qualifiers: Heart failure type: diastolic Qualified Code(s): I50.33 - Acute on chronic diastolic (congestive) heart failure (2) HTN (hypertension) Qualifiers: Hypertension type: essential hypertension Qualified Code(s): I10 - Essential (primary) hypertension (3) Altered mental state Qualifiers: Altered mental status type: delirium Qualified Code(s): R41.0 - Disorientation, unspecified (4) Type 2 diabetes mellitus Qualifiers: Diabetes mellitus jail insulin use: with termite exterminator use Diabetes mellitus complication status: with hyperglycemia Qualified Code(s): E11.65 - Type 2 diabetes mellitus with hyperglycemia; Z79.4 - halfway (current) use of insulin <Audelia Eubanks - Last Filed: 03/15/19 16:16> (1) HTN (hypertension) Qualifiers: Hypertension type: essential hypertension Qualified Code(s): I10 - Essential (primary) hypertension (2) Altered mental state Qualifiers: Altered mental status type: delirium Qualified Code(s): R41.0 - Disorientation, unspecified (3) Type 2 diabetes mellitus Qualifiers: Diabetes mellitus termite exterminator insulin use: with jail use Diabetes mellitus complication status: with hyperglycemia Qualified Code(s): E11.65 - Type 2 diabetes mellitus with hyperglycemia; Z79.4 - termite treater (current) use of insulin (4) CHF exacerbation Qualifiers: Heart failure type: diastolic Qualified Code(s): I50.33 - Acute on chronic diastolic (congestive) heart failure
[2019-03-15] MEDS ORDERED: Furosemide 20 MG TABLET PO SCH (09:00)
[2019-03-15] MEDS: *HR* HYDROcodone/Acet 5/325 mg TABLET PO PRN (17:16)
[2019-03-16 04:55] LABS: Hemoglobin 11.8 g/dL (11.5-15.4)
[2019-03-16 04:56] LABS: Basophils % 0.1 %; Eosinophils # 0.3 K/mcL (0.0-0.6); Eosinophils % 3.8 %; Hematocrit 41.8 % (35.3-44.9); Immature Granulocytes % 0.3 % (0-4); Lymphocytes # 0.9 K/mcL (0.6-4.6); Lymphocytes % 13.5 %; Mean Corpuscular HGB Conc 28.2 g/dL (31.6-35.5); Mean Corpuscular Hemoglobin 24.9 pg (28.0-33.3); Mean Corpuscular Volume 88.2 fL (83.0-100.0); Mean Platelet Volume 10.6 fL (9.4-12.4); Monocytes # 0.7 K/mcL (0.0-1.3); Monocytes % 10.1 %; Platelet Count 277 K/mcL (140-400); Red Blood Count 4.74 M/mcL (3.82-4.97); Red Cell Distribution Width 14.6 % (11.5-14.5); Segmented Neutrophils % 72.2 %; White Blood Count 6.9 K/mcL (4.3-11.1)
[2019-03-16 05:15] LABS: Calcium 8.8 mg/dL (8.6-10.3); Potassium 4.3 mEq/L (3.5-5.1)
[2019-03-16 05:25] LABS: Platelet Estimate Normal (Normal)
[2019-03-16 05:26] LABS: Hypochromasia Present (Not Present)
[2019-03-16] MEDS: *HR* Heparin 5,000 UNIT/ML VIAL SQ SCH ×2 (05:27→17:06)
[2019-03-16 08:26] LABS: ABG Base Excess 14 mEq/L (-2 to 3); ABG HCO3 44 mEq/L (21-27); ABG Oxygen Saturation 88 % (95-98); ABG PCO2 83 mmHg (35-45); ABG PH 7.33 pH Units (7.32-7.45); ABG PO2 61 mmHg (85-104); ABG TCO2 46 mEq/L (20-26); Blood Gas PEEP 6 cm H2O
[2019-03-16] MEDS: Insulin LISPRO 300 UNITS/3 ML VIAL SQ SCH ×4 (08:53→20:13)
[2019-03-16] MEDS: Aspirin Enteric Coated 81 MG Tablet PO SCH (09:07)
[2019-03-16] MEDS: Fluticasone Propionate Nasal 50 MCG/SPRAY BOTTLE NS SCH ×2 (09:08→20:12)
[2019-03-16] MEDS: Nystatin POWDER 30 GM BOTTLE TP SCH ×4 (09:08→21:00)
[2019-03-16] MEDS: *HR* HYDROcodone/Acet 5/325 mg TABLET PO PRN (09:27)
[2019-03-16 09:59] LABS: ABG Base Excess 14 mEq/L (-2 to 3); ABG HCO3 45 mEq/L (21-27); ABG Oxygen Saturation 86 % (95-98); ABG PCO2 85 mmHg (35-45); ABG PH 7.33 pH Units (7.32-7.45); ABG PO2 59 mmHg (85-104); ABG TCO2 48 mEq/L (20-26)
--- NOTE | 2019-03-16 10:25 | Internal Med Progress Note ---
<Ruth Ann Edwards E - Last Filed: 03/16/19 15:15> Hospitalist Progress Note - Encounter Date of Encounter: 03/16/19 Time of Encounter: 08:40 - Subjective Interval History: Ms. Gregory is an 83-year-old female who initially presented with altered mental status and increased shortness of breath history of IV Lasix initially impro vement of her shortness of breath. Patient was seen and examined at bedside today despite any shortness of breath, chest pain. She is A&Ox2 similar. Previous to this hospital stay. Denies any fevers, chills, chest pain shortness of breath, abdominal pain, nausea, vomiting, diarrhea. - Exam Vitals: Temp Pulse Resp BP Pulse Ox 97.9 F 69 12 146/62 96 03/16/19 07:19 03/16/19 07:19 03/16/19 07:19 03/16/19 07:19 03/16/19 09:14 Exam: General: A and O 2, answers most questions appropriately Head: normocephalic, atraumatic Eyes: GILBERT, no icterus Cardio: RRR, no murmurs, rubs, or gallops Respiratory: Decreased breath sounds bilaterally no wheezing, rhonchi, rales Abd: normal bowel sounds, no guarding or rigidity Extremities: no pedal edema, pulses equal bilaterally, warm Skin: warm, dry, intact - Assessment and Plan (1) Congestive heart failure Current Visit: Yes Status: Suspected Assessment and Plan: Patient had reported shortness of breath for the last few weeks CXR revealed pulmonary congestion as well as cardiomegaly Elevated BNP of 596 on admission Patient received a dose of IV Lasix in the ER Echocardiogram shows LVEF 60-65%, normal LV size and function, mild concentric LV hypertrophy, mild lt vent diastolic dysfunction, normal right ventricular size adn function, mld tricuspid regurgitation, mild pulmonary hypertension Lasix 20 mg by mouth daily Appears euvolemic at this time Continue to monitor (2) Altered mental state Current Visit: Yes Status: Acute Assessment and Plan: Likely secondary to acute exacerbation of CHF No signs of infection noted Continue to monitor neuro status Patient is progressing back to baseline (3) Hypothyroidism Current Visit: Yes Status: Chronic Assessment and Plan: Patient has history of hypothyroid TSH today is 7.820 Levothyrozine was increased to 100 ug during this stay Outpatient follow-up for repeat labs (4) Type 2 diabetes mellitus Current Visit: Yes Status: Chronic Assessment and Plan: Continued to monitor blood sugars Patient is currently on low-dose sliding scale insulin well controlled at this time (5) Chronic kidney disease, stage III (moderate) Current Visit: Yes Status: Acute Assessment and Plan: Creatinine currently at baseline Continue to monitor renal function Avoid nephrotoxic substances and renally dose medications as necessary (6) DVT prophylaxis Current Visit: No Status: Acute Assessment and Plan: Subcutaneous heparin (7) Hypercarbia Current Visit: Yes Status: Acute Assessment and Plan: Dehydration vs CO2 retention from pulmonary concerns Urine Cl 57 suggestive of dehydration help lasix 250 ml Normal saline 75mls per hour CT chest shows basilar atelectasis, otherwise, no acute cardiopulmonary disease - Time Spent with Patient Total time spent is greater than 50% in coordination of care (as documented) at patient's floor/unit and/or counseling patient: Internal Medicine: Result - Labs CBC & Chem 7: 03/16/19 04:27 03/16/19 04:27 Labs: Short CBC 03/16/19 Range/Units 04:27 WBC 6.9 (4.3-11.1) K/mcL Hgb 11.8 (11.5-15.4) g/dL Hct 41.8 (35.3-44.9) % Plt Count 277 (140-400) K/mcL Neutrophils # 5.0 (1.6-8.9) K/mcL BMP 03/16/19 04:27 Sodium 140 Potassium 4.3 Chloride 92 L Carbon Dioxide 43 H* BUN 20 Creatinine 1.17 Glucose 203 H Calcium 8.8 - ABG Interpretation ABG results: ABG ABG pH 7.33 pH Units (7.32-7.45) 03/16/19 09:49 ABG pCO2 85 mmHg (35-45) H* 03/16/19 09:49 ABG pO2 59 mmHg (85-104) L 03/16/19 09:49 ABG O2 Saturation 86 % (95-98) L 03/16/19 09:49 - Impressions Impressions Chest X-Ray 03/16/19 08:32 IMPRESSION: No acute process. D/ / Latanya Lee MD / Latanya Lee MD Interpreting Provider: Latanya Lee MD Consult Discharge Plan - Plan Referrals: Umm Whitt CNP [Primary Care Provider] - <Audelia Eubanks - Last Filed: 03/16/19 16:43> Hospitalist Progress Note - Encounter Date of Encounter: 03/16/19 - Exam Vitals: Temp Pulse Resp BP Pulse Ox 98.4 F 84 14 138/73 98 03/16/19 12:29 03/16/19 12:29 03/16/19 12:29 03/16/19 12:29 03/16/19 12:29 - Assessment and Plan (1) HTN (hypertension) Current Visit: Yes Status: Chronic (2) Altered mental state Current Visit: Yes Status: Acute (3) Type 2 diabetes mellitus Current Visit: Yes Status: Chronic (4) CHF exacerbation Current Visit: Yes Status: Acute (5) Chronic kidney disease, stage III (moderate) Current Visit: Yes Status: Acute - Time Spent with Patient Total time spent is greater than 50% in coordination of care (as documented) at patient's floor/unit and/or counseling patient: Internal Medicine: Result - Labs CBC & Chem 7: 03/16/19 04:27 03/16/19 04:27 Labs: Short CBC 03/16/19 Range/Units 04:27 WBC 6.9 (4.3-11.1) K/mcL Hgb 11.8 (11.5-15.4) g/dL Hct 41.8 (35.3-44.9) % Plt Count 277 (140-400) K/mcL Neutrophils # 5.0 (1.6-8.9) K/mcL BMP 03/16/19 04:27 Sodium 140 Potassium 4.3 Chloride 92 L Carbon Dioxide 43 H* BUN 20 Creatinine 1.17 Glucose 203 H Calcium 8.8 - ABG Interpretation ABG results: ABG ABG pH 7.33 pH Units (7.32-7.45) 03/16/19 09:49 ABG pCO2 85 mmHg (35-45) H* 03/16/19 09:49 ABG pO2 59 mmHg (85-104) L 03/16/19 09:49 ABG O2 Saturation 86 % (95-98) L 03/16/19 09:49 - Impressions Impressions Chest X-Ray 03/16/19 08:32 IMPRESSION: No acute process. D/ / Latanya Lee MD / Latanya Lee MD Interpreting Provider: Latanya Lee MD Chest CT 03/16/19 10:53 IMPRESSION: 1. Basilar atelectasis, otherwise, no acute cardiopulmonary disease. D/ / 03/16/2019 13:48:29 Aissatou Rehman MD / zhao Interpreting Provider: Aissatou Rehman MD - Attending Attestation I saw evaluated and examined this patient and reviewed objective data including labs and my medical decision-making was reviewed with the Resident Physician. I agree with the documented findings, disposition and treatment plan as described except to any changes set forth below. We independently had [id number] contact with the patient. She denies any chest pain or shortness of breath. She does not appear to be in any respiratory distress on exam. Patient had increase of bicarb over past several days, ABG checked showing compensation of respiratory acidosis with metabolic alkalosis. Suspect this could be from diuretics and possibly superimposed with respiratory acidosis. Urine chloride checked, 57. Patient is refusing bipap which makes treatment difficult, and puts patient at risk for acute respiratory failure. We continue to encourage bipap use. Will also do small trial of IV fluids and monitor acid/base status. <Ruth Ann Edwards - Last Filed: 03/16/19 15:15> (1) Congestive heart failure Qualifiers: Heart failure type: diastolic Heart failure chronicity: acute Qualified Code(s): I50.31 - Acute diastolic (congestive) heart failure (2) Altered mental state Qualifiers: Altered mental status type: delirium Qualified Code(s): R41.0 - Disorientation, unspecified (3) Hypothyroidism Qualifiers: Hypothyroidism type: acquired Qualified Code(s): E03.9 - Hypothyroidism, unspecified (4) Type 2 diabetes mellitus Qualifiers: Diabetes mellitus terminal carman insulin use: with terminal carman use Diabetes mellitus complication status: with hyperglycemia Qualified Code(s): E11.65 - Type 2 anjum betes mellitus with hyperglycemia; Z79.4 - penitentiary (current) use of insulin <Audelia Eubanks - Last Filed: 03/16/19 16:43> (1) HTN (hypertension) Qualifiers: Hypertension type: essential hypertension Qualified Code(s): I10 - Essential (primary) hypertension (2) Altered mental state Qualifiers: Altered mental status type: delirium Qualified Code(s): R41.0 - Disorien tation, unspecified (3) Type 2 diabetes mellitus Qualifiers: Diabetes mellitus terminal carman insulin use: with terminal carman use Diabetes mellitus complication status: with hyperglycemia Qualified Code(s): E11.65 - Type 2 anjum betes mellitus with hyperglycemia; Z79.4 - penitentiary (current) use of insulin (4) CHF exacerbation Qualifiers: Heart failure type: diastolic Qualified Code(s): I50.33 - Acute on chronic diastolic (congestive) heart failure
[2019-03-16] MEDS: Ipratropium/Albuterol Neb 3 ML IH SCH ×4 (10:29→20:00)
[2019-03-16] MEDS ORDERED: Ipratropium/Albuterol Neb 3 ML IH SCH (12:00)
[2019-03-16] MEDS ORDERED: 0.9 % Sodium Chloride 1,000 ML IVC SCH (15:00)
[2019-03-16] MEDS ORDERED: 0.9 % Sodium Chloride 250 ML IVC SCH (16:30)
[2019-03-17] MEDS: Ipratropium/Albuterol Neb 3 ML IH SCH ×7 (00:10→23:21)
[2019-03-17 04:53] LABS: ABG Base Excess 13 mEq/L (-2 to 3); ABG HCO3 43 mEq/L (21-27); ABG Oxygen Saturation 97 % (95-98); ABG PCO2 86 mmHg (35-45); ABG PH 7.31 pH Units (7.32-7.45); ABG PO2 104 mmHg (85-104); ABG TCO2 46 mEq/L (20-26)
[2019-03-17] MEDS: *HR* Heparin 5,000 UNIT/ML VIAL SQ SCH ×2 (05:17→17:28)
[2019-03-17 06:28] LABS: Basophils % 0.3 %; Eosinophils # 0.2 K/mcL (0.0-0.6); Hemoglobin 11.3 g/dL (11.5-15.4); Immature Granulocytes % 0.3 % (0-4); Lymphocytes # 0.9 K/mcL (0.6-4.6); Lymphocytes % 11.5 %; Mean Corpuscular HGB Conc 27.6 g/dL (31.6-35.5); Mean Corpuscular Hemoglobin 25.1 pg (28.0-33.3); Mean Corpuscular Volume 90.9 fL (83.0-100.0); Mean Platelet Volume 10.7 fL (9.4-12.4); Monocytes # 0.7 K/mcL (0.0-1.3); Monocytes % 9.5 %; Neutrophils # 5.7 K/mcL (1.6-8.9); Platelet Count 252 K/mcL (140-400); Red Blood Count 4.51 M/mcL (3.82-4.97); Red Cell Distribution Width 14.9 % (11.5-14.5); Segmented Neutrophils % 76.4 %; White Blood Count 7.5 K/mcL (4.3-11.1)
[2019-03-17 06:46] LABS: Albumin 3.3 g/dL (3.5-5.7); Albumin/Globulin Ratio 1.2 (1.1-2.2); Bilirubin,Total 0.3 mg/dL (0.3-1.0); Calcium 8.5 mg/dL (8.6-10.3); Globulin 2.8 g/dL (2.4-3.5); Potassium 4.6 mEq/L (3.5-5.1); Total Protein 6.1 g/dL (6.4-8.9)
[2019-03-17 06:47] LABS: Hypochromasia Present (Not Present); Platelet Estimate Normal (Normal)
[2019-03-17 06:48] LABS: Anisocytosis 1+ (Not Present)
[2019-03-17] MEDS: Insulin LISPRO 300 UNITS/3 ML VIAL SQ SCH ×4 (08:41→20:54)
[2019-03-17] MEDS: Aspirin Enteric Coated 81 MG Tablet PO SCH (10:24)
[2019-03-17] MEDS: Fluticasone Propionate Nasal 50 MCG/SPRAY BOTTLE NS SCH ×2 (10:26→20:54)
[2019-03-17] MEDS: Nystatin POWDER 30 GM BOTTLE TP SCH ×4 (10:27→20:54)
[2019-03-17] MEDS ORDERED: 0.9 % Sodium Chloride 1,000 ML IVC SCH (11:45)
--- NOTE | 2019-03-17 11:47 | Internal Med Progress Note ---
<Audelia Eubanks - Last Filed: 03/17/19 14:46> Hospitalist Progress Note - Encounter Date of Encounter: 03/17/19 - Exam Vitals: Temp Pulse Resp BP Pulse Ox 98.8 F 89 14 142/69 100 03/17/19 11:53 03/17/19 11:53 03/17/19 11:53 03/17/19 11:53 03/17/19 11:53 - Assessment and Plan (1) HTN (hypertension) Current Visit: Yes Status: Chronic (2) Altered mental state Current Visit: Yes Status: Acute (3) Type 2 diabetes mellitus Current Visit: Yes Status: Chronic (4) CHF exacerbation Current Visit: Yes Status: Acute (5) Chronic kidney disease, stage III (moderate) Current Visit: Yes Status: Acute - Time Spent with Patient Total time spent is greater than 50% in coordination of care (as documented) at patient's floor/unit and/or counseling patient: Internal Medicine: Result - Labs CBC & Chem 7: 03/17/19 04:58 03/17/19 04:58 Labs: Short CBC 03/17/19 Range/Units 04:58 WBC 7.5 (4.3-11.1) K/mcL Hgb 11.3 L (11.5-15.4) g/dL Hct 41.0 (35.3-44.9) % Plt Count 252 (140-400) K/mcL Neutrophils # 5.7 (1.6-8.9) K/mcL BMP 03/17/19 04:58 Sodium 140 Potassium 4.6 Chloride 93 L Carbon Dioxide 38 H BUN 20 Creatinine 1.16 Glucose 214 H Calcium 8.5 L Liver Function 03/17/19 Range/Units 04:58 Total Bilirubin 0.3 (0.3-1.0) mg/dL AST 31 (13-39) Units/L ALT 28 (7-52) Units/L Alkaline Phosphatase 107 H (34-104) Units/L Albumin 3.3 L (3.5-5.7) g/dL - ABG Interpretation ABG results: ABG ABG pH 7.40 pH Units (7.32-7.45) 03/17/19 13:37 ABG pCO2 72 mmHg (35-45) H* 03/17/19 13:37 ABG pO2 123 mmHg (85-104) H 03/17/19 13:37 ABG O2 Saturation 99 % (95-98) H 03/17/19 13:37 - Impressions Impressions Chest CT 03/16/19 10:53 IMPRESSION: 1. Basilar atelectasis, otherwise, no acute cardiopulmonary disease. D/ / 03/16/2019 13:48:29 Aissatou Rehman MD / zhao Interpreting Provider: Aissatou Rehman MD Head CT 03/17/19 11:44 IMPRESSION: No acute intracranial abnormality. Bilateral mastoid effusions, correlate for signs of infection Diffuse atrophic changes with findings suggesting chronic microvascular ischemia D/ / Miguelito Baptiste MD / Miguelito Baptiste MD Interpreting Provider: Miguelito Baptiste MD Consult Discharge Plan - Plan Referrals: Umm Whitt CARDIAC RN [Primary Care Provider] - ([facility]) - Attending Attestation I saw evaluated and examined this patient and reviewed objective data including labs and my medical decision-making was reviewed with the Resident Physician. I agree with the documented findings, disposition and treatment plan as described except to any changes set forth below. We independently had [id number] contact with the patient. Patient slightly more confused than baseline. No respiratory distress on exam. repeating ABG this AM still showing compensation of respiratory acidosis with metabolic alkalosis. She complies with BIPAP for short period of time and then takes it off. No focal deficits. Continue very cautious hydration with normal saline to help correct alkalosis and bipap to help respiratory acidosis. CT head. Repeat ABG after BIPAP. Patient is high risk for decompensation if continues to refuse bipap. <Ruth Ann Edwards - Last Filed: 03/17/19 15:37> Hospitalist Progress Note - Encounter Date of Encounter: 03/17/19 Time of Encounter: 10:15 - Subjective Interval History: Ms. Gregory is an 83-year-old female initially presented for CHF exacerbation Today patient is unable to tell us her name, date of , where she is. She states she is feeling fine with no pain shortness of breath, chest pain, swelling, abdominal pain, nausea, vomiting, diarrhea. Spoke with patient's daughter who states that patient is typically able to converse, no murmur name, where she is, either side her grocery list. - Exam Vitals: Temp Pulse Resp BP Pulse Ox 97.5 F L 80 14 166/70 94 03/17/19 07:56 03/17/19 07:56 03/17/19 07:56 03/17/19 07:56 03/17/19 09:54 Exam: General: Patient is alert and awake but not oriented to person place or time, no acute distress Head: normocephalic, atraumatic Eyes: GILBERT, no icterus Cardio: RRR, no murmurs, rubs, or gallops Respiratory: Respiratory sounds bilaterally and lower lobes, no wheezing, rhonchi, rales Abd: normal bowel sounds, no guarding or rigidity Extremities: no pedal edema, pulses equal bilaterally, warm Skin: warm, dry, intact - Assessment and Plan (1) Congestive heart failure Current Visit: Yes Status: Suspected Assessment and Plan: Patient had reported shortness of breath for the last few weeks CXR revealed pulmonary congestion as well as cardiomegaly Elevated BNP of 596 on admission Patient received a dose of IV Lasix in the ER Echocardiogram shows LVEF 60-65%, normal LV size and function, mild concentric LV hypertrophy, mild lt vent diastolic dysfunction, normal right ventricular size adn function, mld tricuspid regurgitation, mild pulmonary hypertension Continue to hold Lasix 20 mg by mouth daily Continue to monitor (2) Altered mental state Current Visit: Yes Status: Acute Assessment and Plan: Worsening of tunnel status CT head ordered with results showing diffuse atrophic changes with findings suggestive of chronic microvascular ischemia as well as bilateral mastoid effusions but no acute intracranial abnormalities MRI head/brain ordered Likely secondary to hypercarbia (3) Hypothyroidism Current Visit: Yes Status: Chronic Assessment and Plan: Continue current dose of levothyroxine (4) Type 2 diabetes mellitus Current Visit: Yes Status: Chronic Assessment and Plan: Continued to monitor blood sugars Patient is currently on low-dose sliding scale insulin well controlled at this time (5) Chronic kidney disease, stage III (moderate) Current Visit: Yes Status: Acute Assessment and Plan: Creatinine currently at baseline Continue to monitor renal function Avoid nephrotoxic substances and renally dose medications as necessary (6) DVT prophylaxis Current Visit: No Status: Acute Assessment and Plan: Subcutaneous heparin (7) Hypercarbia Current Visit: Yes Status: Acute Assessment and Plan: Contraction alkalosis for CO2 retention from other pulmonary concerns Urine chloride yesterday 57 suggestive of dehydration Yesterday 250 mL normal saline was given with a slight improvement in EKG Today we are holding Lasix and giving another [address] chest showed basilar atelectasis otherwise no acute cardiopulmonary disease Respiratory infection panel ordered Continue to monitor and advised patient to use BiPAP as much as possible DVT Prophylaxis: Subcutaneous heparin - Time Spent with Patient Total time spent is greater than 50% in coordination of care (as documented) at patient's floor/unit and/or counseling patient: Internal Medicine: Result - Labs CBC & Chem 7: 03/17/19 04:58 03/17/19 04:58 Labs: Short CBC 03/17/19 Range/Units 04:58 WBC 7.5 (4.3-11.1) K/mcL Hgb 11.3 L (11.5-15.4) g/dL Hct 41.0 (35.3-44.9) % Plt Count 252 (140-400) K/mcL Neutrophils # 5.7 (1.6-8.9) K/mcL BMP 03/17/19 04:58 Sodium 140 Potassium 4.6 Chloride 93 L Carbon Dioxide 38 H BUN 20 Creatinine 1.16 Glucose 214 H Calcium 8.5 L Liver Function 03/17/19 Range/Units 04:58 Total Bilirubin 0.3 (0.3-1.0) mg/dL AST 31 (13-39) Units/L ALT 28 (7-52) Units/L Alkaline Phosphatase 107 H (34-104) Units/L Albumin 3.3 L (3.5-5.7) g/dL - ABG Interpretation ABG results: ABG ABG pH 7.31 pH Units (7.32-7.45) L 03/17/19 04:42 ABG pCO2 86 mmHg (35-45) H* 03/17/19 04:42 ABG pO2 104 mmHg (85-104) 03/17/19 04:42 ABG O2 Saturation 97 % (95-98) 03/17/19 04:42 - Impressions Impressions Chest CT 03/16/19 10:53 IMPRESSION: 1. Basilar atelectasis, otherwise, no acute cardiopulmonary disease. D/ / 03/16/2019 13:48:29 Aissatou Rehman MD / zhao Interpreting Provider: Aissatou Rehman MD <Audelia Eubanks - Last Filed: 03/17/19 14:46> (1) HTN (hypertension) Qualifiers: Hypertension type: essential hypertension Qualified Code(s): I10 - Essential (primary) hypertension (2) Altered mental state Qualifiers: Altered mental status type: delirium Qualified Code(s): R41.0 - Disorientation, unspecified (3) Type 2 diabetes mellitus Qualifiers: Diabetes mellitus detention insulin use: with detention use Diabetes mellitus complication status: with hyperglycemia Qualified Code(s): E11.65 - Type 2 diabetes mellitus with hyperglycemia; Z79.4 - watermelon inspector (current) use of insulin (4) CHF exacerbation Qualifiers: Heart failure type: diastolic Qualified Code(s): I50.33 - Acute on chronic diastolic (congestive) heart failure <Ruth Ann Edwards - Last Filed: 03/17/19 15:37> (1) Congestive heart failure Qualifiers: Heart failure type: diastolic Heart failure chronicity: acute Qualified Code(s): I50.31 - Acute diastolic (congestive) heart failure (2) Altered mental state Qualifiers: Altered mental status type: delirium Qualified Code(s): R41.0 - Disorien tation, unspecified (3) Hypothyroidism Qualifiers: Hypothyroidism type: acquired Qualified Code(s): E03.9 - Hypothyroidism, unspecified (4) Type 2 diabetes mellitus Qualifiers: Diabetes mellitus detention insulin use: with detention use Diabetes mellitus complication status: with hyperglycemia Qualified Code(s): E11.65 - Type 2 diabetes mellitus with hyperglycemia; Z79.4 - watermelon inspector (current) use of insulin
[2019-03-17] MEDS ORDERED: 0.9 % Sodium Chloride 250 ML IVC SCH (13:15)
[2019-03-17 13:47] LABS: ABG Base Excess 16 mEq/L (-2 to 3); ABG HCO3 44 mEq/L (21-27); ABG Oxygen Saturation 99 % (95-98); ABG PCO2 72 mmHg (35-45); ABG PO2 123 mmHg (85-104); ABG TCO2 46 mEq/L (20-26); Blood Gas Modality ST; Blood Gas PEEP 8 cm H2O; Blood Gas Pressure Support 16 cm H2O
[2019-03-17 13:57] LABS: Adenovirus Not Detected (Not Detect); Bordetella Pertussis Not Detected (Not Detect); Chlamydophila pneumoniae Not Detected (Not Detect); Coronavirus 229E Not Detected (Not Detect); Coronavirus HKU1 Not Detected (Not Detect); Coronavirus NL63 Not Detected (Not Detect); Coronavirus OC43 Not Detected (Not Detect); Human Metapneumovirus Not Detected (Not Detect); Human Rhinovirus/Enterovirus Not Detected (Not Detect); Influenza A Subtype 2009 H1 Not Detected (Not Detect); Influenza A Untypeable Not Detected (Not Detect); Influenza B Not Detected (Not Detect); Mycoplasma pneumoniae Not Detected (Not Detect); Parainfluenza Virus 1 Not Detected (Not Detect); Parainfluenza Virus 2 Not Detected (Not Detect); Parainfluenza Virus 3 Not Detected (Not Detect); Parainfluenza Virus 4 Not Detected (Not Detect); Respiratory Syncytial Virus Not Detected (Not Detect)
[2019-03-18] MEDS: Ipratropium/Albuterol Neb 3 ML IH SCH ×6 (03:44→23:52)
[2019-03-18 04:08] LABS: ABG Base Excess 15 mEq/L (-2 to 3); ABG HCO3 43 mEq/L (21-27); ABG Oxygen Saturation 99 % (95-98); ABG PCO2 73 mmHg (35-45); ABG PH 7.38 pH Units (7.32-7.45); ABG PO2 154 mmHg (85-104); ABG TCO2 45 mEq/L (20-26)
[2019-03-18] MEDS: *HR* Heparin 5,000 UNIT/ML VIAL SQ SCH ×2 (05:06→17:29)
[2019-03-18 06:28] LABS: Basophils % 0.3 %; Eosinophils % 2.6 %; Hematocrit 38.5 % (35.3-44.9); Immature Granulocytes % 0.3 % (0-4)
[2019-03-18 06:30] LABS: Eosinophils # 0.2 K/mcL (0.0-0.6); Hemoglobin 10.8 g/dL (11.5-15.4); Lymphocytes # 0.7 K/mcL (0.6-4.6); Lymphocytes % 10.6 %; Mean Corpuscular HGB Conc 28.1 g/dL (31.6-35.5); Mean Corpuscular Hemoglobin 25.1 pg (28.0-33.3); Mean Corpuscular Volume 89.3 fL (83.0-100.0); Mean Platelet Volume 10.3 fL (9.4-12.4); Monocytes # 0.7 K/mcL (0.0-1.3); Monocytes % 9.3 %; Neutrophils # 5.4 K/mcL (1.6-8.9); Platelet Count 229 K/mcL (140-400); Red Blood Count 4.31 M/mcL (3.82-4.97); Red Cell Distribution Width 15.1 % (11.5-14.5); Segmented Neutrophils % 76.9 %
[2019-03-18 06:48] LABS: Albumin 3.1 g/dL (3.5-5.7); Albumin/Globulin Ratio 1.1 (1.1-2.2); Bilirubin,Total 0.4 mg/dL (0.3-1.0); Calcium 8.5 mg/dL (8.6-10.3); Globulin 2.8 g/dL (2.4-3.5); Potassium 4.3 mEq/L (3.5-5.1); Total Protein 5.9 g/dL (6.4-8.9)
[2019-03-18 06:52] LABS: Hypochromasia Present (Not Present); Platelet Estimate Normal (Normal)
[2019-03-18] MEDS: Aspirin Enteric Coated 81 MG Tablet PO SCH (08:26)
[2019-03-18] MEDS: Fluticasone Propionate Nasal 50 MCG/SPRAY BOTTLE NS SCH ×2 (08:26→21:13)
[2019-03-18] MEDS: Nystatin POWDER 30 GM BOTTLE TP SCH ×4 (08:27→22:31)
[2019-03-18] MEDS: Insulin LISPRO 300 UNITS/3 ML VIAL SQ SCH ×4 (08:27→21:13)
--- NOTE | 2019-03-18 10:43 | Internal Med Progress Note ---
<Audelia Eubanks - Last Filed: 03/18/19 12:48> Hospitalist Progress Note - Encounter Date of Encounter: 03/18/19 - Exam Vitals: Temp Pulse Resp BP Pulse Ox 98.8 F 92 18 190/71 99 03/18/19 06:51 03/18/19 06:51 03/18/19 11:01 03/18/19 06:51 03/18/19 11:01 - Assessment and Plan (1) HTN (hypertension) Current Visit: Yes Status: Chronic (2) Altered mental state Current Visit: Yes Status: Acute (3) Type 2 diabetes mellitus Current Visit: Yes Status: Chronic (4) CHF exacerbation Current Visit: Yes Status: Acute (5) Chronic kidney disease, stage III (moderate) Current Visit: Yes Status: Acute - Time Spent with Patient Total time spent is greater than 50% in coordination of care (as documented) at patient's floor/unit and/or counseling patient: Internal Medicine: Result - Labs CBC & Chem 7: 03/18/19 06:16 03/18/19 06:16 Labs: Short CBC 03/18/19 Range/Units 06:16 WBC 7.0 (4.3-11.1) K/mcL Hgb 10.8 L (11.5-15.4) g/dL Hct 38.5 (35.3-44.9) % Plt Count 229 (140-400) K/mcL Neutrophils # 5.4 (1.6-8.9) K/mcL BMP 03/18/19 06:16 Sodium 140 Potassium 4.3 Chloride 95 L Carbon Dioxide 36 H BUN 21 Creatinine 1.07 Glucose 238 H Calcium 8.5 L Liver Function 03/18/19 Range/Units 06:16 Total Bilirubin 0.4 (0.3-1.0) mg/dL AST 31 (13-39) Units/L ALT 30 (7-52) Units/L Alkaline Phosphatase 101 (34-104) Units/L Albumin 3.1 L (3.5-5.7) g/dL - ABG Interpretation ABG results: ABG ABG pH 7.38 pH Units (7.32-7.45) 03/18/19 03:58 ABG pCO2 73 mmHg (35-45) H* 03/18/19 03:58 ABG pO2 154 mmHg (85-104) H 03/18/19 03:58 ABG O2 Saturation 99 % (95-98) H 03/18/19 03:58 - Impressions Impressions Head CT 03/17/19 11:44 IMPRESSION: No acute intracranial abnormality. Bilateral mastoid effusions, correlate for signs of infection Diffuse atrophic changes with findings suggesting chronic microvascular ischemia D/ / Miguelito Baptiste MD / Miguelito Baptiste MD Interpreting Provider: Miguelito Baptiste MD Brain MRI 03/17/19 13:28 IMPRESSION: Severely limited due to extensive motion artifacts. No acute intracranial abnormality. 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 Mild parenchymal volume loss. Moderate chronic microvascular disease. Bilateral mastoid effusions, minimal on the left and moderate to severe the right. D/ / Delonte Anand MD / Delonte Anand MD Interpreting Provider: Delonte Anand MD Consult Discharge Plan - Plan Referrals: Umm Whitt CNP [Primary Care Provider] - ([facility]) - Attending Attestation I saw evaluated and examined this patient and reviewed objective data including labs and my medical decision-making was reviewed with the Resident Physician. I agree with the documented findings, disposition and treatment plan as described except to any changes set forth below. We independently had [id number] contact with the patient. No acute events. She states she slept very well. Denies CP, SOB, N/V, palpitations. Diarrhea still present. VS: reivewed, BP 190/71, HR 92 on li sinopril 5 mg daily. ABG shows improvement of pCO2 at 73 today with pH in acceptable limits and HCO3 trending down. A/P: Continue to hold Lasix for now with gentle hydration of 250 ml of normal saline. Likely alkalosis from diuretics and diarrhea with resulting compensation with hypercarboxia. Increase lisinopril to 10 mg today. Stool studies, test for C diff. If she develops signs/symptoms of fluid overload, will resume Lasix, currently appears slightly dry. <Ruth Ann Edwards E - Last Filed: 03/18/19 17:07> Hospitalist Progress Note - Encounter Date of Encounter: 03/18/19 Time of Encounter: 09:30 - Subjective Interval History: Ms. Marks 83-year-old female initially presented for CHF exacerbation Today patient is more alert than yesterday able to tell name, date of , where she has but does not know why she is here. She states she is feeling fine with no shortness of breath, chest pain, swelling, abdominal pain, nausea, vomiting, diarrhea - Exam Vitals: Temp Pulse Resp BP Pulse Ox 98.8 F 92 16 190/71 93 03/18/19 06:51 03/18/19 06:51 03/18/19 07:31 03/18/19 06:51 03/18/19 07:31 Exam: General: Patient is alert and awake but not oriented to person place or time, no acute distress Head: normocephalic, atraumatic Eyes: GILBERT, no icterus Cardio: RRR, no murmurs, rubs, or gallops Respiratory: Respiratory sounds bilaterally and lower lobes, no wheezing, rhonchi, rales Abd: normal bowel sounds, no guarding or rigidity Extremities: no pedal edema, pulses equal bilaterally, warm Skin: warm, dry, intact - Assessment and Plan (1) Congestive heart failure Current Visit: Yes Status: Suspected Assessment and Plan: Patient had reported shortness of breath for the last few weeks CXR revealed pulmonary congestion as well as cardiomegaly Elevated BNP of 596 on admission Patient received a dose of IV Lasix in the ER Echocardiogram shows LVEF 60-65%, normal LV size and function, mild concentric LV hypertrophy, mild lt vent diastolic dysfunction, normal right ventricular size adn function, mld tricuspid regurgitation, mild pulmonary hypertension Continue to hold Lasix 20 mg by mouth daily Continue to monitor (2) Altered mental state Current Visit: Yes Status: Acute Assessment and Plan: Today patient's cognitive status is slightly better CT head ordered with results showing diffuse atrophic changes with findings suggestive of chronic microvascular ischemia as well as bilateral mastoid effus ions but no acute intracranial abnormalities MRI head/brain showed no acute intracranial abnormality, 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 Likely secondary to hypercarbia (3) Hypothyroidism Current Visit: Yes Status: Chronic Assessment and Plan: Continue current dose of levothyroxine (4) Type 2 diabetes mellitus Current Visit: Yes Status: Chronic Assessment and Plan: Continued to monitor blood sugars Patient is currently on low-dose sliding scale insulin Start Levemir 5 units nightly (5) Chronic kidney disease, stage III (moderate) Current Visit: Yes Status: Acute Assessment and Plan: Creatinine currently at baseline Continue to monitor renal function Avoid nephrotoxic substances and renally dose medications as necessary (6) DVT prophylaxis Current Visit: No Status: Acute Assessment and Plan: Subcutaneous heparin (7) Hypercarbia Current Visit: Yes Status: Acute Assessment and Plan: Contraction alkalosis for CO2 retention from other pulmonary concerns Urine chloride yesterday 57 suggestive of dehydration 250 mL normal saline given at 75 mL per hour Today we are holding Lasix CT chest showed basilar atelectasis otherwise no acute cardiopulmonary disease Respiratory infection panel ordered Continue to monitor and advised patient to use BiPAP as much as possible (8) Diarrhea Current Visit: Yes Status: Acute Assessment and Plan: Stool studies ordered If positive for C. difficile we will start antibiotic therapy If negative for C. difficile or any infectious diarrhea we will start antidiarrheal medication and continue to give gentle hydration (9) HTN (hypertension) Current Visit: Yes Status: Chronic Assessment and Plan: Patient was currently on 5 mg of lisinopril We will increase to 10 mg of lisinopril to to increase in blood pressure Continue to monitor DVT Prophylaxis: Subcutaneous heparin - Time Spent with Patient Total time spent is greater than 50% in coordination of care (as documented) at patient's floor/unit and/or counseling patient: Internal Medicine: Result - Labs CBC & Chem 7: 03/18/19 06:16 03/18/19 06:16 Labs: Short CBC 03/18/19 Range/Units 06:16 WBC 7.0 (4.3-11.1) K/mcL Hgb 10.8 L (11.5-15.4) g/dL Hct 38.5 (35.3-44.9) % Plt Count 229 (140-400) K/mcL Neutrophils # 5.4 (1.6-8.9) K/mcL BMP 03/18/19 06:16 Sodium 140 Potassium 4.3 Chloride 95 L Carbon Dioxide 36 H BUN 21 Creatinine 1.07 Glucose 238 H Calcium 8.5 L Liver Function 03/18/19 Range/Units 06:16 Total Bilirubin 0.4 (0.3-1.0) mg/dL AST 31 (13-39) Units/L ALT 30 (7-52) Units/L Alkaline Phosphatase 101 (34-104) Units/L Albumin 3.1 L (3.5-5.7) g/dL - ABG Interpretation ABG results: ABG ABG pH 7.38 pH Units (7.32-7.45) 03/18/19 03:58 ABG pCO2 73 mmHg (35-45) H* 03/18/19 03:58 ABG pO2 154 mmHg (85-104) H 03/18/19 03:58 ABG O2 Saturation 99 % (95-98) H 03/18/19 03:58 - Impressions Impressions Head CT 03/17/19 11:44 IMPRESSION: No acute intracranial abnormality. Bilateral mastoid effusions, correlate for signs of infection Diffuse atrophic changes with findings suggesting chronic microvascular ischemia D/ / Miguelito Baptiste MD / Miguelito Baptiste MD Interpreting Provider: Miguelito Baptiste MD Brain MRI 03/17/19 13:28 IMPRESSION: Severely limited due to extensive motion artifacts. No acute intracranial abnormality. 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 Mild parenchymal volume loss. Moderate chronic microvascular disease. Bilateral mastoid effusions, minimal on the left and moderate to severe the right. D/ / Delonte Anand MD / Delonte Anand MD Interpreting Provider: Delonte Anand MD <Audelia Eubanks - Last Filed: 03/18/19 12:48> (1) HTN (hypertension) Qualifiers: Hypertension type: essential hypertension Qualified Code(s): I10 - Essential (primary) hypertension (2) Altered mental state Qualifiers: Altered mental status type: delirium Qualified Code(s): R41.0 - Disorientation, unspecified (3) Type 2 diabetes mellitus Qualifiers: Diabetes mellitus head soft sugar operator insulin use: with head soft sugar operator use Diabetes mellitus complication status: with hyperglycemia Qualified Code(s): E11.65 - Type 2 diabetes mellitus with hyperglycemia; Z79.4 - cook helper meat (current) use of insulin (4) CHF exacerbation Qualifiers: Heart failure type: diastolic Qualified Code(s): I50.33 - Acute on chronic diastolic (congestive) heart failure <Ruth Ann Edwards - Last Filed: 03/18/19 17:07> (1) Congestive heart failure Qualifiers: Heart failure type: diastolic Heart failure chronicity: acute Qualified Code(s): I50.31 - Acute diastolic (congestive) heart failure (2) Altered mental state Qualifiers: Altered mental status type: delirium Qualified Code(s): R41.0 - Disorientation, unspecified (3) Hypothyroidism Qualifiers: Hypothyroidism type: acquired Qualified Code(s): E03.9 - Hypothyroidism, unspecified (4) Type 2 diabetes mellitus Qualifiers: Diabetes mellitus head soft sugar operator insulin use: with custodial use Diabetes mellitus complication status: with hyperglycemia Qualified Code(s): E11.65 - Type 2 diabetes mellitus with hyperglycemia; Z79.4 - cook helper meat (current) use of insulin (9) HTN (hypertension) Qualifiers: Hypertension type: essential hypertension Qualified Code(s): I10 - Essential (primary) hypertension
[2019-03-18] MEDS ORDERED: 0.9 % Sodium Chloride 250 ML IVC SCH (14:45)
[2019-03-18] MEDS: Insulin DETEMIR 100 UNIT/ML X5UNITS SQ SCH (21:12)
[2019-03-19] MEDS: Ipratropium/Albuterol Neb 3 ML IH SCH ×6 (04:29→23:38)
[2019-03-19] MEDS: *HR* Heparin 5,000 UNIT/ML VIAL SQ SCH ×2 (05:23→17:39)
[2019-03-19] MEDS: Aspirin Enteric Coated 81 MG Tablet PO SCH (07:54)
[2019-03-19] MEDS: Fluticasone Propionate Nasal 50 MCG/SPRAY BOTTLE NS SCH ×2 (07:54→21:49)
[2019-03-19] MEDS: Nystatin POWDER 30 GM BOTTLE TP SCH ×4 (07:55→21:49)
[2019-03-19] MEDS: Insulin LISPRO 300 UNITS/3 ML VIAL SQ SCH ×4 (07:55→21:48)
--- NOTE | 2019-03-19 08:49 | Internal Med Progress Note ---
<Ruth Ann Edwards E - Last Filed: 03/19/19 12:09> Hospitalist Progress Note - Encounter Date of Encounter: 03/19/19 Time of Encounter: 08:15 - Subjective Interval History: Ms. Gregory is a 83-year-old female who initially presented with CHF and altered mental status Patient was seen and examined at bedside today where she reports no pain, chest pain, abdominal pain, shortness of breath, but does state that she is having some diarrhea occasionally. She denies any nausea or vomiting and and reports to have been eating well. - Exam Vitals: Temp Pulse Resp BP Pulse Ox 98.1 F 85 15 189/91 96 03/19/19 06:56 03/19/19 06:56 03/19/19 06:56 03/19/19 06:56 03/19/19 04:30 Exam: General: Patient is alert and awake oriented to person and place but not time or condition Head: normocephalic, atraumatic Eyes: GILBERT, no icterus Cardio: RRR, no murmurs, rubs, or gallops Respiratory: Diminished Respiratory sounds bilateral lower lobes, no wheezing, rhonchi, rales Abd: normal bowel sounds, no guarding or rigidity Extremities: no pedal edema, pulses equal bilaterally, warm Skin: warm, dry, intact - Assessment and Plan (1) Hypercarbia Current Visit: Yes Status: Acute Assessment and Plan: Contraction alkalosis for CO2 retention from other pulmonary concerns Urine chloride yesterday 57 suggestive of dehydration Chloride loss could also be from diarrhea Continue to hold Lasix CT chest showed basilar atelectasis otherwise no acute cardiopulmonary disease Respiratory infection panel ordered and negative Continue to monitor and advised patient to use BiPAP as much as possible We will continue gentle hydration with 250 mL's today at 75 MLS per hour (2) Diarrhea Current Visit: Yes Status: Acute Assessment and Plan: Stool studies ordered If positive for C. difficile we will start antibiotic therapy If negative for C. difficile or any infectious diarrhea will start antiviral medications and continue to give gentle hydration Has not had any stools for the past day and a half until this morning, were not fully formed (3) Altered mental state Current Visit: Yes Status: Acute Assessment and Plan: Today patient's cognitive status is slightly better CT head ordered with results showing diffuse atrophic changes with findings suggestive of chronic microvascular ischemia as well as bilateral mastoid effu sions but no acute intracranial abnormalities MRI head/brain showed no acute intracranial abnormality, 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 Likely secondary to hypercarbia Continue to monitor patient's mental status (4) Congestive heart failure Current Visit: Yes Status: Suspected Assessment and Plan: Patient had reported shortness of breath for the last few weeks CXR revealed pulmonary congestion as well as cardiomegaly Elevated BNP of 596 on admission Patient received a dose of IV Lasix in the ER Echocardiogram shows LVEF 60-65%, normal LV size and function, mild concentric LV hypertrophy, mild lt vent diastolic dysfunction, normal right ventricular size adn function, mld tricuspid regurgitation, mild pulmonary hypertension Continue to hold Lasix 20 mg by mouth daily appears euvolemic Continue to monitor (5) Hypothyroidism Current Visit: Yes Status: Chronic Assessment and Plan: Continue current dose of levothyroxine We will need outpatient labs in approximately 6 weeks (6) Type 2 diabetes mellitus Current Visit: Yes Status: Chronic Assessment and Plan: Continued to monitor blood sugars Patient is currently on low-dose sliding scale insulin Increase to medium dose sliding scale insulin Continue Levemir 5 units nightly (7) Chronic kidney disease, stage III (moderate) Current Visit: Yes Status: Acute Assessment and Plan: Creatinine currently at baseline Continue to monitor renal function Avoid nephrotoxic substances and renally dose medications as necessary (8) HTN (hypertension) Current Visit: Yes Status: Chronic Assessment and Plan: Patient's blood pressure is slightly elevated on 10 mg of lisinopril Continue current regimen Continue to monitor We added when necessary hydralazine 5 mg for blood pressures greater than 160/80 (9) DVT prophylaxis Current Visit: No Status: Acute Assessment and Plan: Subcutaneous heparin - Time Spent with Patient Total time spent is greater than 50% in coordination of care (as documented) at patient's floor/unit and/or counseling patient: Internal Medicine: Result - Labs CBC & Chem 7: 03/19/19 09:30 03/19/19 09:30 - ABG Interpretation ABG results: ABG ABG pH 7.38 pH Units (7.32-7.45) 03/18/19 03:58 ABG pCO2 73 mmHg (35-45) H* 03/18/19 03:58 ABG pO2 154 mmHg (85-104) H 03/18/19 03:58 ABG O2 Saturation 99 % (95-98) H 03/18/19 03:58 Consult Discharge Plan - Plan Referrals: Umm Whitt, BAKING ASSISTANT [Primary Care Provider] - ([facility]) <Audelia Eubanks - Last Filed: 03/19/19 12:55> Hospitalist Progress Note - Encounter Date of Encounter: 03/19/19 - Exam Vitals: Temp Pulse Resp BP Pulse Ox 98.1 F 72 16 176/75 100 03/19/19 10:16 03/19/19 10:16 03/19/19 10:16 03/19/19 10:16 03/19/19 07:26 - Assessment and Plan (1) HTN (hypertension) Current Visit: Yes Status: Chronic (2) Altered mental state Current Visit: Yes Status: Acute (3) Type 2 diabetes mellitus Current Visit: Yes Status: Chronic (4) CHF exacerbation Current Visit: Yes Status: Acute (5) Chronic kidney disease, stage III (moderate) Current Visit: Yes Status: Acute - Time Spent with Patient Total time spent is greater than 50% in coordination of care (as documented) at patient's floor/unit and/or counseling patient: Internal Medicine: Result - Labs CBC & Chem 7: 03/19/19 09:30 03/19/19 09:30 Labs: Short CBC 03/19/19 Range/Units 09:30 WBC 6.7 (4.3-11.1) K/mcL Hgb 11.3 L (11.5-15.4) g/dL Hct 39.7 (35.3-44.9) % Plt Count 235 (140-400) K/mcL Neutrophils # 5.1 (1.6-8.9) K/mcL BMP 03/19/19 09:30 Sodium 139 Potassium 4.3 Chloride 95 L Carbon Dioxide 38 H BUN 18 Creatinine 1.08 Glucose 289 H Calcium 8.8 Liver Function 03/19/19 Range/Units 09:30 Total Bilirubin 0.4 (0.3-1.0) mg/dL AST 26 (13-39) Units/L ALT 30 (7-52) Units/L Alkaline Phosphatase 104 (34-104) Units/L Albumin 3.2 L (3.5-5.7) g/dL - ABG Interpretation ABG results: ABG ABG pH 7.38 pH Units (7.32-7.45) 03/18/19 03:58 ABG pCO2 73 mmHg (35-45) H* 03/18/19 03:58 ABG pO2 154 mmHg (85-104) H 03/18/19 03:58 ABG O2 Saturation 99 % (95-98) H 03/18/19 03:58 - Attending Attestation I saw evaluated and examined this patient and reviewed objective data including labs and my medical decision-making was reviewed with the Resident Physician. I agree with the documented findings, disposition and treatment plan as described except to any changes set forth below. We independently had [id number] contact with the patient. Patient still having diarrhea but appears to be improving. In past day, states has only had two bowel movements. Denies CP, SOB, N/V, abdominal pain. Physical exam Gen: NAD, CVS: RRR, lungs: decreased breath sounds at bases, clear at apices. No extremity edema. MMM. VS: reviewed, still hypertensive. Labs: reviewed. Acute and chronic respiratory failure with hypoxia and hypercapnea, resolved after diuresis. Currently requires gentle hydration with monitoring acid/base status status and electrolytes. Diarrhea improving, awaiting stool studies. ABG for today is pending. If patient develops signs of fluid overload, Lasix will need resumed. <Ruth Ann Edwards - Last Filed: 03/19/19 12:09> (3) Altered mental state Qualifiers: Altered mental status type: delirium Qualified Code(s): R41.0 - Disorientation, unspecified (4) Congestive heart failure Qualifiers: Heart failure type: diastolic Heart failure chronicity: acute Qualified Code(s): I50.31 - Acute diastolic (congestive) heart failure (5) Hypothyroidism Qualifiers: Hypothyroidism type: acquired Qualified Code(s): E03.9 - Hypothyroidism, unspecified (6) Type 2 diabetes mellitus Qualifiers: Diabetes mellitus assisted insulin use: with buttermaker helper use Diabetes mellitus complication status: with hyperglycemia Qualified Code(s): E11.65 - Type 2 diabetes mellitus with hyperglycemia; Z79.4 - [facility]FP (current) use of insulin (8) HTN (hypertension) Qualifiers: Hypertension type: essential hypertension Qualified Code(s): I10 - Essential (primary) hypertension <Audelia Eubanks - Last Filed: 03/19/19 12:55> (1) HTN (hypertension) Qualifiers: Hypertension type: essential hypertension Qualified Code(s): I10 - Essential (primary) hypertension (2) Altered mental state Qualifiers: Altered mental status type: delirium Qualified Code(s): R41.0 - Disorientation, unspecified (3) Type 2 diabetes mellitus Qualifiers: Diabetes mellitus buttermaker helper insulin use: with assisted use Diabetes mellitus complication status: with hyperglycemia Qualified Code(s): E11.65 - Type 2 diabetes mellitus with hyperglycemia; Z79.4 - [facility]FP (current) use of insulin (4) CHF exacerbation Qualifiers: Heart failure type: diastolic Qualified Code(s): I50.33 - Acute on chronic diastolic (congestive) heart failure
[2019-03-19 10:08] LABS: Basophils % 0.3 %; Immature Granulocytes % 0.3 % (0-4)
[2019-03-19 10:09] LABS: Eosinophils # 0.3 K/mcL (0.0-0.6); Eosinophils % 4.3 %; Hematocrit 39.7 % (35.3-44.9); Hemoglobin 11.3 g/dL (11.5-15.4); Lymphocytes # 0.7 K/mcL (0.6-4.6); Lymphocytes % 10.7 %; Mean Corpuscular HGB Conc 28.5 g/dL (31.6-35.5); Mean Corpuscular Hemoglobin 25.9 pg (28.0-33.3); Mean Corpuscular Volume 91.1 fL (83.0-100.0); Mean Platelet Volume 10.9 fL (9.4-12.4); Monocytes # 0.6 K/mcL (0.0-1.3); Monocytes % 8.9 %; Neutrophils # 5.1 K/mcL (1.6-8.9); Platelet Count 235 K/mcL (140-400); Red Blood Count 4.36 M/mcL (3.82-4.97); Segmented Neutrophils % 75.5 %; White Blood Count 6.7 K/mcL (4.3-11.1)
[2019-03-19 10:27] LABS: Albumin 3.2 g/dL (3.5-5.7); Albumin/Globulin Ratio 1.1 (1.1-2.2); Bilirubin,Total 0.4 mg/dL (0.3-1.0); Calcium 8.8 mg/dL (8.6-10.3); Potassium 4.3 mEq/L (3.5-5.1); Total Protein 6.2 g/dL (6.4-8.9)
[2019-03-19 10:50] LABS: Platelet Estimate Normal (Normal)
[2019-03-19 10:53] LABS: Hypochromasia Present (Not Present)
[2019-03-19] MEDS ORDERED: 0.9 % Sodium Chloride 1,000 ML IVC SCH (12:15)
[2019-03-19] MEDS ORDERED: 0.9 % Sodium Chloride 250 ML ONE (13:04)
[2019-03-19 13:07] LABS: C.difficile Toxin A/B Gene PCR Not detected (Not detect); Campylobacter by PCR Not detected (Not detect); Plesiomonas shigelloides PCR Not detected (Not detect)
[2019-03-19 13:08] LABS: Adenovirus F 40/41 PCR Not detected (Not detect); Astrovirus PCR Not detected (Not detect); Cryptosporidium by PCR Not detected (Not detect); Cyclospora cayetanensis PCR Not detected (Not detect); E. coli O157 by PCR Not detected (Not detect); Entamoeba histolytica PCR Not detected (Not detect); Enteroaggregative E.coli(EAEC) Not detected (Not detect); Enteropathogenic E.coli(EPEC) Not detected (Not detect); Enterotoxigenic E.coli (ETEC) Not detected (Not detect); Giardia lamblia PCR Not detected (Not detect); Norovirus GI/GII PCR Not detected (Not detect); Rotavirus A PCR Not detected (Not detect); Salmonella PCR Not detected (Not detect); Sapovirus PCR Not detected (Not detect); Shig/EnteroinvasiveE coli EIEC Not detected (Not detect); Shigalike tox-prod E coli STEC Not detected (Not detect); Vibrio PCR Not detected (Not detect); Vibrio cholerae PCR Not detected (Not detect); Yersinia enterocolitica PCR Not detected (Not detect)
[2019-03-19] MEDS ORDERED: 0.9 % Sodium Chloride 250 ML IVC ONE (13:15)
[2019-03-19 15:55] LABS: ABG Base Excess 11 mEq/L (-2 to 3); ABG HCO3 39 mEq/L (21-27); ABG Oxygen Saturation 96 % (95-98); ABG PCO2 73 mmHg (35-45); ABG PH 7.34 pH Units (7.32-7.45); ABG PO2 90 mmHg (85-104); ABG TCO2 42 mEq/L (20-26)
[2019-03-19 17:24] LABS: ABG Base Excess 11 mEq/L (-2 to 3); ABG HCO3 41 mEq/L (21-27); ABG Oxygen Saturation 94 % (95-98); ABG PCO2 79 mmHg (35-45); ABG PH 7.32 pH Units (7.32-7.45); ABG PO2 81 mmHg (85-104); ABG TCO2 43 mEq/L (20-26); Blood Gas Modality BiLevel
[2019-03-19] MEDS ORDERED: acetaZOLAMIDE 250 MG TABLET PO ONE (18:54)
[2019-03-19] MEDS: Insulin DETEMIR 100 UNIT/ML X5UNITS SQ SCH (21:48)
[2019-03-19 22:48] LABS: ABG Base Excess 11 mEq/L (-2 to 3); ABG HCO3 39 mEq/L (21-27); ABG Oxygen Saturation 95 % (95-98); ABG PCO2 70 mmHg (35-45); ABG PH 7.35 pH Units (7.32-7.45); ABG PO2 81 mmHg (85-104); ABG TCO2 41 mEq/L (20-26)
[2019-03-20] MEDS: Ipratropium/Albuterol Neb 3 ML IH SCH ×6 (04:12→23:05)
[2019-03-20] MEDS: *HR* Heparin 5,000 UNIT/ML VIAL SQ SCH ×2 (05:35→16:54)
[2019-03-20 05:47] LABS: Basophils % 0.4 %; Hemoglobin 11.5 g/dL (11.5-15.4)
[2019-03-20 05:48] LABS: Eosinophils # 0.3 K/mcL (0.0-0.6); Eosinophils % 4.6 %; Hematocrit 41.2 % (35.3-44.9); Immature Granulocytes % 0.2 % (0-4); Mean Corpuscular HGB Conc 27.9 g/dL (31.6-35.5); Mean Corpuscular Hemoglobin 25.4 pg (28.0-33.3); Mean Corpuscular Volume 91.2 fL (83.0-100.0); Mean Platelet Volume 10.8 fL (9.4-12.4); Monocytes # 0.5 K/mcL (0.0-1.3); Monocytes % 9.7 %; Neutrophils # 3.6 K/mcL (1.6-8.9); Platelet Count 215 K/mcL (140-400); Red Blood Count 4.52 M/mcL (3.82-4.97); Red Cell Distribution Width 15.4 % (11.5-14.5); Segmented Neutrophils % 66.1 %; White Blood Count 5.4 K/mcL (4.3-11.1)
[2019-03-20 06:01] LABS: Albumin 3.2 g/dL (3.5-5.7); Bilirubin,Total 0.4 mg/dL (0.3-1.0); Calcium 8.9 mg/dL (8.6-10.3); Globulin 3.1 g/dL (2.4-3.5); Potassium 4.3 mEq/L (3.5-5.1); Total Protein 6.3 g/dL (6.4-8.9)
[2019-03-20 06:41] LABS: Anisocytosis 1+ (Not Present); Hypochromasia Present (Not Present); Platelet Estimate Normal (Normal)
[2019-03-20] MEDS: Lactobacillus 1 EACH CAP.SPRINK PO SCH (07:34)
[2019-03-20] MEDS: Fluticasone Propionate Nasal 50 MCG/SPRAY BOTTLE NS SCH ×2 (07:34→20:09)
[2019-03-20] MEDS: Insulin LISPRO 300 UNITS/3 ML VIAL SQ SCH ×4 (07:34→20:09)
[2019-03-20] MEDS: Nystatin POWDER 30 GM BOTTLE TP SCH ×4 (07:35→20:10)
[2019-03-20] MEDS: Aspirin Enteric Coated 81 MG Tablet PO SCH (07:35)
--- NOTE | 2019-03-20 09:50 | Internal Med Progress Note ---
<Ruth Ann Edwards E - Last Filed: 03/20/19 12:47> Hospitalist Progress Note - Encounter Date of Encounter: 03/20/19 Time of Encounter: 08:30 - Subjective Interval History: Mrs. Gregory is 83-year-old female initially presented with CHF and altered mental status Patient was seen and examined at bedside today she reports no pain, chest pain, abdominal pain, shortness of breath. She denies any nausea, vomiting, diarrhea at this time and states she has been eating well. She states that she does not understand why she was in the hospital and this seems to be her norm for this hospital stay. - Exam Vitals: Temp Pulse Resp BP Pulse Ox 97.8 F 84 18 127/70 96 03/20/19 06:50 03/20/19 09:47 03/20/19 07:47 03/20/19 09:47 03/20/19 07:58 Exam: General: Patient is alert and awake oriented to person and place but not time or condition Head: normocephalic, atraumatic Eyes: GILBERT, no icterus Cardio: RRR, no murmurs, rubs, or gallops Respiratory: Diminished Respiratory sounds bilateral lower lobes, no wheezing, rhonchi, rales Abd: normal bowel sounds, no guarding or rigidity Extremities: no pedal edema, pulses equal bilaterally, warm Skin: warm, dry, intact - Assessment and Plan (1) Hypercarbia Current Visit: Yes Status: Acute Assessment and Plan: Contraction alkalosis for CO2 retention from other pulmonary concerns Urine chloride 57 suggestive of dehydration Chloride loss could also be from diarrhea although this has resolved Continue to hold Lasix CT chest showed basilar atelectasis otherwise no acute cardiopulmonary disease Respiratory infection panel ordered and negative Continue to monitor and advised patient to use BiPAP as much as possible We will hold any fluid challenges today due to patient's recent chest x-ray which showed mild pulmonary edema We have consulted nephrology for further acid-base workup (2) Diarrhea Current Visit: Yes Status: Acute Assessment and Plan: Stool studies negative for infectious sources of diarrhea Has not had any stools for the past day and a half until Wednesday morning, were not fully formed Probiotics have been added If diarrhea continues we will consider loperamide (3) Altered mental state Current Visit: Yes Status: Acute Assessment and Plan: Today patient's cognitive status shows patient is aware of person, place but not of disposition CT head ordered with results showing diffuse atrophic changes with findings suggestive of chronic microvascular ischemia as well as bilateral mastoid effusions but no acute intracranial abnormalities MRI head/brain showed no acute intracranial abnormality, 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 Likely secondary to hypercarbia Continue to monitor patient's mental status (4) Congestive heart failure Current Visit: Yes Status: Suspected Assessment and Plan: Patient had reported shortness of breath for the last few weeks CXR revealed mild pulmonary edema as well as cardiomegaly Elevated BNP of 596 on admission Echocardiogram shows LVEF 60-65%, normal LV size and function, mild concentric LV hypertrophy, mild lt vent diastolic dysfunction, normal right ventricular size adn function, mld tricuspid regurgitation, mild pulmonary hypertension Continue to hold Lasix 20 mg by mouth daily appears euvolemic Continue to monitor (5) Hypothyroidism Current Visit: Yes Status: Chronic Assessment and Plan: Continue current dose of levothyroxine We will need outpatient labs in approximately 6 weeks (6) Type 2 diabetes mellitus Current Visit: Yes Status: Chronic Assessment and Plan: Continued to monitor blood sugars Increase to medium dose sliding scale insulin Continue Levemir 5 units nightly (7) Chronic kidney disease, stage III (moderate) Current Visit: Yes Status: Acute Assessment and Plan: Creatinine currently at baseline Continue to monitor renal function Avoid nephrotoxic substances and renally dose medications as necessary (8) HTN (hypertension) Current Visit: Yes Status: Chronic Assessment and Plan: Patient's blood pressure is slightly elevated on 10 mg of lisinopril We will watch this and continue to monitor as patient is also having normotensiv e measurements Continue to monitor PRN hydralazine 5 mg for blood pressures greater than 160/80 (9) DVT prophylaxis Current Visit: No Status: Acute Assessment and Plan: Subcutaneous heparin DVT Prophylaxis: Subcutaneous heparin - Time Spent with Patient Total time spent is greater than 50% in coordination of care (as documented) at patient's floor/unit and/or counseling patient: Internal Medicine: Result - Labs CBC & Chem 7: 03/20/19 05:27 03/20/19 05:27 Labs: Short CBC 03/19/19 03/20/19 Range/Units 09:30 05:27 WBC 6.7 5.4 (4.3-11.1) K/mcL Hgb 11.3 L 11.5 (11.5-15.4) g/dL Hct 39.7 41.2 (35.3-44.9) % Plt Count 235 215 (140-400) K/mcL Neutrophils # 5.1 3.6 (1.6-8.9) K/mcL BMP 03/19/19 03/20/19 09:30 05:27 Sodium 139 140 Potassium 4.3 4.3 Chloride 95 L 98 Carbon Dioxide 38 H 36 H BUN 18 18 Creatinine 1.08 1.19 Glucose 289 H 215 H Calcium 8.8 8.9 Liver Function 03/19/19 03/20/19 Range/Units 09:30 05:27 Total Bilirubin 0.4 0.4 (0.3-1.0) mg/dL AST 26 24 (13-39) Units/L ALT 30 28 (7-52) Units/L Alkaline Phosphatase 104 100 (34-104) Units/L Albumin 3.2 L 3.2 L (3.5-5.7) g/dL - ABG Interpretation ABG results: ABG ABG pH 7.35 pH Units (7.32-7.45) 03/19/19 22:38 ABG pCO2 70 mmHg (35-45) H* 03/19/19 22:38 ABG pO2 81 mmHg (85-104) L 03/19/19 22:38 ABG O2 Saturation 95 % (95-98) 03/19/19 22:38 - Impressions Impressions Chest X-Ray 03/19/19 17:32 IMPRESSION: 1. Mild pulmonary edema, new since 03/16/2019. 2. Low lung volumes. 3. Cardiomegaly. D/ : / 03/19/2019 18:50:28 Aissatou Rehman MD / [facility] Interpreting Provider: Aissatou Rehman MD Consult Discharge Plan - Plan Referrals: Umm Whitt, PUBLIC STENOGRAPHER [Primary Care Provider] - ([facility]) <Audelia Eubanks - Last Filed: 03/20/19 13:10> Hospitalist Progress Note - Encounter Date of Encounter: 03/20/19 - Exam Vitals: Temp Pulse Resp BP Pulse Ox 98.1 F 84 18 141/66 96 03/20/19 11:01 03/20/19 11:01 03/20/19 11:27 03/20/19 11:03/20/19 11:27 - Assessment and Plan (1) HTN (hypertension) Current Visit: Yes Status: Chronic (2) Altered mental state Current Visit: Yes Status: Acute (3) Type 2 diabetes mellitus Current Visit: Yes Status: Chronic (4) CHF exacerbation Current Visit: Yes Status: Acute (5) Chronic kidney disease, stage III (moderate) Current Visit: Yes Status: Acute - Time Spent with Patient Total time spent is greater than 50% in coordination of care (as documented) at patient's floor/unit and/or counseling patient: Internal Medicine: Result - Labs CBC & Chem 7: 03/20/19 05:27 03/20/19 05:27 Labs: Short CBC 03/20/19 Range/Units 05:27 WBC 5.4 (4.3-11.1) K/mcL Hgb 11.5 (11.5-15.4) g/dL Hct 41.2 (35.3-44.9) % Plt Count 215 (140-400) K/mcL Neutrophils # 3.6 (1.6-8.9) K/mcL BMP 03/20/19 05:27 Sodium 140 Potassium 4.3 Chloride 98 Carbon Dioxide 36 H BUN 18 Creatinine 1.19 Glucose 215 H Calcium 8.9 Liver Function 03/20/19 Range/Units 05:27 Total Bilirubin 0.4 (0.3-1.0) mg/dL AST 24 (13-39) Units/L ALT 28 (7-52) Units/L Alkaline Phosphatase 100 (34-104) Units/L Albumin 3.2 L (3.5-5.7) g/dL - ABG Interpretation ABG results: ABG ABG pH 7.35 pH Units (7.32-7.45) 03/19/19 22:38 ABG pCO2 70 mmHg (35-45) H* 03/19/19 22:38 ABG pO2 81 mmHg (85-104) L 03/19/19 22:38 ABG O2 Saturation 95 % (95-98) 03/19/19 22:38 - Impressions Impressions Chest X-Ray 03/19/19 17:32 IMPRESSION: 1. Mild pulmonary edema, new since 03/16/2019. 2. Low lung volumes. 3. Cardiomegaly. D/ : / 03/19/2019 18:50:28 Aissatou Rehman MD / [facility] Interpreting Provider: Aissatou Rehman MD - Attending Attestation I saw evaluated and examined this patient and reviewed objective data including labs and my medical decision-making was reviewed with the Resident Physician. I agree with the documented findings, disposition and treatment plan as described except to any changes set forth below. We independently had [id number] contact with the patient. <TriciahammadRuth Ann E - Last Filed: 03/20/19 12:47> (3) Altered mental state Qualifiers: Altered mental status type: delirium Qualified Code(s): R41.0 - Disorientation, unspecified (4) Congestive heart failure Qualifiers: Heart failure type: diastolic Heart failure chronicity: acute Qualified Code(s): I50.31 - Acute diastolic (congestive) heart failure (5) Hypothyroidism Qualifiers: Hypothyroidism type: acquired Qualified Code(s): E03.9 - Hypothyroidism, unspecified (6) Type 2 diabetes mellitus Qualifiers: Diabetes mellitus skilled nursing insulin use: with precinct police lieutenant use Diabetes mellitus complication status: with hyperglycemia Qualified Code(s): E11.65 - Type 2 diabetes mellitus with hyperglycemia; Z79.4 - plant senior manager (current) use of insulin (8) HTN (hypertension) Qualifiers: Hypertension type: essential hypertension Qualified Code(s): I10 - Essential (primary) hypertension <VyjenniferAudelia melgar - Last Filed: 03/20/19 13:10> (1) HTN (hypertension) Qualifiers: Hypertension type: essential hypertension Qualified Code(s): I10 - Essential (primary) hypertension (2) Altered mental state Qualifiers: Altered mental status type: delirium Qualified Code(s): R41.0 - Disorientation, unspecified (3) Type 2 diabetes mellitus Qualifiers: Diabetes mellitus skilled nursing insulin use: with skilled nursing use Diabetes mellitus complication status: with hyperglycemia Qualified Code(s): E11.65 - Type 2 diabetes mellitus with hyperglycemia; Z79.4 - residential (current) use of insulin (4) CHF exacerbation Qualifiers: Heart failure type: diastolic Qualified Code(s): I50.33 - Acute on chronic diastolic (congestive) heart failure
--- NOTE | 2019-03-20 11:49 | Nephrology Consult Note ---
Date of Encounter: 03/20/19 Time of Encounter: 11:37 Assessment and Plan (1) Metabolic alkalosis Current Visit: Yes Status: Acute Patient has metabolic alkalosis, however he does not have an alkalemia. Review of his labs reveals a pH that is on the low side of normal. This suggests that the patient has a respiratory acidosis that has been compensated for by her metabolic alkalosis. Because she is corrected all the way to normal she may have a chronic metabolic alkalosis as well. Looking at her PCO2 her problem seems to be a chronic respiratory acidosis. I would recommend getting a pulmonary consultation to evaluate if you remain concerned about her respiratory status.. However, I suspect this may be chronic in nature. There may be an acute on chronic component based on her clinical presentation. Her renal function seems stable. At this time I will sign off. Thank you for the interesting consult. Please call if any concerns. (2) Chronic kidney disease, stage III (moderate) Current Visit: Yes Status: Acute Patient has a CK D stage III. Her baseline renal function seems to be in her knees, however, her most recent EGFR is 44. Avoid nephrotoxic agents. Adjust medications for renal function. (3) CHF exacerbation Current Visit: Yes Status: Acute Qualifiers: Heart failure type: diastolic Qualified Code(s): I50.33 - Acute on chronic diastolic (congestive) heart failure (4) Altered mental state Current Visit: Yes Status: Acute Qualifiers: Altered mental status type: delirium Qualified Code(s): R41.0 - Disorientation, unspecified (5) Hypercarbia Current Visit: Yes Status: Acute (6) HTN (hypertension) Current Visit: Yes Status: Chronic Titrate blood pressure medications as needed. Qualifiers: Hypertension type: essential hypertension Qualified Code(s): I10 - Essential (primary) hypertension (7) Type 2 diabetes mellitus Current Visit: Yes Status: Chronic Per primary team. Qualifiers: Diabetes mellitus terminal operations manager insulin use: with retirement use Diabetes mellitus complication status: with hyperglycemia Qualified Code(s): E11.65 - Type 2 diabetes mellitus with hyperglycemia; Z79.4 - terminal supervisor (current) use of insulin (8) CVA, old, cognitive deficits Current Visit: No Status: Chronic History of Present Illness - Reason for Consult Consult date: 03/20/19 - Chief Complaint metabolic alkalosis - History of Present Illness Ms. Gregory is an 83 yo woman with a history of CKD Stage 3 who presents with dyspnea and altered mental status. [facility] was consult secondary to a persistently elevated serum bicarbonate level. The patient was s een her mental status seems to be improving her nursing although she still has some odd thoughts. She reports that she is feeling well. She states her breathing is better. She does complain of some abdominal pain that she thinks is getting better. She complains of diarrhea which the nurse says she has not had since admission. Overall I do not feel that her review of system is completely reliable secondary to her mental status. Per nursing her complaints seem to be resolving. Past Med Surg Social Fam HX - Past Medical History Medical history: arthritis, asthma, CVA, dementia, diabetes, GERD, glaucoma, hyperlipidemia, hypertension, osteoporosis, renal disease, thyroid disease, other Additional medical history: Gout, osteo arthritis, anxiety, CVA, Psychiatric history: anxiety, depression, other - Past Surgical History Surgical History: cholecystectomy Additional surgical history: b/l shoulder repair, OIRF right humerus, knee replacement - Social History Smoking Status: Never smoker Smokeless Tobacco Status: No Alcohol use: none Drug use: none - Family History Mother Living Status: Father Living Status: Hx Family Cardiac Disorders: Yes Hx Family Cancer: Yes Medications and Allergies Allopurinol [Zyloprim 100 MG] 100 mg PO DAILY 03/12/19 [History] Aspirin [Adult Aspirin Regimen] 81 mg PO DAILY 03/12/19 [History] Atorvastatin [Lipitor] 40 mg PO HS 03/12/19 [History] Donepezil [Aricept] 10 mg PO HS 03/12/19 [History] Escitalopram [Lexapro] 10 mg PO DAILY 03/12/19 [History] Fluticasone Propionate Nasal [Flonase] 2 spr NS BID 03/12/19 [History] Furosemide [Lasix] 20 mg PO DAILY 03/12/19 [History] Guaifenesin [Mucinex] 600 mg PO BID PRN 03/12/19 [History] Insulin Regular U-500 [HumuLIN R U-500] 85 unit SQ 0600 03/12/19 [History] Levocetirizine Dihydrochloride [Allergy Relief (Xyzal)] 5 mg PO DAILY 03/12/19 [History] Levothyroxine [Synthroid] 50 mcg PO 0630 03/12/19 [History] Omeprazole [PriLOSEC] 40 mg PO DAILY 03/12/19 [History] Insulin Regular, Human [Humulin R U-500 Kwikpen] 20 unit SQ 1600 03/13/19 [History] Allergy/AdvReac Type Severity Reaction Status Date / Time clarithromycin [From Biaxin] Allergy Rash Verified 09/21/16 14:44 Penicillins Allergy Rash Verified 09/21/16 14:44 Review of Systems All Systems: reviewed and no additional remarkable complaints except as stated (As documented in the history of present illness) Exam - Vital Signs Vital signs: Initial Vital Signs Temp Pulse Resp BP Pulse Ox 99.4 F 98 20 151/77 100 03/12/19 09:14 03/12/19 09:14 03/12/19 09:14 03/12/19 09:14 03/12/19 09:14 Vital Signs - Last 8 Hours Temp Pulse Resp BP Pulse Ox 03/20/19 11:27 18 96 03/20/19 11:01 98.1 F 84 16 141/66 96 03/20/19 09:47 84 127/70 03/20/19 07:58 96 03/20/19 07:47 18 97 03/20/19 06:50 97.8 F 82 16 181/79 96 03/20/19 04:32 12 96 03/20/19 04:28 12 96 03/20/19 03:55 97.8 F 79 18 164/82 98 Intake and Output 03/19/19 03/20/19 03/20/19 23:59 07:59 15:59 Intake Total 0 / 240 240 / 240 Output Total 250 / 250 800 / 800 Balance -250 / -100 0 / -560 -560 / -560 Intake: Oral 0 / 240 240 / 240 Output: Urine 250 / 250 800 / 800 Other: Meal Breakfast Percent of Meal Consumed 40% Weight 106 kg Blood Glucose* 220 188 305 Patient Weight 03/20/19 23:59 Weight 106 kg - General Appearance General appearance: well-developed, well-nourished, obese EENT: ATNC Neck: supple Respiratory: clear Cardiology: no edema, regular rate Gastrointestinal: tenderness (In her left lower quadrant and in her epigastric region. She has no rebound. The discomfort seems mild with deep palpation.), obese Integumentary: warm and dry (She is alert, but not completely oriented.) Musculoskeletal: no cyanosis Psychiatric: mood/affect appropriate Results - Lab Results 03/20/19 05:27 03/20/19 05:27 Most recent lab results 03/20/19 05:27 Calcium 8.9 Consult Discharge Plan - Plan Referrals: Umm Whitt CNP [Primary Care Provider] - ([facility])
[2019-03-20] MEDS: Furosemide 20 MG TABLET PO SCH (16:54)
[2019-03-20] MEDS: Insulin DETEMIR 100 UNIT/ML X5UNITS SQ SCH (20:09)
[2019-03-21 02:42] LABS: Basophils % 0.3 %; Eosinophils % 4.2 %; Mean Corpuscular Hemoglobin 25.3 pg (28.0-33.3); Mean Platelet Volume 11.2 fL (9.4-12.4); Monocytes % 9.6 %
[2019-03-21 02:44] LABS: Eosinophils # 0.3 K/mcL (0.0-0.6); Hematocrit 40.3 % (35.3-44.9); Hemoglobin 11.4 g/dL (11.5-15.4); Immature Granulocytes % 0.3 % (0-4); Lymphocytes # 1.1 K/mcL (0.6-4.6); Lymphocytes % 16.8 %; Mean Corpuscular HGB Conc 28.3 g/dL (31.6-35.5); Mean Corpuscular Volume 89.4 fL (83.0-100.0); Monocytes # 0.6 K/mcL (0.0-1.3); Neutrophils # 4.4 K/mcL (1.6-8.9); Platelet Count 245 K/mcL (140-400); Red Blood Count 4.51 M/mcL (3.82-4.97); Red Cell Distribution Width 15.5 % (11.5-14.5); Segmented Neutrophils % 68.8 %; White Blood Count 6.4 K/mcL (4.3-11.1)
[2019-03-21 02:58] LABS: Albumin 3.2 g/dL (3.5-5.7); Bilirubin,Total 0.3 mg/dL (0.3-1.0); Globulin 3.2 g/dL (2.4-3.5); Potassium 4.2 mEq/L (3.5-5.1); Total Protein 6.4 g/dL (6.4-8.9)
[2019-03-21 04:06] LABS: Anisocytosis 1+ (Not Present); Hypochromasia Present (Not Present); Platelet Estimate Normal (Normal)
[2019-03-21] MEDS: Ipratropium/Albuterol Neb 3 ML IH SCH ×6 (04:10→23:59)
[2019-03-21] MEDS: *HR* Heparin 5,000 UNIT/ML VIAL SQ SCH ×2 (05:06→17:41)
[2019-03-21] MEDS: Insulin LISPRO 300 UNITS/3 ML VIAL SQ SCH ×4 (09:32→21:37)
[2019-03-21] MEDS: Aspirin Enteric Coated 81 MG Tablet PO SCH (09:36)
[2019-03-21] MEDS: Lactobacillus 1 EACH CAP.SPRINK PO SCH (09:36)
[2019-03-21] MEDS: Fluticasone Propionate Nasal 50 MCG/SPRAY BOTTLE NS SCH ×2 (09:36→21:37)
[2019-03-21] MEDS: Furosemide 20 MG TABLET PO SCH (09:37)
[2019-03-21] MEDS: Nystatin POWDER 30 GM BOTTLE TP SCH ×4 (09:45→22:50)
--- NOTE | 2019-03-21 10:08 | Discharge Summary ---
<Ruth Ann Edwards E - Last Filed: 03/21/19 14:33> Date of Encounter: 03/21/19 Time of Encounter: 09:45 - Discharge Diagnosis (1) Hypercarbia Priority: Primary Status: Acute (2) Diarrhea Priority: Secondary Status: Resolved Qualifiers: Diarrhea type: unspecified type Qualified Code(s): R19.7 - Diarrhea, unspecified (3) Altered mental state Priority: Primary Status: Acute Qualifiers: Altered mental status type: delirium Qualified Code(s): R41.0 - Disorientation, unspecified (4) Congestive heart failure Priority: Primary Status: Suspected Qualifiers: Heart failure type: diastolic Heart failure chronicity: acute Qualified Code(s): I50.31 - Acute diastolic (congestive) heart failure (5) Hypothyroidism Priority: Secondary Status: Chronic Qualifiers: Hypothyroidism type: acquired Qualified Code(s): E03.9 - Hypothyroidism, unspecified (6) Type 2 diabetes mellitus Priority: Secondary Status: Chronic Qualifiers: Diabetes mellitus terminal computer operator insulin use: with residential use Diabetes mellitus complication status: with hyperglycemia Qualified Code(s): E11.65 - Type 2 diabetes mellitus with hyperglycemia; Z79.4 - adjunct faculty for medical terminology (current) use of insulin (7) Chronic kidney disease, stage III (moderate) Priority: Secondary Status: Acute (8) HTN (hypertension) Priority: Secondary Status: Chronic Qualifiers: Hypertension type: essential hypertension Qualified Code(s): I10 - Essential (primary) hypertension (9) DVT prophylaxis Priority: Secondary Status: Acute Hospital course: Ms. Gregory is a 83 year old female initially presented to the ER for altered mental status as well as shortness of breath. EKG did not show any new acute ischemic changes. Chest x-ray showed vascular congestion without signs of obvious pneumonia. Urinalysis did show evidence of urinary tract infection at that time the patient had mildly elevated potassium of 5.4. Patient does have a history of CAD and renal function is around her baseline. Patient did have an elevated BNP. She was admitted for likely a CHF exacerbation and was given 20 mg of IV Lasix. Patient was treated with IV Lasix initially with improvement of shortness of breath and her altered mental status decreased to being awake alert and oriented person and date of . Throughout her stay she was not able to take why she was in the hospital. Her mental status initially thought to be from CHF exacerbation. Patients diabetes controlled using sliding scale insulin throughout stay. Echocardiogram was done to evaluate patients congestive heart failure and showed LVEF is 6065%, normal LV size and function, mild concentric LV hypertrophy, mild left ventricular diastolic dysfunction, normal right ventricular size and function, mild tricuspid regurgitation, mild pulmonary hypertension. On 03/14 patient was switched to oral Lasix 20 mg daily. On 02/12 TSH was found to be 7.8-0 and levothyroxine was increased to 100 units from 50. Outpatient follow-up for these labs will be needed. Also Lasix was held at the date due to decreased mental status as well as note of hypercarboxia most likely due to contraction alkalosis. Lasix continued to be held for a total of 3 days. Patient was given gentle hydration to help alleviate this. Patients ABGs started to trend more towards normal and patients slight diarrhea resolved so fluids were discontinued and Lasix 10 mg was started on 03/20. Nephrology was consulted for patients her carboxia and they believe at this time this is primarily respiratory in nature and possibly patients baseline at this point. Patient is no longer needing bipap during the day and only using at night. Patients labs are trending toward baseline. Patients vitals are stable. She will be [facility]. Discharge discussed with: patient - Time Spent with Patient Total time spent providing and/or coordinating discharge services: - Discharge Medications Prescriptions: New Furosemide [Lasix] 10 mg PO DAILY #30 tablet Continued Levocetirizine Dihydrochloride [Allergy Relief (Xyzal)] 5 mg PO DAILY Fluticasone Propionate Nasal [Flonase] 2 spr NS BID Donepezil [Aricept] 10 mg PO HS Guaifenesin [Mucinex] 600 mg PO BID PRN PRN Reason: Congestion Aspirin [Adult Aspirin Regimen] 81 mg PO DAILY Omeprazole [PriLOSEC] 40 mg PO DAILY Levothyroxine [Synthroid] 50 mcg PO 0630 Atorvastatin [Lipitor] 40 mg PO HS Allopurinol [Zyloprim 100 MG] 100 mg PO DAILY Escitalopram [Lexapro] 10 mg PO DAILY Insulin Regular U-500 [HumuLIN R U-500] 85 unit SQ 0600 Insulin Regular, Human [Humulin R U-500 Kwikpen] 20 unit SQ 1600 Discontinued Furosemide [Lasix] 20 mg PO DAILY Home Medications: Allopurinol [Zyloprim 100 MG] 100 mg PO DAILY 03/12/19 [History] Aspirin [Adult Aspirin Regimen] 81 mg PO DAILY 03/12/19 [History] Atorvastatin [Lipitor] 40 mg PO HS 03/12/19 [History] Donepezil [Aricept] 10 mg PO HS 03/12/19 [History] Escitalopram [Lexapro] 10 mg PO DAILY 03/12/19 [History] Fluticasone Propionate Nasal [Flonase] 2 spr NS BID 03/12/19 [History] Guaifenesin [Mucinex] 600 mg PO BID PRN 03/12/19 [History] Insulin Regular U-500 [HumuLIN R U-500] 85 unit SQ 0600 03/12/19 [History] Levocetirizine Dihydrochloride [Allergy Relief (Xyzal)] 5 mg PO DAILY 03/12/19 [History] Levothyroxine [Synthroid] 50 mcg PO 0630 03/12/19 [History] Omeprazole [PriLOSEC] 40 mg PO DAILY 03/12/19 [History] Insulin Regular, Human [Humulin R U-500 Kwikpen] 20 unit SQ 1600 03/13/19 [History] Furosemide [Lasix] 10 mg PO DAILY #30 tablet 03/21/19 [Rx] Allergies/Adverse Reactions: Allergy/AdvReac Type Severity Reaction Status Date / Time clarithromycin [From Biaxin] Allergy Rash Verified 09/21/16 14:44 Penicillins Allergy Rash Verified 09/21/16 14:44 Date of admission: 03/13/19 14:35 Primary care physician: Umm Whitt CNP Consults: 03/12/19 15:30 Consult to Nutrition [CONS] Routine Comment: Consulting Provider: NUTRITION Reason for Dietary Consult: MST Score Consult to Surgical Assist [CONS] Routine Reason for SW Consult: Patient came from E[facility], will need placement back to ECF 03/13/19 13:59 Consult to Occupational Therapy [CONS] Routine Comment: Evaluate, develop and implement POC Reason for Consult: weakness Does patient have active BEDREST order?: No Is patient medically & hemodynamically stable?: Yes Consult to Physical Therapy [CONS] Routine Comment: Evaluate, develop and implement POC Reason for Consult: weakness Does patient have active BEDREST order?: No Is patient medically & hemodynamically stable?: Yes Consult to Speech Therapy [CONS] Routine Comment: Evaluate, develop and implement POC Reason for Consult: altered mental status Call Completed: No 03/14/19 08:26 Consult to Nurse Navigator [CONS] Routine Comment: chf 03/16/19 06:15 Consult to Respiratory Therapy [CONS] Routine Reason for Consult: Increased CO2 Call Completed: Yes 03/20/19 09:48 Consult to Nephrology [CONS] Routine Consulting Provider: Kidney Newhall/ORIMI/PARG/BROWN Reason for Consult: continued hypercarbia/acid base disturbance Call Completed: Yes - Constitutional Vitals: Temp Pulse Resp BP Pulse Ox 98.0 F 84 16 151/75 94 03/21/19 07:43 03/21/19 07:43 03/21/19 07:43 03/21/19 07:43 03/21/19 07:43 Exam: General: Patient is alert and awake oriented to person and place but not time or condition Head: normocephalic, atraumatic Eyes: GILBERT, no icterus Cardio: RRR, no murmurs, rubs, or gallops Respiratory: Diminished Respiratory sounds bilateral lower lobes, no wheezing, rhonchi, rales Abd: normal bowel sounds, no guarding or rigidity Extremities: no pedal edema, pulses equal bilaterally, warm Skin: warm, dry, intact - Patient Status Disposition: Transfer Inpatient Rehab Fac Condition: Good Functional capacity at discharge: bed bound Overall status at discharge: patient is progressing back to baseline - Discharge Instructions Follow Up With: Umm Whitt CNP [Primary Care Provider] - (ECF) Forms: ED Satisfaction Letter Additional Instructions: 10 mg Lasix daily. Daily weights first thing in the morning after entering bladder before breakfast with minimal clothing. Call primary care doctor if gain is more than 2 pounds in 2 days or 5 pounds in 1 week. Patient will need thyroid labs in approximately 6 weeks to assess thyroid function - Diet and Activity Activity: as per physical therapy Diet: advance to your usual diet <Audelia Eubanks - Last Filed: 03/21/19 22:48> Date of Encounter: 03/21/19 - Discharge Diagnosis (1) HTN (hypertension) Status: Chronic Qualifiers: Hypertension type: essential hypertension Qualified Code(s): I10 - Essential (primary) hypertension (2) Altered mental state Status: Acute Qualifiers: Altered mental status type: delirium Qualified Code(s): R41.0 - Disorientation, unspecified (3) Type 2 diabetes mellitus Status: Chronic Qualifiers: Diabetes mellitus terminal computer operator insulin use: with terminal computer operator use Diabetes mellitus complication status: with hyperglycemia Qualified Code(s): E11.65 - Type 2 diabetes mellitus with hyperglycemia; Z79.4 - skilled nursing (current) use of insulin (4) CHF exacerbation Status: Acute Qualifiers: Heart failure type: diastolic Qualified Code(s): I50.33 - Acute on chronic diastolic (congestive) heart failure (5) Chronic kidney disease, stage III (moderate) Status: Acute Hospital course: Ms. Gregory is a 83 year old female - Time Spent with Patient Total time spent providing and/or coordinating discharge services: Date of admission: 03/13/19 14:35 Primary care physician: Umm Whitt CNP Consults: 03/12/19 15:30 Consult to Nutrition [CONS] Routine Comment: Consulting Provider: NUTRITION Reason for Dietary Consult: MST Score Consult to Surgical Assist [CONS] Routine Reason for SW Consult: Patient came from ECF, will need placement back to ECF 03/13/19 13:59 Consult to Occupational Therapy [CONS] Routine Comment: Evaluate, develop and implement POC Reason for Consult: weakness Does patient have active BEDREST order?: No Is patient medically & hemodynamically stable?: Yes Consult to Physical Therapy [CONS] Routine Comment: Evaluate, develop and implement POC Reason for Consult: weakness Does patient have active BEDREST order?: No Is patient medically & hemodynamically stable?: Yes Consult to Speech Therapy [CONS] Routine Comment: Evaluate, develop and implement POC Reason for Consult: altered mental status Call Completed: No 03/14/19 08:26 Consult to Nurse Navigator [CONS] Routine Comment: chf 03/16/19 06:15 Consult to Respiratory Therapy [CONS] Routine Reason for Consult: Increased CO2 Call Completed: Yes 03/20/19 09:48 Consult to Nephrology [CONS] Routine Consulting Provider: Kid[facility] Newhall/CHLOÉ/RENO/SOWMYA Reason for Consult: continued hypercarbia/acid base disturbance Call Completed: Yes - Constitutional Vitals: Temp Pulse Resp BP Pulse Ox 99.2 F 90 14 150/71 97 03/21/19 18:59 03/21/19 18:59 03/21/19 18:59 03/21/19 18:59 03/21/19 18:59 - Attending Attestation I saw evaluated and examined this patient and reviewed objective data including labs and my medical decision-making was reviewed with the Resident Physician. I agree with the documented findings, disposition and treatment plan as described except to any changes set forth below. We independently had [id number] contact with the patient. Currently awaiting placement. Has not required bipap during the day now. Mental status at baseline, AAO x2. Vitals stable.
[2019-03-21] MEDS: Insulin DETEMIR 100 UNIT/ML X5UNITS SQ SCH (21:38)
[2019-03-22] MEDS: Ipratropium/Albuterol Neb 3 ML IH SCH ×6 (03:42→22:02)
[2019-03-22 04:01] LABS: Basophils % 0.5 %; Hematocrit 40.2 % (35.3-44.9); Hemoglobin 11.4 g/dL (11.5-15.4); Mean Corpuscular HGB Conc 28.4 g/dL (31.6-35.5)
[2019-03-22 04:03] LABS: Eosinophils # 0.3 K/mcL (0.0-0.6); Immature Granulocytes % 0.3 % (0-4); Lymphocytes # 1.3 K/mcL (0.6-4.6); Lymphocytes % 20.1 %; Mean Corpuscular Volume 88.2 fL (83.0-100.0); Mean Platelet Volume 11.2 fL (9.4-12.4); Monocytes # 0.7 K/mcL (0.0-1.3); Monocytes % 10.5 %; Neutrophils # 4.1 K/mcL (1.6-8.9); Platelet Count 253 K/mcL (140-400); Red Blood Count 4.56 M/mcL (3.82-4.97); Red Cell Distribution Width 15.5 % (11.5-14.5); Segmented Neutrophils % 63.6 %; White Blood Count 6.4 K/mcL (4.3-11.1)
[2019-03-22 04:17] LABS: Albumin 3.3 g/dL (3.5-5.7); Bilirubin,Total 0.3 mg/dL (0.3-1.0); Globulin 3.2 g/dL (2.4-3.5); Potassium 4.5 mEq/L (3.5-5.1); Total Protein 6.5 g/dL (6.4-8.9)
[2019-03-22 05:11] LABS: Platelet Estimate Normal (Normal)
[2019-03-22 05:12] LABS: Hypochromasia Present (Not Present); Stomatocytes 1+ (Not Present)
[2019-03-22] MEDS: *HR* Heparin 5,000 UNIT/ML VIAL SQ SCH ×2 (05:21→17:02)
[2019-03-22] MEDS: Insulin LISPRO 300 UNITS/3 ML VIAL SQ SCH ×3 (08:13→16:47)
[2019-03-22] MEDS: Nystatin POWDER 30 GM BOTTLE TP SCH ×4 (08:14→21:42)
[2019-03-22] MEDS: Lactobacillus 1 EACH CAP.SPRINK PO SCH (08:14)
[2019-03-22] MEDS: Fluticasone Propionate Nasal 50 MCG/SPRAY BOTTLE NS SCH ×2 (08:14→21:40)
[2019-03-22] MEDS: Furosemide 20 MG TABLET PO SCH (08:14)
[2019-03-22] MEDS: Aspirin Enteric Coated 81 MG Tablet PO SCH (08:14)
--- NOTE | 2019-03-22 08:59 | Internal Med Progress Note ---
<Demi Kidd - Last Filed: 03/22/19 15:12> Hospitalist Progress Note - Encounter Date of Encounter: 03/22/19 Time of Encounter: 15:15 - Exam Vitals: Temp Pulse Resp BP Pulse Ox 98.0 F 82 18 144/74 96 03/22/19 11:36 03/22/19 11:36 03/22/19 11:59 03/22/19 11:36 03/22/19 11:59 - Assessment and Plan (1) HTN (hypertension) Current Visit: Yes Status: Chronic (2) Altered mental state Current Visit: Yes Status: Acute (3) Type 2 diabetes mellitus Current Visit: Yes Status: Chronic (4) CHF exacerbation Current Visit: Yes Status: Acute (5) Chronic kidney disease, stage III (moderate) Current Visit: Yes Status: Acute - Time Spent with Patient Total time spent is greater than 50% in coordination of care (as documented) at patient's floor/unit and/or counseling patient: Internal Medicine: Result - Labs CBC & Chem 7: 03/22/19 03:36 03/22/19 03:36 Labs: Short CBC 03/22/19 Range/Units 03:36 WBC 6.4 (4.3-11.1) K/mcL Hgb 11.4 L (11.5-15.4) g/dL Hct 40.2 (35.3-44.9) % Plt Count 253 (140-400) K/mcL Neutrophils # 4.1 (1.6-8.9) K/mcL BMP 03/22/19 03:36 Sodium 139 Potassium 4.5 Chloride 100 Carbon Dioxide 33 H BUN 29 H Creatinine 1.56 H Glucose 251 H Calcium 9.0 Liver Function 03/22/19 Range/Units 03:36 Total Bilirubin 0.3 (0.3-1.0) mg/dL AST 19 (13-39) Units/L ALT 24 (7-52) Units/L Alkaline Phosphatase 111 H (34-104) Units/L Albumin 3.3 L (3.5-5.7) g/dL - ABG Interpretation ABG results: ABG ABG pH 7.35 pH Units (7.32-7.45) 03/19/19 22:38 ABG pCO2 70 mmHg (35-45) H* 03/19/19 22:38 ABG pO2 81 mmHg (85-104) L 03/19/19 22:38 ABG O2 Saturation 95 % (95-98) 03/19/19 22:38 Consult Discharge Plan - Plan Additional Instructions: 10 mg Lasix daily. Daily weights first thing in the morning after entering bladder before breakfast with minimal clothing. Call primary care doctor if gain is more than 2 pounds in 2 days or 5 pounds in 1 week. Patient will need thyroid labs in approximately 6 weeks to assess thyroid function Referrals: Umm Whitt REGISTERED HEALTH NURSE [Primary Care Provider] - (ECF) Prescriptions: Furosemide [Lasix] 10 mg PO DAILY #30 tablet - Attending Attestation I saw evaluated and examined this patient and reviewed objective data including labs and my medical decision-making was reviewed with the Resident Physician, Alexis Ramirez. I agree with the documented findings, disposition and treatment plan as described except to any changes set forth below. We independently had [id number] contact with the patient. Patient is awake and alert. Complaints of mild shortness of breath but overall appears to be getting better. Renal function abnormal today with creatinine of 1.56. Most likely due to lisinopril use. Will monitor renal function. If remains stable, possible discharge tomorrow. Patient does appear to have underlying chronic kidney disease stage II/III based on her labs from the past. Blood sugars remain elevated. We will increase insulin regimen further. <Alexis Ramirez - Last Filed: 03/22/19 17:24> Hospitalist Progress Note - Encounter Date of Encounter: 03/22/19 - Subjective Interval History: Pt seen and examined at bedside. No new or acute complaints. Nurse reports no acute events overnight. Denies any fever, chills, chest pain, shortness of breath, abdominal pain, nausea, or vomiting. - Exam Vitals: Temp Pulse Resp BP Pulse Ox 98.5 F 88 18 144/77 96 03/22/19 07:19 03/22/19 07:19 03/22/19 07:22 03/22/19 07:19 03/22/19 08:24 Exam: General: elderly female in no acute distress Head: NCAT Eyes: PERRL, EOMI, sclera anicteric Neck: supple, trachea midline Lungs: decreased breath sound in bilateral lung bases. Non-labored breathing. No wheezes, rales, or rhonchi Heart: RRR +s1 +s2 No murmurs, clicks, or rubs GI: abdomen obese. Soft, non-tender Extremities: warm, radial pulses palpable and symmetrical. No cyanosis, pedal edema, or calf tenderness. Neuro: A&Ox2. Mentation appears at baseline. No slurred speech Skin: warm, dry, intact - Assessment and Plan (1) Hypercarbia Current Visit: Yes Status: Acute Assessment and Plan: Contraction alkalosis for CO2 retention from other pulmonary concerns - initially noted on 03/15 Urine chloride 57 suggestive of dehydration Chloride loss could also be from diarrhea although this has resolved CT chest showed basilar atelectasis otherwise no acute cardiopulmonary disease Respiratory infection panel negative Continue to monitor and advised patient to use BiPAP as much as possible Pt responded well to multiple fluid challenges as well as low dose Lasix Nephrology evaluated to pt and felt the hypercarbia is chronic and respiratory in nature We will hold any fluid challenges today Continue to monitor fluid status closely (2) Chronic kidney disease, stage III (moderate) Current Visit: Yes Status: Acute Assessment and Plan: Creatinine increased this AM - will continue to monitor and possibly hold or continue Lasix after tomorrow morning's evaluation Avoid nephrotoxic substances and renally dose medications as necessary (3) HTN (hypertension) Current Visit: Yes Status: Chronic Assessment and Plan: semi-controlled at 144/77 this AM However given NANCY, will continue to monitor daily Lasix and Lisinopril dosing (4) Altered mental state Current Visit: Yes Status: Chronic Assessment and Plan: Mentation unchanged over the past couple of days CT head from 03/16 showed diffuse atrophic changes with findings suggestive of chronic microvascular ischemia as well as bilateral mastoid effusions but no acute intracranial abnormalities MRI head/brain from 03/17 showed no acute intracranial abnormality, 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 Likely secondary to hypercarbia Continue to monitor patient's mental status (5) Type 2 diabetes mellitus Current Visit: Yes Status: Chronic Assessment and Plan: Continued to monitor blood sugars Increase to high dose sliding scale insulin Increase to Levemir 10 BID (6) CHF exacerbation Current Visit: Yes Status: Acute Assessment and Plan: Patient had reported shortness of breath for the last few weeks CXR revealed mild pulmonary edema as well as cardiomegaly Elevated BNP of 596 on admission Echocardiogram shows LVEF 60-65%, normal LV size and function, mild concentric LV hypertrophy, mild left vent diastolic dysfunction, normal right ventricular size and function, mild tricuspid regurgitation, mild pulmonary hypertension Appears euvolemic at this time Will monitor kidney functions tomorrow and possibly hold or continue Lasix at that time DVT Prophylaxis: Subcutaneous heparin - Time Spent with Patient Total time spent is greater than 50% in coordination of care (as documented) at patient's floor/unit and/or counseling patient: Internal Medicine: Result - Labs CBC & Chem 7: 03/22/19 03:36 03/22/19 03:36 Labs: Short CBC 03/22/19 Range/Units 03:36 WBC 6.4 (4.3-11.1) K/mcL Hgb 11.4 L (11.5-15.4) g/dL Hct 40.2 (35.3-44.9) % Plt Count 253 (140-400) K/mcL Neutrophils # 4.1 (1.6-8.9) K/mcL BMP 03/22/19 03:36 Sodium 139 Potassium 4.5 Chloride 100 Carbon Dioxide 33 H BUN 29 H Creatinine 1.56 H Glucose 251 H Calcium 9.0 Liver Function 03/22/19 Range/Units 03:36 Total Bilirubin 0.3 (0.3-1.0) mg/dL AST 19 (13-39) Units/L ALT 24 (7-52) Units/L Alkaline Phosphatase 111 H (34-104) Units/L Albumin 3.3 L (3.5-5.7) g/dL - ABG Interpretation ABG results: ABG ABG pH 7.35 pH Units (7.32-7.45) 03/19/19 22:38 ABG pCO2 70 mmHg (35-45) H* 03/19/19 22:38 ABG pO2 81 mmHg (85-104) L 03/19/19 22:38 ABG O2 Saturation 95 % (95-98) 03/19/19 22:38 <Demi Kidd - Last Filed: 03/22/19 15:12> (1) HTN (hypertension) Qualifiers: Hypertension type: essential hypertension Qualified Code(s): I10 - Essential (primary) hypertension (2) Altered mental state Qualifiers: Altered mental status type: delirium Qualified Code(s): R41.0 - Disorientation, unspecified (3) Type 2 diabetes mellitus Qualifiers: Diabetes mellitus longterm insulin use: with longterm use Diabetes mellitus complication status: with hyperglycemia Qualified Code(s): E11.65 - Type 2 diabetes mellitus with hyperglycemia; Z79.4 - longterm (current) use of insulin (4) CHF exacerbation Qualifiers: Heart failure type: diastolic Qualified Code(s): I50.33 - Acute on chronic diastolic (congestive) heart failure <Alexis Ramirez - Last Filed: 03/22/19 17:24> (3) HTN (hypertension) Qualifiers: Hypertension type: essential hypertension Qualified Code(s): I10 - Essential (primary) hypertension (4) Altered mental state Qualifiers: Altered mental status type: delirium Qualified Code(s): R41.0 - Disorientation, unspecified (5) Type 2 diabetes mellitus Qualifiers: Diabetes mellitus intermediate accountant insulin use: with intermediate accountant use Diabetes mellitus complication status: with hyperglycemia Qualified Code(s): E11.65 - Type 2 diabetes mellitus with hyperglycemia; Z79.4 - lobsterman (current) use of insulin (6) CHF exacerbation Qualifiers: Heart failure type: diastolic Qualified Code(s): I50.33 - Acute on chronic diastolic (congestive) heart failure
[2019-03-22] MEDS ORDERED: Insulin LISPRO 300 UNITS/3 ML VIAL SQ SCH ×3 (14:30→21:00)
[2019-03-22] MEDS ORDERED: Insulin DETEMIR 100 UNIT/ML X5UNITS SQ SCH (14:30)
[2019-03-22] MEDS ORDERED: Insulin DETEMIR 100 UNIT/ML X5UNITS SQ ONE (15:04)
[2019-03-22] MEDS: Insulin DETEMIR 100 UNIT/ML X5UNITS SQ SCH (21:42)
[2019-03-23] MEDS: Ipratropium/Albuterol Neb 3 ML IH SCH ×2 (04:13→10:12)
[2019-03-23] MEDS: *HR* Heparin 5,000 UNIT/ML VIAL SQ SCH (05:31)
[2019-03-23 05:49] LABS: Basophils % 0.5 %; Hemoglobin 11.9 g/dL (11.5-15.4); Mean Corpuscular Hemoglobin 25.3 pg (28.0-33.3); Red Cell Distribution Width 15.5 % (11.5-14.5)
[2019-03-23 05:51] LABS: Eosinophils # 0.3 K/mcL (0.0-0.6); Immature Granulocytes % 0.2 % (0-4); Lymphocytes # 1.1 K/mcL (0.6-4.6); Lymphocytes % 17.3 %; Mean Corpuscular HGB Conc 28.3 g/dL (31.6-35.5); Mean Corpuscular Volume 89.2 fL (83.0-100.0); Mean Platelet Volume 11.7 fL (9.4-12.4); Monocytes # 0.6 K/mcL (0.0-1.3); Monocytes % 8.8 %; Neutrophils # 4.5 K/mcL (1.6-8.9); Platelet Count 270 K/mcL (140-400); Red Blood Count 4.71 M/mcL (3.82-4.97); Segmented Neutrophils % 68.2 %; White Blood Count 6.6 K/mcL (4.3-11.1)
[2019-03-23 06:11] LABS: Potassium 4.4 mEq/L (3.5-5.1)
[2019-03-23 06:24] LABS: Hypochromasia Present (Not Present)
[2019-03-23] MEDS: Lactobacillus 1 EACH CAP.SPRINK PO SCH (07:34)
[2019-03-23] MEDS: Insulin DETEMIR 100 UNIT/ML X5UNITS SQ SCH (07:34)
[2019-03-23] MEDS: Aspirin Enteric Coated 81 MG Tablet PO SCH (07:34)
[2019-03-23] MEDS: Fluticasone Propionate Nasal 50 MCG/SPRAY BOTTLE NS SCH (07:35)
[2019-03-23] MEDS: Insulin LISPRO 300 UNITS/3 ML VIAL SQ SCH ×2 (07:35→12:11)
[2019-03-23] MEDS: Nystatin POWDER 30 GM BOTTLE TP SCH (07:35)
--- NOTE | 2019-03-23 10:00 | Physician Discharge Referral ---
[facility] Provider in Charge after Transfer: PCP - Diagnosis (1) Hypercarbia Priority: Primary Status: Acute (2) Diarrhea Priority: Primary Status: Resolved (3) Altered mental state Priority: Primary Status: Chronic (4) Congestive heart failure Priority: Primary Status: Suspected (5) Hypothyroidism Priority: Secondary Status: Chronic (6) Type 2 diabetes mellitus Priority: Secondary Status: Chronic (7) Chronic kidney disease, stage III (moderate) Priority: Secondary Status: Chronic (8) HTN (hypertension) Priority: Secondary Status: Chronic (9) DVT prophylaxis Priority: Secondary Status: Acute Prognosis: Good Aware of Diagnosis: Patient, Family Aware of Prognosis: Patient, Family - Transfer Medications Prescriptions: Furosemide [Lasix] 10 mg PO DAILY #30 tablet Home Medications: Allopurinol [Zyloprim 100 MG] 100 mg PO DAILY 03/12/19 [History] Aspirin [Adult Aspirin Regimen] 81 mg PO DAILY 03/12/19 [History] Atorvastatin [Lipitor] 40 mg PO HS 03/12/19 [History] Donepezil [Aricept] 10 mg PO HS 03/12/19 [History] Escitalopram [Lexapro] 10 mg PO DAILY 03/12/19 [History] Fluticasone Propionate Nasal [Flonase] 2 spr NS BID 03/12/19 [History] Guaifenesin [Mucinex] 600 mg PO BID PRN 03/12/19 [History] Insulin Regular U-500 [HumuLIN R U-500] 85 unit SQ 0600 03/12/19 [History] Levocetirizine Dihydrochloride [Allergy Relief (Xyzal)] 5 mg PO DAILY 03/12/19 [History] Levothyroxine [Synthroid] 50 mcg PO 0630 03/12/19 [History] Omeprazole [PriLOSEC] 40 mg PO DAILY 03/12/19 [History] Insulin Regular, Human [Humulin R U-500 Kwikpen] 20 unit SQ 1600 03/13/19 [History] Furosemide [Lasix] 10 mg PO DAILY #30 tablet 03/21/19 [Rx] Allergies/Adverse Reactions: Allergy/AdvReac Type Severity Reaction Status Date / Time clarithromycin [From Biaxin] Allergy Rash Verified 09/21/16 14:44 Penicillins Allergy Rash Verified 09/21/16 14:44 - Respiratory Orders Oxygen / L per min (2L titrate to >88%) Smoking Cessation: Smoking cessation has been advised. For more information, call the [place] Tobacco Quit Line at 2-768-SZFG-NOW. - Advance Directives Code Status: DNR-Arrest/Don't Intubate - Mobility Orders Chair - Rehabiliation Orders Rehab Potential: Fair Rehab Orders: Evaluation for Physical Therapy, Evaluation for Occupational Therapy - Diet Orders Regular CERTIFICATION: I certify that the transfer of the above named patient to an Extended Care Facility is necessary for the continuing treatment of the diagnosis listed. The above information is true and accurate reflection of patient's current condition. Confidential - Redisclosure prohibited without a patient's written consent.
--- NOTE | 2019-03-23 11:31 | Internal Med Progress Note ---
<Demi Kidd - Last Filed: 03/23/19 14:04> Hospitalist Progress Note - Encounter Date of Encounter: 03/23/19 Time of Encounter: 09:55 - Exam Vitals: Temp Pulse Resp BP Pulse Ox 98.1 F 79 16 106/63 96 03/23/19 11:54 03/23/19 11:54 03/23/19 11:54 03/23/19 11:54 03/23/19 10:14 - Assessment and Plan (1) HTN (hypertension) Status: Chronic (2) Altered mental state Status: Chronic (3) Type 2 diabetes mellitus Status: Chronic (4) CHF exacerbation Status: Acute (5) Chronic kidney disease, stage III (moderate) Status: Chronic (6) Hypercarbia Status: Acute - Time Spent with Patient Total time spent is greater than 50% in coordination of care (as documented) at patient's floor/unit and/or counseling patient: Internal Medicine: Result - Labs CBC & Chem 7: 03/23/19 04:59 03/23/19 04:59 Labs: Short CBC 03/23/19 Range/Units 04:59 WBC 6.6 (4.3-11.1) K/mcL Hgb 11.9 (11.5-15.4) g/dL Hct 42.0 (35.3-44.9) % Plt Count 270 (140-400) K/mcL Neutrophils # 4.5 (1.6-8.9) K/mcL BMP 03/23/19 04:59 Sodium 139 Potassium 4.4 Chloride 100 Carbon Dioxide 31 H BUN 30 H Creatinine 1.31 H Glucose 247 H Calcium 9.0 - ABG Interpretation ABG results: ABG ABG pH 7.35 pH Units (7.32-7.45) 03/19/19 22:38 ABG pCO2 70 mmHg (35-45) H* 03/19/19 22:38 ABG pO2 81 mmHg (85-104) L 03/19/19 22:38 ABG O2 Saturation 95 % (95-98) 03/19/19 22:38 Consult Discharge Plan - Plan Instructions: Furosemide (By mouth) Additional Instructions: 10 mg Lasix daily. Daily weights first thing in the morning after entering bladder before breakfast with minimal clothing. Call primary care doctor if gain is more than 2 pounds in 2 days or 5 pounds in 1 week. Patient will need thyroid labs in approximately 6 weeks to assess thyroid function Referrals: Umm Whitt CNP [Primary Care Provider] - ([facility]) Prescriptions: Furosemide [Lasix] 10 mg PO DAILY #30 tablet Lisinopril [Zestril] 10 mg PO DAILY #30 tablet - Attending Attestation I saw evaluated and examined this patient and reviewed objective data including labs and my medical decision-making was reviewed with the Resident Physician, Ruth Ann Edwards. I agree with the documented findings, disposition and treatment plan as described except to any changes set forth below. We independently had [id number] contact with the patient. Patient is awake and alert. Lying down in bed comfortably. Denies any significant pain or palpitations. Having good urine output. She is stable to be discharged to skilled rehabilitation today. Renal function improved. Creatinine 1.31 today. Patient does appear to have underlying chronic kidney disease stage III. She can follow up with nephrology as needed <Ruth Ann Edwards E - Last Filed: 03/23/19 16:16> Hospitalist Progress Note - Encounter Date of Encounter: 03/23/19 - Subjective Interval History: Dyspnea is an 83-year-old female initially exacerbation Ms. Gregory was seen and examined at bedside today, . Patient denies any chest pain, shortness abdominal pain, nausea, vomiting, diarrhea. - Exam Vitals: Temp Pulse Resp BP Pulse Ox 97.9 F 84 18 149/72 96 03/23/19 06:57 03/23/19 06:57 03/23/19 10:14 03/23/19 06:57 03/23/19 10:14 Exam: General: Oriented to person and place, no acute distress, answers questions appropriately Head: normocephalic, atraumatic Eyes: GILBERT, no icterus Cardio: RRR, no murmurs, rubs, or gallops Respiratory: CTAB, no wheezing, rhonchi, rales Abd: normal bowel sounds, no gaurding or rigidity Extremities: no pedal edema, pulses equal bilaterally, warm Skin: warm, dry, intactt - Assessment and Plan (1) Hypercarbia Status: Acute Assessment and Plan: Contraction alkalosis for CO2 retention from other pulmonary concerns - initially noted on 03/15 Urine chloride 57 suggestive of dehydration Chloride loss could also be from diarrhea although this has resolved CT chest showed basilar atelectasis otherwise no acute cardiopulmonary disease Respiratory infection panel negative Continue to monitor and advised patient to use BiPAP as much as possible Pt responded well to multiple fluid challenges as well as low dose Lasix Nephrology evaluated to pt and felt the hypercarbia is chronic and respiratory in nature (2) Diarrhea Status: Resolved Assessment and Plan: Previous diarrhea This has resolved (3) Altered mental state Status: Acute Assessment and Plan: Mentation unchanged over the past couple of days CT head from 03/16 showed diffuse atrophic changes with findings suggestive of chronic microvascular ischemia as well as bilateral mastoid effusions but no acute intracranial abnormalities MRI head/brain from 03/17 showed no acute intracranial abnormality, 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 Likely secondary to hypercarbia (4) Congestive heart failure Status: Chronic Assessment and Plan: Patient had reported shortness of breath for the last few weeks CXR revealed mild pulmonary edema as well as cardiomegaly Elevated BNP of 596 on admission Echocardiogram shows LVEF 60-65%, normal LV size and function, mild concentric LV hypertrophy, mild left vent diastolic dysfunction, normal right ventricular size and function, mild tricuspid regurgitation, mild pulmonary hypertension Continue Lasix 10 mg daily (5) Hypothyroidism Status: Chronic Assessment and Plan: Elevated TSH Synthroid increased to 100 mg (6) Type 2 diabetes mellitus Status: Chronic Assessment and Plan: Continued to monitor blood sugars Increase to high dose sliding scale insulin Increase to Levemir 10 BID (7) Chronic kidney disease, stage III (moderate) Status: Chronic Assessment and Plan: History of CKD stage III 9 slight elevation in creatinine yesterday Has decreased today back towards patient's baseline Avoid nephrotoxic substances and renally dose medications as necessary (8) HTN (hypertension) Status: Chronic Assessment and Plan: Continue lisinopril 10 mg daily (9) DVT prophylaxis Status: Acute Assessment and Plan: Subcutaneous heparin DVT Prophylaxis: Subcutaneous heparin - Time Spent with Patient Total time spent is greater than 50% in coordination of care (as documented) at patient's floor/unit and/or counseling patient: Internal Medicine: Result - Labs CBC & Chem 7: 03/23/19 04:59 03/23/19 04:59 Labs: Short CBC 03/23/19 Range/Units 04:59 WBC 6.6 (4.3-11.1) K/mcL Hgb 11.9 (11.5-15.4) g/dL Hct 42.0 (35.3-44.9) % Plt Count 270 (140-400) K/mcL Neutrophils # 4.5 (1.6-8.9) K/mcL BMP 03/23/19 04:59 Sodium 139 Potassium 4.4 Chloride 100 Carbon Dioxide 31 H BUN 30 H Creatinine 1.31 H Glucose 247 H Calcium 9.0 - ABG Interpretation ABG results: ABG ABG pH 7.35 pH Units (7.32-7.45) 03/19/19 22:38 ABG pCO2 70 mmHg (35-45) H* 03/19/19 22:38 ABG pO2 81 mmHg (85-104) L 03/19/19 22:38 ABG O2 Saturation 95 % (95-98) 03/19/19 22:38 <Demi Kidd - Last Filed: 03/23/19 14:04> (1) HTN (hypertension) Qualifiers: Hypertension type: essential hypertension Qualified Code(s): I10 - Essential (primary) hypertension (2) Altered mental state Qualifiers: Altered mental status type: delirium Qualified Code(s): R41.0 - Disorientatio n, unspecified (3) Type 2 diabetes mellitus Qualifiers: Diabetes mellitus fci insulin use: with fci use Diabetes mellitus complication status: with hyperglycemia Qualified Code(s): E11.65 - Type 2 diabetes mellitus with hyperglycemia; Z79.4 - half-way (current) use of insulin (4) CHF exacerbation Qualifiers: Heart failure type: diastolic Qualified Code(s): I50.33 - Acute on chronic diastolic (congestive) heart failure <[place],Ruth Ann E - Last Filed: 03/23/19 16:16> (2) Diarrhea Qualifiers: Diarrhea type: unspecified type Qualified Code(s): R19.7 - Diarrhea, unspec ified (3) Altered mental state Qualifiers: Altered mental status type: delirium Qualified Code(s): R41.0 - Disorientation, unspecified (4) Congestive heart failure Qualifiers: Heart failure type: diastolic Heart failure chronicity: acute Qualified Code(s): I50.31 - Acute diastolic (congestive) heart failure (5) Hypothyroidism Qualifiers: Hypothyroidism type: acquired Qualified Code(s): E03.9 - Hypothyroidism, unspecified (6) Type 2 diabetes mellitus Qualifiers: Diabetes mellitus termite renewal inspector insulin use: with termite renewal inspector use Diabetes mellitus complication status: with hyperglycemia Qualified Code(s): E11.65 - Type 2 d iabetes mellitus with hyperglycemia; Z79.4 - half-way (current) use of insulin (8) HTN (hypertension) Qualifiers: Hypertension type: essential hypertension Qualified Code(s): I10 - Essential (primary) hypertension
[2019-03-23 12:01] VITALS: BP 106/63
== END 2019-03-23 12:12 | DRG 291 ==
LOC: 2ANU 09:11 → EMEROOARM 09:11 → 2ANU 14:19 → SUATTDRO 03-13 14:35
PROVIDERS: ADMIT Internal Medicine Nephrology; ATTEND Student in an Organized Health Care Education/Training Program

== ENCOUNTER 2020-03-07 10:25 | Inpatient (IN) ==
[2020-03-07] MEDS ORDERED: 0.9 % Sodium Chloride 1,000 ML IVC ONE ×2 (10:41→12:27)
[2020-03-07] MEDS ORDERED: Ondansetron 4 MG/2 ML VIAL IVP ONE ×2 (10:59→12:51)
[2020-03-07 11:09] LABS: Basophils % 0.3 %; Eosinophils # 0.2 K/mcL (0.0-0.6); Eosinophils % 2.3 %; Hematocrit 47.8 % (35.3-44.9); Hemoglobin 14.9 g/dL (11.5-15.4); Immature Granulocytes % 0.3 % (0-4); Lymphocytes # 1.4 K/mcL (0.6-4.6); Lymphocytes % 13.3 %; Mean Corpuscular HGB Conc 31.2 g/dL (31.6-35.5); Mean Corpuscular Hemoglobin 29.7 pg (28.0-33.3); Mean Corpuscular Volume 95.4 fL (83.0-100.0); Mean Platelet Volume 11.5 fL (9.4-12.4); Monocytes # 0.7 K/mcL (0.0-1.3); Monocytes % 6.8 %; Neutrophils # 8.1 K/mcL (1.6-8.9); Platelet Count 275 K/mcL (140-400); Red Blood Count 5.01 M/mcL (3.82-4.97); Red Cell Distribution Width 13.2 % (11.5-14.5); White Blood Count 10.5 K/mcL (4.3-11.1)
[2020-03-07 11:45] LABS: Alanine Aminotransferase 15 Units/L (7-52); Albumin 3.9 g/dL (3.5-5.7); Albumin/Globulin Ratio 1.2 (1.1-2.2); Alkaline Phosphatase 123 Units/L (34-104); Aspartate Amino Transferase 15 Units/L (13-39); BUN/Creatinine Ratio 20 (6-26); Bilirubin,Total 0.3 mg/dL (0.3-1.0); Blood Urea Nitrogen 27 mg/dL (8-23); Calcium 9.1 mg/dL (8.6-10.3); Carbon Dioxide 31 mEq/L (23-29); Chloride 101 mEq/L (98-107); Globulin 3.2 g/dL (2.4-3.5); Glucose 113 mg/dL (70-105); Lipase 279 Units/L (11-82); Osmolality,Calculated 292 (280-300); Potassium 4.5 mEq/L (3.5-5.1); Sodium 138 mEq/L (136-145); Thyroid Stimulating Hormone 4.558 mcIU/mL (0.340-5.600); Total Protein 7.1 g/dL (6.4-8.9); Troponin I < 0.03 ng/mL (< 0.04); eGFR For African Americans 47 (> 60); eGFR For Non-African Americans 39 (> 60)
[2020-03-07 13:22] LABS: Bacteria,Urine Moderate per hpf (None-Few); Bilirubin,Urine Negative (Negative); Blood,Urine Negative (Negative); Clarity,Urine Clear (Clear); Color,Urine Colorless (Yellow); Glucose,Urine (UA) Normal (Normal); Ketones,Urine Negative (Negative); Leukocyte Esterase,Urine Negative (Negative); Mucus,Urine Few per lpf (None-Few); Nitrite,Urine Positive (Negative); Protein,Urine Trace mg/dL (Neg-Trace); Specific Gravity,Urine 1.009 (1.010-1.025); Squamous Epithelial Cell,Urine Few per hpf (None-Few); Urobilinogen,Urine Normal (Normal); WBC,Urine 0-3 per hpf (0-3)
[2020-03-07] MEDS ORDERED: Naloxone 0.4 MG/ML INJ IVP PRN (13:51)
[2020-03-07] MEDS ORDERED: Ondansetron 4 MG/2 ML VIAL IVP PRN (13:51)
[2020-03-07] MEDS ORDERED: Dextrose Gel 15 GM/37.5 ML TUBE PO PRN ×2 (14:18)
[2020-03-07] MEDS ORDERED: *HR* Dextrose 50 % in Water (Vial) 50 ML VIAL IVP PRN (14:18)
[2020-03-07] MEDS ORDERED: D5% in Water 1,000 ML IVC PRN (14:18)
[2020-03-07] MEDS: cefTRIAXone 1,000 MG in Water for inj. (sterile) 10 ML IVP SCH (15:12)
[2020-03-07] MEDS: 0.9 % Sodium Chloride 1,000 ML IVC SCH ×2 (15:13→23:22)
[2020-03-07] MEDS: Insulin LISPRO 300 UNITS/3 ML VIAL SQ SCH ×4 (15:47→22:03)
[2020-03-07] MEDS: Pantoprazole 40 MG VIAL IVP SCH (17:33)
[2020-03-07] MEDS: *HR* Heparin 5,000 UNIT/ML VIAL SQ SCH (17:35)
[2020-03-07] MEDS: hydrALAZINE 10 MG TABLET PO PRN (23:21)
[2020-03-08] MEDS: Insulin LISPRO 300 UNITS/3 ML VIAL SQ SCH ×6 (04:02→21:16)
[2020-03-08 05:00] LABS: Basophils % 0.3 %; Eosinophils # 0.4 K/mcL (0.0-0.6); Hematocrit 43.5 % (35.3-44.9); Hemoglobin 13.2 g/dL (11.5-15.4); Immature Granulocytes % 0.2 % (0-4); Lymphocytes # 1.8 K/mcL (0.6-4.6); Mean Corpuscular HGB Conc 30.3 g/dL (31.6-35.5); Mean Corpuscular Hemoglobin 28.6 pg (28.0-33.3); Mean Corpuscular Volume 94.4 fL (83.0-100.0); Mean Platelet Volume 11.1 fL (9.4-12.4); Monocytes # 0.7 K/mcL (0.0-1.3); Neutrophils # 6.6 K/mcL (1.6-8.9); Platelet Count 232 K/mcL (140-400); Red Blood Count 4.61 M/mcL (3.82-4.97); Red Cell Distribution Width 13.2 % (11.5-14.5); Segmented Neutrophils % 69.5 %; White Blood Count 9.5 K/mcL (4.3-11.1)
[2020-03-08 05:24] LABS: Calcium 8.2 mg/dL (8.6-10.3); Phosphorous 3.2 mg/dL (2.7-4.5); Potassium 3.8 mEq/L (3.5-5.1)
[2020-03-08] MEDS: Pantoprazole 40 MG VIAL IVP SCH ×2 (05:35→17:11)
[2020-03-08] MEDS: *HR* Heparin 5,000 UNIT/ML VIAL SQ SCH ×2 (05:35→17:11)
[2020-03-08] MEDS ORDERED: NON-FORMULARY MEDICATION 1 EACH EACH (Omeprazole [Prilosec] 40 MG) PO SCH (09:15)
[2020-03-08] MEDS: Loratadine 10 MG TABLET PO SCH (10:38)
[2020-03-08] MEDS: cefTRIAXone 1,000 MG in Water for inj. (sterile) 10 ML IVP SCH (10:38)
[2020-03-08] MEDS: amLODIPine 5 MG TABLET PO SCH (10:38)
[2020-03-08] MEDS: Aspirin Enteric Coated 81 MG Tablet PO SCH (10:38)
[2020-03-08] MEDS: allopurinoL 100 MG TABLET PO SCH (10:38)
[2020-03-08] MEDS: Insulin DETEMIR 100 UNIT/ML X5UNITS SQ SCH (11:40)
[2020-03-08] MEDS: hydrALAZINE 10 MG TABLET PO PRN (11:42)
[2020-03-08] MEDS: lisinopriL 10 MG TABLET PO SCH (13:42)
[2020-03-08] MEDS: Fluticasone Propionate Nasal 50 MCG/SPRAY BOTTLE NS SCH (21:20)
[2020-03-09] MEDS: Pantoprazole 40 MG VIAL IVP SCH ×2 (05:54→18:49)
[2020-03-09] MEDS: *HR* Heparin 5,000 UNIT/ML VIAL SQ SCH ×2 (05:55→18:48)
[2020-03-09] MEDS ORDERED: *HR* Promethazine 25 MG/ML VIAL IVP PRN (10:03)
[2020-03-09] MEDS: Furosemide 20 MG TABLET PO SCH (10:08)
[2020-03-09] MEDS: Aspirin Enteric Coated 81 MG Tablet PO SCH (10:08)
[2020-03-09] MEDS: amLODIPine 5 MG TABLET PO SCH (10:08)
[2020-03-09] MEDS: Insulin LISPRO 300 UNITS/3 ML VIAL SQ SCH ×4 (10:09→20:54)
[2020-03-09] MEDS: Insulin DETEMIR 100 UNIT/ML X5UNITS SQ SCH (10:09)
[2020-03-09] MEDS: Loratadine 10 MG TABLET PO SCH (10:09)
[2020-03-09] MEDS: lisinopriL 10 MG TABLET PO SCH (10:10)
[2020-03-09] MEDS: Fluticasone Propionate Nasal 50 MCG/SPRAY BOTTLE NS SCH ×2 (10:10→20:54)
[2020-03-09] MEDS: cefTRIAXone 1,000 MG in Water for inj. (sterile) 10 ML IVP SCH (10:10)
[2020-03-09] MEDS: allopurinoL 100 MG TABLET PO SCH (10:11)
[2020-03-09] MEDS ORDERED: Ondansetron 4 MG/2 ML VIAL IVP SCH (10:15)
[2020-03-09] MEDS ORDERED: Ondansetron 4 MG/2 ML VIAL IVP PRN (10:16)
[2020-03-09] MEDS: Metoclopramide 10 MG/2 ML VIAL IVP SCH ×2 (12:00→18:48)
[2020-03-10] MEDS: Metoclopramide 10 MG/2 ML VIAL IVP SCH ×3 (00:20→10:09)
[2020-03-10 01:12] LABS: Basophils % 0.4 %; Eosinophils # 0.3 K/mcL (0.0-0.6); Eosinophils % 3.3 %; Hematocrit 45.8 % (35.3-44.9); Hemoglobin 14.3 g/dL (11.5-15.4); Immature Granulocytes % 0.2 % (0-4); Lymphocytes # 1.9 K/mcL (0.6-4.6); Lymphocytes % 23.1 %; Mean Corpuscular HGB Conc 31.2 g/dL (31.6-35.5); Mean Corpuscular Hemoglobin 29.4 pg (28.0-33.3); Mean Platelet Volume 11.1 fL (9.4-12.4); Monocytes # 0.7 K/mcL (0.0-1.3); Monocytes % 8.9 %; Neutrophils # 5.3 K/mcL (1.6-8.9); Platelet Count 261 K/mcL (140-400); Red Blood Count 4.87 M/mcL (3.82-4.97); Segmented Neutrophils % 64.1 %; White Blood Count 8.3 K/mcL (4.3-11.1)
[2020-03-10 01:23] LABS: Calcium 9.1 mg/dL (8.6-10.3); Phosphorous 3.7 mg/dL (2.7-4.5); Potassium 3.6 mEq/L (3.5-5.1)
[2020-03-10] MEDS: Pantoprazole 40 MG VIAL IVP SCH (05:25)
[2020-03-10] MEDS: *HR* Heparin 5,000 UNIT/ML VIAL SQ SCH ×2 (05:25→18:29)
[2020-03-10] MEDS: Insulin DETEMIR 100 UNIT/ML X5UNITS SQ SCH (09:00)
[2020-03-10] MEDS: Insulin LISPRO 300 UNITS/3 ML VIAL SQ SCH ×4 (09:42→22:03)
[2020-03-10] MEDS: allopurinoL 100 MG TABLET PO SCH (09:42)
[2020-03-10] MEDS: cefTRIAXone 1,000 MG in Water for inj. (sterile) 10 ML IVP SCH (10:08)
[2020-03-10] MEDS: lisinopriL 10 MG TABLET PO SCH (10:09)
[2020-03-10] MEDS: amLODIPine 5 MG TABLET PO SCH (10:09)
[2020-03-10] MEDS: Furosemide 20 MG TABLET PO SCH (10:09)
[2020-03-10] MEDS: Loratadine 10 MG TABLET PO SCH (10:10)
[2020-03-10] MEDS: Aspirin Enteric Coated 81 MG Tablet PO SCH (10:10)
[2020-03-10] MEDS: Fluticasone Propionate Nasal 50 MCG/SPRAY BOTTLE NS SCH ×2 (10:12→22:03)
[2020-03-10] MEDS ORDERED: Metoclopramide 10 MG/2 ML VIAL IVP PRN (11:07)
[2020-03-10] MEDS ORDERED: Ondansetron 4 MG/2 ML VIAL IVP PRN (11:11)
[2020-03-10] MEDS: Nitrofurantoin (BID) 100 MG CAPSULE PO SCH (18:23)
[2020-03-11 01:46] LABS: Magnesium 1.8 mg/dL (1.6-2.6); Phosphorous 4.2 mg/dL (2.7-4.5); Potassium 3.9 mEq/L (3.5-5.1)
[2020-03-11] MEDS: *HR* Heparin 5,000 UNIT/ML VIAL SQ SCH ×2 (06:18→17:04)
[2020-03-11] MEDS: Insulin LISPRO 300 UNITS/3 ML VIAL SQ SCH ×4 (07:45→20:58)
[2020-03-11] MEDS: lisinopriL 10 MG TABLET PO SCH (09:37)
[2020-03-11] MEDS: amLODIPine 5 MG TABLET PO SCH (09:37)
[2020-03-11] MEDS: allopurinoL 100 MG TABLET PO SCH (09:37)
[2020-03-11] MEDS: Aspirin Enteric Coated 81 MG Tablet PO SCH (09:38)
[2020-03-11] MEDS: Fluticasone Propionate Nasal 50 MCG/SPRAY BOTTLE NS SCH ×2 (09:38→20:58)
[2020-03-11] MEDS: Nitrofurantoin (BID) 100 MG CAPSULE PO SCH ×2 (09:38→17:01)
[2020-03-11] MEDS: Loratadine 10 MG TABLET PO SCH (09:38)
[2020-03-11] MEDS: Insulin DETEMIR 100 UNIT/ML X5UNITS SQ SCH (09:38)
[2020-03-11] MEDS: Furosemide 20 MG TABLET PO SCH (09:38)
[2020-03-12] MEDS: *HR* Heparin 5,000 UNIT/ML VIAL SQ SCH (05:43)
[2020-03-12 08:00] VITALS: BP 140/69
[2020-03-12] MEDS: Fluticasone Propionate Nasal 50 MCG/SPRAY BOTTLE NS SCH (08:22)
[2020-03-12] MEDS: lisinopriL 10 MG TABLET PO SCH (08:22)
[2020-03-12] MEDS: Insulin LISPRO 300 UNITS/3 ML VIAL SQ SCH (08:22)
[2020-03-12] MEDS: Insulin DETEMIR 100 UNIT/ML X5UNITS SQ SCH (08:22)
[2020-03-12] MEDS: allopurinoL 100 MG TABLET PO SCH (08:22)
[2020-03-12] MEDS: Loratadine 10 MG TABLET PO SCH (08:23)
[2020-03-12] MEDS: Furosemide 20 MG TABLET PO SCH (08:23)
[2020-03-12] MEDS: Nitrofurantoin (BID) 100 MG CAPSULE PO SCH (08:23)
[2020-03-12] MEDS: amLODIPine 5 MG TABLET PO SCH (08:23)
[2020-03-12] MEDS: Aspirin Enteric Coated 81 MG Tablet PO SCH (08:23)
[2020-03-12 08:45] LABS: Calcium 9.1 mg/dL (8.6-10.3); Potassium 4.2 mEq/L (3.5-5.1)
== END 2020-03-12 14:28 | DRG 74 ==
LOC: EMEROOARM 10:25 → 3ANU 10:25 → SUATTDRO 13:51 → 3BNU 14:02 → SUATTDRO 03-08 16:22
PROVIDERS: ADMIT Internal Medicine; ATTEND Internal Medicine

== ENCOUNTER 2020-09-21 07:38 | Inpatient (IN) ==
[2020-09-21] MEDS ORDERED: 0.9 % Sodium Chloride 1,000 ML IVC ONE (07:45)
[2020-09-21 08:08] LABS: Basophils % 0.3 %; Hematocrit 40.5 % (35.3-44.9); Hemoglobin 12.7 g/dL (11.5-15.4); Immature Granulocytes % 0.3 % (0-4); Lymphocytes # 1.6 K/mcL (0.6-4.6); Lymphocytes % 12.1 %; Mean Corpuscular HGB Conc 31.4 g/dL (31.6-35.5); Mean Corpuscular Hemoglobin 29.7 pg (28.0-33.3); Mean Corpuscular Volume 94.8 fL (83.0-100.0); Mean Platelet Volume 11.8 fL (9.4-12.4); Monocytes # 1.6 K/mcL (0.0-1.3); Monocytes % 11.9 %; Neutrophils # 9.9 K/mcL (1.6-8.9); Platelet Count 204 K/mcL (140-400); Red Blood Count 4.27 M/mcL (3.82-4.97); Red Cell Distribution Width 12.8 % (11.5-14.5); Segmented Neutrophils % 75.4 %; White Blood Count 13.2 K/mcL (4.3-11.1)
[2020-09-21 08:17] LABS: INR 1.2; Prothrombin Time 14.2 Seconds (9.4-12.1)
[2020-09-21 08:20] LABS: Activated Partial Thrombo Time 23.4 Seconds (26.0-36.0)
[2020-09-21 08:34] LABS: Albumin 3.3 g/dL (3.5-5.7); Albumin/Globulin Ratio 0.9 (1.1-2.2); Bilirubin,Direct 0.1 mg/dL (0.0-0.2); Bilirubin,Indirect 0.3 mg/dL (0.0-1.0); Bilirubin,Total 0.4 mg/dL (0.3-1.0); Calcium 8.8 mg/dL (8.6-10.3); Globulin 3.5 g/dL (2.4-3.5); Magnesium 2.1 mg/dL (1.6-2.6); Phosphorous 4.5 mg/dL (2.7-4.5); Potassium 4.3 mEq/L (3.5-5.1); Total Protein 6.8 g/dL (6.4-8.9); Troponin I 0.04 ng/mL (< 0.04)
[2020-09-21 09:03] LABS: Bilirubin,Urine Negative (Negative); Clarity,Urine Turbid (Clear); Color,Urine Yellow (Yellow); Glucose,Urine (UA) Normal (Normal); Leukocyte Esterase,Urine Large (Negative)
[2020-09-21 09:04] LABS: Blood,Urine Small (Negative); Ketones,Urine Negative (Negative); PH,Urine 5.5 pH Units (5.0-8.0); Specific Gravity,Urine 1.022 (1.010-1.025)
[2020-09-21 09:05] LABS: Nitrite,Urine Negative (Negative); Protein,Urine 100 mg/dL (Neg-Trace); Urobilinogen,Urine Normal (Normal)
[2020-09-21 09:06] LABS: Squamous Epithelial Cell,Urine Few per hpf (None-Few); WBC,Urine TNTC per hpf (0-3)
[2020-09-21 09:07] LABS: Bacteria,Urine Few per hpf (None-Few); RBC,Urine 0-3 per hpf (0-3)
[2020-09-21 09:17] LABS: Adenovirus Not Detected (Not Detect); Bordetella Pertussis Not Detected (Not Detect); Chlamydophila pneumoniae Not Detected (Not Detect); Coronavirus 229E Not Detected (Not Detect); Coronavirus HKU1 Not Detected (Not Detect); Coronavirus NL63 Not Detected (Not Detect); Coronavirus OC43 Not Detected (Not Detect); Human Metapneumovirus Not Detected (Not Detect); Human Rhinovirus/Enterovirus Not Detected (Not Detect); Influenza A Subtype 2009 H1 Not Detected (Not Detect); Influenza B Not Detected (Not Detect); Mycoplasma pneumoniae Not Detected (Not Detect); Parainfluenza Virus 1 Not Detected (Not Detect); Parainfluenza Virus 2 Not Detected (Not Detect); Parainfluenza Virus 3 Not Detected (Not Detect); Parainfluenza Virus 4 Not Detected (Not Detect); Respiratory Syncytial Virus Not Detected (Not Detect)
[2020-09-21 09:18] LABS: SARS-CoV-2 DETECTED (Not Detect)
[2020-09-21] MEDS ORDERED: levoFLOXacin 750 MG/150 ML 750 MG/150 ML BAG IVPB ONE (09:26)
[2020-09-21] MEDS ORDERED: Naloxone 0.4 MG/ML INJ IVP PRN (10:56)
[2020-09-21] MEDS ORDERED: Ondansetron 4 MG/2 ML VIAL IVP PRN (10:56)
[2020-09-21] MEDS ORDERED: Acetaminophen 325 MG TABLET PO PRN (10:56)
[2020-09-21] MEDS ORDERED: Melatonin 3 MG TABLET PO PRN ×2 (10:56→10:59)
[2020-09-21] MEDS ORDERED: *HR* HYDROcodone/Acet 5/325 mg TABLET PO PRN (10:56)
[2020-09-21] MEDS ORDERED: Saline Nasal Spray 44 ML BOTTLE NS PRN (10:59)
[2020-09-21] MEDS ORDERED: Dexamethasone 4 MG/ML VIAL IVP SCH (11:00)
[2020-09-21] MEDS ORDERED: Dextrose Gel 15 GM/37.5 ML TUBE PO PRN ×2 (11:27)
[2020-09-21] MEDS ORDERED: *HR* Dextrose 50 % in Water (Vial) 50 ML VIAL IVP PRN (11:27)
[2020-09-21] MEDS ORDERED: D5% in Water 1,000 ML IVC PRN (11:27)
[2020-09-21] MEDS ORDERED: *HR* Heparin 5,000 UNIT/ML VIAL IVP PRN (11:29)
[2020-09-21 11:54] LABS: Ferritin 181 ng/mL (10-120); Lactate Dehydrogenase 198 Units/L (140-271)
[2020-09-21] MEDS: Insulin LISPRO 300 UNITS/3 ML VIAL SUBQ SCH ×5 (12:31→21:31)
[2020-09-21 12:40] LABS: C-Reactive Protein 209 mg/L (Less than 10)
[2020-09-21 12:44] LABS: Heparin anti-factor XA UFH < 0.04 IU/mL (0.30-0.70); INR 1.2; Prothrombin Time 13.4 Seconds (9.4-12.1)
[2020-09-21 12:56] LABS: Phosphorous 4.6 mg/dL (2.7-4.5)
[2020-09-21] MEDS: Heparin 25,000UNIT/250ML 1/2NS 25,000 UNIT/250 ML IV.SOLN IVC SCH (13:46)
[2020-09-21] MEDS ORDERED: *HR* Heparin 5,000 UNIT/ML VIAL SQ SCH (14:00)
[2020-09-21] MEDS: Ipratropium 1 PUFF INHALER IH SCH ×2 (15:19→23:00)
[2020-09-21 15:38] LABS: ABG Base Excess -2 mEq/L (-2 to 3); ABG HCO3 23 mEq/L (21-27); ABG Oxygen Saturation 90 % (95-98); ABG PCO2 39 mmHg (35-45); ABG PH 7.37 pH Units (7.32-7.45); ABG PO2 61 mmHg (85-104); ABG TCO2 24 mEq/L (20-26)
[2020-09-21 18:12] LABS: Adenovirus F 40/41 PCR Not detected (Not detect); Astrovirus PCR Not detected (Not detect); C.difficile Toxin A/B Gene PCR Not detected (Not detect); Campylobacter by PCR Not detected (Not detect); Cryptosporidium by PCR Not detected (Not detect); Cyclospora cayetanensis PCR Not detected (Not detect); E. coli O157 by PCR Not detected (Not detect); Entamoeba histolytica PCR Not detected (Not detect); Enteroaggregative E.coli(EAEC) Not detected (Not detect); Enteropathogenic E.coli(EPEC) Not detected (Not detect); Enterotoxigenic E.coli (ETEC) Not detected (Not detect); Giardia lamblia PCR Not detected (Not detect); Norovirus GI/GII PCR Not detected (Not detect); Plesiomonas shigelloides PCR Not detected (Not detect); Rotavirus A PCR Not detected (Not detect); Salmonella PCR Not detected (Not detect); Sapovirus PCR Not detected (Not detect); Shig/EnteroinvasiveE coli EIEC Not detected (Not detect); Shigalike tox-prod E coli STEC Not detected (Not detect); Vibrio PCR Not detected (Not detect); Vibrio cholerae PCR Not detected (Not detect); Yersinia enterocolitica PCR Not detected (Not detect)
[2020-09-21] MEDS ORDERED: Insulin DETEMIR 100 UNIT/ML X5UNITS SUBQ SCH (21:00)
[2020-09-21] MEDS: Chlorhexidine Rinse 15 ML MOUTHWASH MM SCH (21:27)
[2020-09-21] MEDS: Fluticasone Propionate Nasal 50 MCG/SPRAY BOTTLE NS SCH (21:29)
[2020-09-21] MEDS: Latanoprost 2.5 ML BOTTLE BOTH EYES SCH (21:31)
[2020-09-21] MEDS: Artificial Tears SOLN 15 ML BOTTLE BOTH EYES SCH (21:32)
[2020-09-21] MEDS: cefTRIAXone 1,000 MG in 0.9 % Sodium Chloride Mini Bag 100 ML IVPB SCH (22:14)
[2020-09-22] MEDS: 0.9 % Sodium Chloride 1,000 ML IVC SCH ×2 (00:14→12:28)
[2020-09-22] MEDS: Ipratropium 1 PUFF INHALER IH SCH ×4 (04:06→22:51)
[2020-09-22 04:29] LABS: Basophils % 0.1 %; Eosinophils % 0.2 %; Hematocrit 39.7 % (35.3-44.9); Hemoglobin 12.2 g/dL (11.5-15.4); Immature Granulocytes % 0.3 % (0-4); Lymphocytes # 1.3 K/mcL (0.6-4.6); Lymphocytes % 10.6 %; Mean Corpuscular HGB Conc 30.7 g/dL (31.6-35.5); Mean Corpuscular Volume 94.5 fL (83.0-100.0); Mean Platelet Volume 12.1 fL (9.4-12.4); Monocytes # 1.3 K/mcL (0.0-1.3); Monocytes % 10.9 %; Neutrophils # 9.6 K/mcL (1.6-8.9); Platelet Count 184 K/mcL (140-400); Segmented Neutrophils % 77.9 %; White Blood Count 12.4 K/mcL (4.3-11.1)
[2020-09-22 04:39] LABS: Heparin anti-factor XA UFH 1.31 IU/mL (0.30-0.70)
[2020-09-22 05:58] LABS: Albumin/Globulin Ratio 0.9 (1.1-2.2); Bilirubin,Total 0.2 mg/dL (0.3-1.0); Calcium 8.4 mg/dL (8.6-10.3); Globulin 3.2 g/dL (2.4-3.5); Phosphorous 4.5 mg/dL (2.7-4.5); Potassium 4.4 mEq/L (3.5-5.1); Thyroid Stimulating Hormone 1.981 mcIU/mL (0.340-5.600); Total Protein 6.2 g/dL (6.4-8.9)
[2020-09-22] MEDS: Insulin LISPRO 300 UNITS/3 ML VIAL SUBQ SCH ×4 (07:46→21:21)
[2020-09-22] MEDS: Multivit/Ca/Min/Fe/FA 1 TAB TABLET PO SCH (07:46)
[2020-09-22] MEDS: Chlorhexidine Rinse 15 ML MOUTHWASH MM SCH ×2 (07:46→21:20)
[2020-09-22] MEDS: Aspirin Enteric Coated 81 MG Tablet PO SCH (07:47)
[2020-09-22] MEDS: Cholecalciferol (D-3) 1,000 UNIT (25MCG) TABLET PO SCH (07:47)
[2020-09-22] MEDS: Artificial Tears SOLN 15 ML BOTTLE BOTH EYES SCH ×2 (07:47→21:27)
[2020-09-22] MEDS: Fluticasone Propionate Nasal 50 MCG/SPRAY BOTTLE NS SCH ×2 (07:47→21:21)
[2020-09-22] MEDS ORDERED: levoFLOXacin 750 MG TABLET PO SCH (09:00)
[2020-09-22] MEDS ORDERED: NON-FORMULARY MEDICATION 1 EACH EACH (Omeprazole [Prilosec] 40 MG Capsule.Dr) PO SCH (09:00)
[2020-09-22] MEDS: Heparin 25,000UNIT/250ML 1/2NS 25,000 UNIT/250 ML IV.SOLN IVC SCH (09:28)
[2020-09-22] MEDS: *HR* Heparin 5,000 UNIT/ML VIAL SQ SCH ×2 (14:23→21:20)
[2020-09-22] MEDS: Latanoprost 2.5 ML BOTTLE BOTH EYES SCH (21:22)
[2020-09-22] MEDS: cefTRIAXone 1,000 MG in 0.9 % Sodium Chloride Mini Bag 100 ML IVPB SCH (21:23)
[2020-09-22] MEDS: Insulin DETEMIR 100 UNIT/ML X5UNITS SUBQ SCH (21:26)
[2020-09-23 01:18] LABS: Basophils % 0.1 %; Eosinophils # 0.1 K/mcL (0.0-0.6); Eosinophils % 1.6 %; Hematocrit 36.1 % (35.3-44.9); Hemoglobin 11.1 g/dL (11.5-15.4); Immature Granulocytes % 0.3 % (0-4); Lymphocytes % 10.8 %; Mean Corpuscular HGB Conc 30.7 g/dL (31.6-35.5); Mean Corpuscular Hemoglobin 29.2 pg (28.0-33.3); Mean Platelet Volume 12.2 fL (9.4-12.4); Monocytes % 10.9 %; Neutrophils # 6.9 K/mcL (1.6-8.9); Platelet Count 187 K/mcL (140-400); Red Cell Distribution Width 12.7 % (11.5-14.5); Segmented Neutrophils % 76.3 %
[2020-09-23 01:39] LABS: Calcium 8.6 mg/dL (8.6-10.3); Potassium 4.6 mEq/L (3.5-5.1)
[2020-09-23] MEDS: Ipratropium 1 PUFF INHALER IH SCH ×4 (03:59→22:41)
[2020-09-23] MEDS: *HR* Heparin 5,000 UNIT/ML VIAL SQ SCH ×3 (06:03→21:50)
[2020-09-23 07:15] LABS: Estimated Average Glucose 200 mg/dl; Hemoglobin A1C 8.6 %
[2020-09-23] MEDS: Insulin LISPRO 300 UNITS/3 ML VIAL SUBQ SCH ×4 (07:26→19:54)
[2020-09-23] MEDS: Cholecalciferol (D-3) 1,000 UNIT (25MCG) TABLET PO SCH (07:41)
[2020-09-23] MEDS: Aspirin Enteric Coated 81 MG Tablet PO SCH (07:41)
[2020-09-23] MEDS: Multivit/Ca/Min/Fe/FA 1 TAB TABLET PO SCH (07:41)
[2020-09-23] MEDS: Chlorhexidine Rinse 15 ML MOUTHWASH MM SCH ×2 (07:41→19:53)
[2020-09-23] MEDS: Fluticasone Propionate Nasal 50 MCG/SPRAY BOTTLE NS SCH ×2 (07:42→19:53)
[2020-09-23] MEDS: Artificial Tears SOLN 15 ML BOTTLE BOTH EYES SCH ×2 (07:51→19:52)
[2020-09-23] MEDS: Insulin DETEMIR 100 UNIT/ML X5UNITS SUBQ SCH (19:54)
[2020-09-23] MEDS: Latanoprost 2.5 ML BOTTLE BOTH EYES SCH (19:55)
[2020-09-23] MEDS: cefTRIAXone 1,000 MG in 0.9 % Sodium Chloride Mini Bag 100 ML IVPB SCH (20:31)
[2020-09-24] MEDS: Ipratropium 1 PUFF INHALER IH SCH ×3 (03:49→15:28)
[2020-09-24 04:02] LABS: Basophils % 0.3 %; Eosinophils # 0.3 K/mcL (0.0-0.6); Eosinophils % 3.9 %; Hematocrit 36.9 % (35.3-44.9); Hemoglobin 11.7 g/dL (11.5-15.4); Immature Granulocytes % 0.3 % (0-4); Lymphocytes # 1.1 K/mcL (0.6-4.6); Lymphocytes % 14.9 %; Mean Corpuscular HGB Conc 31.7 g/dL (31.6-35.5); Mean Corpuscular Hemoglobin 29.9 pg (28.0-33.3); Mean Corpuscular Volume 94.4 fL (83.0-100.0); Mean Platelet Volume 12.3 fL (9.4-12.4); Monocytes # 0.8 K/mcL (0.0-1.3); Monocytes % 10.8 %; Platelet Count 208 K/mcL (140-400); Red Blood Count 3.91 M/mcL (3.82-4.97); Red Cell Distribution Width 12.3 % (11.5-14.5); Segmented Neutrophils % 69.8 %; White Blood Count 7.1 K/mcL (4.3-11.1)
[2020-09-24 04:22] LABS: Calcium 8.9 mg/dL (8.6-10.3); Potassium 3.8 mEq/L (3.5-5.1)
[2020-09-24] MEDS: *HR* Heparin 5,000 UNIT/ML VIAL SQ SCH (05:50)
[2020-09-24] MEDS: Insulin LISPRO 300 UNITS/3 ML VIAL SUBQ SCH ×2 (07:39→12:06)
[2020-09-24] MEDS: Cholecalciferol (D-3) 1,000 UNIT (25MCG) TABLET PO SCH (07:51)
[2020-09-24] MEDS: Multivit/Ca/Min/Fe/FA 1 TAB TABLET PO SCH (07:51)
[2020-09-24] MEDS: Aspirin Enteric Coated 81 MG Tablet PO SCH (07:52)
[2020-09-24] MEDS: Chlorhexidine Rinse 15 ML MOUTHWASH MM SCH (07:52)
[2020-09-24] MEDS: Artificial Tears SOLN 15 ML BOTTLE BOTH EYES SCH (07:53)
[2020-09-24] MEDS: Fluticasone Propionate Nasal 50 MCG/SPRAY BOTTLE NS SCH (07:53)
[2020-09-24] MEDS ORDERED: amLODIPine 5 MG TABLET PO SCH (09:00)
[2020-09-24 11:13] VITALS: BP 163/79
== END 2020-09-24 15:30 | disposition home or self-care (01) | DRG 872 ==
LOC: 2NENU 07:38 → EMEROOARM 07:38 → SUATTDRO 10:21 → 2NENU 11:08
PROVIDERS: ADMIT Internal Medicine; ATTEND Internal Medicine